=== PATIENT | female | born 1995 | race Caucasian/White ===

== ENCOUNTER 2020-12-01 21:54 | Emergency (ER) | payer OTHER, SELFPAY ==
--- NOTE | 2020-12-01 | ECG_ITS ---
Test Reason : ANXIETY Blood Pressure : / mmHG Vent. Rate : 061 BPM Atrial Rate : 061 BPM P-R Int : 198 ms QRS Dur : 084 ms QT Int : 376 ms P-R-T Axes : 051 075 050 degrees QTc Int : 378 ms Normal sinus rhythm Normal ECG When compared with ECG of 09-APR-2020 01:40, T wave inversion no longer evident in Anterior leads Referred By: Azeb Cordova Electronically Signed By:MELONY CEVALLOS
[2020-12-01 21:58] VITALS: BP 120/70; PULSE 105; O2SAT 100
[2020-12-01 22:10] VITALS: PULSE 70; RESP 16; TEMP 36.6; O2SAT 97; BMI 22.6
--- NOTE | 2020-12-01 22:23 | PC.NURSE ---
PT TO ED VIA AMBULANCE WITH C/O MID STERNAL CP, SHACKINESS, PT ON MONITOR.
--- NOTE | 2020-12-01 22:29 | PC.NURSE ---
PT CHG INTO GOWN. PT ON MONITOR WITH HR 78. MD AWARE OF PT.
--- NOTE | 2020-12-01 22:30 | PC.NURSE ---
EKG OBTAINED TO
--- NOTE | 2020-12-01 22:42 | ED.ANXIETY ---
HPI - Anxiety General Chief Complaint: Anxiety Stated Complaint: SEIZURE Time Seen by Provider: 12/01/20 22:34 Source: patient Mode of arrival: ambulatory Limitations: no limitations History of Present Illness HPI narrative: Patient comes to emergency room complaining of a panic attack. Patient states he has a have a therapist but has not seen anyone for several months now. States she does not like to take medications. In the last few weeks, she has had multiple panic attacks. This evening, patient was on the phone speaking with her neighbor, had a panic attack at home, her neighbor called EMS. Related Data Previous Rx's Medication Instructions Recorded hydroxyzine HCl 50 mg PO TID PRN #14 tab 12/01/20 Allergies Allergy/AdvReac Type Severity Reaction Status Date / Time penicillin G [PENICILLIN G] Allergy Mild SWELLING Unverified 05/28/20 19:11 SEAFOOD Allergy Unknown UNKNOWN Uncoded 05/28/20 19:11 Review of Systems Review of Systems: Constitutional : No Weight loss, No Fever, No Chills, No Night Sweats, No Fatigue, No Malaise ENT/Mouth : No Hearing loss, No Ear Pain, No Nasal Congestion, No Sinus Pain, No Hoarseness, No sore throat, No Rhinorrhea, No Swallowing Difficulty Eyes: No Eye Pain, No Swelling, No Redness, No Foreign Body, No Discharge, No Vision Changes Cardiovascular : Complaining of chest pain with anxiety, No SOB, No Dyspnea on Exertion, No Orthopnea, No Edema, No Palpitations Respiratory : No Cough, No Sputum, No Wheezing, No Smoke Exposure, No Dyspnea Gastrointestinal : No Nausea, No Vomiting, No Diarrhea, No Constipation, No abdominal Pain, No Hematochezia, No Melena Genitourinary : no irregular bleeding, No Dysuria, No Urinary Frequency, No Hematuria, No Urinary Incontinence, No Urgency, No Flank Pain, No Urinary Flow Changes, No Hesitancy Musculoskeletal : No joint pain, No Myalgias, No Joint Swelling Skin : No Skin Lesions, No rash Neuro : No Weakness, No Numbness, No Paresthesias, No Loss of Consciousness, No Dizziness, No Headache Psych : Complaining of anxiety, panic attack, depression, no SI or HI Heme/Lymph: No Bruising, No Bleeding,No Lymphadenopathy Endocrine : No Polyuria, No Polydipsia, No Temperature Intolerance [facility] Past Medical History Medical History (Updated 12/01/20 @ 22:45 by Azeb Cordova MD) Asthma Social History Social History Advance Directives: No Advance Directives Information Provided: Yes Physical Exam Vital Signs: Vital Signs: Last Vital Signs Temp 98 F 12/01/20 22:10 Pulse 70 12/01/20 22:10 Resp 16 12/01/20 22:10 Pulse Ox 97 12/01/20 22:10 Body Mass Index 22.6 Course Course Course Narrative: Patient feeling more relaxed, discussed the labs and EKG with the patient, no acute findings. Patient instructed to follow-up with her primary care physician, as she will likely benefit from a referral for therapy and long-term treatment for depression and anxiety MDM - Anxiety Lab Data Result diagrams: 12/01/20 22:53 12/01/20 22:53 Labs: Lab Results 12/01/20 12/01/20 12/01/20 Range/Units 22:53 22:53 22:53 WBC 10.5 (4.8-10.8) X10*3/uL RBC 4.90 (4.20-5.50) X10*6/uL Hgb 12.7 (12.0-16.0) g/dl Hct 38.8 (37-47) % MCV 79.2 L (80-98) fL MCH 25.9 L (27.0-33.0) pg MCHC 32.7 (31.0-35.0) g/dl RDW 13.1 (11.0-16.0) % Plt Count 290 (160-400) X10*3/uL MPV 10.5 (9.4-12.3) fL Immature Gran % (Auto) 0.3 (0.0-0.4) % Neut % (Auto) 57.2 (45-73) % Lymph % (Auto) 27.2 (20-40) % [place] % (Auto) 7.1 (2-11) % Eos % (Auto) 7.8 H (0-4) % Baso % (Auto) 0.4 (0-2) % Lymph # (Auto) 2.8 (1.2-4.9) X10*3/uL [place] # (Auto) 0.7 (0.1-1.2) X10*3/uL Eos # (Auto) 0.8 H (0.0-0.4) X10*3/uL Baso # (Auto) 0.0 (0.0-0.2) X10*3/uL Abs Immat Gran (auto) 0.03 (0.00-0.03) X10*3/uL Absolute Neuts (auto) 6.0 (2.0-8.3) X10*3/uL Absolute Nucleated RBC 0.000 (0.0-0.012) X10*3/uL Nucleated RBC % (auto) 0.0 (0.0-0.2) /100WBC Sodium 137 (135-145) mmol/L Potassium 3.9 (3.3-5.1) mmol/L Chloride 105 (96-108) mmol/L Carbon Dioxide 22 (22-29) mmol/L Anion Gap 14 (12-20) BUN 11 (9-16) mg/dL Creatinine 0.69 (0.5-1.4) mg/dL Estim Creat Clear Calc 106.7 Estimated GFR > 60 Random Glucose 93 (60-115) mg/dL Calcium 8.8 (8.4-10.2) mg/dL Troponin I High Sens < 3.5 (<3.5-17.0) ng/L ECG Data Attestation: I personally reviewed and interpreted this ECG as follows: (Heart rate 61, no ST segment depression or elevation, no T-wave inversion, QTC 378) Discharge Plan Discharge Clinical Impression: Acute anxiety Patient Disposition: Home, Self-Care Instructions: Panic Attack (ED) Additional Instructions: Please follow-up with your primary care physician tomorrow. If you have any worsening or new symptoms, please return to the emergency room or call 911 Prescriptions: New hydroxyzine HCl 50 mg tablet 50 mg PO TID PRN (Reason: nausea and vomiting) Qty: 14 RF: 0
[2020-12-01 22:58] LABS: MANUAL DIFF FLAG NO
[2020-12-01 22:59] LABS: Basophils Percent Auto 0.4 % (0-2); Eosinophils Absolute Auto 0.8 X10*3/uL (0.0-0.4); Eosinophils Percent Auto 7.8 % (0-4); Hematocrit 38.8 % (37-47); Hemoglobin 12.7 g/dl (12.0-16.0); Imm Gran Abs Auto 0.03 X10*3/uL (0.00-0.03); Imm Gran Pct Auto 0.3 % (0.0-0.4); Lymphocytes Absolute Auto 2.8 X10*3/uL (1.2-4.9); Lymphocytes Percent Auto 27.2 % (20-40); Mean Corpuscular HGB Conc 32.7 g/dl (31.0-35.0); Mean Corpuscular Hemoglobin 25.9 pg (27.0-33.0); Mean Corpuscular Volume 79.2 fL (80-98); Mean Platelet Volume 10.5 fL (9.4-12.3); Monocytes Absolute Auto 0.7 X10*3/uL (0.1-1.2); Monocytes Percent Auto 7.1 % (2-11); Neutrophils Percent Auto 57.2 % (45-73); Platelet Count 290 X10*3/uL (160-400); Red Cell Distribution Width 13.1 % (11.0-16.0); White Blood Count 10.5 X10*3/uL (4.8-10.8)
[2020-12-01 23:19] LABS: Anion Gap 14 (12-20); Blood Urea Nitrogen 11 mg/dL (9-16); Calcium 8.8 mg/dL (8.4-10.2); Carbon Dioxide 22 mmol/L (22-29); Chloride 105 mmol/L (96-108); Creatinine Clr Calc Pharmacy 106.7; Estimated Glomerular Filt Rate > 60; Glucose Random 93 mg/dL (60-115); Potassium 3.9 mmol/L (3.3-5.1); Sodium 137 mmol/L (135-145)
[2020-12-01 23:25] LABS: Troponin-I High Sensitivity < 3.5 ng/L (<3.5-17.0)
== END 2020-12-02 00:12 | disposition home or self-care (01) ==
PROVIDERS: Emergency Provider Emergency Medicine; PCP Pediatrics
DX: F41.1 Generalized anxiety disorder (principal); F43.0 Acute stress reaction; F41.0 Panic disorder [episodic paroxysmal anxiety]; Z79.899 Other long term (current) drug therapy
CPT/HCPCS: 36415; 80048; 84484; 85025; 93005; 99282; 99283

== ENCOUNTER 2020-12-16 07:59 | Emergency (ER) | payer OTHER, SELFPAY ==
--- NOTE | ~2020-12-16 | XR_ITS ---
EXAMINATION: XR CHEST CLINICAL INFORMATION: Left lower pleuritic pain COMPARISON: September 22, 2019 TECHNIQUE: AP portable view of the chest was obtained. FINDINGS: No significant abnormality is noted involving the heart, lungs, mediastinum, bony thorax or soft tissues. XR/XR chest 1V IMPRESSION: No acute disease.
[2020-12-16 08:10] VITALS: BP 118/75; PULSE 72; RESP 18; TEMP 36.4; O2SAT 97; BMI 18.8
[2020-12-16 09:45] LABS: MANUAL DIFF FLAG NO
[2020-12-16] MEDS: Lidocaine 4 % Patch ADH..PATCH 1 PATCH TRANSDERMA (09:46)
[2020-12-16] MEDS: Magnesium Sulfate/H2O 2 GM/50 ML PIGGYBACK IV (09:46)
[2020-12-16 09:47] LABS: Basophils Percent Auto 0.3 % (0-2); Eosinophils Absolute Auto 0.9 X10*3/uL (0.0-0.4); Eosinophils Percent Auto 10.3 % (0-4); Hemoglobin 13.8 g/dl (12.0-16.0); Imm Gran Abs Auto 0.02 X10*3/uL (0.00-0.03); Imm Gran Pct Auto 0.2 % (0.0-0.4); Lymphocytes Absolute Auto 2.2 X10*3/uL (1.2-4.9); Lymphocytes Percent Auto 24.6 % (20-40); Mean Corpuscular HGB Conc 32.9 g/dl (31.0-35.0); Mean Corpuscular Hemoglobin 26.4 pg (27.0-33.0); Mean Corpuscular Volume 80.3 fL (80-98); Mean Platelet Volume 10.5 fL (9.4-12.3); Monocytes Absolute Auto 0.7 X10*3/uL (0.1-1.2); Neutrophils Absolute Auto 4.9 X10*3/uL (2.0-8.3); Neutrophils Percent Auto 56.6 % (45-73); Platelet Count 276 X10*3/uL (160-400); Red Blood Count 5.23 X10*6/uL (4.20-5.50); White Blood Count 8.7 X10*3/uL (4.8-10.8)
[2020-12-16] MEDS: Ketorolac Tromethamine 30 MG/ML VIAL IVPUSH (09:47)
[2020-12-16] MEDS: methylPREDNISolone Sod Succ 125 MG/2 ML VIAL 80 MG IVPUSH (09:47)
--- NOTE | 2020-12-16 09:48 | ED_ITS ---
HPI - General Adult General Chief complaint: General Medical Stated complaint: flank pain Time Seen by Provider: 12/16/20 09:01 Source: patient Mode of arrival: ambulatory Limitations: no limitations History of Present Illness HPI narrative: 25 y/o female with history of asthma presents to the ED with left lower rib pain and painful inspiration since yesterday. She has had coughing fits for the last 3 days with resulting pain after a fit yesterday. Her cough is productive of clear phlegm. She has been using her inhaler for wheezing and coughing with minimal improvement. She denies fevers. No known COVID exposure. She denies trauma. No urinary symptoms or abdominal pain. She is on oral control. She denies personal or family history of blood clots. MD complaint: left sided rib pain Onset (ago): day(s) (1) Location: chest Radiation: non-radiation Severity: moderate Severity scale (1-10): 7 Quality: stabbing and aching Pain Consistency: constant Relieving factors: immobilization Exacerbating factors: movement and other (coughing, deep breathing) Associated symptoms: cough, fever/chills, nausea/vomiting and shortness of b reath Treatments prior to arrival: none Related Data Previous Rx's Medication Instructions Recorded hydroxyzine HCl 50 mg PO TID PRN #14 tab 12/01/20 albuterol sulfate 1 inh INHALATION QID PRN #6.7 g 12/16/20 azithromycin [Zithromax Z-Rod] See Rx Instructions .ROUTE 12/16/20 .COMPLEX #6 tab hydrocodone-homatropine [Hycodan] 5 ml PO Q6H PRN #60 ml 12/16/20 lidocaine [Lidoderm] 1 patch TOPICAL DAILY #15 ea 12/16/20 prednisone 40 mg PO DAILY #10 tab 12/16/20 Allergies Allergy/AdvReac Type Severity Reaction Status Date / Time penicillin G [PENICILLIN G] Allergy Mild SWELLING Unverified 05/28/20 19:11 SEAFOOD Allergy Unknown UNKNOWN Uncoded 05/28/20 19:11 Review of Systems Review of Systems: Constitutional: No Fever, No Chills ENT/Mouth: No sore throat, No Rhinorrhea, No Swallowing Difficulty Eyes: No Eye Pain, No Swelling, No Redness Cardiovascular: No Chest Pain, + SOB, No Orthopnea, No Edema Respiratory: + Cough, + Sputum, + Wheezing, + dyspnea Gastrointestinal: No Nausea, No Vomiting, No Diarrhea, No abdominal Pain Genitourinary: No Dysuria, No Urinary Frequency, No Hematuria Musculoskeletal: No joint pain, No Myalgias Skin: No Skin Lesions, No rash Neuro: No Weakness, No Numbness, No Dizziness, + Headache Heme/Lymph: No Bruising, No Lymphadenopathy PMFSH Past Medical History Attestation statement: The following information was validated with the patient. Medical History Asthma Social History Social History Advance Directives: Yes Advance Directives Information Provided: No Advance Directives on File: No Physical Exam Vital Signs: Vital Signs: Last Vital Signs Temp 97.5 F 12/16/20 08:10 Pulse 62 12/16/20 10:54 Resp 18 12/16/20 08:10 BP 118/75 12/16/20 08:10 Pulse Ox 97 12/16/20 08:10 Body Mass Index 18.8 Appearance: Alert. Oriented X3. Appers uncomfortable Eyes: Pupils equal, round and reactive to light. ENT: Pharynx normal. Neck: Normal inspection. Neck supple. CVS: Normal heart rate and rhythm. Pulses normal. Respiratory: No respiratory distress. Breath sounds with expiratory wheezing throughout, prolonged expiratory phase, significant tenderness to left lower ribs on lateral aspect Abdomen: Soft and nontender. +BS x4 Skin: Skin warm and dry. Normal skin color. Normal skin turgor. No rashes. Extremities: No lower extremity edema. Negative Ronit's sign Neuro: Oriented X 3. No motor deficit. No sensory deficit. Course Course Course Narrative: 25 y/o female with history of PE presents with wheezing and left sided rib/lung pain in the setting of URI symptoms and severe coughing fits. Ddx includes but not limited to asthma exacerbation, pneumonia, pneumothorax, PE. Doubt kidney stone. For her wheezing, will give IV solumedrol, IV mg+ and hour long albuterol neb. Will get labs and CXR as well. Will reassess after nebs. COVID sawb ordered. Reevaluation(s) Reevaluation #1: CXR negative. COVID negative. DDIMER negative. Pain significant improved after treatment. She is oxygenating well and in no respiratory distress. She is stable for discharge with treatment for acute asthma exacerbation and bronchitis. Patient agreeable with plan. Medical Decision Making Lab Data Result diagrams: 12/16/20 09:39 12/16/20 09:39 Labs: Lab Results 12/16/20 12/16/20 12/16/20 Range/Units 09:39 09:39 09:39 WBC 8.7 (4.8-10.8) X10*3/uL RBC 5.23 (4.20-5.50) X10*6/uL Hgb 13.8 (12.0-16.0) g/dl Hct 42.0 (37-47) % MCV 80.3 (80-98) fL MCH 26.4 L (27.0-33.0) pg MCHC 32.9 (31.0-35.0) g/dl RDW 13.0 (11.0-16.0) % Plt Count 276 (160-400) X10*3/uL MPV 10.5 (9.4-12.3) fL Immature Gran % (Auto) 0.2 (0.0-0.4) % Neut % (Auto) 56.6 (45-73) % Lymph % (Auto) 24.6 (20-40) % [place] % (Auto) 8.0 (2-11) % Eos % (Auto) 10.3 H (0-4) % Baso % (Auto) 0.3 (0-2) % Lymph # (Auto) 2.2 (1.2-4.9) X10*3/uL [place] # (Auto) 0.7 (0.1-1.2) X10*3/uL Eos # (Auto) 0.9 H (0.0-0.4) X10*3/uL Baso # (Auto) 0.0 (0.0-0.2) X10*3/uL Abs Immat Gran (auto) 0.02 (0.00-0.03) X10*3/uL Absolute Neuts (auto) 4.9 (2.0-8.3) X10*3/uL Absolute Nucleated RBC 0.000 (0.0-0.012) X10*3/uL Nucleated RBC % (auto) 0.0 (0.0-0.2) /100WBC D-Dimer < 200 NG/ML Hold Blue Top SEE NOTE Sodium 140 (135-145) mmol/L Potassium 4.2 (3.3-5.1) mmol/L Chloride 105 (96-108) mmol/L Carbon Dioxide 29 (22-29) mmol/L Anion Gap 10 L (12-20) BUN 13 (9-16) mg/dL Creatinine 0.71 (0.5-1.4) mg/dL Estim Creat Clear Calc 94.5 Estimated GFR > 60 Random Glucose 86 (60-115) mg/dL Calcium 9.0 (8.4-10.2) mg/dL Procalcitonin ng/mL COVID-19 ([facility]) (Negative) COVID-19 Clin Com 12/16/20 12/16/20 Range/Units 09:39 09:39 WBC (4.8-10.8) X10*3/uL RBC (4.20-5.50) X10*6/uL Hgb (12.0-16.0) g/dl Hct (37-47) % MCV (80-98) fL MCH (27.0-33.0) pg MCHC (31.0-35.0) g/dl RDW (11.0-16.0) % Plt Count (160-400) X10*3/uL MPV (9.4-12.3) fL Immature Gran % (Auto) (0.0-0.4) % Neut % (Auto) (45-73) % Lymph % (Auto) (20-40) % [place] % (Auto) (2-11) % Eos % (Auto) (0-4) % Baso % (Auto) (0-2) % Lymph # (Auto) (1.2-4.9) X10*3/uL [place] # (Auto) (0.1-1.2) X10*3/uL Eos # (Auto) (0.0-0.4) X10*3/uL Baso # (Auto) (0.0-0.2) X10*3/uL Abs Immat Gran (auto) (0.00-0.03) X10*3/uL Absolute Neuts (auto) (2.0-8.3) X10*3/uL Absolute Nucleated RBC (0.0-0.012) X10*3/uL Nucleated RBC % (auto) (0.0-0.2) /100WBC D-Dimer NG/ML Hold Blue Top Sodium (135-145) mmol/L Potassium (3.3-5.1) mmol/L Chloride (96-108) mmol/L Carbon Dioxide (22-29) mmol/L Anion Gap (12-20) BUN (9-16) mg/dL Creatinine (0.5-1.4) mg/dL Estim Creat Clear Calc Estimated GFR Random Glucose (60-115) mg/dL Calcium (8.4-10.2) mg/dL Procalcitonin < 0.02 ng/mL COVID-19 ([facility]) Negative (Negative) COVID-19 Clin Com See Note Discharge Plan Discharge Clinical Impression: Asthma exacerbation Qualifiers: Asthma severity: unspecified severity Asthma persistence: intermittent Qualified Code(s): J45.21 - Mild intermittent asthma with (acute) exacerbation Patient Disposition: Home, Self-Care Instructions: Asthma (ED), Bronchospasm (ED) Additional Instructions: Your chest x-ray was negative for pneumonia. Your COVID test was negative. Your blood workup was unremarkable. You are being treated for asthma exacerbation and bronchitis. Take all of the medications as prescribed. Follow up with your doctor within 1 week. If you have nay worsening symptoms come back to the ER for further evaluation. Prescriptions: New albuterol sulfate 90 mcg/actuation HFA aerosol inhaler 1 inh inhalation QID PRN (Reason: shortness of breath or wheezing) Qty: 6.7 RF: 0 azithromycin [Zithromax Z-Rod] 250 mg tablet See Rx Instructions .ROUTE .COMPLEX Qty: 6 RF: 0 prednisone 20 mg tablet 40 mg PO DAILY Qty: 10 RF: 0 lidocaine [Lidoderm] 5 % adhesive patch,medicated 1 patch topical DAILY Qty: 15 RF: 0 hydrocodone-homatropine [Hycodan] 5-1.5 mg/5 mL (5 mL) syrup 5 ml PO Q6H PRN (Reason: cough) Qty: 60 RF: 0 No Action hydroxyzine HCl 50 mg tablet 50 mg PO TID PRN (Reason: nausea and vomiting) Qty: 14 RF: 0 Interventions: ED Discharge Assessment Last Done: 12/16/20 12:08 Discharge Date/Time: 12/16/20 12:08
[2020-12-16 10:05] LABS: COVID-19 Test Negative (Negative)
[2020-12-16 10:11] LABS: Anion Gap 10 (12-20); Carbon Dioxide 29 mmol/L (22-29); Chloride 105 mmol/L (96-108); Creatinine Clr Calc Pharmacy 94.5; Estimated Glomerular Filt Rate > 60; Glucose Random 86 mg/dL (60-115); Potassium 4.2 mmol/L (3.3-5.1); Sodium 140 mmol/L (135-145)
[2020-12-16 10:13] LABS: Blood Urea Nitrogen 13 mg/dL (9-16)
[2020-12-16 10:20] LABS: D Dimer < 200 NG/ML
[2020-12-16 10:32] LABS: Procalcitonin < 0.02 ng/mL
[2020-12-16 10:54] VITALS: PULSE 62; O2SAT 96
[2020-12-16] MEDS: Albuterol Sulfate (0.083%) 2.5 MG/3 ML VIAL.NEB 10 MG INHALE (10:54)
== END 2020-12-16 12:08 | disposition home or self-care (01) ==
PROVIDERS: Physician Assistant; Emergency Provider Emergency Medicine Emergency Medical Services; PCP Pediatrics
DX: J45.21 Mild intermittent asthma with (acute) exacerbation (principal); R07.81 Pleurodynia; Z79.899 Other long term (current) drug therapy; Z20.822 Contact with and (suspected) exposure to COVID-19
CPT/HCPCS: 36415; 71045; 80048; 84145; 85025; 85379; 87635; 94640; 94644; 99283; J1885; J2930; J3475

== ENCOUNTER 2021-06-03 08:44 | Emergency (ER) | payer OTHER, SELFPAY | END 2021-06-03 10:18 | disposition left against medical advice (07) | LOC: HO.ED 10:10 | PROVIDERS: Emergency Provider Emergency Medicine; PCP Pediatrics | DX: F41.1 Generalized anxiety disorder (principal); F43.0 Acute stress reaction ==

== ENCOUNTER 2021-07-14 12:40 | Outpatient (REF) | payer OTHER, SELFPAY | END 2021-07-14 12:41 | disposition home or self-care (01) | LOC: HO.LAB 12:40 | PROVIDERS: Visit Provider Internal Medicine | DX: Z20.822 Contact with and (suspected) exposure to COVID-19 (principal) | CPT/HCPCS: C9803; U0003; U0005 ==

== ENCOUNTER 2021-08-19 18:55 | Emergency (ER) | payer OTHER, SELFPAY ==
--- NOTE | ~2021-08-19 | XR_ITS ---
EXAMINATION: XR CHEST CLINICAL INFORMATION: Covid, with painful cough COMPARISON: None TECHNIQUE: Frontal view of the chest was obtained. FINDINGS: There may be some ill-defined opacities present in both lower lobes, but the finding is subtle, if real. No other abnormality is noted involving the heart, lungs, mediastinum, bony thorax or soft tissues. XR/XR chest 1V IMPRESSION: Some questionable areas of opacity at the lung bases.
[2021-08-19 19:55] VITALS: BP 125/71; PULSE 83; RESP 18; TEMP 37.4; O2SAT 100
--- NOTE | 2021-08-19 21:10 | ED_ITS ---
HPI - URI/Sore Throat General Chief Complaint: Upper Respiratory Symptoms Stated Complaint: COVID (+) diff breathing Source: patient Mode of arrival: ambulatory Limitations: no limitations History of Present Illness MD elicited complaint: fever and cough Onset (ago): day(s) (1) Consistency: constant Severity: moderate Pain scale (0-10): 5 Description of mucous: clear Able to tolerate fluids by mouth: Yes Exacerbating factors: deep breaths Relieving factors: nothing Associated symptoms: chills, myalgias, nasal congestion, sore throat, cough and chest pain Treatments prior to arrival: none Related Data Previous Rx's Medication Instructions Recorded hydroxyzine HCl 50 mg tablet 50 mg PO TID PRN #14 tab 12/01/20 albuterol sulfate 90 mcg/actuation 1 inh INHALATION QID PRN #6.7 g 12/16/20 aerosol inhaler azithromycin 250 mg tablet See Rx Instructions .ROUTE 12/16/20 (Zithromax Z-Rod) .COMPLEX #6 tab hydrocodone-homatropine 5 mg-1.5 5 ml PO Q6H PRN #60 ml 12/16/20 mg/5 mL (5 mL) oral syrup (Hycodan) lidocaine 5 % topical patch 1 patch TOPICAL DAILY #15 ea 12/16/20 (Lidoderm) prednisone 20 mg tablet 40 mg PO DAILY #10 tab 12/16/20 codeine 10 mg-guaifenesin 100 mg/5 10 ml PO Q4-6H PRN #473 ml 08/19/21 mL oral liquid Allergies Allergy/AdvReac Type Severity Reaction Status Date / Time penicillin G [PENICILLIN G] Allergy Mild SWELLING Verified 08/19/21 19:54 SEAFOOD Allergy Unknown UNKNOWN Uncoded 08/19/21 19:54 Review of Systems Review of Systems: Constitutional: positive Fever, positive Chills, positive fatigue, positive Malaise ENT/Mouth: positive sore throat, positive runny nose Eyes: No Discharge Cardiovascular: Positive Chest Pain, No SOB Respiratory: Positive Cough, No Sputum, No Wheezing, No Smoke Exposure, No Dyspnea Gastrointestinal: No Nausea, No Vomiting, No Diarrhea Genitourinary: no irregular bleeding, No Dysuria, No Urinary Frequency, No Hematuria, No Urinary Incontinence, No Urgency, No Flank Pain, Musculoskeletal: positive Myalgia Skin: No rash Neuro: No Headache Yes all other systems are reviewed and are negative PMFSH Past Medical History Attestation statement: The following information was validated with the patient. Source: old records reviewed Medical History Asthma Rib fracture Social History Social History Advance Directives: No Advance Directives Information Provided: Yes Patient : No Physical Exam Vital Signs: Vital Signs: Last Vital Signs Temp 99.3 F 08/19/21 19:55 Pulse 83 08/19/21 19:55 Resp 18 08/19/21 19:55 BP 125/71 08/19/21 19:55 Pulse Ox 100 08/19/21 19:55 BMI result Body Mass Index 20.0 Appearance: Alert. Oriented X3. No acute distress. Appears tired. Eyes: Pupils equal, round and reactive to light. Sclera nonicteric. ENT: Pharynx normal. Moist mucous membranes. Neck: Normal inspection. Neck supple. CVS: Normal heart rate and rhythm. Pulses normal. Respiratory: No respiratory distress. Breath sounds normal. Abdomen: Soft and nontender. Skin: Skin warm and dry. Normal skin color. Normal skin turgor. Extremities: No lower extremity edema. Gait well balance well coordinated. Neuro: No motor deficit. No sensory deficit. Cranial nerves 2-12 intact. Course Course Course Narrative: 26-year-old female positive for COVID-19 earlier today presents with decreased appetite and chest pain. Reports that she fractured ribs in February and that she is concerned because the pain in her chest feels similar to her prior rib fracture. Will order x-ray. Discussed in detail supportive measures for COVID-19. Patient is afebrile, appears nontoxic, vital signs are within normal limits and stable. 9:11 p.m. x-rays negative for fracture but does show opacities consistent COVID- 19. Plan of care is for discharge home with supportive measures. Patient verbalized understanding of and agrees to plan. MDM - URI/Sore Throat MDM Narrative Medical decision making narrative: COVID-19, rib fracture, pneumonia Differential Diagnosis Differential diagnosis: Likely upper respiratory infection, bronchitis, influenza and pharyngitis Medical Records Attestation: I reviewed the patient's medical records. Imaging Data Chest x-ray: Attestation: I personally reviewed and interpreted this imaging study as follows: Radiologist's impression: EXAMINATION: XR CHEST CLINICAL INFORMATION: Covid, with painful cough COMPARISON: None TECHNIQUE: Frontal view of the chest was obtained. FINDINGS: There may be some ill-defined opacities present in both lower lobes, but the finding is subtle, if real. No other abnormality is noted involving the heart, lungs, mediastinum, bony thorax or soft tissues. XR/XR chest 1V IMPRESSION: Some questionable areas of opacity at the lung bases. Discharge Plan Discharge Clinical Impression: COVID-19, Rib pain Patient Disposition: Home, Self-Care Instructions: Covid-19 Viral Syndrome and Novel Coronavirus (ED) Hey/Ath, Costochondritis (ED) Additional Instructions: You were evaluated for chest pain associated with positive COVID-19 diagnosis. Please maintain social isolation guidelines per State and Federal regulations for COVID-19. Thank you for choosing this emergency department for evaluation. Please follow-up with primary care physician as needed. Return to the emergency department for any new, concerning, or worsening symptoms. Prescriptions: New codeine-guaifenesin 10-100 mg/5 mL liquid 10 ml PO Q4-6H PRN (Reason: cough) Qty: 473 RF: 0 No Action hydroxyzine HCl 50 mg tablet 50 mg PO TID PRN (Reason: nausea and vomiting) Qty: 14 RF: 0 albuterol sulfate 90 mcg/actuation HFA aerosol inhaler 1 inh inhalation QID PRN (Reason: shortness of breath or wheezing) Qty: 6.7 RF: 0 azithromycin [Zithromax Z-Rod] 250 mg tablet See Rx Instructions .ROUTE .COMPLEX Qty: 6 RF: 0 prednisone 20 mg tablet 40 mg PO DAILY Qty: 10 RF: 0 lidocaine [Lidoderm] 5 % adhesive patch,medicated 1 patch topical DAILY Qty: 15 RF: 0 hydrocodone-homatropine [Hycodan] 5-1.5 mg/5 mL (5 mL) syrup 5 ml PO Q6H PRN (Reason: cough) Qty: 60 RF: 0 Interventions: ED Discharge Assessment Last Done: 08/19/21 22:18 Discharge Date/Time: 08/19/21 22:20
[2021-08-19] MEDS: Acetaminophen 325 MG TABLET 650 MG PO (22:02)
[2021-08-19] MEDS: guaiFEN/Codeine SF 200/20/10ML 10 ML LIQUID PO (22:03)
== END 2021-08-19 22:20 | disposition home or self-care (01) ==
PROVIDERS: Emergency Provider Internal Medicine
DX: U07.1 COVID-19 (principal); R07.81 Pleurodynia; R50.9 Fever, unspecified
CPT/HCPCS: 71045; 99283; 99284

== ENCOUNTER 2021-12-27 21:22 | Emergency (ER) | payer OTHER, SELFPAY ==
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
[2021-12-27 21:59] VITALS: BP 110/75; BP 139/88; PULSE 80; PULSE 94; RESP 16; TEMP 36.9; O2SAT 98; O2SAT 99; BMI 19.2
--- NOTE | 2021-12-27 22:11 | PC.NURSE ---
Carlos Durbin (pts father, grandfather of child) [phone]. This RN filing a 51A, pt aware.
--- NOTE | 2021-12-27 22:17 | PHA.MEDREC ---
Pharmacy Consult ? Medication Reconciliation Pharmacy has completed the medication reconciliation. PATIENT REPORTS NO MEDS
[2021-12-27 22:35] LABS: MANUAL DIFF FLAG NO
[2021-12-27 22:36] LABS: Basophils Percent Auto 0.3 % (0-2); Eosinophils Absolute Auto 0.5 X10*3/uL (0.0-0.4); Eosinophils Percent Auto 5.5 % (0-4); Hematocrit 39.1 % (37.0-47.0); Hemoglobin 12.8 g/dl (12.0-16.0); Imm Gran Abs Auto 0.03 X10*3/uL (0.00-0.03); Imm Gran Pct Auto 0.3 % (0.0-0.4); Lymphocytes Absolute Auto 2.8 X10*3/uL (1.2-4.9); Lymphocytes Percent Auto 29.2 % (20-40); Mean Corpuscular HGB Conc 32.7 g/dl (31.0-35.0); Mean Corpuscular Volume 79.5 fL (80.0-98.0); Mean Platelet Volume 10.5 fL (9.4-12.3); Monocytes Absolute Auto 0.8 X10*3/uL (0.1-1.2); Monocytes Percent Auto 8.4 % (2-11); Neutrophils Absolute Auto 5.3 x10*3/uL (2.0-8.3); Neutrophils Percent Auto 56.3 % (45-73); Platelet Count 283 X10*3/uL (160-400); Red Blood Count 4.92 X10*6/uL (4.20-5.50); Red Cell Distribution Width 13.5 % (11.0-16.0); White Blood Count 9.5 X10*3/uL (4.8-10.8)
[2021-12-27 22:44] LABS: COVID-19 Test Positive (Negative); IDNOW Serial# 55D5AD1C
[2021-12-27 22:51] LABS: Ethanol 56 mg/dL
[2021-12-27 22:53] LABS: Alanine Aminotransferase 11 U/L (0-31); Alkaline Phosphatase 45 U/L (39-117); Anion Gap 14 (12-20); Aspartate Amino Transferase 14 U/L (5-31); Bilirubin Total 0.3 mg/dL (0.0-1.0); Blood Urea Nitrogen 13 mg/dL (9-16); Calcium 9.7 mg/dL (8.4-10.2); Carbon Dioxide 23 mmol/L (22-29); Chloride 106 mmol/L (96-108); Creatinine Clr Calc Pharmacy 89.2; Estimated Glomerular Filt Rate > 60; Glucose Random 90 mg/dL (60-115); Magnesium 1.8 mg/dL (1.6-2.6); Potassium 4.1 mmol/L (3.3-5.1); Sodium 139 mmol/L (135-145); Total Protein 7.1 g/dL (6.5-8.0)
--- NOTE | 2021-12-27 23:09 | PC.NURSE ---
Karen Wiggins sister of the patients grandfather ([phone]) arrives @ [facility] inquiring about picking up pts son. Celia WALKER discussing plan with Karen, plan to await DCFs response prior to allowing anyone to take the child home.
--- NOTE | 2021-12-27 23:39 | PC.NURSE ---
DCF arrives at bedside to interview mom and child.
[2021-12-28 03:13] LABS: Appearance Urine HAZY; Color Urine YELLOW; Glucose Urine UA NEG (NEG); Leukocyte Esterase Urine NEG (NEG); Nitrite Urine NEG (NEG); PH 7.5 (5.0-8.0); UACC Culture Trigger NO; Urine Blood 3+ (NEG); Urine Ketones NEG (NEG); Urine Protein NEG (NEG-TRACE)
[2021-12-28 03:21] LABS: Bacteria Urine 3+ /LPF; Mucus Urine 1+ /LPF; RBC Urine 0-2 /HPF (0); Squamous Epithelial Cell Urine 3+ /LPF; WBC Urine 0-2 /HPF (0-4)
[2021-12-28 03:30] LABS: Amphetamine Screen Urine Not Detected (Not Detect); Barbiturates, Urine Not Detected (Not Detect); Benzodiazepines Screen Urine Not Detected (Not Detect); Cannabinoid Screen Urine POSITIVE (Not Detect); Cocaine Screen Urine POSITIVE (Not Detect); Fentanyl, urine Not Detected (Not Detect); Opiate Screen Urine Not Detected (Not Detect); Phencyclidine Screen Urine Not Detected (Not Detect)
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
[2021-12-28 06:06] VITALS: BP 111/76; PULSE 73; RESP 16; TEMP 37.1; O2SAT 96
--- NOTE | 2021-12-28 06:09 | PC.NURSE ---
pt is calm and sleeping at this time. [facility] did clear pt to do home, per provider request pt is to remain here and be revaluated.
[2021-12-28 15:14] VITALS: BP 103/54; PULSE 73; RESP 16; TEMP 36.9; O2SAT 98
--- NOTE | 2021-12-28 15:41 | PC.NURSE ---
aSSUMED CARE OF PT AT 0700, PT SLEEPING ON AND OFF THROUGHOUT THE DAY. Plan for [facility] reeval. Pt calm and cooperative. No complaints, call amado within reach. Will continue to monitor.
== END 2021-12-28 16:25 | disposition home or self-care (01) ==
PROVIDERS: Physician Assistant; Emergency Provider Internal Medicine
DX: F33.1 Major depressive disorder, recurrent, moderate (principal); R45.851 Suicidal ideations; F41.1 Generalized anxiety disorder; F43.0 Acute stress reaction; U07.1 COVID-19; F10.129 Alcohol abuse with intoxication, unspecified; Y90.2 Blood alcohol level of 40-59 mg/100 ml; Z79.899 Other long term (current) drug therapy
CPT/HCPCS: 80053; 80307; 81001; 82077; 83735; 85025; 87635; 99285

== ENCOUNTER 2022-01-28 10:30 | Outpatient (RCR) | payer OTHER, SELFPAY ==
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
--- NOTE | 2022-01-07 12:51 | PM.EVENT ---
Event Note Date of Service: 01/07/22 Event Note: Patient did not log into her schedule 12:30 appointment. I left a message at her phone number, at 12:40 p.m.
--- NOTE | 2022-01-10 15:45 | PC.NURSE ---
Case opened in treatment team.
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
--- NOTE | 2022-01-11 16:11 | PC.NURSE ---
I called and spoke with pt. Reviewed treatment plan and discussed tentative end date of program.
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
--- NOTE | 2022-01-14 09:46 | PC.NURSE ---
Patient did not show up to community meeting. Called patient who answered the phone, sounded exhausted. Stated she was up all night vomiting. Stated she does not feel well. Does not think it is medication related. Thinks it was something she ate last night. Denied any safety issues. Denied thoughts to harm or kill herself. Patient plans to rest today. Encouraged patient to drink fluids and if symptoms do not subside or worsen to seek medical attention. PHP team is aware.
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
--- NOTE | 2022-01-19 08:51 | PC.NURSE ---
I called and checked in with pt as planned. She said she is safe and alone. She then said she has a therapy appt at 12:15. I asked her if she can re-schedule, as she is scheduled to be in [facility], and she said she would.
--- NOTE | 2022-01-20 16:22 | PC.NURSE ---
Pt informed me that she has to meet with DCF tomorrow morning (01/21) to sign over temporary custody of her son to her father. She said she will be in program if she is able to make it by our cutoff time of 10:45.
--- NOTE | 2022-01-21 12:24 | PC.NURSE ---
I received an email from [facility] with intake times for therapy and med management for pt. I called her and left a message asking her to pls call.
--- NOTE | 2022-01-24 10:57 | P.PNPSP_ITS ---
Subjective Subjective Date of Service: 01/24/22 Reason For Visit: anxiety,depression Guardianship: No Medical Problems Affecting Mental Status: No Interim History: Continues with dysphoric, anxious mood/affect, reports I had a bad weekend . States clonidine is helpful, asking for it TID. No SI/HI/SIB, states I feel safe . Medication Compliance: Yes Side effects from medications: No Attending Groups: Yes Review of Systems Acute medical concerns: No Medical Review of Systems: unchanged Review of Systems Review of Systems Yes all other systems are reviewed and are negative Constitutional: Reports no additional constitutional complaints Mental Status Exam Mental Status Exam Narrative: NAD. Anxious, depressed mood/affect. Patient Appearance: Well Grooomed and Appropriate Patient Orientation: Person, Place, Time and Situation Level of Consciousness: Appropriate Patient Behavior: Appropriate, Cooperative and Good Eye Contact Mood Description: Depressed and Anxious Affect Description: Depressed and Anxious Patient Cognition Impaired: No Ability to Follow Directions: Good Speech Pattern: Clear, Appropriate and Coherent Memory Description: Intact Hallucinations: None Delusions: Not Present Thought Process: Intact Thought Content: positive for Intact Depressive Symptoms: Increased Anxiety, Increased Irritability, Difficulty Sleeping, Loss of Int. in Activity, Feelings of Worthlessness, Hopelessness, Feelings of Guilt, Unhappiness, Increased Fatigue and Difficulty Concentrating Judgement: Fair Assessment & Plan Assessment & Plan (1) Major depressive disorder, recurrent severe without psychotic features: Status: Acute Code(s): F33.2 - Major depressive disorder, recurrent severe without psychotic features Assessment and Plan: Patient continues with depressed, anxious mood and affect. Reports had a bad weekend, angry outbursts. No SI/HI/SIB, no safety concerns at this time. Discussed medication increases in order to help with anxiety and depression/irritability. Discussed indications, risks, including adverse effects both serious and common, benefits, and alternatives of treatment recommendations. She is willing to try increased dose of clonidine and escitalopram at this time. (2) Generalized anxiety disorder: Status: Acute Code(s): F41.1 - Generalized anxiety disorder (3) Post-traumatic stress disorder, chronic: Status: Acute Code(s): F43.12 - Post-traumatic stress disorder, chronic Assessment and Plan: Continues with irritability, exaggerated startle response, hyperarousal/hypervigilance. Willing to trial increased frequency of clonidine at this time, as she reports it is helping somewhat with symptoms. No nightmares or flashbacks reported. Plan 1. Continue with current [facility] plan of care. 2. Increase clonidine to 0.1 mg t.i.d.. 3. Increase escitalopram to 20 mg daily. Patient educated on: diagnosis, medication risk/benefits and therapeutic strategies Informed Consent: understands Reason for contiued partial hosp. stay Substantial Risk for: harm to self, harm to others, inability to function and med/psych decompensation Certification I certify that partial hospital treatment is medically necessary due to the symptoms and problems resulting from the patient's mental illness and the failure to treat the patient at the partial hospital level of care would likely result in the patient requiring inpatient psychiatric care which could not be prevented at a less intensive level of care. I spent minutes with the patient and/or on the patient floor today, greater than?50% of which was spent counseling/coordinating care. Discharge Plan Discharge Attending provider: Parvez Blair Additional Instructions: In-person appt at [facility] for individual therapy intake at [address] [place] [id number] with Lola Schmitt, 01/28/22 at 2pm. Telehealth appt at [facility] for psychiatric evaluation with Anastasiya Durbin on 02/22/22 at 9am until 10am. Telehealth appt at [facility] for medication management with Anastasiya Durbin on 03/22/22 at 1:40 to 2pm. Medications: New hydroxyzine HCl 10 mg tablet 10 mg PO TID PRN (Reason: anxiety) 14 Days Qty: 42 0RF clonidine HCl 0.1 mg tablet 0.1 mg PO TID 7 Days Qty: 21 0RF escitalopram oxalate [Lexapro] 20 mg tablet 20 mg PO DAILY 14 Days Qty: 14 0RF No Action desogestrel-ethinyl estradiol [Apri] 0.15-0.03 mg Tablet 1 tab PO DAILY 0RF Stand Alone Forms: Patient Portal Discharge page Telehealth Telehealth Location of provider rendering services: practice address Location of patient: address on file Patient Identification confirmed using: Name, : Yes Telehealth method: video Patient verbally consented to treatment: Yes Patient verbally consented to billing insurance company: Yes Patient informed of any privacy concerns related to visit: Yes Minutes spent on Phone/Video with Pt.: 20
--- NOTE | 2022-01-28 17:07 | PC.NURSE ---
Discharge note: Patient discharged from [facility] 01/28/22. Routine discharge, patient states she is ready for discharge. Discharge to out patient providers. Patient states understanding of medications. Patient denies SI and HI without plan or intent. Safety plan was faxed to patient prior to discharge.
== END 2022-01-28 23:59 | disposition home or self-care (01) ==
LOC: HO.PHPA 10:30
PROVIDERS: Visit Provider Psychiatry & Neurology Psychiatry
DX: F33.2 Major depressive disorder, recurrent severe without psychotic features (principal); F43.12 Post-traumatic stress disorder, chronic; F41.1 Generalized anxiety disorder; Z79.899 Other long term (current) drug therapy
CPT/HCPCS: 90791; 90853

== ENCOUNTER 2022-03-01 06:58 | Emergency (ER) | payer OTHER, SELFPAY ==
[2022-03-01 07:01] VITALS: BP 111/68; PULSE 74; RESP 18; TEMP 36.8; O2SAT 98; BMI 19.7
--- NOTE | 2022-03-01 07:20 | ED.ANXIETY ---
HPI - Anxiety General Chief Complaint: Anxiety Stated Complaint: severe anxiety, SOB Time Seen by Provider: 03/01/22 07:20 Source: patient Mode of arrival: ambulatory Limitations: no limitations History of Present Illness MD complaint: anxiety and shortness of breath Onset (ago): day(s) (yesterday) Symptoms: dyspnea, palpitations and sense of impending doom Severity: similar to previous episodes Quality: intermittent Place: work History of similar episodes: Yes Provoking factors: emotional stress and work/job stress Relieving factors: nothing Exacerbating factors: nothing Associated symptoms: shortness of breath Related Data Home Medications Medication Instructions Recorded Confirmed desogestrel 0.15 mg-ethinyl 1 tab PO DAILY 01/07/22 01/07/22 estradiol 0.03 mg tablet (Apri) Previous Rx's Medication Instructions Recorded hydroxyzine HCl 10 mg tablet 10 mg PO TID PRN anxiety 14 days 01/10/22 #42 tabs clonidine HCl 0.1 mg tablet 0.1 mg PO TID 7 days #21 tabs 01/24/22 escitalopram oxalate 20 mg tablet 20 mg PO DAILY 14 days #14 tabs 01/24/22 (Lexapro) lorazepam 1 mg tablet (Ativan) 1 mg PO DAILY PRN anxiety #1 tab 03/01/22 Allergies Allergy/AdvReac Type Severity Reaction Status Date / Time penicillin G [PENICILLIN G] Allergy Mild SWELLING Verified 08/19/21 19:54 SEAFOOD Allergy Unknown UNKNOWN Uncoded 08/19/21 19:54 Review of Systems Review of Systems: Constitutional : No Fever, No Chills ENT/Mouth : No Ear Pain, No Nasal Congestion, No sore throat Eyes: No Eye Pain, No Swelling, No Redness Cardiovascular : No Chest Pain, pos SOB Respiratory : No Cough, No Sputum, No Dyspnea Gastrointestinal : No Nausea, No Vomiting, No Diarrhea, No Hematochezia, No Melena Genitourinary : No Dysuria, No Urinary Frequency, No Hematuria Musculoskeletal : No Myalgias Skin : No Skin Lesions, No rash Neuro : No Weakness, No Numbness, No Paresthesias, No Dizziness, No Headache Psych : positive Anxiety, no Depression, no SI/HI PMFSH Past Medical History Attestation statement: The following information was validated with the patient. Medical History Allergic rhinitis Asthma Eczema Exercise-induced asthma Rib fracture Surgical History History of ankle surgery History of appendectomy Social History Social History (Updated 03/01/22 @ 07:20 by Jammie Zurita DO) Household Members: Children Alcohol intake: current Patient Tobacco Use Status: Never used Tobacco Advance Directives: No Advance Directives Information Provided: No Physical Exam Vital Signs: Vital Signs: Last Vital Signs Temp 98.2 F 03/01/22 07:01 Pulse 74 03/01/22 07:01 Resp 18 03/01/22 07:01 BP 111/68 03/01/22 07:01 Pulse Ox 98 03/01/22 07:01 O2 Del Method 03/01/22 07:01 BMI result Body Mass Index 19.7 Appearance: Alert. Oriented X3. No acute distress. Anxious Eyes: Pupils equal, round and reactive to light. ENT: Pharynx normal. Neck: Normal inspection. Neck supple. CVS: Normal heart rate and rhythm. Pulses normal. Respiratory: No respiratory distress. Breath sounds normal. Abdomen: Soft and non-tender. Skin: Skin warm and dry. Normal skin color. Normal skin turgor. Extremities: No lower extremity edema. No calf ttp Neuro: Oriented X 3. No motor deficit. No sensory deficit. MDM - Anxiety MDM Narrative Medical decision making narrative: 26 yo female with hx of anxiety on medications but last two days had panic attacks at work - no SI, didn't feel she could go to work today, requesting a note. Has a therapist no other concerning features - at this time will give work note, she is going to call her therapist, one dose of ativan to help her get through today. Discharge Plan Discharge Clinical Impression: Acute anxiety Patient Disposition: Home, Self-Care Instructions: Anxiety (ED) Additional Instructions: return to ED for any worsening symptoms or concerns please touch base with your therapist Prescriptions: New lorazepam [Ativan] 1 mg tablet 1 mg PO DAILY PRN (Reason: anxiety) Qty: 1 0RF No Action desogestrel-ethinyl estradiol [Apri] 0.15-0.03 mg Tablet 1 tab PO DAILY hydroxyzine HCl 10 mg tablet 10 mg PO TID PRN (Reason: anxiety) 14 Days Qty: 42 0RF clonidine HCl 0.1 mg tablet 0.1 mg PO TID 7 Days Qty: 21 0RF escitalopram oxalate [Lexapro] 20 mg tablet 20 mg PO DAILY 14 Days Qty: 14 0RF Stand Alone Forms: Work/School Release
[2022-03-01 07:37] VITALS: BP 108/69; PULSE 67; RESP 16; TEMP 36.6; O2SAT 100
== END 2022-03-01 07:42 | disposition home or self-care (01) ==
PROVIDERS: Emergency Provider Emergency Medicine
DX: F41.1 Generalized anxiety disorder (principal); F43.0 Acute stress reaction; R06.02 Shortness of breath; Z79.899 Other long term (current) drug therapy
CPT/HCPCS: 99282; 99283

== ENCOUNTER 2022-04-20 08:49 | Emergency (ER) | payer OTHER, SELFPAY ==
--- NOTE | 2022-04-20 08:54 | ECG_ITS ---
Test Reason : chest pain Blood Pressure : / mmHG Vent. Rate : 044 BPM Atrial Rate : 044 BPM P-R Int : 198 ms QRS Dur : 076 ms QT Int : 438 ms P-R-T Axes : 062 071 060 degrees QTc Int : 374 ms Marked sinus bradycardia with sinus arrhythmia ST elevation, consider early repolarization, pericarditis, or injury Abnormal ECG When compared with ECG of 01-DEC-2020 22:42, No significant change was found Referred By: Generic ED Physician Electronically Signed By:MELONY CEVALLOS
[2022-04-20 09:09] VITALS: BP 96/55; PULSE 43; RESP 16; TEMP 36.9; O2SAT 98; BMI 18.3
[2022-04-20 10:02] LABS: MANUAL DIFF FLAG NO
[2022-04-20 10:03] LABS: Basophils Percent Auto 0.5 % (0-2); Eosinophils Absolute Auto 0.6 X10*3/uL (0.0-0.4); Hematocrit 35.4 % (37.0-47.0); Hemoglobin 11.8 g/dl (12.0-16.0); Imm Gran Abs Auto 0.02 X10*3/uL (0.00-0.03); Imm Gran Pct Auto 0.3 % (0.0-0.4); Lymphocytes Percent Auto 26.7 % (20-40); Mean Corpuscular HGB Conc 33.3 g/dl (31.0-35.0); Mean Corpuscular Hemoglobin 26.6 pg (27.0-33.0); Mean Corpuscular Volume 79.7 fL (80.0-98.0); Mean Platelet Volume 10.5 fL (9.4-12.3); Monocytes Absolute Auto 0.7 X10*3/uL (0.1-1.2); Monocytes Percent Auto 9.2 % (2-11); Neutrophils Absolute Auto 4.2 x10*3/uL (2.0-8.3); Neutrophils Percent Auto 55.3 % (45-73); Platelet Count 224 X10*3/uL (160-400); Red Blood Count 4.44 X10*6/uL (4.20-5.50); Red Cell Distribution Width 13.3 % (11.0-16.0); White Blood Count 7.5 X10*3/uL (4.8-10.8)
[2022-04-20 10:05] LABS: Appearance Urine CLEAR; Color Urine YELLOW; Glucose Urine UA NEG (NEG); Leukocyte Esterase Urine NEG (NEG); Nitrite Urine NEG (NEG); PH 6.5 (5.0-8.0); Urine Blood NEG (NEG); Urine Ketones NEG (NEG); Urine Protein NEG (NEG-TRACE)
[2022-04-20 10:06] LABS: UPreg QC Valid YES; Urine Pregnancy NEGATIVE (NEGATIVE)
[2022-04-20 10:10] LABS: INTERNATIONAL NORM RATIO 1.1 (0.9-1.1); Prothrombin Time 12.4 SEC (10.0-13.1)
[2022-04-20 10:26] LABS: Troponin-I High Sensitivity < 3.5 ng/L (<3.5-17.0)
[2022-04-20 10:27] LABS: Alanine Aminotransferase 13 U/L (0-31); Alkaline Phosphatase 51 U/L (39-117); Anion Gap 13 (12-20); Aspartate Amino Transferase 14 U/L (5-31); Bilirubin Total 0.5 mg/dL (0.0-1.0); Blood Urea Nitrogen 13 mg/dL (9-16); Calcium 8.8 mg/dL (8.4-10.2); Carbon Dioxide 28 mmol/L (22-29); Chloride 102 mmol/L (96-108); Creatinine Clr Calc Pharmacy 84.4; Estimated Glomerular Filt Rate > 60; Glucose Random 99 mg/dL (60-115); Potassium 4.6 mmol/L (3.3-5.1); Sodium 138 mmol/L (135-145); Total Protein 6.9 g/dL (6.5-8.0)
[2022-04-20 10:28] LABS: Amphetamine Screen Urine Not Detected (Not Detect); Barbiturates, Urine Not Detected (Not Detect); Benzodiazepines Screen Urine Not Detected (Not Detect); Cannabinoid Screen Urine POSITIVE (Not Detect); Cocaine Screen Urine Not Detected (Not Detect); Fentanyl, urine Not Detected (Not Detect); Opiate Screen Urine Not Detected (Not Detect); Phencyclidine Screen Urine Not Detected (Not Detect)
[2022-04-20 10:30] VITALS: BP 96/61; PULSE 49
[2022-04-20] MEDS: 0.9 % Sodium Chloride 1,000 ML 999 ML IVCONT (10:47)
--- NOTE | 2022-04-20 10:57 | ED_ITS ---
HPI - Anxiety General Chief Complaint: Anxiety Stated Complaint: chest pain Time Seen by Provider: 04/20/22 09:22 Source: patient Mode of arrival: ambulatory Limitations: no limitations History of Present Illness HPI narrative: 27-year-old female with a past medical history of anxiety, PTSD and major depressive disorder presenting to the ED with complaints of increased anxiety/depression over the past few days worse today. Reports that for 2 days straight she has been feeling very anxious and her heart has been racing and she has been having a left-sided chest pain, shortness of breath with bilateral hand/finger tingling and nausea. Reports that she is under lot of stress at home with her father of her children. She reports that there and a safe place right now and her son is with a family member and her daughter is with her father. She reports he feels safe at home she lives in her own apartment. She denies any SI/HI/auditory visualizations thoughts of self-injury. Reports that she took her clonidine 0.1 mg this morning and her Lexapro 20 mg this morning and is unsure if she should be taking this together due to she has never taken these medications together and it is making her feel ?weird?. she reports dizziness when she stands. She reports also decreased appetite and has not eaten anything in 2 days. She is still drinking fluids. She denies fevers, headaches, vomiting, ROSALES/orthopnea, abd pain, back pain, flank pain, dysuria, hematuria, abnormal vaginal discharge, rashes, recent travel/immobilization, hx of DVT/PE, recent surgery, recent travel or any other symptoms complaints or concerns at this time. MD complaint: anxiety Onset (ago): day(s) (Past few days worse today) Symptoms: dyspnea, chest pain, palpitations and extremity numbness/tingling Severity: moderate Quality: constant and worsening Place: home History of similar episodes: Yes Provoking factors: emotional stress Relieving factors: nothing Exacerbating factors: nothing Associated symptoms: chest pain, shortness of breath, palpitations and nausea/vomiting Related Data Home Medications Medication Instructions Recorded Confirmed desogestrel 0.15 mg-ethinyl 1 tab PO DAILY 01/07/22 01/07/22 estradiol 0.03 mg tablet (Apri) Previous Rx's Medication Instructions Recorded hydroxyzine HCl 10 mg tablet 10 mg PO TID PRN anxiety 14 days 01/10/22 #42 tabs clonidine HCl 0.1 mg tablet 0.1 mg PO TID 7 days #21 tabs 01/24/22 escitalopram oxalate 20 mg tablet 20 mg PO DAILY 14 days #14 tabs 01/24/22 (Lexapro) lorazepam 1 mg tablet (Ativan) 1 mg PO DAILY PRN anxiety #1 tab 03/01/22 Allergies Allergy/AdvReac Type Severity Reaction Status Date / Time penicillin G [PENICILLIN G] Allergy Mild SWELLING Verified 04/20/22 09:09 SEAFOOD Allergy Unknown UNKNOWN Uncoded 08/19/21 19:54 Review of Systems Review of Systems: Constitutional : No Fever, No Chills ENT/Mouth : No Ear Pain, No Nasal Congestion, No sore throat Eyes: No Eye Pain, No Swelling, No Redness Cardiovascular : + Chest Pain, + SOB, + Paresthesias Respiratory : No Cough, No Sputum, No Dyspnea Gastrointestinal : No ingestions, + Nausea, No Vomiting, No Diarrhea, No Hematochezia, No Melena Genitourinary : No Dysuria, No Urinary Frequency, No Hematuria Musculoskeletal : No Myalgias Skin : No Skin Lesions, No rash Neuro : No Weakness, No Numbness, No Paresthesias, No Dizziness, No Headache Psych : + Anxiety, + Depression, No SI, No thoughts of self injury, No HI, No AVH, Heme/Lymph: No Lymphadenopathy Endocrine : No Polyuria, No Polydipsia Yes all other systems are reviewed and are negative [facility] Past Medical History Attestation statement: The following information was validated with the patient. Source: old records reviewed and nursing notes reviewed Medical History Allergic rhinitis Asthma Eczema Exercise-induced asthma Rib fracture Surgical History History of ankle surgery History of appendectomy Social History Social History Household Members: Children Alcohol intake: current Patient Tobacco Use Status: Never used Tobacco Advance Directives: No Advance Directives Information Provided: No Physical Exam Vital Signs: Vital Signs: Last Vital Signs Temp 98.5 F 04/20/22 09:09 Pulse 49 L 04/20/22 10:30 Resp 16 04/20/22 09:09 BP 96/61 04/20/22 10:30 Pulse Ox 98 04/20/22 09:09 O2 Del Method 04/20/22 09:09 BMI result Body Mass Index 18.3 vital signs have been reviewed as normal and appeared to be correct. Blood pressure 96/55. Heart rate 43. Respiration rate normal. Temperature normal. Oxygen saturation normal. Appearance: Alert. Oriented X3. No acute distress. Head: Normal external exam. Normocephalic. Atraumatic. Eyes: PERRLA. EOMI. Conjunctiva and sclera normal. Eyelids normal. ENT: Pharynx normal. Uvula midline. Moist mucous membranes. No trismus noted. No drooling noted. No muffled voice noted. Neck: Normal inspection. Neck supple. FROM. No adenopathy. Thyroid Normal. No meningeal signs. No neck mass noted. CVS: Normal heart rate and rhythm. Heart sound normal. No murmurs noted. Pulses normal throughout. Respiratory: No respiratory distress. Painless inspiration. Breath sounds normal. No wheezes/rales/rhonchi noted. Chest tender to palpation to anterior chest wall. No accessory muscle usage noted or decreased air movement noted. No signs of trauma. Not consistent with flail chest. No crepitus is noted. Abdomen: Soft and nontender. Bowel sounds normal in all 4 quadrants. No distention noted. No organomegaly noted. No visible injury noted. Back: No CVA tenderness. Full range of motion noted. Skin: Skin warm and dry. Normal skin color. Normal skin turgor. No rashes/lesions/lacerations noted. Extremities: No lower extremity edema. Extremities exhibit normal range of motion. Extremities nontender. Neuro: Oriented X 3. No motor deficit. No sensory deficit. Reflexes normal. CN's II-XII intact bilaterally? Psych: Appearance grossly normal, well-kept, mental status normal, speech and movement normal, speech clear, patient appears very sad and anxious along with depressed. Is cooperative. Normal thought process. Normal thought content. Normal good insight. Judgment good. Course Course Course Narrative: 9:30am - 27-year-old female with a past medical history of anxiety, PTSD and major depressive disorder presenting to the ED with complaints of increased an xiety/depression over the past few days worse today. Reports that for 2 days straight she has been feeling very anxious and her heart has been racing and she has been having a left-sided chest pain, shortness of breath with bilateral hand/finger tingling and nausea. Reports that she is under lot of stress at home with her father of her children. She reports that there and a safe place right now and her son is with a family member and her daughter is with her father. She reports he feels safe at home she lives in her own apartment. She denies any SI/HI/auditory visualizations thoughts of self-injury. Reports that she took her clonidine 0.1 mg this morning and her Lexapro 20 mg this morning and is unsure if she should be taking this together due to she has never taken these medications together and it is making her feel ?weird?. she reports dizziness when she stands. She reports also decreased appetite and has not eaten anything in 2 days. She is still drinking fluids. Plan: labs, orthostatic vitals, UA. Provide IVFs then re-evaluate. Reevaluation(s) Reevaluation #1: - labs reviewed patient with mild anemia most likely related to her menstrual cycle at this time. - otherwise all other labs are within normal limits. - UA WNL - UHCG negative for . - patient positive for marijuana negative for all other drugs. - orthostatic vitals negative. - patient denies any SI/HI/auditory visualizations thoughts of self-injury reports that she does not feel like she needs to speak to a pediatric social worker at this time. Therefore will DC home with instructions to continue taking her previously prescribed medications as previously prescribed and to return if any new or worsening symptoms follow up with primary care provider. Patient understands agrees with this plan. Time: 11:14 [facility] - Anxiety Medical Records Attestation: I reviewed the patient's medical records. Lab Data Attestation: I reviewed the patient's lab results. Result diagrams: 04/20/22 09:52 04/20/22 09:52 Labs: Lab Results 04/20/22 04/20/22 04/20/22 Range/Units 09:44 09:47 09:47 WBC (4.8-10.8) X10*3/uL RBC (4.20-5.50) X10*6/uL Hgb (12.0-16.0) g/dl Hct (37.0-47.0) % MCV (80.0-98.0) fL MCH (27.0-33.0) pg MCHC (31.0-35.0) g/dl RDW (11.0-16.0) % Plt Count (160-400) X10*3/uL MPV (9.4-12.3) fL Immature Gran % (Auto) (0.0-0.4) % Neut % (Auto) (45-73) % Lymph % (Auto) (20-40) % [place] % (Auto) (2-11) % Eos % (Auto) (0-4) % Baso % (Auto) (0-2) % Lymph # (Auto) (1.2-4.9) X10*3/uL [place] # (Auto) (0.1-1.2) X10*3/uL Eos # (Auto) (0.0-0.4) X10*3/uL Baso # (Auto) (0.0-0.2) X10*3/uL Abs Immat Gran (auto) (0.00-0.03) X10*3/uL Absolute Neuts (auto) (2.0-8.3) x10*3/uL Absolute Nucleated RBC (0.0-0.012) X10*3/uL Nucleated RBC % (auto) (0.0-0.2) /100WBC PT (10.0-13.1) SEC INR (0.9-1.1) Sodium (135-145) mmol/L Potassium (3.3-5.1) mmol/L Chloride (96-108) mmol/L Carbon Dioxide (22-29) mmol/L Anion Gap (12-20) BUN (9-16) mg/dL Creatinine (0.5-1.4) mg/dL Estim Creat Clear Calc Estimated GFR Random Glucose (60-115) mg/dL Calcium (8.4-10.2) mg/dL Magnesium (1.6-2.6) mg/dL Total Bilirubin (0.0-1.0) mg/dL AST (5-31) U/L ALT (0-31) U/L Alkaline Phosphatase (39-117) U/L Troponin I High Sens (<3.5-17.0) ng/L Total Protein (6.5-8.0) g/dL Albumin (3.5-5.0) g/dL Urine Color YELLOW Urine Appearance CLEAR Urine pH 6.5 (5.0-8.0) Ur Specific [place] 1.010 (1.005-1.025) Urine Protein NEG (NEG-TRACE) MG/DL Urine Glucose (UA) NEG (NEG) MG/DL Urine Ketones NEG (NEG) MG/DL Urine Blood NEG (NEG) Urine Nitrite NEG (NEG) Ur Leukocyte Esterase NEG (NEG) Urine Test NEGATIVE (NEGATIVE) Urine Opiates Screen Not Detected (Not Detect) Urine Fentanyl Screen Not Detected (Not Detect) Ur Barbiturates Screen Not Detected (Not Detect) Ur Phencyclidine Scrn Not Detected (Not Detect) Ur Amphetamines Screen Not Detected (Not Detect) U Benzodiazepines Scrn Not Detected (Not Detect) Urine Cocaine Screen Not Detected (Not Detect) U Marijuana (THC) Screen POSITIVE H (Not Detect) 04/20/22 04/20/22 04/20/22 Range/Units 09:52 09:52 09:52 WBC 7.5 (4.8-10.8) X10*3/uL RBC 4.44 (4.20-5.50) X10*6/uL Hgb 11.8 L (12.0-16.0) g/dl Hct 35.4 L (37.0-47.0) % MCV 79.7 L (80.0-98.0) fL MCH 26.6 L (27.0-33.0) pg MCHC 33.3 (31.0-35.0) g/dl RDW 13.3 (11.0-16.0) % Plt Count 224 (160-400) X10*3/uL MPV 10.5 (9.4-12.3) fL Immature Gran % (Auto) 0.3 (0.0-0.4) % Neut % (Auto) 55.3 (45-73) % Lymph % (Auto) 26.7 (20-40) % [place] % (Auto) 9.2 (2-11) % Eos % (Auto) 8.0 H (0-4) % Baso % (Auto) 0.5 (0-2) % Lymph # (Auto) 2.0 (1.2-4.9) X10*3/uL [place] # (Auto) 0.7 (0.1-1.2) X10*3/uL Eos # (Auto) 0.6 H (0.0-0.4) X10*3/uL Baso # (Auto) 0.0 (0.0-0.2) X10*3/uL Abs Immat Gran (auto) 0.02 (0.00-0.03) X10*3/uL Absolute Neuts (auto) 4.2 (2.0-8.3) x10*3/uL Absolute Nucleated RBC 0.000 (0.0-0.012) X10*3/uL Nucleated RBC % (auto) 0.0 (0.0-0.2) /100WBC PT 12.4 (10.0-13.1) SEC INR 1.1 (0.9-1.1) Sodium 138 (135-145) mmol/L Potassium 4.6 (3.3-5.1) mmol/L Chloride 102 (96-108) mmol/L Carbon Dioxide 28 (22-29) mmol/L Anion Gap 13 (12-20) BUN 13 (9-16) mg/dL Creatinine 0.76 (0.5-1.4) mg/dL Estim Creat Clear Calc 84.4 Estimated GFR > 60 Random Glucose 99 (60-115) mg/dL Calcium 8.8 D (8.4-10.2) mg/dL Magnesium 2.0 (1.6-2.6) mg/dL Total Bilirubin 0.5 (0.0-1.0) mg/dL AST 14 (5-31) U/L ALT 13 (0-31) U/L Alkaline Phosphatase 51 (39-117) U/L Troponin I High Sens (<3.5-17.0) ng/L Total Protein 6.9 (6.5-8.0) g/dL Albumin 4.0 (3.5-5.0) g/dL Urine Color Urine Appearance Urine pH (5.0-8.0) Ur Specific [place] (1.005-1.025) Urine Protein (NEG-TRACE) MG/DL Urine Glucose (UA) (NEG) MG/DL Urine Ketones (NEG) MG/DL Urine Blood (NEG) Urine Nitrite (NEG) Ur Leukocyte Esterase (NEG) Urine Test (NEGATIVE) Urine Opiates Screen (Not Detect) Urine Fentanyl Screen (Not Detect) Ur Barbiturates Screen (Not Detect) Ur Phencyclidine Scrn (Not Detect) Ur Amphetamines Screen (Not Detect) U Benzodiazepines Scrn (Not Detect) Urine Cocaine Screen (Not Detect) U Marijuana (THC) Screen (Not Detect) 04/20/22 Range/Units 09:52 WBC (4.8-10.8) X10*3/uL RBC (4.20-5.50) X10*6/uL Hgb (12.0-16.0) g/dl Hct (37.0-47.0) % MCV (80.0-98.0) fL MCH (27.0-33.0) pg MCHC (31.0-35.0) g/dl RDW (11.0-16.0) % Plt Count (160-400) X10*3/uL MPV (9.4-12.3) fL Immature Gran % (Auto) (0.0-0.4) % Neut % (Auto) (45-73) % Lymph % (Auto) (20-40) % [place] % (Auto) (2-11) % Eos % (Auto) (0-4) % Baso % (Auto) (0-2) % Lymph # (Auto) (1.2-4.9) X10*3/uL [place] # (Auto) (0.1-1.2) X10*3/uL Eos # (Auto) (0.0-0.4) X10*3/uL Baso # (Auto) (0.0-0.2) X10*3/uL Abs Immat Gran (auto) (0.00-0.03) X10*3/uL Absolute Neuts (auto) (2.0-8.3) x10*3/uL Absolute Nucleated RBC (0.0-0.012) X10*3/uL Nucleated RBC % (auto) (0.0-0.2) /100WBC PT (10.0-13.1) SEC INR (0.9-1.1) Sodium (135-145) mmol/L Potassium (3.3-5.1) mmol/L Chloride (96-108) mmol/L Carbon Dioxide (22-29) mmol/L Anion Gap (12-20) BUN (9-16) mg/dL Creatinine (0.5-1.4) mg/dL Estim Creat Clear Calc Estimated GFR Random Glucose (60-115) mg/dL Calcium (8.4-10.2) mg/dL Magnesium (1.6-2.6) mg/dL Total Bilirubin (0.0-1.0) mg/dL AST (5-31) U/L ALT (0-31) U/L Alkaline Phosphatase (39-117) U/L Troponin I High Sens < 3.5 (<3.5-17.0) ng/L Total Protein (6.5-8.0) g/dL Albumin (3.5-5.0) g/dL Urine Color Urine Appearance Urine pH (5.0-8.0) Ur Specific [place] (1.005-1.025) Urine Protein (NEG-TRACE) MG/DL Urine Glucose (UA) (NEG) MG/DL Urine Ketones (NEG) MG/DL Urine Blood (NEG) Urine Nitrite (NEG) Ur Leukocyte Esterase (NEG) Urine Test (NEGATIVE) Urine Opiates Screen (Not Detect) Urine Fentanyl Screen (Not Detect) Ur Barbiturates Screen (Not Detect) Ur Phencyclidine Scrn (Not Detect) Ur Amphetamines Screen (Not Detect) U Benzodiazepines Scrn (Not Detect) Urine Cocaine Screen (Not Detect) U Marijuana (THC) Screen (Not Detect) Discharge Plan Discharge Clinical Impression: Acute anxiety Patient Disposition: Home, Self-Care Instructions: Anxiety (ED) Prescriptions: No Action desogestrel-ethinyl estradiol [Apri] 0.15-0.03 mg Tablet 1 tab PO DAILY hydroxyzine HCl 10 mg tablet 10 mg PO TID PRN (Reason: anxiety) 14 Days Qty: 42 0RF clonidine HCl 0.1 mg tablet 0.1 mg PO TID 7 Days Qty: 21 0RF escitalopram oxalate [Lexapro] 20 mg tablet 20 mg PO DAILY 14 Days Qty: 14 0RF lorazepam [Ativan] 1 mg tablet 1 mg PO DAILY PRN (Reason: anxiety) Qty: 1 0RF Referrals: Physician,Unknown J [Primary Care Provider] - 2 days (your pcp) Stand Alone Forms: Work/School Release
== END 2022-04-20 12:55 | disposition home or self-care (01) ==
PROVIDERS: Physician Assistant Medical; Emergency Provider Internal Medicine
DX: F41.9 Anxiety disorder, unspecified (principal); F43.12 Post-traumatic stress disorder, chronic; F12.90 Cannabis use, unspecified, uncomplicated; Z79.899 Other long term (current) drug therapy
CPT/HCPCS: 36415; 80053; 80307; 81003; 81025; 83735; 84484; 85025; 85610; 93005; 96360; 96361; 99284

== ENCOUNTER 2022-05-06 10:05 | Emergency (ER) | payer OTHER, SELFPAY ==
[2022-05-06 10:20] VITALS: BP 134/72; PULSE 65; O2SAT 98
[2022-05-06 11:00] VITALS: BP 100/77; PULSE 64; RESP 20; TEMP 36.9; O2SAT 98; BMI 19.8
--- NOTE | 2022-05-06 11:16 | ED_ITS ---
HPI - Anxiety General Chief Complaint: Anxiety Stated Complaint: Anxiety attack Time Seen by Provider: 05/06/22 11:07 Source: patient and EMS Mode of arrival: EMS Limitations: no limitations History of Present Illness HPI narrative: 27-year-old female with a past medical history of anxiety, PTSD and major depressive disorder presenting to the ED with complaints of increased anxiety while she was at work today after she did not take her anxiety medication she reports that she takes lorazepam and clonidine. She reports that her symptoms are completely resolved at this time. She was having palpitations/feeling like her heart was racing due to regular work stress. She denies any SI/HI/auditory visualizations thoughts of self-injury. She denies any fevers, chills, dizziness, headaches, neck pain/stiffness, trouble swallowing or breathing, nasal congestion/rhinorrhea, chest pain or shortness of breath, dyspnea on exertion, orthopnea, palpitations at this time, paresthesias, nausea/vomiting/diarrhea constipation, black or bloody stools, abdominal pain, back pain, dysuria, hematuria, abnormal vaginal discharge, recent travel or sick contacts, rashes or any other symptoms complaints or concerns at this time MD complaint: anxiety Onset (ago): hour(s) (Prior to arrival) Symptoms: palpitations Severity: mild Quality: improving (Now resolved) Place: work History of similar episodes: Yes Provoking factors: work/job stress Relieving factors: nothing Exacerbating factors: medication Associated symptoms: denies other symptoms Related Data Home Medications Medication Instructions Recorded Confirmed desogestrel 0.15 mg-ethinyl 1 tab PO DAILY 01/07/22 01/07/22 estradiol 0.03 mg tablet (Apri) Previous Rx's Medication Instructions Recorded hydroxyzine HCl 10 mg tablet 10 mg PO TID PRN anxiety 14 days 01/10/22 #42 tabs clonidine HCl 0.1 mg tablet 0.1 mg PO TID 7 days #21 tabs 01/24/22 escitalopram oxalate 20 mg tablet 20 mg PO DAILY 14 days #14 tabs 01/24/22 (Lexapro) lorazepam 1 mg tablet (Ativan) 1 mg PO DAILY PRN anxiety #1 tab 03/01/22 Allergies Allergy/AdvReac Type Severity Reaction Status Date / Time penicillin G [PENICILLIN G] Allergy Mild SWELLING Verified 04/20/22 09:09 SEAFOOD Allergy Unknown UNKNOWN Uncoded 08/19/21 19:54 Review of Systems Review of Systems: Constitutional : No Fever, No Chills ENT/Mouth : No Ear Pain, No Nasal Congestion, No sore throat Eyes: No Eye Pain, No Swelling, No Redness Cardiovascular : No Chest Pain, No SOB Respiratory : No Cough, No Sputum, No Dyspnea Gastrointestinal : No ingestions, No Nausea, No Vomiting, No Diarrhea, No Hematochezia, No Melena Genitourinary : No Dysuria, No Urinary Frequency, No Hematuria Musculoskeletal : No Myalgias Skin : No Skin Lesions, No rash Neuro : No Weakness, No Numbness, No Paresthesias, No Dizziness, No Headache Psych : + Anxiety, No Depression, No SI, No thoughts of self injury, No HI, No AVH, Heme/Lymph: No Lymphadenopathy Endocrine : No Polyuria, No Polydipsia Yes all other systems are reviewed and are negative [facility] Past Medical History Attestation statement: The following information was validated with the patient. Source: old records reviewed and nursing notes reviewed Medical History Allergic rhinitis Asthma Eczema Exercise-induced asthma Rib fracture Surgical History History of ankle surgery History of appendectomy Social History Social History Household Members: Children Alcohol intake: current Patient Tobacco Use Status: Never used Tobacco Physical Exam Vital Signs: Vital Signs: Last Vital Signs Temp 98.4 F 05/06/22 11:00 Pulse 64 05/06/22 11:00 Resp 20 05/06/22 11:00 BP 100/77 05/06/22 11:00 Pulse Ox 98 05/06/22 11:00 O2 Del Method 05/06/22 11:00 FiO2 98 05/06/22 11:00 BMI result Body Mass Index 19.8 vital signs have been reviewed as normal and appeared to be correct. Blood pressure normal. Heart rate normal. Respiration rate normal. Temperature normal. Oxygen saturation normal. Appearance: Alert. Oriented X3. No acute distress. Head: Normal external exam. Normocephalic. Atraumatic. Eyes: PERRLA. EOMI. Conjunctiva and sclera normal. Eyelids normal. ENT: Pharynx normal. Uvula midline. Moist mucous membranes. No trismus noted. No drooling noted. No muffled voice noted. Neck: Normal inspection. Neck supple. FROM. No adenopathy. Thyroid Normal. No meningeal signs. No neck mass noted. CVS: Normal heart rate and rhythm. Heart sound normal. No murmurs noted. Pulses normal throughout. Respiratory: No respiratory distress. Painless inspiration. Breath sounds normal. No wheezes/rales/rhonchi noted. Chest nontender. No accessory muscle usage noted or decreased air movement noted. Abdomen: Soft and nontender. Bowel sounds normal in all 4 quadrants. No distention noted. No organomegaly noted. No visible injury noted. Back: Full range of motion noted. Skin: Skin warm and dry. Normal skin color. Normal skin turgor. No rashes/lesions/lacerations noted. Extremities: No lower extremity edema. Extremities exhibit normal range of motion. Extremities nontender. Neuro: Oriented X 3. No motor deficit. No sensory deficit. Reflexes normal. CN's II-XII intact bilaterally? Psych: Appearance grossly normal, well-kept, mental status normal, speech and movement normal, speech clear, normal affect. Is cooperative. Normal thought process. Normal thought content. Normal good insight. Judgment good. Course Course Course Narrative: 27-year-old female with a past medical history of anxiety, PTSD and major depressive disorder presenting to the ED with complaints of increased anxiety while she was at work today after she did not take her anxiety medication she reports that she takes lorazepam and clonidine. She reports that her symptoms are completely resolved at this time. She was having palpitations/feeling like her heart was racing due to regular work stress. She denies any SI/HI/auditory visualizations thoughts of self-injury. Patient appears well. Vital signs are stable within normal limits. Denies any complaints at this time. Will DC home with instructions return if any new or worsening symptoms and to take her medications as prescribed and to follow-up with her PCP/therapist/psychiatrist. Patient understands agrees with this plan. Along to return if any new or worsening symptoms. [facility] - Anxiety Medical Records Attestation: I reviewed the patient's medical records. Discharge Plan Discharge Clinical Impression: Acute anxiety Patient Disposition: Home, Self-Care Instructions: Anxiety (ED) Prescriptions: No Action desogestrel-ethinyl estradiol [Apri] 0.15-0.03 mg Tablet 1 tab PO DAILY hydroxyzine HCl 10 mg tablet 10 mg PO TID PRN (Reason: anxiety) 14 Days Qty: 42 0RF clonidine HCl 0.1 mg tablet 0.1 mg PO TID 7 Days Qty: 21 0RF escitalopram oxalate [Lexapro] 20 mg tablet 20 mg PO DAILY 14 Days Qty: 14 0RF lorazepam [Ativan] 1 mg tablet 1 mg PO DAILY PRN (Reason: anxiety) Qty: 1 0RF Referrals: Physician,Unknown J [Physician] - 3 days (your pcp/therapist/psychiatrist) Stand Alone Forms: Work/School Release
== END 2022-05-06 11:47 | disposition home or self-care (01) ==
PROVIDERS: Emergency Provider Emergency Medicine; PCP Internal Medicine
DX: F41.1 Generalized anxiety disorder (principal); F43.0 Acute stress reaction; F43.12 Post-traumatic stress disorder, chronic; R00.2 Palpitations; Z79.899 Other long term (current) drug therapy
CPT/HCPCS: 99282

== ENCOUNTER 2022-07-07 21:44 | Emergency (ER) | payer OTHER, SELFPAY ==
--- NOTE | 2022-07-07 21:45 | ECG_ITS ---
Test Reason : chest pain Blood Pressure : / mmHG Vent. Rate : 093 BPM Atrial Rate : 093 BPM P-R Int : 182 ms QRS Dur : 082 ms QT Int : 310 ms P-R-T Axes : 078 078 069 degrees QTc Int : 385 ms Normal sinus rhythm Normal ECG When compared with ECG of 20-APR-2022 08:53, Vent. rate has increased BY 49 BPM Referred By: Generic ED Physician Electronically Signed By:BOUCHRA ROBISON MD
[2022-07-07 21:52] VITALS: BP 129/75; PULSE 95; RESP 18; TEMP 37.5; O2SAT 100; BMI 20.5
[2022-07-07 22:01] LABS: MANUAL DIFF FLAG NO
[2022-07-07 22:04] LABS: Basophils Percent Auto 0.4 % (0-2); Eosinophils Absolute Auto 0.3 X10*3/uL (0.0-0.4); Eosinophils Percent Auto 5.7 % (0-4); Hematocrit 37.2 % (37.0-47.0); Hemoglobin 12.2 g/dl (12.0-16.0); Imm Gran Abs Auto 0.02 X10*3/uL (0.00-0.03); Imm Gran Pct Auto 0.4 % (0.0-0.4); Lymphocytes Absolute Auto 0.5 X10*3/uL (1.2-4.9); Lymphocytes Percent Auto 8.8 % (20-40); Mean Corpuscular HGB Conc 32.8 g/dl (31.0-35.0); Mean Corpuscular Hemoglobin 26.2 pg (27.0-33.0); Mean Corpuscular Volume 79.8 fL (80.0-98.0); Mean Platelet Volume 10.3 fL (9.4-12.3); Monocytes Absolute Auto 0.4 X10*3/uL (0.1-1.2); Monocytes Percent Auto 7.8 % (2-11); Neutrophils Absolute Auto 4.4 x10*3/uL (2.0-8.3); Neutrophils Percent Auto 76.9 % (45-73); Platelet Count 235 X10*3/uL (160-400); Red Blood Count 4.66 X10*6/uL (4.20-5.50); Red Cell Distribution Width 13.4 % (11.0-16.0); White Blood Count 5.7 X10*3/uL (4.8-10.8)
[2022-07-07 22:16] LABS: COVID-19 Test Negative (Negative)
[2022-07-07 22:20] LABS: Alanine Aminotransferase 8 U/L (0-31); Albumin Level 4.2 g/dL (3.5-5.0); Alkaline Phosphatase 62 U/L (39-117); Anion Gap 14 (12-20); Aspartate Amino Transferase 15 U/L (5-31); Bilirubin Total 0.3 mg/dL (0.0-1.0); Blood Urea Nitrogen 12 mg/dL (9-16); Calcium 9.1 mg/dL (8.4-10.2); Carbon Dioxide 24 mmol/L (22-29); Chloride 108 mmol/L (96-108); Estimated Glomerular Filt Rate > 60; Glucose Random 109 mg/dL (60-115); Potassium 4.3 mmol/L (3.3-5.1); Sodium 142 mmol/L (135-145)
[2022-07-07 22:27] LABS: Troponin-I High Sensitivity < 3.5 ng/L (<3.5-17.0)
[2022-07-07] MEDS: Acetaminophen 325 MG TABLET 975 MG PO (22:49)
[2022-07-07 22:50] VITALS: BP 103/65; PULSE 95; RESP 18; TEMP 38.5; O2SAT 100
--- NOTE | 2022-07-07 22:50 | PC.NURSE ---
At 2243, I was pulled to the area near the fish tanks for seizure like activity. Pt was found to be responsive to both voice and pain with what appeared to be purposful jerking movement lying across the seat cushions on right lateral recumbent position. Pt had no positictal period and was able to follow commands to be assisted to standing with minimal assistance. Pt stood and pivoted to wheelchair. finisher machine contacted. Pt reports that this is typical seizure activity for her. Pt revitaled. Now found to have fever. Medicated Per protocol for fever. Tolerating PO well.
[2022-07-08] VITALS: BP 120/61; PULSE 84; TEMP 36.8; O2SAT 98
--- NOTE | 2022-07-08 00:16 | ED.CHESTPAIN ---
HPI - Chest Pain General Chief Complaint: Chest Pain Stated Complaint: Chest pain, Body aches Time Seen by Provider: 07/08/22 00:16 Source: patient Mode of arrival: ambulatory Limitations: no limitations History of Present Illness HPI narrative: Patient 27 years old with history of anxiety ran out of her medication complaining of increased anxiety all day today with multiple complaints Related Data Home Medications Medication Instructions Recorded Confirmed desogestrel 0.15 mg-ethinyl 1 tab PO DAILY 01/07/22 01/07/22 estradiol 0.03 mg tablet (Apri) Previous Rx's Medication Instructions Recorded hydroxyzine HCl 10 mg tablet 10 mg PO TID PRN anxiety 14 days 01/10/22 #42 tabs clonidine HCl 0.1 mg tablet 0.1 mg PO TID 7 days #21 tabs 01/24/22 escitalopram oxalate 20 mg tablet 20 mg PO DAILY 14 days #14 tabs 01/24/22 (Lexapro) lorazepam 1 mg tablet (Ativan) 1 mg PO DAILY PRN anxiety #1 tab 03/01/22 Allergies Allergy/AdvReac Type Severity Reaction Status Date / Time penicillin G [PENICILLIN G] Allergy Mild SWELLING Verified 04/20/22 09:09 SEAFOOD Allergy Unknown UNKNOWN Uncoded 08/19/21 19:54 Review of Systems Review of Systems: Yes all other systems are reviewed and are negative [facility] Past Medical History Medical History Allergic rhinitis Asthma Eczema Exercise-induced asthma Rib fracture Surgical History History of ankle surgery History of appendectomy Social History Social History Household Members: Children Alcohol intake: current Patient Tobacco Use Status: Never used Tobacco Advance Directives: No Advance Directives Information Provided: No Physical Exam Vital Signs: Vital Signs: Last Vital Signs Temp 98.1 F 07/08/22 01:29 Pulse 83 07/08/22 01:29 Resp 18 07/08/22 00:41 BP 118/62 07/08/22 01:29 Pulse Ox 98 07/08/22 01:29 O2 Del Method 07/08/22 01:29 BMI result Body Mass Index 20.5 Appearance: Alert. Oriented X3. No acute distress. Anxious Eyes: PERRLA, No Nystagmus ENT: Pharynx normal. Oral Mucosa moist Neck: Normal inspection. Neck supple. CVS: Normal heart rate and rhythm. Pulses normal. Respiratory: No respiratory distress. Equal air entry bilateral, no wheezing/rales/rhonchi Abdomen: Soft and nontender. Bowel sounds are present, no mass palpable, no CVA tenderness Skin: Skin warm and dry. Normal skin color. Normal skin turgor. Extremities: No lower extremity edema. No calf tenderness Neuro: Oriented X 3. No motor deficit. MDM - Chest Pain MDM Narrative Medical decision making narrative: Patient with history of anxiety ran out of her bed so will give her a dose of Ativan advised to follow with her therapist and psychiatrist Lab Data Attestation: I reviewed the patient's lab results. Result diagrams: 07/07/22 21:56 07/07/22 21:56 Labs: Lab Results 07/07/22 07/07/22 07/07/22 Range/Units 21:56 21:56 21:56 WBC 5.7 (4.8-10.8) X10*3/uL RBC 4.66 (4.20-5.50) X10*6/uL Hgb 12.2 (12.0-16.0) g/dl Hct 37.2 (37.0-47.0) % MCV 79.8 L (80.0-98.0) fL MCH 26.2 L (27.0-33.0) pg MCHC 32.8 (31.0-35.0) g/dl RDW 13.4 (11.0-16.0) % Plt Count 235 (160-400) X10*3/uL MPV 10.3 (9.4-12.3) fL Immature Gran % (Auto) 0.4 (0.0-0.4) % Neut % (Auto) 76.9 H (45-73) % Lymph % (Auto) 8.8 L (20-40) % [place] % (Auto) 7.8 (2-11) % Eos % (Auto) 5.7 H (0-4) % Baso % (Auto) 0.4 (0-2) % Lymph # (Auto) 0.5 L (1.2-4.9) X10*3/uL [place] # (Auto) 0.4 (0.1-1.2) X10*3/uL Eos # (Auto) 0.3 (0.0-0.4) X10*3/uL Baso # (Auto) 0.0 (0.0-0.2) X10*3/uL Abs Immat Gran (auto) 0.02 (0.00-0.03) X10*3/uL Absolute Neuts (auto) 4.4 (2.0-8.3) x10*3/uL Absolute Nucleated RBC 0.000 (0.0-0.012) X10*3/uL Nucleated RBC % (auto) 0.0 (0.0-0.2) /100WBC Sodium 142 (135-145) mmol/L Potassium 4.3 (3.3-5.1) mmol/L Chloride 108 (96-108) mmol/L Carbon Dioxide 24 (22-29) mmol/L Anion Gap 14 (12-20) BUN 12 (9-16) mg/dL Creatinine 0.79 (0.5-1.4) mg/dL Estim Creat Clear Calc 91.0 Estimated GFR > 60 Random Glucose 109 (60-115) mg/dL Calcium 9.1 (8.4-10.2) mg/dL Total Bilirubin 0.3 (0.0-1.0) mg/dL AST 15 (5-31) U/L ALT 8 (0-31) U/L Alkaline Phosphatase 62 D (39-117) U/L Troponin I High Sens < 3.5 (<3.5-17.0) ng/L Total Protein 7.0 (6.5-8.0) g/dL Albumin 4.2 (3.5-5.0) g/dL COVID-19 ([facility]) (Negative) COVID-19 Clin Com 07/07/22 Range/Units 21:56 WBC (4.8-10.8) X10*3/uL RBC (4.20-5.50) X10*6/uL Hgb (12.0-16.0) g/dl Hct (37.0-47.0) % MCV (80.0-98.0) fL MCH (27.0-33.0) pg MCHC (31.0-35.0) g/dl RDW (11.0-16.0) % Plt Count (160-400) X10*3/uL MPV (9.4-12.3) fL Immature Gran % (Auto) (0.0-0.4) % Neut % (Auto) (45-73) % Lymph % (Auto) (20-40) % [place] % (Auto) (2-11) % Eos % (Auto) (0-4) % Baso % (Auto) (0-2) % Lymph # (Auto) (1.2-4.9) X10*3/uL [place] # (Auto) (0.1-1.2) X10*3/uL Eos # (Auto) (0.0-0.4) X10*3/uL Baso # (Auto) (0.0-0.2) X10*3/uL Abs Immat Gran (auto) (0.00-0.03) X10*3/uL Absolute Neuts (auto) (2.0-8.3) x10*3/uL Absolute Nucleated RBC (0.0-0.012) X10*3/uL Nucleated RBC % (auto) (0.0-0.2) /100WBC Sodium (135-145) mmol/L Potassium (3.3-5.1) mmol/L Chloride (96-108) mmol/L Carbon Dioxide (22-29) mmol/L Anion Gap (12-20) BUN (9-16) mg/dL Creatinine (0.5-1.4) mg/dL Estim Creat Clear Calc Estimated GFR Random Glucose (60-115) mg/dL Calcium (8.4-10.2) mg/dL Total Bilirubin (0.0-1.0) mg/dL AST (5-31) U/L ALT (0-31) U/L Alkaline Phosphatase (39-117) U/L Troponin I High Sens (<3.5-17.0) ng/L Total Protein (6.5-8.0) g/dL Albumin (3.5-5.0) g/dL COVID-19 ([facility]) Negative (Negative) COVID-19 Clin Com See Note ECG Data ECG #1: Attestation: I personally reviewed and interpreted this ECG as follows: Interpretation: Normal sinus rhythm heart rate 93 beats per minute normal interval normal axis no acute ischemia Discharge Plan Discharge Clinical Impression: Generalized anxiety disorder Patient Disposition: Home, Self-Care Instructions: Generalized Anxiety Disorder (ED) Additional Instructions: Follow with your therapist tomorrow about further management Prescriptions: No Action desogestrel-ethinyl estradiol [Apri] 0.15-0.03 mg Tablet 1 tab PO DAILY hydroxyzine HCl 10 mg tablet 10 mg PO TID PRN (Reason: anxiety) 14 Days Qty: 42 0RF clonidine HCl 0.1 mg tablet 0.1 mg PO TID 7 Days Qty: 21 0RF escitalopram oxalate [Lexapro] 20 mg tablet 20 mg PO DAILY 14 Days Qty: 14 0RF lorazepam [Ativan] 1 mg tablet 1 mg PO DAILY PRN (Reason: anxiety) Qty: 1 0RF Interventions: ED Discharge Assessment Last Done: 07/08/22 01:30 Discharge Date/Time: 07/08/22 01:30
[2022-07-08] MEDS: LORazepam 1 MG TABLET PO (00:39)
[2022-07-08 00:41] VITALS: BP 116/63; PULSE 89; RESP 18; O2SAT 97
[2022-07-08 01:29] VITALS: BP 118/62; PULSE 83; TEMP 36.7; O2SAT 98
== END 2022-07-08 01:30 | disposition home or self-care (01) ==
PROVIDERS: Emergency Provider Internal Medicine
DX: R07.89 Other chest pain (principal); M79.10 Myalgia, unspecified site; F41.1 Generalized anxiety disorder; F43.0 Acute stress reaction; Z20.822 Contact with and (suspected) exposure to COVID-19; Z79.899 Other long term (current) drug therapy
CPT/HCPCS: 80053; 84484; 85025; 87635; 93005; 99283; 99284

== ENCOUNTER 2022-09-15 09:53 | Emergency (ER) | payer OTHER, SELFPAY ==
[2022-09-15 10:00] VITALS: BP 117/65; BP 146/82; PULSE 66; PULSE 70; RESP 18; TEMP 36; O2SAT 100; BMI 19.9
--- NOTE | 2022-09-15 10:52 | ED_ITS ---
HPI - Anxiety General Chief Complaint: Anxiety Stated Complaint: SEIZURE-LIKE ACTIVITY,-POSTICTAL Time Seen by Provider: 09/15/22 10:47 Source: patient Mode of arrival: ambulatory Limitations: no limitations History of Present Illness HPI narrative: 27 year old female presents to the ED after having a episode of anxiety and shaking at work. She admits to increased anxiety. She denies any injuries or pain. She did not lose control of bowel or bladder she did not bite her tongue and remembers the whole episode. She is on antianxiety medications but feels safe going home. MD complaint: anxiety Related Data Home Medications Medication Instructions Recorded Confirmed desogestrel 0.15 mg-ethinyl 1 tab PO DAILY 01/07/22 01/07/22 estradiol 0.03 mg tablet (Apri) Previous Rx's Medication Instructions Recorded hydroxyzine HCl 10 mg tablet 10 mg PO TID PRN anxiety 14 days 01/10/22 #42 tabs clonidine HCl 0.1 mg tablet 0.1 mg PO TID 7 days #21 tabs 01/24/22 escitalopram oxalate 20 mg tablet 20 mg PO DAILY 14 days #14 tabs 01/24/22 (Lexapro) lorazepam 1 mg tablet (Ativan) 1 mg PO DAILY PRN anxiety #1 tab 03/01/22 Allergies Allergy/AdvReac Type Severity Reaction Status Date / Time penicillin G [PENICILLIN G] Allergy Mild SWELLING Verified 04/20/22 09:09 SEAFOOD Allergy Unknown UNKNOWN Uncoded 08/19/21 19:54 Review of Systems Review of Systems: Review of systems: General: Patient denies any fever chills recent illness or falls Musculoskeletal: Denies back pain or body aches or other injuries HEENT: denies headache, runny nose, ear pain Respiratory: denies shortness of breath, cough Cardiovascular: no chest pain or palpitations : denies dysuria, frequency Abdomen: no nausea vomiting denies abdominal pain Extremities: no swelling, no pain Skin: no diaphoresis Yes all other systems are reviewed and are negative [facility] Past Medical History Medical History Allergic rhinitis Asthma Eczema Exercise-induced asthma Rib fracture Surgical History History of ankle surgery History of appendectomy Social History Social History Household Members: Children Alcohol intake: current Patient Tobacco Use Status: Never used Tobacco Advance Directives: No Advance Directives Information Provided: No Physical Exam Vital Signs: Vital Signs: Last Vital Signs Temp 96.8 F 09/15/22 10:00 Pulse 66 09/15/22 10:00 Resp 18 09/15/22 10:00 BP 117/65 09/15/22 10:00 Pulse Ox 100 09/15/22 10:00 O2 Del Method 09/15/22 10:00 BMI result Body Mass Index 19.9 General: Well-appearing well-nourished in no signs of distress HEENT: Normocephalic atraumatic Neck: No signs of JVD, no masses no tenderness or lymphadenopathy Cardiovascular: Regular rate and rhythm Respiratory: Clear to auscultation bilaterally Abdomen: Soft nontender no masses Extremities: Normal pedal pulses no signs of edema Skin: Dry warm no rashes Back: No tenderness full ROM Medical Decision Making Medical Decision Making MDM Narrative: I feel like this was a panic attack and not a seizure with her atypical presentation and no signs that she lost consciousness. i will dischage home. Differential Diagnosis Differential Diagnoses: The differential diagnosis associated with the presentation includes Anxiety, PNES, seizures Discharge Plan Discharge Clinical Impression: Panic disorder, Acute anxiety Patient Disposition: Home, Self-Care Instructions: Anxiety (ED) Additional Instructions: Please call to follow up with your doctor. If you have any other concerns please return to the ED Prescriptions: No Action desogestrel-ethinyl estradiol [Apri] 0.15-0.03 mg Tablet 1 tab PO DAILY hydroxyzine HCl 10 mg tablet 10 mg PO TID PRN (Reason: anxiety) 14 Days Qty: 42 0RF clonidine HCl 0.1 mg tablet 0.1 mg PO TID 7 Days Qty: 21 0RF escitalopram oxalate [Lexapro] 20 mg tablet 20 mg PO DAILY 14 Days Qty: 14 0RF lorazepam [Ativan] 1 mg tablet 1 mg PO DAILY PRN (Reason: anxiety) Qty: 1 0RF Stand Alone Forms: Work/School Release
== END 2022-09-15 11:04 | disposition home or self-care (01) ==
PROVIDERS: Emergency Provider Student in an Organized Health Care Education/Training Program
DX: R56.9 Unspecified convulsions (principal); F41.0 Panic disorder [episodic paroxysmal anxiety]; F41.1 Generalized anxiety disorder; F43.0 Acute stress reaction; Z79.899 Other long term (current) drug therapy
CPT/HCPCS: 99282

== ENCOUNTER 2022-10-19 19:22 | Emergency (ER) | payer OTHER, SELFPAY ==
--- NOTE | 2022-10-19 | ECG_ITS ---
Test Reason : chest pain Blood Pressure : / mmHG Vent. Rate : 066 BPM Atrial Rate : 066 BPM P-R Int : 212 ms QRS Dur : 088 ms QT Int : 358 ms P-R-T Axes : 059 084 054 degrees QTc Int : 375 ms Sinus rhythm with 1st degree A-V block Otherwise normal ECG When compared with ECG of 07-JUL-2022 21:50, [place] interval has increased Referred By: Simone Baker Electronically Signed By:ELIZABETH HARRELL MD
--- NOTE | ~2022-10-19 | US_ITS ---
EXAMINATION: US OBSTETRICAL ULTRASOUND CLINICAL INFORMATION: Pelvic pain. Evaluate for ectopic COMPARISON: None. LMP: Unknown. Gestational age by maternal dates is unknown. Estimated date of delivery by maternal dates is unknown. TECHNIQUE: Transabdominal and transvaginal imaging utilizing grayscale and color Doppler technique with spectral analysis FINDINGS: There is an intrauterine gestational sac with a mean sac diameter 2.8 mm, corresponding to gestational age of 4 weeks, 5 days. No yolk sac or pole identified. No cardiac activity. There is no subchorionic hemorrhage or hematoma. MATERNAL ADNEXA: The right maternal ovary measures 1.7 x 2.1 x 2.6 cm. The left maternal ovary measures 3.1 x 1.8 x 2.0 cm. And 1.4 cm corpus luteum. There is no significant maternal adnexal mass. No maternal pelvic ascites. US/US OB transvaginal IMPRESSION: 1. Presumptive intrauterine gestational sac with ultrasound gestational age of 4 weeks, 5 days +/- 4 days. It is not abnormal to not see a pole or yolk sac at this stage of the . 2. No evidence of ectopic . No maternal adnexal mass or pelvic ascites.
--- NOTE | ~2022-10-19 | US_ITS ---
EXAMINATION: US OBSTETRICAL ULTRASOUND CLINICAL INFORMATION: Pelvic pain. Evaluate for ectopic COMPARISON: None. LMP: Unknown. Gestational age by maternal dates is unknown. Estimated date of delivery by maternal dates is unknown. TECHNIQUE: Transabdominal and transvaginal imaging utilizing grayscale and color Doppler technique with spectral analysis FINDINGS: There is an intrauterine gestational sac with a mean sac diameter 2.8 mm, corresponding to gestational age of 4 weeks, 5 days. No yolk sac or pole identified. No cardiac activity. There is no subchorionic hemorrhage or hematoma. MATERNAL ADNEXA: The right maternal ovary measures 1.7 x 2.1 x 2.6 cm. The left maternal ovary measures 3.1 x 1.8 x 2.0 cm. And 1.4 cm corpus luteum. There is no significant maternal adnexal mass. No maternal pelvic ascites. US/US OB <= 14 weeks fetus IMPRESSION: 1. Presumptive intrauterine gestational sac with ultrasound gestational age of 4 weeks, 5 days +/- 4 days. It is not abnormal to not see a pole or yolk sac at this stage of the . 2. No evidence of ectopic . No maternal adnexal mass or pelvic ascites.
[2022-10-19 19:36] VITALS: BP 127/78; PULSE 83; RESP 20; TEMP 36.6; O2SAT 96; BMI 19.2
--- NOTE | 2022-10-19 19:41 | ED.ABDPAIN ---
HPI - Abdominal Pain General Chief Complaint: Abdominal Pain <Cici Villa NP - Last Filed: 10/19/22 19:45> Stated Complaint: lower abd pain,anxiety <Cici Villa NP - Last Filed: 10/19/22 19:45> Time Seen by Provider: 10/19/22 22:01 <Cici Villa NP - Last Filed: 10/19/22 19:45> Source: patient <Simone Baker MD - Last Filed: 10/20/22 00:14> Mode of arrival: ambulatory <Simone Baker MD - Last Filed: 10/20/22 00:14> Limitations: no limitations <Simone Baker MD - Last Filed: 10/20/22 00:14> History of Present Illness HPI narrative: 27-year-old female G3, P2 (positive home test today) who presents emergency department for evaluation of abdominal pain, vaginal spotting, urgency with no dysuria. The patient states that her last known menstrual period was 09/08/2022. She states that she missed her menstrual period on 10/09/2022. Patient states that over the last week and a half she has been having lower abdominal pain with the pain being greater on the left than on the right. She states the pain is stabbing pain is been getting worse. She states that today the pain was severe. She also had urgency with no dysuria. She denied nausea or vomiting. She states that she has been spotting but did not have a menstrual period. She states that she took a home test which was positive. She is also complaining of chest pain. She describes this as a tightness with shortness of breath. She states that she has had similar symptoms in the past when she has had anxiety/panic attack and she does feel extremely anxious at this time. <Simone Baker MD - Last Filed: 10/20/22 00:14> Related Data Home Medications: Home Medications Medication Instructions Recorded Confirmed desogestrel 0.15 mg-ethinyl 1 tab PO DAILY 01/07/22 01/07/22 estradiol 0.03 mg tablet (Apri) Previous Rx's Medication Instructions Recorded hydroxyzine HCl 10 mg tablet 10 mg PO TID PRN anxiety 14 days 01/10/22 #42 tabs clonidine HCl 0.1 mg tablet 0.1 mg PO TID 7 days #21 tabs 01/24/22 escitalopram oxalate 20 mg tablet 20 mg PO DAILY 14 days #14 tabs 01/24/22 (Lexapro) lorazepam 1 mg tablet (Ativan) 1 mg PO DAILY PRN anxiety #1 tab 03/01/22 morphine 15 mg immediate release 15 mg PO Q4-6H PRN pain #10 tabs 10/20/22 tablet <Cici Villa NP - Last Filed: 10/19/22 19:45> Allergies/Adverse Reactions: Allergies Allergy/AdvReac Type Severity Reaction Status Date / Time penicillin G [PENICILLIN G] Allergy Mild SWELLING Verified 04/20/22 09:09 SEAFOOD Allergy Unknown UNKNOWN Uncoded 08/19/21 19:54 <Cici Villa NP - Last Filed: 10/19/22 19:45> Review of Systems Review of Systems Yes all other systems are reviewed and are negative <Simone Baker MD - Last Filed: 10/20/22 00:14> [facility] Past Medical History [facility] Narrative: Past medical history: Depression, anxiety, PTSD. Past surgical history: Appendectomy. Social history: She denies tobacco use. She occasionally drinks alcohol. She states she smokes marijuana frequently. <Simone Baker MD - Last Filed: 10/20/22 00:14> Medical History: Medical History Allergic rhinitis Asthma Eczema Exercise-induced asthma Rib fracture <Cici Villa NP - Last Filed: 10/19/22 19:45> Surgical History: Surgical History History of ankle surgery History of appendectomy <Cici Villa NP - Last Filed: 10/19/22 19:45> Social History Social History: Social History Household Members: Children Alcohol intake: current Patient Tobacco Use Status: Never used Tobacco Advance Directives: No <Cici Villa NP - Last Filed: 10/19/22 19:45> Physical Exam ED Vital Signs: Vital Signs - 24 hr 10/19/22 19:36 10/19/22 22:12 Temperature 98 F Pulse Rate 83 84 Respiratory Rate 20 20 Blood Pressure 127/78 118/76 Pulse Oximetry 96 98 Oxygen Delivery Method Room Air Room Air BMI result Body Mass Index 19.2 <Cici Villa NP - Last Filed: 10/19/22 19:45> Vital Signs - 24 hr 10/19/22 19:36 10/19/22 22:12 Temperature 98 F Pulse Rate 83 84 Respiratory Rate 20 20 Blood Pressure 127/78 118/76 Pulse Oximetry 96 98 Oxygen Delivery Method Room Air Room Air BMI result Body Mass Index 19.2 <Simone Baker MD - Last Filed: 10/20/22 00:14> Const Other: Awake, alert, thin female patient, pleasant, cooperative she appears to be in distress secondary to her abdominal discomfort <Simone Baker MD - Last Filed: 10/20/22 00:14> HENMT Head: Yes normal to inspection, Yes normocephalic and Yes atraumatic <Simone Baker MD - Last Filed: 10/20/22 00:14> Ears: external ears normal <Simone Baker MD - Last Filed: 10/20/22 00:14> General nose exam: Normal external nose present <Simone Baker MD - Last Filed: 10/20/22 00:14> Face and sinus: Yes normal facial exam <Simone Baker MD - Last Filed: 10/20/22 00:14> Mouth: Normal oral and palatal mucosa present <Simone Baker MD - Last Filed: 10/20/22 00:14> Throat: Yes posterior oropharynx normal <Simone Baker MD - Last Filed: 10/20/22 00:14> Eyes General: appearance normal, both eyes and all related structures <Simone Baker MD - Last Filed: 10/20/22 00:14> Pupils: Equal, round and reactive pupils present <Simone Baker MD - Last Filed: 10/20/22 00:14> Neck Neck: Yes normal visual inspection, Yes no lymphadenopathy, Yes trachea midline and Yes supple <MD Joe Best Last Filed: 10/20/22 00:14> Chest Chest palpation & inspection: normal inspection of the chest and normal palpation of entire chest wall <MD Joe Best Last Filed: 10/20/22 00:14> Resp Effort & Inspection: normal respiratory effort and able to speak in complete sentences <MD Joe Best Last Filed: 10/20/22 00:14> Auscultation: clear to auscultation bilaterally <MD Joe Best Last Filed: 10/20/22 00:14> Cardio Rate: regular rate <MD Joe Best Last Filed: 10/20/22 00:14> Rhythm: regular rhythm <MD Joe Best Last Filed: 10/20/22 00:14> Heart sounds: S1 normal heart sound present, S2 normal heart sound present and no murmurs <MD Joe Best Last Filed: 10/20/22 00:14> GI Inspection: Yes normal to inspection <MD Joe Best Last Filed: 10/20/22 00:14> Palpation (GI): Soft to palpation, Tenderness to palpation present (GI) (Moderate to severe tenderness left lower pelvic area, moderate suprapubic ) and no guarding <MD Joe Best Last Filed: 10/20/22 00:14> Auscultation: normal bowel sounds <MD Joe Best Last Filed: 10/20/22 00:14> General: Yes no CVA tenderness <MD Joe Best Last Filed: 10/20/22 00:14> Back/Spine/Pelvis Back: no CVA tenderness <MD Joe Best Last Filed: 10/20/22 00:14> Skin General skin exam: no rashes or lesions noted <MD Joe Best Last Filed: 10/20/22 00:14> Neuro Cranial nerves: Yes CN's II-XII intact bilaterally and Yes Equal, round and reactive pupils present <Simone Baker MD - Last Filed: 10/20/22 00:14> Cognition (Neuro): normal cognition <Simone Baker MD - Last Filed: 10/20/22 00:14> Motor exam (neuro): 5/5 motor strength present throughout <Simone Baker MD - Last Filed: 10/20/22 00:14> Extrem General: Yes normal to inspection <Simone Baker MD - Last Filed: 10/20/22 00:14> Psych Appearance: grossly normal <Simone Baker MD - Last Filed: 10/20/22 00:14> Speech and movement: Normal speech and movement present <Simone Baker MD - Last Filed: 10/20/22 00:14> Affect: Anxious affect present <Simone Baker MD - Last Filed: 10/20/22 00:14> Attitude: cooperative <Simone Baker MD - Last Filed: 10/20/22 00:14> Course Course Course Narrative: This is rapid medical exam. Deferred additional HPI, ROS, PE to primary provider. 27 yo female with history of anxiety, depression, PTSD here with complaints of lower abdominal pain. + on home test today. LMP 09/08 (irregular at that time). +spotting now. +anxiety. Will need labs, UA. VSS <Cici Villa NP - Last Filed: 10/19/22 19:45> Medical Decision Making Medical Decision Making MDM Narrative: 27-year-old female, , LMP 09/08/2022, 5 weeks 6 days who presents emergency department for evaluation of 1/2 weeks of lower abdominal pain worse over the past several days, patient had increased tenderness with palpation of her left pelvic area compared to the right. She also has some suprapubic tenderness. Provider triage ordered a laboratory evaluation. 2224: CBC was normal. CMP was normal. Quantitative beta-hCG was elevated 1739. Blood type is O-positive. Patient's ultrasound did reveal a gestational sac 4 weeks 5 days which is smaller than the patient's gestational age of 5 weeks and 6 days based on her LMP however, the patient was not certain about her last menstrual period date.. There is no evidence friend topic at this time. The patient will be discharged home with printed and verbal instructions. Patient states that she would like to terminate the and I [facility]. <Simone Baker MD - Last Filed: 10/20/22 00:14> Differential Diagnosis Differential diagnosis includes was not limited to ovarian cyst, ectopic , intrauterine , miscarriage <Simone Baker MD - Last Filed: 10/20/22 00:14> Lab Data MDM Lab Attestation statement: I reviewed the patient's lab results. <Simone Baker MD - Last Filed: 10/20/22 00:14> Result Diagrams: 10/19/22 20:06 10/19/22 20:06 <Cici Villa NP - Last Filed: 10/19/22 19:45> Labs: Lab Results 10/19/22 10/19/22 10/19/22 Range/Units 20:06 20:06 20:06 WBC 9.4 (4.8-10.8) X10*3/uL RBC 4.95 (4.20-5.50) X10*6/uL Hgb 13.0 (12.0-16.0) g/dl Hct 38.5 (37.0-47.0) % MCV 77.8 L (80.0-98.0) fL MCH 26.3 L (27.0-33.0) pg MCHC 33.8 (31.0-35.0) g/dl RDW 13.6 (11.0-16.0) % Plt Count 302 D (160-400) X10*3/uL MPV 10.1 (9.4-12.3) fL Immature Gran % (Auto) 0.2 (0.0-0.4) % Neut % (Auto) 60.0 (45-73) % Lymph % (Auto) 26.5 (20-40) % Kerr % (Auto) 6.3 (2-11) % Eos % (Auto) 6.6 H (0-4) % Baso % (Auto) 0.4 (0-2) % Lymph # (Auto) 2.5 (1.2-4.9) X10*3/uL Kerr # (Auto) 0.6 (0.1-1.2) X10*3/uL Eos # (Auto) 0.6 H (0.0-0.4) X10*3/uL Baso # (Auto) 0.0 (0.0-0.2) X10*3/uL Abs Immat Gran (auto) 0.02 (0.00-0.03) X10*3/uL Absolute Neuts (auto) 5.7 (2.0-8.3) x10*3/uL Absolute Nucleated RBC 0.000 (0.0-0.012) X10*3/uL Nucleated RBC % (auto) 0.0 (0.0-0.2) /100WBC Sodium 139 (135-145) mmol/L Potassium 4.2 (3.3-5.1) mmol/L Chloride 106 (96-108) mmol/L Carbon Dioxide 24 (22-29) mmol/L Anion Gap 13 (12-20) BUN 10 (9-16) mg/dL Creatinine 0.72 (0.5-1.4) mg/dL Estim Creat Clear Calc 93.2 Estimated GFR > 60 Random Glucose 109 (60-115) mg/dL Calcium 9.7 D (8.4-10.2) mg/dL Total Bilirubin 0.2 (0.0-1.0) mg/dL Direct Bilirubin < 0.2 (0.0-0.5) mg/dL AST 14 (5-31) U/L ALT 9 (0-31) U/L Alkaline Phosphatase 57 (39-117) U/L Total Protein 7.2 (6.5-8.0) g/dL Albumin 4.3 (3.5-5.0) g/dL Beta HCG, Quant 1739 mIU/mL Blood Type O Positive <Cici Villa NP - Last Filed: 10/19/22 19:45> Lab Results 10/19/22 10/19/22 10/19/22 Range/Units 20:06 20:06 20:06 WBC 9.4 (4.8-10.8) X10*3/uL RBC 4.95 (4.20-5.50) X10*6/uL Hgb 13.0 (12.0-16.0) g/dl Hct 38.5 (37.0-47.0) % MCV 77.8 L (80.0-98.0) fL MCH 26.3 L (27.0-33.0) pg MCHC 33.8 (31.0-35.0) g/dl RDW 13.6 (11.0-16.0) % Plt Count 302 D (160-400) X10*3/uL MPV 10.1 (9.4-12.3) fL Immature Gran % (Auto) 0.2 (0.0-0.4) % Neut % (Auto) 60.0 (45-73) % Lymph % (Auto) 26.5 (20-40) % Kerr % (Auto) 6.3 (2-11) % Eos % (Auto) 6.6 H (0-4) % Baso % (Auto) 0.4 (0-2) % Lymph # (Auto) 2.5 (1.2-4.9) X10*3/uL Kerr # (Auto) 0.6 (0.1-1.2) X10*3/uL Eos # (Auto) 0.6 H (0.0-0.4) X10*3/uL Baso # (Auto) 0.0 (0.0-0.2) X10*3/uL Abs Immat Gran (auto) 0.02 (0.00-0.03) X10*3/uL Absolute Neuts (auto) 5.7 (2.0-8.3) x10*3/uL Absolute Nucleated RBC 0.000 (0.0-0.012) X10*3/uL Nucleated RBC % (auto) 0.0 (0.0-0.2) /100WBC Sodium 139 (135-145) mmol/L Potassium 4.2 (3.3-5.1) mmol/L Chloride 106 (96-108) mmol/L Carbon Dioxide 24 (22-29) mmol/L Anion Gap 13 (12-20) BUN 10 (9-16) mg/dL Creatinine 0.72 (0.5-1.4) mg/dL Estim Creat Clear Calc 93.2 Estimated GFR > 60 Random Glucose 109 (60-115) mg/dL Calcium 9.7 D (8.4-10.2) mg/dL Total Bilirubin 0.2 (0.0-1.0) mg/dL Direct Bilirubin < 0.2 (0.0-0.5) mg/dL AST 14 (5-31) U/L ALT 9 (0-31) U/L Alkaline Phosphatase 57 (39-117) U/L Total Protein 7.2 (6.5-8.0) g/dL Albumin 4.3 (3.5-5.0) g/dL Beta HCG, Quant 1739 mIU/mL Blood Type O Positive <Simone Baker MD - Last Filed: 10/20/22 00:14> Radiology Impression Discussion of test interpretation with radiology: I have reviewed the radiologist's reading. <Simone Baker MD - Last Filed: 10/20/22 00:14> Radiologist Impression: EXAMINATION:? US OBSTETRICAL ULTRASOUND CLINICAL INFORMATION:? Pelvic pain. Evaluate for ectopic COMPARISON:? None.? LMP: Unknown. Gestational age by maternal dates is unknown. Estimated date of delivery by maternal dates is unknown. TECHNIQUE: Transabdominal and transvaginal imaging utilizing grayscale and color Doppler technique with spectral analysis ? FINDINGS: There is an intrauterine gestational sac with a mean sac diameter 2.8 mm, corresponding to gestational age of 4 weeks, 5 days. No yolk sac or pole identified. No cardiac activity. There is no subchorionic hemorrhage or hematoma. MATERNAL ADNEXA: ? ? The right maternal ovary measures 1.7 x 2.1 x 2.6 cm. The left maternal ovary measures 3.1 x 1.8 x 2.0 cm.? And 1.4 cm corpus luteum. There is no significant maternal adnexal mass.? No maternal pelvic ascites. US/US OB <= 14 weeks fetus IMPRESSION: 1. Presumptive intrauterine gestational sac with ultrasound gestational age of? 4 weeks, 5 days +/- 4 days. It is not abnormal to not see a pole or yolk sac at this stage of the . ? 2. No evidence of ectopic . No maternal adnexal mass or pelvic ascites. Dictated By: Joshua Miller MD Signed By: <Electronically signed by Joshua Miller MD in [place]>10/19/22 2312 <Simone Baker MD - Last Filed: 10/20/22 00:14> Medications Administered Discontinued Medications Generic Name Dose Route Start Last Admin Trade Name Freq PRN Reason Stop Dose Admin Sodium Chloride 1,000 mls @ 999 mls/hr 10/19/22 22:12 10/19/22 23:21 Ns IV 10/19/22 23:12 Infused .Q1H1M STA Infusion Morphine Sulfate 4 mg 10/19/22 22:12 10/19/22 22:18 Morphine Sulfate 4 Mg/Ml Cartridge IVPUSH 10/19/22 22:13 4 mg ONCE STA Administration Protocol Ondansetron HCl 4 mg 10/19/22 22:12 10/19/22 22:18 Ondansetron Hcl 4 Mg/2 Ml Vial IVPUSH 10/19/22 22:13 4 mg ONCE ONE Administration <Cici Villa NP - Last Filed: 10/19/22 19:45> Medications Administered Discontinued Medications Generic Name Dose Route Start Last Admin Trade Name Freq PRN Reason Stop Dose Admin Sodium Chloride 1,000 mls @ 999 mls/hr 10/19/22 22:12 10/19/22 23:21 Ns IV 10/19/22 23:12 Infused .Q1H1M STA Infusion Morphine Sulfate 4 mg 10/19/22 22:12 10/19/22 22:18 Morphine Sulfate 4 Mg/Ml Cartridge IVPUSH 10/19/22 22:13 4 mg ONCE STA Administration Protocol Ondansetron HCl 4 mg 10/19/22 22:12 10/19/22 22:18 Ondansetron Hcl 4 Mg/2 Ml Vial IVPUSH 10/19/22 22:13 4 mg ONCE ONE Administration <Simone Baker MD - Last Filed: 10/20/22 00:14> Discharge Plan Discharge Clinical Impression: Intrauterine , Abdominal pain in <Cici Villa NP - Last Filed: 10/19/22 19:45> Patient Disposition: Home, Self-Care <Cici Villa NP - Last Filed: 10/19/22 19:45> Instructions: (ED) <Cici Villa NP - Last Filed: 10/19/22 19:45> Additional Instructions: Your CBC and CMP were normal. Your quantitative beta-hCG (blood test) was 1739. Your blood type is O-positive The ultrasound of your pelvis revealed a intrauterine gestational sac () with ultrasound gestational age of 4 weeks and 5 days plus/-4 days. There was no evidence for ectopic . [facility] this . Take Tylenol (acetaminophen) 2 pills every 4-6 hours as needed for pain. For pain not relieved by Tylenol take morphine 15 mg pills, 1 pill every 4 hours as needed for pain. This medication will make you sleepy, do not drive or work while taking this medication. Morphine is a narcotic medication and can be addicting. If you are concerned about addiction you can ask the pharmacist for less pills or do not get this prescription filled. Follow-up with your doctor in 2 days. Please return to the emergency department if your symptoms get worse or if you develop any symptoms that are concerning to you. Patient: Francisco DurbinyMR#: [id number]: [id number]:[id number]/Sex: / FADM Date: 10/19/22Loc: [email or web address] Dr: Ordering Physician: Simone Baker MD Date of Service: 10/19/22 Procedure(s): US OB transvaginal Accession Number(s): [id number] cc: Simone Baker MD~ EXAMINATION: US OBSTETRICAL ULTRASOUND CLINICAL INFORMATION: Pelvic pain. Evaluate for ectopic COMPARISON: None. LMP: Unknown. Gestational age by maternal dates is unknown. Estimated date of delivery by maternal dates is unknown. TECHNIQUE: Transabdominal and transvaginal imaging utilizing grayscale and color Doppler technique with spectral analysis FINDINGS: There is an intrauterine gestational sac with a mean sac diameter 2.8 mm, corresponding to gestational age of 4 weeks, 5 days. No yolk sac or pole identified. No cardiac activity. There is no subchorionic hemorrhage or hematoma. MATERNAL ADNEXA: The right maternal ovary measures 1.7 x 2.1 x 2.6 cm. The left maternal ovary measures 3.1 x 1.8 x 2.0 cm. And 1.4 cm corpus luteum. There is no significant maternal adnexal mass. No maternal pelvic ascites. US/US OB transvaginal IMPRESSION: 1. Presumptive intrauterine gestational sac with ultrasound gestational age of 4 weeks, 5 days +/- 4 days. It is not abnormal to not see a pole or yolk sac at this stage of the . 2. No evidence of ectopic . No maternal adnexal mass or pelvic ascites. Dictated By:Joshua Miller MDSigned By:<Electronically signed by Joshua Miller MD in [place]>10/19/222311 <Cici Villa NP - Last Filed: 10/19/22 19:45> Prescriptions: New morphine 15 mg tablet 15 mg PO Q4-6H PRN (Reason: pain) Qty: 10 0RF Rx Instructions: The patient may ask for partial fill; Partial Fill upon patient request. No Action desogestrel-ethinyl estradiol [Apri] 0.15-0.03 mg Tablet 1 tab PO DAILY hydroxyzine HCl 10 mg tablet 10 mg PO TID PRN (Reason: anxiety) 14 Days Qty: 42 0RF clonidine HCl 0.1 mg tablet 0.1 mg PO TID 7 Days Qty: 21 0RF escitalopram oxalate [Lexapro] 20 mg tablet 20 mg PO DAILY 14 Days Qty: 14 0RF lorazepam [Ativan] 1 mg tablet 1 mg PO DAILY PRN (Reason: anxiety) Qty: 1 0RF <Cici Villa NP - Last Filed: 10/19/22 19:45>
[2022-10-19 20:13] LABS: MANUAL DIFF FLAG NO
[2022-10-19 20:15] LABS: Basophils Percent Auto 0.4 % (0-2); Eosinophils Absolute Auto 0.6 X10*3/uL (0.0-0.4); Eosinophils Percent Auto 6.6 % (0-4); Hematocrit 38.5 % (37.0-47.0); Imm Gran Abs Auto 0.02 X10*3/uL (0.00-0.03); Imm Gran Pct Auto 0.2 % (0.0-0.4); Lymphocytes Absolute Auto 2.5 X10*3/uL (1.2-4.9); Lymphocytes Percent Auto 26.5 % (20-40); Mean Corpuscular HGB Conc 33.8 g/dl (31.0-35.0); Mean Corpuscular Hemoglobin 26.3 pg (27.0-33.0); Mean Corpuscular Volume 77.8 fL (80.0-98.0); Mean Platelet Volume 10.1 fL (9.4-12.3); Monocytes Absolute Auto 0.6 X10*3/uL (0.1-1.2); Monocytes Percent Auto 6.3 % (2-11); Neutrophils Absolute Auto 5.7 x10*3/uL (2.0-8.3); Platelet Count 302 X10*3/uL (160-400); Red Blood Count 4.95 X10*6/uL (4.20-5.50); Red Cell Distribution Width 13.6 % (11.0-16.0); White Blood Count 9.4 X10*3/uL (4.8-10.8)
[2022-10-19 20:37] LABS: Alanine Aminotransferase 9 U/L (0-31); Albumin Level 4.3 g/dL (3.5-5.0); Alkaline Phosphatase 57 U/L (39-117); Anion Gap 13 (12-20); Aspartate Amino Transferase 14 U/L (5-31); Bilirubin Direct < 0.2 mg/dL (0.0-0.5); Bilirubin Total 0.2 mg/dL (0.0-1.0); Blood Urea Nitrogen 10 mg/dL (9-16); Calcium 9.7 mg/dL (8.4-10.2); Carbon Dioxide 24 mmol/L (22-29); Chloride 106 mmol/L (96-108); Creatinine Clr Calc Pharmacy 93.2; Estimated Glomerular Filt Rate > 60; Glucose Random 109 mg/dL (60-115); Potassium 4.2 mmol/L (3.3-5.1); Sodium 139 mmol/L (135-145); Total Protein 7.2 g/dL (6.5-8.0)
[2022-10-19 20:38] LABS: HCG Quantitative 1739 mIU/mL
[2022-10-19 22:12] VITALS: BP 118/76; PULSE 84; RESP 20; O2SAT 98
[2022-10-19] MEDS: ondansetron HCL 4 MG/2 ML VIAL IVPUSH (22:18)
[2022-10-19] MEDS: Morphine Sulfate 4 MG/ML CARTRIDGE IVPUSH (22:18)
[2022-10-19] MEDS: 0.9 % Sodium Chloride 1,000 ML 999 ML IV (22:19)
[2022-10-19 23:57] VITALS: BP 114/59; PULSE 69; RESP 18; O2SAT 98
== END 2022-10-20 00:23 | disposition home or self-care (01) ==
PROVIDERS: Nurse Practitioner Family; Emergency Provider Emergency Medicine Emergency Medical Services
DX: O26.891 Other specified pregnancy related conditions, first trimester (principal); R10.30 Lower abdominal pain, unspecified; R06.02 Shortness of breath; Z3A.01 Less than 8 weeks gestation of pregnancy
CPT/HCPCS: 36415; 76801; 76817; 80048; 80076; 84702; 85025; 86900; 86901; 93005; 96361; 96374; 96375; 99284; J2270; J2405

== ENCOUNTER 2022-12-13 17:01 | Emergency (ER) | payer OTHER, SELFPAY ==
--- NOTE | ~2022-12-13 | XR_ITS ---
EXAMINATION: XR CHEST CLINICAL INFORMATION: Chest pain. COMPARISON: 07/20/2021 chest radiograph. TECHNIQUE: Frontal view of the chest was obtained. FINDINGS: No significant abnormality is noted involving the heart, lungs, mediastinum, bony thorax or soft tissues. XR/XR chest 1V IMPRESSION: No acute cardiopulmonary process.
[2022-12-13 17:04] VITALS: BP 140/74; PULSE 100; RESP 18; TEMP 36.6; O2SAT 99; BMI 20.5
--- NOTE | 2022-12-13 17:09 | ECG_ITS ---
Test Reason : CP Blood Pressure : / mmHG Vent. Rate : 063 BPM Atrial Rate : 326 BPM P-R Int : 000 ms QRS Dur : 078 ms QT Int : 384 ms P-R-T Axes : 056 066 046 degrees QTc Int : 392 ms Artifact Sinus rhythm Normal ECG When compared with ECG of 19-OCT-2022 22:07, No significant changes seen Referred By: Keila Mccain Electronically Signed By:Lowell Angeles
--- NOTE | 2022-12-13 17:10 | ED.CHESTPAIN ---
HPI - Chest Pain General Chief Complaint: Chest Pain <AARON Marks - Last Filed: 12/13/22 17:12> Stated Complaint: Anxiety/Chest pain/SOB <AARON Marks - Last Filed: 12/13/22 17:12> Time Seen by Provider: 12/13/22 19:37 <AARON Marks - Last Filed: 12/13/22 17:12> Source: patient, RN notes reviewed and old records reviewed <Ezra Wu - Last Filed: 12/13/22 20:48> Limitations: no limitations <Ezra Wu - Last Filed: 12/13/22 20:48> History of Present Illness HPI narrative: 27-year-old female past medical history significant for depression and anxiety presents for evaluation of ?anxiety. ? Patient reports that she got into an argument with the father of her child several hours prior to arrival. She reports that she then began to experience ?chest pain and shaking. ? She states that she feels weak and vomited once She reports this feels consistent with her previous panic attacks She denies any history of cardiac disease. The patient is not currently on any antidepressants or antianxiety medications because ?I did not think it needed them so I stopped them about 6 months ago. ? Patient reports that she self medicates with marijuana <Ezra Wu - Last Filed: 12/13/22 20:48> Related Data Home Medications: Home Medications Medication Instructions Recorded Confirmed desogestrel 0.15 mg-ethinyl 1 tab PO DAILY 01/07/22 01/07/22 estradiol 0.03 mg tablet (Apri) Previous Rx's Medication Instructions Recorded hydroxyzine HCl 10 mg tablet 10 mg PO TID PRN anxiety 14 days 01/10/22 #42 tabs clonidine HCl 0.1 mg tablet 0.1 mg PO TID 7 days #21 tabs 01/24/22 escitalopram oxalate 20 mg tablet 20 mg PO DAILY 14 days #14 tabs 01/24/22 (Lexapro) lorazepam 1 mg tablet (Ativan) 1 mg PO DAILY PRN anxiety #1 tab 03/01/22 morphine 15 mg immediate release 15 mg PO Q4-6H PRN pain #10 tabs 10/20/22 tablet hydroxyzine HCl 25 mg tablet 25 mg PO TID PRN anxiety #20 tabs 12/13/22 <AARON Marks - Last Filed: 12/13/22 17:12> Allergies/Adverse Reactions: Allergies Allergy/AdvReac Type Severity Reaction Status Date / Time penicillin G [PENICILLIN G] Allergy Mild SWELLING Verified 04/20/22 09:09 SEAFOOD Allergy Unknown UNKNOWN Uncoded 08/19/21 19:54 <AARON Marks - Last Filed: 12/13/22 17:12> Review of Systems Constitutional: Constitutional: Reports as per HPI, Denies chills, Denies fatigue, Denies fever(s), Denies headache(s) and Reports weakness <Ezra Wu - Last Filed: 12/13/22 20:48> ENT: Denies headache(s) <Ezra Wu - Last Filed: 12/13/22 20:48> Cardiovascular: Cardiovascular: Reports chest pain <Ezra Wu - Last Filed: 12/13/22 20:48> Respiratory: Respiratory: Denies cough <Ezra Wu - Last Filed: 12/13/22 20:48> Gastrointestinal: Gastrointestinal: Denies abdominal pain and Denies constipation <Ezra Wu - Last Filed: 12/13/22 20:48> Genitourinary: Genitourinary: Denies dysuria <Ezra Wu - Last Filed: 12/13/22 20:48> Neurologic: Denies headache(s), Denies focal weakness and Reports weakness <Ezra Wu - Last Filed: 12/13/22 20:48> Endocrine: Endocrine: Denies fatigue <Ezra Wu - Last Filed: 12/13/22 20:48> [facility] Past Medical History Medical History: Medical History Allergic rhinitis Asthma Eczema Exercise-induced asthma Rib fracture <AARON Marks - Last Filed: 12/13/22 17:12> Surgical History: Surgical History History of ankle surgery History of appendectomy <AARON Marks - Last Filed: 12/13/22 17:12> Social History Social History: Social History Household Members: Children Alcohol intake: current Patient Tobacco Use Status: Never used Tobacco Advance Directives: No Advance Directives Information Provided: No <AARON Marks - Last Filed: 12/13/22 17:12> Physical Exam Vital Signs: Vital Signs: Last Vital Signs Temp 97.2 F 12/13/22 19:03 Pulse 68 12/13/22 19:03 Resp 14 12/13/22 19:03 BP 123/81 12/13/22 19:03 Pulse Ox 100 12/13/22 19:03 O2 Del Method Room Air 12/13/22 19:03 BMI result Body Mass Index 20.5 <AARON Marks - Last Filed: 12/13/22 17:12> Vital Signs: Last Vital Signs Temp 97.2 F 12/13/22 19:03 Pulse 68 12/13/22 19:03 Resp 14 12/13/22 19:03 BP 123/81 12/13/22 19:03 Pulse Ox 100 12/13/22 19:03 O2 Del Method Room Air 12/13/22 19:03 BMI result Body Mass Index 20.5 <Ezra Wu - Last Filed: 12/13/22 20:48> Const: General: healthy appearing, comfortable, no acute distress, alert and awake <Ezra Wu - Last Filed: 12/13/22 20:48> Nutritional Appearance: well nourished <Ezra Wu - Last Filed: 12/13/22 20:48> Orientation/consciousness: patient oriented x3 <Ezra Wu - Last Filed: 12/13/22 20:48> HEENT: Head: Yes normocephalic and Yes atraumatic <Ezra Wu - Last Filed: 12/13/22 20:48> Throat: Yes posterior oropharynx normal <Ezra Wu - Last Filed: 12/13/22 20:48> Eyes: Eyelids: Yes eyelids normal <Ezra Wu - Last Filed: 12/13/22 20:48> Conjunctivae: conjunctivae normal < Last Filed: 12/13/22 20:48> Sclerae: sclerae normal < Last Filed: 12/13/22 20:48> Corneas: corneas normal < Filed: 12/13/22 20:48> Pupils: Equal, round and reactive pupils present < Filed: 12/13/22 20:48> EOM: EOMs intact bilaterally < Filed: 12/13/22 20:48> Neck: Neck: Yes full ROM < Filed: 12/13/22 20:48> Resp: Effort & Inspection: normal respiratory effort, able to speak in complete sentences, no audible wheezes and not labored < Filed: 12/13/22 20:48> Auscultation: clear to auscultation bilaterally < Filed: 12/13/22 20:48> Cardio: Rate: regular rate < Filed: 12/13/22 20:48> Rhythm: regular rhythm < Filed: 12/13/22 20:48> GI: Inspection: No distended < Filed: 12/13/22 20:48> Palpation (GI): Soft to palpation, not firm, nontender, no guarding and not rigid < Last Filed: 12/13/22 20:48> Auscultation: normoactive bowel sounds < Filed: 12/13/22 20:48> Skin: General skin exam: no rashes or lesions noted and elasticity normal < Last Filed: 12/13/22 20:48> Neuro: General: patient oriented x3 < Filed: 12/13/22 20:48> Cranial nerves: Yes CN's II-XII intact bilaterally, Yes Equal, round and reactive pupils present and Yes Bilaterally intact EOM present <Ezra Wu - Last Filed: 12/13/22 20:48> Cognition (Neuro): normal cognition <Ezra Wu - Last Filed: 12/13/22 20:48> Course Course Course Narrative: This is an RME: Additional HPI, ROS, PE not included below will be deferred to primary provider. 27-year-old female history of anxiety, depression presents with increasing anxiety, chest pain, palpitations times today, patient reports panic attack yesterday she used to be on medications however no longer taking. Patient states she has been having increasing anxiety despite any triggers. Denies SI and HI. Physical exam benign however, patient anxious appearing plan labs, imaging <AARON Marks - Last Filed: 12/13/22 17:12> Medications Administered Discontinued Medications Generic Name Dose Route Start Last Admin Trade Name Freq PRN Reason Stop Dose Admin Lorazepam 1 mg 12/13/22 19:47 12/13/22 19:54 Lorazepam 1 Mg Tablet PO 12/13/22 19:48 1 mg ONCE ONE Administration <AARON Marks - Last Filed: 12/13/22 17:12> Medications Administered Discontinued Medications Generic Name Dose Route Start Last Admin Trade Name Freq PRN Reason Stop Dose Admin Lorazepam 1 mg 12/13/22 19:47 12/13/22 19:54 Lorazepam 1 Mg Tablet PO 12/13/22 19:48 1 mg ONCE ONE Administration <Ezra Wu - Last Filed: 12/13/22 20:48> Medical Decision Making Medical Decision Making MDM Narrative: 19-year-old female presents for evaluation of which she reports his anxiety. She complains of chest pain. Her cardiac workup was negative. Initial EKG had significant artifact and was read as a flutter. It did appear to be sinus rhythm, a repeat EKG shows sinus bradycardia. The patient was treated with Ativan with good relief for symptoms. Her labs are reassuring without significant findings. Chest x-ray is without acute findings as well. She is to for discharge this time. We will discharge the patient p.r.n. hydroxyzine and she will follow up with her outpatient providers to get back on her antidepressant medications <Ezra Wu - Last Filed: 12/13/22 20:48> Differential Diagnosis Chest pain Anxiety Depression Medication noncompliance Costochondritis ACS less likely <Ezra Bryce - Last Filed: 12/13/22 20:48> Lab Data Result Diagrams: 12/13/22 17:32 12/13/22 17:32 <AARON Marks - Last Filed: 12/13/22 17:12> Labs: Lab Results 12/13/22 12/13/22 12/13/22 Range/Units 17:32 17:32 17:32 WBC 8.6 (4.8-10.8) X10*3/uL RBC 4.96 (4.20-5.50) X10*6/uL Hgb 13.0 (12.0-16.0) g/dl Hct 39.1 (37.0-47.0) % MCV 78.8 L (80.0-98.0) fL MCH 26.2 L (27.0-33.0) pg MCHC 33.2 (31.0-35.0) g/dl RDW 13.1 (11.0-16.0) % Plt Count 261 (160-400) X10*3/uL MPV 10.2 (9.4-12.3) fL Immature Gran % (Auto) 0.2 (0.0-0.4) % Neut % (Auto) 72.4 (45-73) % Lymph % (Auto) 17.4 L (20-40) % Nobles % (Auto) 6.6 (2-11) % Eos % (Auto) 3.1 (0-4) % Baso % (Auto) 0.3 (0-2) % Lymph # (Auto) 1.5 (1.2-4.9) X10*3/uL Nobles # (Auto) 0.6 (0.1-1.2) X10*3/uL Eos # (Auto) 0.3 (0.0-0.4) X10*3/uL Baso # (Auto) 0.0 (0.0-0.2) X10*3/uL Abs Immat Gran (auto) 0.02 (0.00-0.03) X10*3/uL Absolute Neuts (auto) 6.2 (2.0-8.3) x10*3/uL Absolute Nucleated RBC 0.000 (0.0-0.012) X10*3/uL Nucleated RBC % (auto) 0.0 (0.0-0.2) /100WBC Sodium 138 (135-145) mmol/L Potassium 4.1 (3.3-5.1) mmol/L Chloride 103 (96-108) mmol/L Carbon Dioxide 26 (22-29) mmol/L Anion Gap 13 (12-20) BUN 9 (9-16) mg/dL Creatinine 0.71 (0.5-1.4) mg/dL Estim Creat Clear Calc 101.3 Estimated GFR > 60 Random Glucose 102 (60-115) mg/dL Calcium 9.7 (8.4-10.2) mg/dL Magnesium 1.8 (1.6-2.6) mg/dL Total Bilirubin 0.7 (0.0-1.0) mg/dL AST 16 (5-31) U/L ALT 8 (0-31) U/L Alkaline Phosphatase 62 (39-117) U/L Troponin I High Sens < 2.7 (<3.5-17.0) ng/L B-Natriuretic Peptide (<100) pg/mL Total Protein 7.1 (6.5-8.0) g/dL Albumin 4.4 (3.5-5.0) g/dL COVID-19 (KARRI) (Negative) COVID-19 Clin Com 12/13/22 12/13/22 Range/Units 17:32 17:32 WBC (4.8-10.8) X10*3/uL RBC (4.20-5.50) X10*6/uL Hgb (12.0-16.0) g/dl Hct (37.0-47.0) % MCV (80.0-98.0) fL MCH (27.0-33.0) pg MCHC (31.0-35.0) g/dl RDW (11.0-16.0) % Plt Count (160-400) X10*3/uL MPV (9.4-12.3) fL Immature Gran % (Auto) (0.0-0.4) % Neut % (Auto) (45-73) % Lymph % (Auto) (20-40) % Nobles % (Auto) (2-11) % Eos % (Auto) (0-4) % Baso % (Auto) (0-2) % Lymph # (Auto) (1.2-4.9) X10*3/uL Nobles # (Auto) (0.1-1.2) X10*3/uL Eos # (Auto) (0.0-0.4) X10*3/uL Baso # (Auto) (0.0-0.2) X10*3/uL Abs Immat Gran (auto) (0.00-0.03) X10*3/uL Absolute Neuts (auto) (2.0-8.3) x10*3/uL Absolute Nucleated RBC (0.0-0.012) X10*3/uL Nucleated RBC % (auto) (0.0-0.2) /100WBC Sodium (135-145) mmol/L Potassium (3.3-5.1) mmol/L Chloride (96-108) mmol/L Carbon Dioxide (22-29) mmol/L Anion Gap (12-20) BUN (9-16) mg/dL Creatinine (0.5-1.4) mg/dL Estim Creat Clear Calc Estimated GFR Random Glucose (60-115) mg/dL Calcium (8.4-10.2) mg/dL Magnesium (1.6-2.6) mg/dL Total Bilirubin (0.0-1.0) mg/dL AST (5-31) U/L ALT (0-31) U/L Alkaline Phosphatase (39-117) U/L Troponin I High Sens (<3.5-17.0) ng/L B-Natriuretic Peptide 19 (<100) pg/mL Total Protein (6.5-8.0) g/dL Albumin (3.5-5.0) g/dL COVID-19 ([facility]) Negative (Negative) COVID-19 Clin Com See Note <AARON Marks - Last Filed: 12/13/22 17:12> Lab Results 12/13/22 12/13/22 12/13/22 Range/Units 17:32 17:32 17:32 WBC 8.6 (4.8-10.8) X10*3/uL RBC 4.96 (4.20-5.50) X10*6/uL Hgb 13.0 (12.0-16.0) g/dl Hct 39.1 (37.0-47.0) % MCV 78.8 L (80.0-98.0) fL MCH 26.2 L (27.0-33.0) pg MCHC 33.2 (31.0-35.0) g/dl RDW 13.1 (11.0-16.0) % Plt Count 261 (160-400) X10*3/uL MPV 10.2 (9.4-12.3) fL Immature Gran % (Auto) 0.2 (0.0-0.4) % Neut % (Auto) 72.4 (45-73) % Lymph % (Auto) 17.4 L (20-40) % Nobles % (Auto) 6.6 (2-11) % Eos % (Auto) 3.1 (0-4) % Baso % (Auto) 0.3 (0-2) % Lymph # (Auto) 1.5 (1.2-4.9) X10*3/uL Nobles # (Auto) 0.6 (0.1-1.2) X10*3/uL Eos # (Auto) 0.3 (0.0-0.4) X10*3/uL Baso # (Auto) 0.0 (0.0-0.2) X10*3/uL Abs Immat Gran (auto) 0.02 (0.00-0.03) X10*3/uL Absolute Neuts (auto) 6.2 (2.0-8.3) x10*3/uL Absolute Nucleated RBC 0.000 (0.0-0.012) X10*3/uL Nucleated RBC % (auto) 0.0 (0.0-0.2) /100WBC Sodium 138 (135-145) mmol/L Potassium 4.1 (3.3-5.1) mmol/L Chloride 103 (96-108) mmol/L Carbon Dioxide 26 (22-29) mmol/L Anion Gap 13 (12-20) BUN 9 (9-16) mg/dL Creatinine 0.71 (0.5-1.4) mg/dL Estim Creat Clear Calc 101.3 Estimated GFR > 60 Random Glucose 102 (60-115) mg/dL Calcium 9.7 (8.4-10.2) mg/dL Magnesium 1.8 (1.6-2.6) mg/dL Total Bilirubin 0.7 (0.0-1.0) mg/dL AST 16 (5-31) U/L ALT 8 (0-31) U/L Alkaline Phosphatase 62 (39-117) U/L Troponin I High Sens < 2.7 (<3.5-17.0) ng/L B-Natriuretic Peptide (<100) pg/mL Total Protein 7.1 (6.5-8.0) g/dL Albumin 4.4 (3.5-5.0) g/dL COVID-19 ([facility]RI) (Negative) COVID-19 Clin Com 12/13/22 12/13/22 Range/Units 17:32 17:32 WBC (4.8-10.8) X10*3/uL RBC (4.20-5.50) X10*6/uL Hgb (12.0-16.0) g/dl Hct (37.0-47.0) % MCV (80.0-98.0) fL MCH (27.0-33.0) pg MCHC (31.0-35.0) g/dl RDW (11.0-16.0) % Plt Count (160-400) X10*3/uL MPV (9.4-12.3) fL Immature Gran % (Auto) (0.0-0.4) % Neut % (Auto) (45-73) % Lymph % (Auto) (20-40) % Nobles % (Auto) (2-11) % Eos % (Auto) (0-4) % Baso % (Auto) (0-2) % Lymph # (Auto) (1.2-4.9) X10*3/uL Nobles # (Auto) (0.1-1.2) X10*3/uL Eos # (Auto) (0.0-0.4) X10*3/uL Baso # (Auto) (0.0-0.2) X10*3/uL Abs Immat Gran (auto) (0.00-0.03) X10*3/uL Absolute Neuts (auto) (2.0-8.3) x10*3/uL Absolute Nucleated RBC (0.0-0.012) X10*3/uL Nucleated RBC % (auto) (0.0-0.2) /100WBC Sodium (135-145) mmol/L Potassium (3.3-5.1) mmol/L Chloride (96-108) mmol/L Carbon Dioxide (22-29) mmol/L Anion Gap (12-20) BUN (9-16) mg/dL Creatinine (0.5-1.4) mg/dL Estim Creat Clear Calc Estimated GFR Random Glucose (60-115) mg/dL Calcium (8.4-10.2) mg/dL Magnesium (1.6-2.6) mg/dL Total Bilirubin (0.0-1.0) mg/dL AST (5-31) U/L ALT (0-31) U/L Alkaline Phosphatase (39-117) U/L Troponin I High Sens (<3.5-17.0) ng/L B-Natriuretic Peptide 19 (<100) pg/mL Total Protein (6.5-8.0) g/dL Albumin (3.5-5.0) g/dL COVID-19 ([facility]) Negative (Negative) COVID-19 Clin Com See Note <Ezra Wu - Last Filed: 12/13/22 20:48> Discharge Plan Discharge Clinical Impression: Generalized anxiety disorder, Chest pain <AARON Marks - Last Filed: 12/13/22 17:12> Patient Disposition: Home, Self-Care <AARON Marks - Last Filed: 12/13/22 17:12> Instructions: Anxiety (ED) <AARON Marks - Last Filed: 12/13/22 17:12> Additional Instructions: You may take hydroxyzine as needed for anxiety. This may make you sleepy, did not drink alcohol or drive after taking it. Your blood work, chest x-ray and EKG were reassuring today. Follow up with her outpatient providers, he may benefit from being restarted on antidepressant/antianxiety medications <AARON Marks - Last Filed: 12/13/22 17:12> Prescriptions: New hydroxyzine HCl 25 mg tablet 25 mg PO TID PRN (Reason: anxiety) Qty: 20 0RF No Action desogestrel-ethinyl estradiol [Apri] 0.15-0.03 mg Tablet 1 tab PO DAILY hydroxyzine HCl 10 mg tablet 10 mg PO TID PRN (Reason: anxiety) 14 Days Qty: 42 0RF clonidine HCl 0.1 mg tablet 0.1 mg PO TID 7 Days Qty: 21 0RF escitalopram oxalate [Lexapro] 20 mg tablet 20 mg PO DAILY 14 Days Qty: 14 0RF lorazepam [Ativan] 1 mg tablet 1 mg PO DAILY PRN (Reason: anxiety) Qty: 1 0RF morphine 15 mg tablet 15 mg PO Q4-6H PRN (Reason: pain) Qty: 10 0RF Rx Instructions: The patient may ask for partial fill; Partial Fill upon patient request. <AARON Marks - Last Filed: 12/13/22 17:12>
[2022-12-13 17:38] LABS: MANUAL DIFF FLAG NO
[2022-12-13 17:45] LABS: Basophils Percent Auto 0.3 % (0-2); Eosinophils Absolute Auto 0.3 X10*3/uL (0.0-0.4); Eosinophils Percent Auto 3.1 % (0-4); Hematocrit 39.1 % (37.0-47.0); Imm Gran Abs Auto 0.02 X10*3/uL (0.00-0.03); Imm Gran Pct Auto 0.2 % (0.0-0.4); Lymphocytes Absolute Auto 1.5 X10*3/uL (1.2-4.9); Lymphocytes Percent Auto 17.4 % (20-40); Mean Corpuscular HGB Conc 33.2 g/dl (31.0-35.0); Mean Corpuscular Hemoglobin 26.2 pg (27.0-33.0); Mean Corpuscular Volume 78.8 fL (80.0-98.0); Mean Platelet Volume 10.2 fL (9.4-12.3); Monocytes Absolute Auto 0.6 X10*3/uL (0.1-1.2); Monocytes Percent Auto 6.6 % (2-11); Neutrophils Absolute Auto 6.2 x10*3/uL (2.0-8.3); Neutrophils Percent Auto 72.4 % (45-73); Platelet Count 261 X10*3/uL (160-400); Red Blood Count 4.96 X10*6/uL (4.20-5.50); Red Cell Distribution Width 13.1 % (11.0-16.0); White Blood Count 8.6 X10*3/uL (4.8-10.8)
[2022-12-13 18:14] LABS: Alanine Aminotransferase 8 U/L (0-31); Albumin Level 4.4 g/dL (3.5-5.0); Alkaline Phosphatase 62 U/L (39-117); Anion Gap 13 (12-20); Aspartate Amino Transferase 16 U/L (5-31); Bilirubin Total 0.7 mg/dL (0.0-1.0); Blood Urea Nitrogen 9 mg/dL (9-16); Calcium 9.7 mg/dL (8.4-10.2); Carbon Dioxide 26 mmol/L (22-29); Chloride 103 mmol/L (96-108); Creatinine Clr Calc Pharmacy 101.3; Estimated Glomerular Filt Rate > 60; Glucose Random 102 mg/dL (60-115); Magnesium 1.8 mg/dL (1.6-2.6); Potassium 4.1 mmol/L (3.3-5.1); Sodium 138 mmol/L (135-145); Total Protein 7.1 g/dL (6.5-8.0)
[2022-12-13 18:15] LABS: COVID-19 Test Negative (Negative); IDNOW Serial# 08D9AD1C
[2022-12-13 18:17] LABS: B Type Natriuretic Peptide 19 pg/mL (<100)
[2022-12-13 18:23] LABS: Troponin-I High Sensitivity < 2.7 ng/L (<3.5-17.0)
[2022-12-13 19:03] VITALS: BP 123/81; PULSE 68; RESP 14; TEMP 36.2; O2SAT 100
--- NOTE | 2022-12-13 19:50 | ECG_ITS ---
Test Reason : REPEAT Blood Pressure : / mmHG Vent. Rate : 056 BPM Atrial Rate : 056 BPM P-R Int : 214 ms QRS Dur : 080 ms QT Int : 396 ms P-R-T Axes : 051 077 058 degrees QTc Int : 382 ms Sinus bradycardia with 1st degree A-V block Otherwise normal ECG When compared with ECG of 13-DEC-2022 17:22, Sinus rhythm has replaced Atrial flutter Referred By: Ezra Wu Electronically Signed By:Lowell Angeles
[2022-12-13] MEDS: LORazepam 1 MG TABLET PO (19:54)
== END 2022-12-13 22:04 | disposition home or self-care (01) ==
PROVIDERS: Physician Assistant; Emergency Provider Student in an Organized Health Care Education/Training Program
DX: F41.1 Generalized anxiety disorder (principal); R07.9 Chest pain, unspecified; R06.02 Shortness of breath; Z20.822 Contact with and (suspected) exposure to COVID-19; Z79.899 Other long term (current) drug therapy
CPT/HCPCS: 71045; 80053; 83735; 83880; 84484; 85025; 87635; 93005; 99283; 99284

== ENCOUNTER 2023-01-24 01:28 | Emergency (ER) | payer OTHER, SELFPAY ==
[2023-01-24 01:31] VITALS: BP 111/55; BP 136/74; PULSE 70; PULSE 75; RESP 18; TEMP 36.6; O2SAT 98; BMI 17.7
--- NOTE | 2023-01-24 03:15 | ECG_ITS ---
Test Reason : chest pain Blood Pressure : / mmHG Vent. Rate : 058 BPM Atrial Rate : 058 BPM P-R Int : 204 ms QRS Dur : 090 ms QT Int : 406 ms P-R-T Axes : 048 074 059 degrees QTc Int : [address] elevation, consider early repolarization Borderline ECG When compared with ECG of 13-DEC-2022 19:59, No significant change was found Referred By: Generic ED Physician Electronically Signed By:Lowell Angeles
[2023-01-24 03:31] LABS: MANUAL DIFF FLAG NO
[2023-01-24 03:32] LABS: Basophils Percent Auto 0.3 % (0-2); Eosinophils Absolute Auto 0.6 X10*3/uL (0.0-0.4); Hematocrit 39.2 % (37.0-47.0); Imm Gran Abs Auto 0.02 X10*3/uL (0.00-0.03); Imm Gran Pct Auto 0.2 % (0.0-0.4); Lymphocytes Absolute Auto 2.9 X10*3/uL (1.2-4.9); Lymphocytes Percent Auto 31.8 % (20-40); Mean Corpuscular HGB Conc 33.2 g/dl (31.0-35.0); Mean Corpuscular Hemoglobin 26.2 pg (27.0-33.0); Mean Platelet Volume 10.2 fL (9.4-12.3); Monocytes Absolute Auto 0.7 X10*3/uL (0.1-1.2); Monocytes Percent Auto 7.7 % (2-11); Neutrophils Absolute Auto 4.8 x10*3/uL (2.0-8.3); Platelet Count 272 X10*3/uL (160-400); Red Blood Count 4.96 X10*6/uL (4.20-5.50); Red Cell Distribution Width 13.2 % (11.0-16.0)
--- OUTSIDE RECORDS SUMMARY | 2023-01-24 03:37 | XMS_ITS | Continuity of Care Document ---
Author Name Unknown Organization [facility] Address [address] [place] [id number]- Care Team Providers Care Stereotype Finisher Name Role Phone Yamilka Cota DO Primary Care Physician [phone] [facility] [facility] [place] 10/23/19 - 11/02/[address] [address]- [facility] Attending Physician: AdmDavida murphy Admitting Physician: AdmtrDavida Referring Physician: Admtr, ArMiah Allergies, Adverse Reactions, Alerts Substance Reaction Severity Status penicillins RASH,ITCHING Active Seafood RASH,ITCHING Active Immunizations Given and Recorded Vaccine Date Status Refusal Reason influenza virus vaccine, inactivated 1 09/07/16 Gi lázaro influenza virus vaccine, inactivated 06/13/14 Give n tetanus/diphtheria/pertussis, acel(Tdap) 08/22/16 Given tetanus/diphtheria/pertussis, acel(Tdap) 12/03/14 Given 1Result Comment: afluria Medications albuterol 0.042% inhalation solution 3 mL = 1.25 mg, Neb, 3 times a day, # 270 mL, 0 Refills, Maintenance, 08/22/16 8:43:44 Start Date: 08/22/16 Stop Date: 09/21/16 Status: Ordered albuterol CFC free 90 mcg/inh inhalation aerosol 2 puffs, Inhalation, Every 4 hours, PRN for wheezing, # 18 Gm, 0 Refills, Maintenance, 05/27/14 18:06:21, Aerosol Start Date: 05/27/14 Stop Date: 06/10/14 Status: Ordered Apri 0.15 mg-0.03 mg oral tablet 1 tablet, By Mouth, Daily, # 28 tablet, 2 Refills, Maintenance, 12/21/16 11:49:53, Tablet, 1 tabletBy Mouth Daily Start Date: 12/21/16 Status: Ordered Colace sodium 100 mg oral capsule 100 mg, 1, capsule, By Mouth, 2 times a day, PRN, # 60 capsule, Refills 0, Tot. Refills 0, Maintenance, for constipation, 09/07/16 12:33:05, Route to Pharmacy Electronically, [id number], [facility]/pharmacy #[id number] Start Date: 09/07/16 Stop Date: 10/07/16 Status: Ordered Colace sodium 100 mg oral capsule 1 capsule = 100 mg, By Mouth, 2 times a day, PRN for constipation, # 20 capsule, 0 Refills, Maintenance, 09/24/15 15:39:50, Capsule, 1 capsule By Mouth 2 times a day,PRN:for constipation Start Date: 09/24/15 Status: Ordered Colace sodium 100 mg oral capsule 100 mg, 1, capsule, By Mouth, 2 times a day, PRN, with plenty of water, # 20 capsule, Refills 0, Tot. Refills 0, Maintenance, for constipation, 09/22/16 10:53:29, Route to Pharmacy Electronically, [id number], [facility]/pharmacy #[id number] Start Date: 09/22/16 Status: Ordered Colace sodium 100 mg oral capsule 1 capsule = 100 mg, By Mouth, 2 times a day, PRN for constipation, # 28 capsule, 0 Refills, Maintenance, 06/14/14 0:50:55, Capsule, 1 capsule By Mouth 2 times a day,x14 days,PRN:for constipation Start Date: 06/14/14 Stop Date: 06/28/14 Status: Ordered Diflucan 150 mg oral tablet 1 tablet = 150 mg, By Mouth, Once, # 1 tablet, 0 Refills, Soft Stop, 12/01/14 16:48:05, Tablet Start Date: 12/01/14 Status: Ordered ferrous sulfate 325 mg oral enteric coated tablet 1 tablet = 325 mg, By Mouth, Daily, # 90 tablet, 0 Refills, Maintenance, 10/29/14 9:38:28, EC Tablet, 1 tablet By Mouth Daily Start Date: 10/29/14 Status: Ordered ferrous sulfate 325 mg oral tablet 1 tablet = 325 mg, By Mouth, 2 times a day, # 270 tablet, 0 Refills, Maintenance, 09/07/16 12:32:55, Tablet Start Date: 09/07/16 Status: Ordered ferrous sulfate 325 mg oral tablet 1 tablet = 325 mg, By Mouth, 2 times a day, may take with food to minimize abdominal discomfort, # 180 tablet, 0 Refills, Maintenance, 09/22/16 10:52:57, Tablet Start Date: 09/22/16 Stop Date: 12/21/16 Status: Ordered ibuprofen 600 mg oral tablet 600 mg, 1, tablet, By Mouth, Every 6 hours, # 30 tablet, Refills 0, Tot. Refills 0, Maintenance, 12/21/16 11:46:21, Route to Pharmacy Electronically, [id number], [facility]/pharmacy #[id number] Start Date: 12/21/16 Status: Ordered ibuprofen 600 mg oral tablet 1 tablet = 600 mg, By Mouth, Every 6 hours, # 40 tablet, 0 Refills, Maintenance, 09/24/15 15:39:39,Tablet, 1 tablet By Mouth Every 6 hours Start Date: 09/24/15 Status: Ordered Nexplanon 68 mg subcutaneous implant 1 each = 68 mg, Subcutaneous Infusion, Once, # 1 each, 0 Refills, Soft Stop, 09/22/16 10:56:57 Start Date: 09/22/16 Status: Ordered 19 oral tablet, chewable 1 tablet, Chew, Daily, # 30 tablet, 11 Refills, Maintenance, 05/01/14 13:58:50, Chew Tablet, 1 tablet Chew Daily Start Date: 05/01/14 Status: Ordered Zofran 4 mg oral tablet 1 tablet = 4 mg, By Mouth, Every 8 hours, PRN Nausea & Vomiting, # 9 tablet, 0 Refills, Maintenance, 03/05/19 18:37:24 EDT, Tablet Start Date: 03/05/19 Stop Date: 03/08/19 Status: Ordered Problem List Condition Effective Dates Status Health Status Inform ant Allergic rhinitis(Confirmed) Active Condyloma acuminata of vulva in in second trimester(Confirmed) Active Eczema(Confirmed) Active Exercise-induced asthma(Confirmed) Active Panic attack(Confirmed) Active Rubella equivocal - needs im munization pp(Confirmed) Active Procedures Procedure Date Related Diagnosis Body Site Status Ankle fracture 1 Complete d 1metal rods Vital Signs Most recent to oldest [Reference Range]: 1 Height 163 cm (08/01/16 1:11 PM) Social History Social History Type Response Smoking Status Former smoker; Type: Cigarettes; Other: smokes like one cig a day; entered on: 12/30/16 Sex
--- OUTSIDE RECORDS SUMMARY | 2023-01-24 03:37 | XMS_ITS | Continuity of Care Document ---
Author Name Unknown Organization [facility] Address [address] [place] [address]- Care Team Providers Care Computer Analyst Name Role Phone Yamilka Cota DO Primary Care Physician [phone] [place] [facility] [place] 12/01/20 - 03/28/[address] [address]- Attending Physician: Martine Flaherty CNM Admitting Physician: Martine Flaherty CNM Allergies, Adverse Reactions, Alerts Substance Reaction Severity Status penicillins RASH,ITCHING Active Seafood RASH,ITCHING Active Immunizations Given and Recorded Vaccine Date Status Refusal Reason tetanus-diphtheria toxoids (Td) 03/22/21 Given influenza virus vaccine, inactivated 1 09/07/16 Gi lázaro influenza virus vaccine, inactivated 06/13/14 Give n tetanus/diphtheria/pertussis, acel(Tdap) 08/22/16 Given tetanus/diphtheria/pertussis, acel(Tdap) 12/03/14 Given 1Result Comment: afluria Medications Leena 30 mg oral tablet 1 tablet = 30 mg, By Mouth, Once, # 1 tablet, 0 Refills, Soft Stop, 11/03/20 8:47:00 EST, Tablet, [facility]/pharmacy #[id number], Partial fill upon patient request if the prescription is for a schedule II opioiddrug., 162, cm, 08/28/20 9:07:00 EST, Height, 56, k... Start Date: 11/03/20 Status: Ordered ibuprofen 400 mg oral tablet 400 mg, 1, tablet, By Mouth, Every 4 hours, PRN, # 60 tablet, Refills 0, Tot. Refills 0, Acute 03/30/21 0:25:00 EDT, for pain, 03/22/21 0:25:00 EDT, Route to Pharmacy Electronically, [facility]/pharmacy #[id number], Partial fill upon patient request if the prescri... Start Date: 03/22/21 Stop Date: 03/30/21 Status: Ordered Plan B One-Step 1.5 mg oral tablet 1.5 mg, 1, tablet, By Mouth, Once, # 1 tablet, Refills 1, Tot. Refills 1, Soft Stop, 08/24/20 15:49:00 EST, Route to Pharmacy Electronically, [facility]/pharmacy #[id number], Partial fill upon patient request if the prescription is for a schedule II opioid drug.,... Start Date: 08/24/20 Status: Ordered Sprintec 0.25 mg-35 mcg oral tablet 1 tablet, By Mouth, Daily, # 28 tablet, 3 Refills, Maintenance, 11/27/20 7:45:00 EDT, [facility], 28, TAKE 1 TABLET BY MOUTH EVERY DAY, 162, cm, 08/28/20 9:07:00 EST, Height, 56, kg, 04/26/20 4:29:00 EDT, Dry Weight Start Date: 11/27/20 Status: Ordered Tylenol 325 mg oral tablet 650 mg, 2, tablet, By Mouth, Every 4 hours, PRN, # 120 tablet, Refills 0, Tot. Refills 0, Acute 03/30/21 0:25:00 EDT, for pain, 03/22/21 0:25:00 EDT, Route to Pharmacy Electronically, [facility]/pharmacy #[id number], Partial fill upon patient request if the prescr... Start Date: 03/22/21 Stop Date: 03/30/21 Status: Ordered Problem List Condition Effective Dates Status Health Status Inform ant Allergic rhinitis(Confirmed) Active Condyloma acuminata of vulva in in second trimester(Confirmed) Active Eczema(Confirmed) Active Exercise-induced asthma(Confirmed) Active Panic attack(Confirmed) Active Rubella equivocal - needs im munization pp(Confirmed) Active Social History Social History Type Response Smoking Status Former smoker; Type: Cigarettes; Other: smokes like one cig a day; entered on: 12/30/16 Sex
--- OUTSIDE RECORDS SUMMARY | 2023-01-24 03:37 | XMS_ITS | Continuity of Care Document ---
Author Name Unknown Organization [facility] Address [address] [place] [address]- Care Team Providers Care Street And Building Decorator Name Role Phone Yamilka Cota DO Primary Care Physician Encounter [facility] Date(s): 11/03/20 - 12/03/[address] [address]- Allergies, Adverse Reactions, Alerts Substance Reaction Severity [...] Refills, Soft Stop, 11/03/20 8:47:00 EST, Tablet, [facility]/pharmacy #[id number], Partial fill upon patient request if the prescription is for a schedule II opioiddrug., 162, cm, 08/28/20 9:07:00 EST, Height, 56, k... Start Date: 11/03/20 Status: Ordered Plan B One-Step 1.5 mg oral tablet 1.5 mg, 1, tablet, By Mouth, Once, # 1 tablet, Refills 1, Tot. Refills 1, Soft Stop, 08/24/20 15:49:00 EST, Route to Pharmacy Electronically, [facility]/pharmacy #[id number], Partial fill upon patient request if the prescription is for a schedule II opioid drug.,... Start Date: 08/24/20 Status: Ordered Sprintec 0.25 mg-35 mcg oral tablet 1 tablet, By Mouth, Daily, # 28 tablet, 3 Refills, Maintenance, 11/27/20 7:45:00 EDT, [facility], 28, TAKE 1 TABLET BY MOUTH EVERY DAY, 162, cm, 08/28/20 9:07:00 EST, Height, 56, kg, 04/26/20 4:29:00 EDT, Dry Weight Start Date: 11/27/20 Status: Ordered Problem List Condition Effective Dates [...]
--- OUTSIDE RECORDS SUMMARY | 2023-01-24 03:37 | XMS_ITS | Continuity of Care Document ---
Author Name Unknown Organization [facility] Address [address] [place] [address]- Care Team Providers Care Wood Polisher Name Role Phone Yamilka Cota DO Primary Care Physician [phone] Encounter [facility] Date(s): 09/17/20 - 10/17/20 [facility] [address] [address] Allergies, Adverse Reactions, Alerts Substance Reaction Severity Status penicillins RASH,ITCHING Active Seafood RASH,ITCHING Active Immunizations Given and Recorded Vaccine Date Status Refusal Reason influenza virus vaccine, inactivated 1 09/07/16 Gi lázaro influenza virus vaccine, inactivated 06/13/14 Give n tetanus/diphtheria/pertussis, acel(Tdap) 08/22/16 Given tetanus/diphtheria/pertussis, acel(Tdap) 12/03/14 Given 1Result Comment: afluria Medications Plan B One-Step 1.5 mg oral tablet 1.5 mg, 1, tablet, By Mouth, Once, # 1 tablet, Refills 1, Tot. Refills 1, Soft Stop, 08/24/20 15:49:00 EST, Route to Pharmacy Electronically, [facility]/pharmacy #[id number], Partial fill upon patient request if the prescription is for a schedule II opioid drug.,... Start Date: 08/24/20 Status: Ordered Sprintec 0.25 mg-35 mcg oral tablet 1 tablet, By Mouth, Daily, # 28 tablet, 3 Refills, Maintenance, 08/28/20 9:21:00 EST, Tablet, [facility]/pharmacy #[id number], Partial fill upon patient request if the prescription is for a schedule II opioid drug., 1 tablet By Mouth Daily, 162, cm, 08/28/20 9:07:... Start Date: 08/28/20 Status: Ordered Problem List Condition Effective Dates [...]
--- OUTSIDE RECORDS SUMMARY | 2023-01-24 03:37 | XMS_ITS | Continuity of Care Document ---
Author Name Unknown Organization [facility] Address [address] [place] [address]- Care Team Providers Care Manager Review Name Role Phone Yamilka Cota DO Primary Care Physician [phone] Encounter [facility] [place] Date(s): 07/19/19 - 11/22/[address] [address]- [facility] Attending Physician: Not on Staff, Attending MD Allergies, Adverse Reactions, Alerts Substance Reaction Severity [...] constipation, 09/07/16 12:33:05, Route to Pharmacy Electronically, [id number], [facility]/pharmacy #[id number] Start Date: 09/07/16 Stop Date: 10/07/16 [...] 09/22/16 10:53:29, Route to Pharmacy Electronically, [id number], [facility]/pharmacy #[id number] Start Date: 09/22/16 Status: Ordered Colace [...] Maintenance, 12/21/16 11:46:21, Route to Pharmacy Electronically, [id number], [facility]/pharmacy #[id number] Start Date: 12/21/16 Status: Ordered ibuprofen 600 [...]
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
--- OUTSIDE RECORDS SUMMARY | 2023-01-24 03:37 | XMS_ITS | Continuity of Care Document ---
Author Name Unknown Organization [facility] Address [address] [place] [address]- Care Team Providers Care Counter Top Maker Name Role Phone Yamilka Cota DO Primary Care Physician [place] [facility] Date(s): 07/19/19 - 08/22/[address] [address]- [facility] Attending Physician: Not on Staff, Attending [...] constipation, 09/07/16 12:33:05, Route to Pharmacy Electronically, [id number], [facility]/pharmacy #[id number] Start Date: 09/07/16 Stop Date: 10/07/16 [...] 09/22/16 10:53:29, Route to Pharmacy Electronically, [id number], [facility]/pharmacy #[id number] Start Date: 09/22/16 Status: Ordered Colace [...] Maintenance, 12/21/16 11:46:21, Route to Pharmacy Electronically, [id number], [facility]/pharmacy #0045 Start Date: 12/21/16 Status: Ordered ibuprofen 600 [...]
--- OUTSIDE RECORDS SUMMARY | 2023-01-24 03:37 | XMS_ITS | Continuity of Care Document ---
Author Name Unknown Organization [facility] Address [address] [place] [address]- Care Team Providers Care Inventory Control Supervisor Name Role Phone Yamilka Cota DO Primary Care Physician Encounter [facility] [place] Date(s): 07/06/22 - 08/05/[address] [address] Allergies, Adverse Reactions, Alerts Substance Reaction Severity [...] # 1 tablet, 0 Refills, Soft Stop, 07/06/22 16:27:00 EDT, [facility]t, [facility], Partial fill upon patient request if the prescription is for a schedule II opioid drug., 162, cm, 12/01/20 8:43:00 EDT, Height Start Date: 07/06/22 Status: Ordered Sprintec 0.25 mg-35 mcg oral tablet 1 tablet, By Mouth, Daily, # 28 tablet, 1 Refills, Maintenance, 07/06/22 16:26:00 EDT, [facility], 28, 1 tablet By Mouth Daily, 162, cm, 12/01/20 8:43:00 EDT, Height Start Date: 07/06/22 Status: Ordered Problem List Condition Confirmation Course Effective Dates Status Health St atus Informant Allergic rhinitis Confirmed Active Condyloma acuminata of vulva in in second trimester Confirmed Active Eczema Confirmed Active Exercise-induced asthma Confirmed Active Panic attack Confirmed Active Rubella equivocal - needs immunization pp Confirmed Active Social History Social History Type Response Smoking Status Former smoker; Type: Cigarettes; Other: smokes like one cig a day; entered on: 12/30/16 Sex Patient Care team information Care Team Personnel Name: Yamilka Cota DO Position: [facility] ED Medicine MD Member Role: PCP Address: Address: [address] [place] [address] [place], [place] [address] Name: Michaela Gaines RN Position: [facility] OB RN Member Role: Primary Care Nurse Care Team Related Persons Name: YONG LAI Address: home [address] [address] Name: FAITH REYES Address: [place] [address] Name: ELLIOTT REYES Address: home [address] [place] [address]
--- OUTSIDE RECORDS SUMMARY | 2023-01-24 03:37 | XMS_ITS | Continuity of Care Document ---
Author Name Unknown Organization [facility] Address [address] [place] [address]- Care Team Providers Care Virtual Office Assistant Name Role Phone Yamilka Cota DO Primary Care Physician [phone] En[place] [facility] [place] Date(s): 02/11/20 - 03/12/[address] [address]- [facility] Attending Physician: AdmDavida murphy Admitting Physician: AdmDavida murphy Referring Physician: AdmtrDavida Allergies, Adverse Reactions, Alerts Substance Reaction Severity [...] constipation, 09/07/16 12:33:05, Route to Pharmacy Electronically, [id number], [facility]/pharmacy #[id number] Start Date: 09/07/16 Stop Date: [...] 09/22/16 10:53:29, Route to Pharmacy Electronically, [id number], [facility]/pharmacy #[id number] Start Date: 09/22/16 Status: Ordered [...] Maintenance, 12/21/16 11:46:21, Route to Pharmacy Electronically, [id number], [facility]/pharmacy #[id number] Start Date: 12/21/16 Status: Ordered ibuprofen 600 mg oral tablet 600 mg, 1, tablet, By Mouth, Every 6 hours, # 30 tablet, Refills 0, Tot. Refills 0, Maintenance, 03/04/20 0:03:00 EDT, Route to Pharmacy Electronically, [email or web address] #[id number], 54, kg, 03/03/20 22:07:00 EDT, Dry Weight Start Date: 03/04/20 Status: Ordered ibuprofen 600 mg oral tablet 600 mg, 1, tablet, By Mouth, Every 6 hours, # 30 tablet, Refills 0, Tot. Refills 0, Maintenance, 03/04/20 0:44:00 EDT, Route to Pharmacy Electronically, [facility]/pharmacy #4001, 54, kg, 03/04/20 0:18:00 EDT, Dry Weight [...]
--- OUTSIDE RECORDS SUMMARY | 2023-01-24 03:37 | XMS_ITS | Continuity of Care Document ---
Author Name Unknown Organization [facility] Address [address] [place] [address]- Care Team Providers Care Cake Cutter Machine Name Role Phone Yamilka Cota DO Primary Care Physician Encounter [facility] Date(s): 02/26/21 - 03/28/[address] [address] Attending Physician: Davida Duran Admitting Physician: Davida Duran Referring Physician: AdmtrDavida Allergies, Adverse Reactions, Alerts [...] Refills, Soft Stop, 11/03/20 8:47:00 EST, Tablet, [facility]/pharmacy #[id number], Partial fill upon patient request if the prescription is for a schedule II opioiddrug., 162, cm, 08/28/20 9:07:00 EST, Height, 56, k... Start Date: 11/03/20 Status: Ordered ibuprofen 400 mg oral tablet 400 mg, 1, tablet, By Mouth, Every 4 hours, PRN, # 60 tablet, Refills 0, Tot. Refills 0, Acute 03/30/21 0:25:00 EDT, for pain, 03/22/21 0:25:00 EDT, Route to Pharmacy Electronically, [facility]/pharmacy #[id number], Partial fill upon patient request if the prescri... Start Date: 03/22/21 Stop Date: 03/30/21 Status: Ordered Plan B One-Step 1.5 mg oral tablet 1.5 mg, 1, tablet, By Mouth, Once, # 1 tablet, Refills 1, Tot. Refills 1, Soft Stop, 08/24/20 15:49:00 EST, Route [facility], [id number], Partial fill upon patient request if the prescription is for a schedule II opioid drug.,... Start Date: 08/24/20 Status: Ordered Sprintec 0.25 mg-35 mcg oral tablet 1 tablet, By Mouth, Daily, # 28 tablet, 3 Refills, Maintenance, 11/27/20 7:45:00 EDT, [facility], 28, TAKE 1 TABLET BY MOUTH EVERY DAY, 162, cm, 08/28/20 9:07:00 EST, Height, 56, kg, 04/26/20 4:29:00 EDT, Dry Weight Start Date: 11/27/20 Status: Ordered Tylenol 325 mg oral tablet 650 mg, 2, tablet, By Mouth, Every 4 hours, PRN, # 120 tablet, Refills 0, Tot. Refills 0, Acute 03/30/21 0:25:00 EDT, for pain, 03/22/21 0:25:00 EDT, Route to Pharmacy Electronically, [facility]/pharmacy #[id number], Partial fill upon patient request [...]
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
--- OUTSIDE RECORDS SUMMARY | 2023-01-24 03:37 | XMS_ITS | Continuity of Care Document ---
Author Name Unknown Organization [facility] Address [address] [place] [address]- Care Team Providers Care General Internal Medicine Physician Name Role Phone Yamilka Cota DO Primary Care Physician Encounter [facility] Date(s): 03/18/21 - 04/17/[address] [address]- Allergies, Adverse Reactions, Alerts Substance Reaction Severity [...] Refills, Soft Stop, 11/03/20 8:47:00 EST, Tablet, [facility]/pharmacy #[id number], Partial fill upon patient request if the prescription is for a schedule II opioiddrug., 162, cm, 08/28/20 9:07:00 EST, Height, 56, k... Start Date: 11/03/20 Status: Ordered Plan B One-Step 1.5 mg oral tablet 1.5 mg, 1, tablet, By Mouth, Once, # 1 tablet, Refills 1, Tot. Refills 1, Soft Stop, 08/24/20 15:49:00 EST, Route to Pharmacy Electronically, [facility]/pharmacy #[id number], Partial fill upon patient request if the prescription is for a schedule II opioid drug.,... Start Date: 08/24/20 Status: Ordered Sprintec 0.25 mg-35 mcg oral tablet 1 tablet, By Mouth, Daily, # 28 tablet, 3 Refills, Maintenance, 11/27/20 7:45:00 EDT, [facility], 28, TAKE 1 TABLET BY MOUTH EVERY [...]
--- OUTSIDE RECORDS SUMMARY | 2023-01-24 03:37 | XMS_ITS | Continuity of Care Document ---
Author Name Unknown Organization [facility] ter Address [address] [place] [address]- Care Team Providers Care Service Order Taker Name Role Phone Yamilka Cota DO Primary Care Physician Encounter [facility] Date(s): 04/26/20 - 04/26/[address] [address]- [facility] Encounter Diagnosis Intentional drug overdose(Final) - 04/25/20 Discharge Disposition: A-D/C Home Attending Physician: Da Szymanski MD Admitting Physician: Johnnie Todd MD Referring Physician: Not on Staff, Referring MD Allergies, Adverse Reactions, Alerts Substance Reaction Severity Status penicillins RASH,ITCHING Active Seafood RASH,ITCHING Active Immunizations Given and Recorded Vaccine Date Status Refusal Reason influenza virus vaccine, inactivated 1 09/07/16 Gi lázaro influenza virus vaccine, inactivated 06/13/14 Give n tetanus/diphtheria/pertussis, acel(Tdap) 08/22/16 Given tetanus/diphtheria/pertussis, acel(Tdap) 12/03/14 Given 1Result Comment: afluria Medications No Known Medications Problem List Condition Effective Dates Status Health Status Inform ant Allergic rhinitis(Confirmed) Active Condyloma acuminata of vulva in in second trimester(Confirmed) Active Eczema(Confirmed) Active Exercise-induced asthma(Confirmed) Active Panic attack(Confirmed) Active Rubella equivocal - needs im munization pp(Confirmed) Active Results Radiology Reports * Exam Date Time Procedure Performing Provider Status 04/25/20 10:47 PM Chest Portable Kira Moraes; Angelic th (Verified) Notes: (Chest Portable) Reason For Exam: Other: RESULT: Chest Portable Chest Portable AP semiupright at 2229 Reason: Assess for possible aspiration COMPARISON: 12/30/2016 FINDINGS: LINES AND TUBES: None. LUNGS AND PLEURA: Clear lungs. Normal pulmonary vascularity. No pleural effusion. No pneumothorax. HEART, MEDIASTINUM AND DIPESH: Heart is normal in size. Normal mediastinal and hilar contour. BONES AND SOFT TISSUES: Cervical collar in place. No acute traumatic injury identified. IMPRESSION: No acute abnormality. WSN: [id number] Ordering Physician: Emi Sin Dictated By: Mg Stephens DO Dictated Date/Time: 04/25/20 10:52 p Reviewed By: Mg Stephens DO Signed By: Mg Stephens DO Signed Date/Time: 04/25/20 10:52 pm Transcribed By: DALE Transcribed Date/Time: 04/25/20 10:51 pm Vital Signs Most recent to oldest [Reference Range]: 1 2 3 Height 162 cm (04/26/20 5:12 PM) 162 cm (04/26/20 12:10 PM) 162 cm (04/26/20 4:29 AM) Weight 56 kg (04/26/20 4:29 AM) Oxygen Saturation [94-100 %] 99 % (04/26/20 5:12 PM) 98 % (04/26/20 12:10 PM) 98 % (04/26/20 4:29 AM) Pulse Rate [55-90 bpm] 59 bpm (04/26/20 5:12 PM) 61 bpm (04/26/20 12:10 PM) 61 bpm (04/26/20 4:29 AM) Body Mass Index [18.5-24.99] 21.34 (04/26/20 4:29 AM) Blood Pressure [90-138/55-84 mm Hg] 118/73mm Hg (04/26/20 5:12 PM) 118/63mm Hg (04/26/20 12:10 PM) 112/62mm Hg (04/26/20 4:29 AM) Respiratory Rate [16-30 br/min] 20 br/min (04/26/20 5:12 PM) 22 br/min (04/26/20 12:10 PM) 18 br/min (04/26/20 4:29 AM) Temperature [96.8-100.4 DegF] 99.2 DegF (04/26/20 5:12 PM) 98.2 DegF (04/26/20 12:10 PM) 98.3 DegF (04/26/20 4:29 AM) Liters per Minute 2 L/min (04/25/20 10:39 PM) Mode of Delivery (Oxygen) Room air (04/26/20 5:12 PM) Room air (04/26/20 12:10 PM) Room air (04/26/20 4:29 AM) Blood pressure sites Arm, left (04/26/20 5:12 PM) Arm, right (04/26/20 12:10 PM) Arm, left (04/26/20 4:29 AM) Temperature Route Oral (04/26/20 5:12 PM) Oral (04/26/20 12:10 PM) Oral (04/26/20 4:29 AM) Dry Weight 56 kg (04/26/20 4:29 AM) Social History Social History Type Response Smoking Status Former smoker; Type: Cigarettes; Other: smokes like one cig a day; entered on: 12/30/16 Sex
--- OUTSIDE RECORDS SUMMARY | 2023-01-24 03:37 | XMS_ITS | Continuity of Care Document ---
Author Name Unknown Organization [facility] Address [address] [place] [address]- Care Team Providers Care Platen Press Operator Name Role Phone Yamilka Cota DO Primary Care Physician Encounter [facility] Date(s): 08/24/20 - 09/23/[address] [address] Allergies, Adverse Reactions, Alerts Substance Reaction Severity [...] 08/24/20 15:49:00 EST, Route to Pharmacy Electronically, [facility]/pharmacy #[id number], Partial fill upon patient request if the prescription is for a schedule II opioid drug.,... Start Date: 08/24/20 Status: Ordered Sprintec 0.25 mg-35 mcg oral tablet 1 tablet, By Mouth, Daily, # 28 tablet, 3 Refills, Maintenance, 08/28/20 9:21:00 EST, Tablet, [facility]/pharmacy #[id number], Partial fill upon patient request [...]
--- OUTSIDE RECORDS SUMMARY | 2023-01-24 03:37 | XMS_ITS | Continuity of Care Document ---
Author Name Unknown Organization [facility] Address [address] [place] [address]- Care Team Providers Care Trim Crew Supervisor Name Role Phone Yamilka Cota DO Primary Care Physician [phone] [id number] - 10/06/[address] [address] Attending Physician: Not on Staff, Attending MD [...] Soft Stop, 07/06/22 16:27:00 EDT, Tablet, [id number], Partial fill upon patient request if the prescription is for a schedule II opioid drug., 162, cm, 12/01/20 8:43:00 EDT, Height Start Date: 07/06/22 Status: Ordered ethinyl estradiol-norgestimate 35 mcg-0.25 mg oral tablet 1 tablet, By Mouth, Daily, # 28 tablet, 1 Refills, Maintenance, 08/23/22 11:47:00 EST, [id number], 28, TAKE 1 TABLET BY MOUTH EVERY DAY, 162, cm, 12/01/20 8:43:00 EDT, Height Start Date: 08/23/22 Status: Ordered Problem List Condition Confirmation Course [...] Team Personnel Name: Yamilka Cota DO Position: [facility] ED Medicine MD Member Role: PCP Address: Address: [address] [place] [address], [place] [address] Name: Michaela Gaines RN Position: [facility] OB RN Member Role: Primary Care Nurse Care Team Related Persons Name: YONG LAI Address: home [address] [address] Name: FAITH REYES Address: [place] [address] Name: ELLIOTT REYES Address: home [address] [place] [address]
--- OUTSIDE RECORDS SUMMARY | 2023-01-24 03:37 | XMS_ITS | Continuity of Care Document ---
Author Name Unknown Organization [facility] Address [address] [place] [address]- Care Team Providers Care Gas Main Fitter Name Role Phone Yamilka Cota DO Primary Care Physician [phone] Encounter [facility] Date(s): 09/06/22 - 10/06/[address] [address] Attending Physician: Davida Duran Admitting Physician: AdmDavida murphy Referring Physician: AdmtrDavida [...] Soft Stop, 07/06/22 16:27:00 EDT, Tablet, [id number], Partial fill upon patient request if the prescription is for a schedule II opioid drug., 162, cm, 12/01/20 8:43:00 EDT, Height Start Date: 07/06/22 Status: Ordered ethinyl estradiol-norgestimate 35 mcg-0.25 mg oral tablet 1 tablet, By Mouth, Daily, # 28 tablet, 1 Refills, Maintenance, 08/23/22 11:47:00 EST, [id number], 28, TAKE 1 TABLET BY MOUTH EVERY [...] equivocal - needs immunization pp Confirmed Active Procedures Procedure Date Related Diagnosis Body [...] Team Personnel Name: Yamilka Cota DO Position: [facility] ED Medicine MD Member Role: PCP Address: Address: [address] [place] [address] Name: Eder RNMichaela Position: [facility] OB RN Member Role: Primary Care Nurse Care Team Related Persons Name: YONG LAI Address: home [address] [address] Name: FAITH REYES Address: [place] [address] Name: ELLIOTT REYES Address: home [address] [place] [address]
--- OUTSIDE RECORDS SUMMARY | 2023-01-24 03:37 | XMS_ITS | Continuity of Care Document ---
Author Name Unknown Organization [facility] ter Address [address] [place] [address]- Care Team Providers Care Surgical Instruments Inspector Name Role Phone Not on Staff, PCP Primary Care Physician Unavail able [place] [facility] 12/13/21 - 12/14/[address] [address]- Encounter Diagnosis Suicidal ideation(Final) - 12/13/21 Discharge Disposition: A-D/C Home Attending Physician: Keven Garcia MD Admitting Physician: Keven Garcia MD Referring Physician: Not on Staff, Referring MD Allergies, Adverse Reactions, Alerts Substance Reaction Severity Status penicillins RASH,ITCHING Active Seafood RASH,ITCHING Active Immunizations Given and Recorded Vaccine Date Status Refusal Reason tetanus-diphtheria toxoids (Td) 03/22/21 Given influenza virus vaccine, inactivated 1 09/07/16 Gi lázaro influenza virus vaccine, inactivated 06/13/14 Give n tetanus/diphtheria/pertussis, acel(Tdap) 08/22/16 Given tetanus/diphtheria/pertussis, acel(Tdap) 12/03/14 Given 1Result Comment: afluria Medications Sprintec 0.25 mg-35 mcg oral tablet 1 tablet, By Mouth, Daily, # 28 tablet, 3 Refills, Maintenance, 11/27/20 7:45:00 EDT, [facility] ST[id number], 28, TAKE 1 TABLET BY MOUTH EVERY [...] equivocal - needs im munization pp(Confirmed) Active Vital Signs Most recent to oldest [Reference Range]: 1 Oxygen Saturation [94-100 %] 98 % (12/13/21 5:44 PM) Pulse Rate [55-90 bpm] 98 bpm *H* (12/13/21 5:44 PM) Blood Pressure [90-138/55-84 mm Hg] 140/ 81mm Hg *H* (12/13/21 5:44 PM) Respiratory Rate [16-30 br/min] 16 br/mi n (12/13/21 5:44 PM) Temperature [96.8-100.4 DegF] 98.2 DegF (12/13/21 5:44 PM) Liters per Minute 0 L/min (12/13/21 5:44 PM) Mode of Delivery (Oxygen) Room air (12/13/21 5:44 PM) Temperature Route Oral (12/13/21 5:44 PM) Social History Social History Type Response Smoking Status Former smoker; Type: Cigarettes; Other: smokes like one cig a day; entered on: 12/30/16 Sex
--- OUTSIDE RECORDS SUMMARY | 2023-01-24 03:37 | XMS_ITS | Continuity of Care Document ---
Author Name Unknown Organization [facility] Address [address] [place] [address]- Care Team Providers Care Retail Merchandising Coordinator Name Role Phone Yamilka Cota DO Primary Care Physician Encounter [facility] Date(s): 07/06/22 - 08/05/[address] [address] Allergies, Adverse Reactions, Alerts Substance Reaction Severity [...] Team Personnel Name: Yamilka Cota DO Position: [facility] ED Medicine MD Member Role: PCP Address: Address: [address] [place] [address] Group[place] [address] Name: Michaela Gaines RN Position: [facility] OB RN Member Role: Primary Care Nurse Care Team Related Persons Name: YONG LAI Address: home [address] [address] Name: FAITH REYES Address: [place] [address] Name: ELLIOTT REYES Address: home [address] [place] [address]
[2023-01-24 03:48] LABS: Alanine Aminotransferase 7 U/L (0-31); Alkaline Phosphatase 65 U/L (39-117); Anion Gap 11 (12-20); Aspartate Amino Transferase 11 U/L (5-31); Bilirubin Total 0.4 mg/dL (0.0-1.0); Blood Urea Nitrogen 16 mg/dL (9-16); Calcium 9.2 mg/dL (8.4-10.2); Carbon Dioxide 30 mmol/L (22-29); Chloride 104 mmol/L (96-108); Creatinine Clr Calc Pharmacy 75.3; Estimated Glomerular Filt Rate > 60; Glucose Random 116 mg/dL (60-115); Potassium 3.8 mmol/L (3.3-5.1); Sodium 141 mmol/L (135-145); Total Protein 6.7 g/dL (6.5-8.0)
[2023-01-24 03:56] LABS: Troponin-I High Sensitivity < 2.7 ng/L (<3.5-17.0)
--- NOTE | 2023-01-24 04:00 | ED_ITS ---
HPI - Anxiety General Chief Complaint: Anxiety Stated Complaint: INCR SOB,HR S/P CBD GUMMIES FOR SLEEP Time Seen by Provider: 01/24/23 03:28 Source: patient Mode of arrival: EMS Limitations: no limitations History of Present Illness HPI narrative: Patient's anxiety taking Prozac been having increased problems sleeping and anxiety so took edible 10 mg and melatonin today felt lightheaded and short of breath more anxious saturating 100% on room air on arrival no chest no other substance abuse Related Data Home Medications Medication Instructions Recorded Confirmed desogestrel 0.15 mg-ethinyl 1 tab PO DAILY 01/07/22 01/07/22 estradiol 0.03 mg tablet (Apri) Previous Rx's Medication Instructions Recorded hydroxyzine HCl 10 mg tablet 10 mg PO TID PRN anxiety 14 days 01/10/22 #42 tabs clonidine HCl 0.1 mg tablet 0.1 mg PO TID 7 days #21 tabs 01/24/22 escitalopram oxalate 20 mg tablet 20 mg PO DAILY 14 days #14 tabs 01/24/22 (Lexapro) lorazepam 1 mg tablet (Ativan) 1 mg PO DAILY PRN anxiety #1 tab 03/01/22 morphine 15 mg immediate release 15 mg PO Q4-6H PRN pain #10 tabs 10/20/22 tablet hydroxyzine HCl 25 mg tablet 25 mg PO TID PRN anxiety #20 tabs 12/13/22 hydroxyzine HCl 25 mg tablet 25 mg PO BID PRN anxiety #20 tabs 01/24/23 Allergies Allergy/AdvReac Type Severity Reaction Status Date / Time penicillin G [PENICILLIN G] Allergy Mild SWELLING Verified 04/20/22 09:09 SEAFOOD Allergy Unknown UNKNOWN Uncoded 08/19/21 19:54 Review of Systems Review of Systems: Yes all other systems are reviewed and are negative PMF Past Medical History Medical History Allergic rhinitis Asthma Eczema Exercise-induced asthma Rib fracture Surgical History History of ankle surgery History of appendectomy Social History Social History Household Members: Children Alcohol intake: current Patient Tobacco Use Status: Never used Tobacco Advance Directives: No Advance Directives Information Provided: Yes Physical Exam Vital Signs: Vital Signs: Last Vital Signs Temp 97.7 F 01/24/23 04:41 Pulse 60 01/24/23 04:41 Resp 16 01/24/23 04:41 BP 102/67 01/24/23 04:41 Pulse Ox 98 01/24/23 04:41 O2 Del Method Room Air 01/24/23 04:41 BMI result Body Mass Index 17.7 Appearance: Alert. Oriented X3. No acute distress. Eyes: PERRLA, No Nystagmus ENT: Pharynx normal. Oral Mucosa moist Neck: Normal inspection. Neck supple. CVS: Normal heart rate and rhythm. Pulses normal. Respiratory: No respiratory distress. Equal air entry bilateral, no wheezing/rales/rhonchi Abdomen: Soft and nontender. Bowel sounds are present, no mass palpable, no CVA tenderness Skin: Skin warm and dry. Normal skin color. Normal skin turgor. Extremities: No lower extremity edema. No calf tenderness Neuro: Oriented X 3. Medical Decision Making Medical Decision Making [facility] Narrative: Patient's anxiety discharge patient home on Atarax advised to continue Prozac and follow with PCP advised not to take THC Lab Data [facility] Lab Attestation statement: I reviewed the patient's lab results. 01/24/23 03:25 01/24/23 03:25 Labs: Lab Results 01/24/23 01/24/23 01/24/23 Range/Units 03:25 03:25 03:25 WBC 9.0 (4.8-10.8) X10*3/uL RBC 4.96 (4.20-5.50) X10*6/uL Hgb 13.0 (12.0-16.0) g/dl Hct 39.2 (37.0-47.0) % MCV 79.0 L (80.0-98.0) fL MCH 26.2 L (27.0-33.0) pg MCHC 33.2 (31.0-35.0) g/dl RDW 13.2 (11.0-16.0) % Plt Count 272 (160-400) X10*3/uL MPV 10.2 (9.4-12.3) fL Immature Gran % (Auto) 0.2 (0.0-0.4) % Neut % (Auto) 53.0 (45-73) % Lymph % (Auto) 31.8 (20-40) % Winkler % (Auto) 7.7 (2-11) % Eos % (Auto) 7.0 H (0-4) % Baso % (Auto) 0.3 (0-2) % Lymph # (Auto) 2.9 (1.2-4.9) X10*3/uL Winkler # (Auto) 0.7 (0.1-1.2) X10*3/uL Eos # (Auto) 0.6 H (0.0-0.4) X10*3/uL Baso # (Auto) 0.0 (0.0-0.2) X10*3/uL Abs Immat Gran (auto) 0.02 (0.00-0.03) X10*3/uL Absolute Neuts (auto) 4.8 (2.0-8.3) x10*3/uL Absolute Nucleated RBC 0.000 (0.0-0.012) X10*3/uL Nucleated RBC % (auto) 0.0 (0.0-0.2) /100WBC Sodium 141 (135-145) mmol/L Potassium 3.8 (3.3-5.1) mmol/L Chloride 104 (96-108) mmol/L Carbon Dioxide 30 H (22-29) mmol/L Anion Gap 11 L (12-20) BUN 16 (9-16) mg/dL Creatinine 0.82 (0.5-1.4) mg/dL Estim Creat Clear Calc 75.3 Estimated GFR > 60 Random Glucose 116 H (60-115) mg/dL Calcium 9.2 (8.4-10.2) mg/dL Total Bilirubin 0.4 (0.0-1.0) mg/dL AST 11 (5-31) U/L ALT 7 (0-31) U/L Alkaline Phosphatase 65 (39-117) U/L Troponin I High Sens < 2.7 (<3.5-17.0) ng/L Total Protein 6.7 (6.5-8.0) g/dL Albumin 4.0 (3.5-5.0) g/dL Independent Interpretation I performed an independent interpretation of an: EKG Interpretation: Sinus bradycardia heart rate 58 beats per minute no acute ST changes no acute ischemia Discharge Plan Discharge Clinical Impression: Acute anxiety Patient Disposition: Home, Self-Care Instructions: Anxiety (ED) Additional Instructions: Continue taking your medications Take Atarax 1 tablet twice daily as needed for increased anxiety and sleep Prescriptions: New hydroxyzine HCl 25 mg tablet 25 mg PO BID PRN (Reason: anxiety) Qty: 20 0RF No Action desogestrel-ethinyl estradiol [Apri] 0.15-0.03 mg Tablet 1 tab PO DAILY hydroxyzine HCl 10 mg tablet 10 mg PO TID PRN (Reason: anxiety) 14 Days Qty: 42 0RF clonidine HCl 0.1 mg tablet 0.1 mg PO TID 7 Days Qty: 21 0RF escitalopram oxalate [Lexapro] 20 mg tablet 20 mg PO DAILY 14 Days Qty: 14 0RF lorazepam [Ativan] 1 mg tablet 1 mg PO DAILY PRN (Reason: anxiety) Qty: 1 0RF morphine 15 mg tablet 15 mg PO Q4-6H PRN (Reason: pain) Qty: 10 0RF Rx Instructions: The patient may ask for partial fill; Partial Fill upon patient request. hydroxyzine HCl 25 mg tablet 25 mg PO TID PRN (Reason: anxiety) Qty: 20 0RF
[2023-01-24 04:41] VITALS: BP 102/67; PULSE 60; RESP 16; TEMP 36.5; O2SAT 98
[2023-01-24 06:24] VITALS: BP 104/64; PULSE 56; RESP 15; TEMP 36.5; O2SAT 98
== END 2023-01-24 06:37 | disposition home or self-care (01) ==
PROVIDERS: Emergency Provider Internal Medicine
DX: F41.9 Anxiety disorder, unspecified (principal); R06.02 Shortness of breath; F12.90 Cannabis use, unspecified, uncomplicated; Z79.899 Other long term (current) drug therapy
CPT/HCPCS: 36415; 80053; 84484; 85025; 93005; 99283; 99284

== ENCOUNTER 2023-02-20 18:00 | Emergency (ER) | payer OTHER, SELFPAY ==
[2023-02-20 18:03] VITALS: BP 140/99; PULSE 111; RESP 20; TEMP 36.3; O2SAT 99; BMI 19.2
--- NOTE | 2023-02-20 18:03 | ED_ITS ---
HPI - Psych General Chief Complaint: Anxiety Stated Complaint: seizures Time Seen by Provider: 02/20/23 20:59 Source: patient and old records reviewed Mode of arrival: wheelchair Limitations: no limitations History of Present Illness HPI Narrative: 27-year-old female presents for evaluation of ?shaking and anxiety. ? Patient reports that she had in general whole body shakes when she gets really anxious. She has not been on daily antianxiety medication/into the presents for the last 7 months or so She has been using p.r.n. hydroxyzine for the last month She reports some improvement with this but ?I still have the symptoms pretty regularly. ? At the time of my evaluation she has been waiting for 3 hours, she reports her symptoms have improved, shaking has stopped Patient reports some mild chest tightness but otherwise feels back to her baseline Related Data Home Medications Medication Instructions Recorded Confirmed desogestrel 0.15 mg-ethinyl 1 tab PO DAILY 01/07/22 01/07/22 estradiol 0.03 mg tablet (Apri) Previous Rx's Medication Instructions Recorded hydroxyzine HCl 10 mg tablet 10 mg PO TID PRN anxiety 14 days 01/10/22 #42 tabs clonidine HCl 0.1 mg tablet 0.1 mg PO TID 7 days #21 tabs 01/24/22 escitalopram oxalate 20 mg tablet 20 mg PO DAILY 14 days #14 tabs 01/24/22 (Lexapro) lorazepam 1 mg tablet (Ativan) 1 mg PO DAILY PRN anxiety #1 tab 03/01/22 morphine 15 mg immediate release 15 mg PO Q4-6H PRN pain #10 tabs 10/20/22 tablet hydroxyzine HCl 25 mg tablet 25 mg PO TID PRN anxiety #20 tabs 12/13/22 hydroxyzine HCl 25 mg tablet 25 mg PO BID PRN anxiety #20 tabs 01/24/23 hydroxyzine HCl 25 mg tablet 25 mg PO TID PRN anxiety #20 tabs 02/20/23 Allergies Allergy/AdvReac Type Severity Reaction Status Date / Time penicillin G [PENICILLIN G] Allergy Mild SWELLING Verified 02/20/23 18:03 SEAFOOD Allergy Unknown UNKNOWN Uncoded 08/19/21 19:54 Review of Systems Constitutional: Constitutional: Reports as per HPI, Denies chills, Denies fatigue, Denies fever(s) and Denies headache(s) ENT: Denies headache(s) Cardiovascular: Cardiovascular: Denies dyspnea Respiratory: Respiratory: Denies cough and Denies dyspnea Gastrointestinal: Gastrointestinal: Denies abdominal pain, Denies constipation and Denies vomiting Genitourinary: Genitourinary: Denies dysuria Neurologic: Denies headache(s) and Denies focal weakness Psychiatric: Psychiatric: Reports anxiety Endocrine: Endocrine: Denies fatigue PMFSH Past Medical History Medical History Allergic rhinitis Asthma Eczema Exercise-induced asthma Rib fracture Surgical History History of ankle surgery History of appendectomy Social History Social History Household Members: Children Alcohol intake: current Patient Tobacco Use Status: Never used Tobacco Advance Directives: No Advance Directives Information Provided: No Physical Exam Vital Signs: Vital Signs: Last Vital Signs Temp 98.3 F 02/20/23 20:55 Pulse 70 02/20/23 20:55 Resp 16 02/20/23 20:55 BP 127/75 02/20/23 20:55 Pulse Ox 100 02/20/23 20:55 O2 Del Method Room Air 02/20/23 20:55 BMI result Body Mass Index 19.2 Const: General: healthy appearing, comfortable, no acute distress, alert and awake Nutritional Appearance: well nourished Orientation/consciousness: patient oriented x3 HEENT: Head: Yes normocephalic and Yes atraumatic Throat: Yes posterior oropharynx normal Eyes: Eyelids: Yes eyelids normal Conjunctivae: conjunctivae normal Sclerae: sclerae normal Corneas: corneas normal Pupils: Equal, round and reactive pupils present EOM: EOMs intact bilaterally Neck: Neck: Yes full ROM Resp: Effort & Inspection: normal respiratory effort, able to speak in complete sentences, no audible wheezes and not labored Auscultation: clear to auscultation bilaterally Cardio: Rate: regular rate Rhythm: regular rhythm Skin: General skin exam: no rashes or lesions noted and elasticity normal Neuro: General: patient oriented x3 Cranial nerves: Yes Equal, round and reactive pupils present and Yes Bilaterally intact EOM present Cognition (Neuro): normal cognition Course Course Course Narrative: RME: 27yo F w/PMHx anxiety, depression, PTSD, c/o increasing anxiety x 30 mins with whole body shaking and chest pain. Admits to these attacks almost daily. Denies incontinence/retention. Admits to taking her unknown anxiety medication 07:00AM patient pulled out of car, tremulous, conversational. EKG, labs ordered Full HPI, ROS and PE to be performed by primary ED provider. Medical Decision Making Medical Decision Making MDM Narrative: 27-year-old female presents for evaluation of anxiety and ?shaking. ? The patient reports that she was conversing as this was happening. She has no history of seizures but has a significant history of anxiety. The patient has had frequent ED visits for the same. I had a lengthy discussion with the patient that she should call her primary doctor to schedule follow-up. She should likely be on daily antidepressant or antianxiety medication rather than just p.r.n. as this is not helping to the extent that she needs. The patient's significant other is bedside and reports that he will help encourage the patient to follow up. The patient's medical workup reassuring. Differential Diagnosis Anxiety Seizure disorder Convulsions Substance abuse Lab Data 02/20/23 18:21 02/20/23 18:21 Labs: Lab Results 02/20/23 02/20/23 02/20/23 Range/Units 18:21 18:21 18:21 WBC 10.3 (4.8-10.8) X10*3/uL RBC 5.12 (4.20-5.50) X10*6/uL Hgb 13.5 (12.0-16.0) g/dl Hct 40.6 (37.0-47.0) % MCV 79.3 L (80.0-98.0) fL MCH 26.4 L (27.0-33.0) pg MCHC 33.3 (31.0-35.0) g/dl RDW 13.3 (11.0-16.0) % Plt Count 313 (160-400) X10*3/uL MPV 10.3 (9.4-12.3) fL Immature Gran % (Auto) 0.2 (0.0-0.4) % Neut % (Auto) 72.5 (45-73) % Lymph % (Auto) 20.2 (20-40) % [place]orne % (Auto) 4.8 (2-11) % Eos % (Auto) 2.0 (0-4) % Baso % (Auto) 0.3 (0-2) % Lymph # (Auto) 2.1 (1.2-4.9) X10*3/uL [place]orne # (Auto) 0.5 (0.1-1.2) X10*3/uL Eos # (Auto) 0.2 (0.0-0.4) X10*3/uL Baso # (Auto) 0.0 (0.0-0.2) X10*3/uL Abs Immat Gran (auto) 0.02 (0.00-0.03) X10*3/uL Absolute Neuts (auto) 7.5 (2.0-8.3) x10*3/uL Absolute Nucleated RBC 0.000 (0.0-0.012) X10*3/uL Nucleated RBC % (auto) 0.0 (0.0-0.2) /100WBC Sodium 139 (135-145) mmol/L Potassium 3.7 (3.3-5.1) mmol/L Chloride 105 (96-108) mmol/L Carbon Dioxide 23 (22-29) mmol/L Anion Gap 15 (12-20) BUN 14 (9-16) mg/dL Creatinine 0.78 (0.5-1.4) mg/dL Estim Creat Clear Calc 86.1 Estimated GFR > 60 Random Glucose 154 H (60-115) mg/dL Calcium 10.0 D (8.4-10.2) mg/dL Magnesium 2.0 (1.6-2.6) mg/dL Total Bilirubin 0.7 (0.0-1.0) mg/dL Direct Bilirubin 0.2 (0.0-0.5) mg/dL AST 14 (5-31) U/L ALT 10 (0-31) U/L Alkaline Phosphatase 67 (39-117) U/L Troponin I High Sens < 2.7 (<3.5-17.0) ng/L Total Protein 7.6 (6.5-8.0) g/dL Albumin 4.4 (3.5-5.0) g/dL Discharge Plan Discharge Clinical Impression: Acute anxiety Patient Disposition: Home, Self-Care Instructions: Anxiety (ED) Additional Instructions: You may continue using the hydroxyzine as needed for breakthrough anxiety. However I strongly recommend he follow up with her primary doctor tomorrow morning Your anxiety does not appear to be well controlled with p.r.n. medications only. Return for new or worsening symptoms Prescriptions: New hydroxyzine HCl 25 mg tablet 25 mg PO TID PRN (Reason: anxiety) Qty: 20 0RF No Action desogestrel-ethinyl estradiol [Apri] 0.15-0.03 mg Tablet 1 tab PO DAILY hydroxyzine HCl 10 mg tablet 10 mg PO TID PRN (Reason: anxiety) 14 Days Qty: 42 0RF clonidine HCl 0.1 mg tablet 0.1 mg PO TID 7 Days Qty: 21 0RF escitalopram oxalate [Lexapro] 20 mg tablet 20 mg PO DAILY 14 Days Qty: 14 0RF lorazepam [Ativan] 1 mg tablet 1 mg PO DAILY PRN (Reason: anxiety) Qty: 1 0RF morphine 15 mg tablet 15 mg PO Q4-6H PRN (Reason: pain) Qty: 10 0RF Rx Instructions: The patient may ask for partial fill; Partial Fill upon patient request. hydroxyzine HCl 25 mg tablet 25 mg PO BID PRN (Reason: anxiety) Qty: 20 0RF hydroxyzine HCl 25 mg tablet 25 mg PO TID PRN (Reason: anxiety) Qty: 20 0RF Stand Alone Forms: Work/School Release
--- NOTE | 2023-02-20 18:05 | ECG_ITS ---
Test Reason : cp Blood Pressure : / mmHG Vent. Rate : 098 BPM Atrial Rate : 098 BPM P-R Int : 178 ms QRS Dur : 086 ms QT Int : 342 ms P-R-T Axes : 077 077 059 degrees QTc Int : 436 ms Normal sinus rhythm with sinus arrhythmia Normal ECG When compared with ECG of 24-JAN-2023 03:17, Vent. rate has increased BY 40 BPM Referred By: Radha Cruz Electronically Signed By:ELIZABETH HARRELL MD
[2023-02-20 18:36] LABS: MANUAL DIFF FLAG NO
[2023-02-20 18:37] LABS: Basophils Percent Auto 0.3 % (0-2); Eosinophils Absolute Auto 0.2 X10*3/uL (0.0-0.4); Hematocrit 40.6 % (37.0-47.0); Hemoglobin 13.5 g/dl (12.0-16.0); Imm Gran Abs Auto 0.02 X10*3/uL (0.00-0.03); Imm Gran Pct Auto 0.2 % (0.0-0.4); Lymphocytes Absolute Auto 2.1 X10*3/uL (1.2-4.9); Lymphocytes Percent Auto 20.2 % (20-40); Mean Corpuscular HGB Conc 33.3 g/dl (31.0-35.0); Mean Corpuscular Hemoglobin 26.4 pg (27.0-33.0); Mean Corpuscular Volume 79.3 fL (80.0-98.0); Mean Platelet Volume 10.3 fL (9.4-12.3); Monocytes Absolute Auto 0.5 X10*3/uL (0.1-1.2); Monocytes Percent Auto 4.8 % (2-11); Neutrophils Absolute Auto 7.5 x10*3/uL (2.0-8.3); Neutrophils Percent Auto 72.5 % (45-73); Platelet Count 313 X10*3/uL (160-400); Red Blood Count 5.12 X10*6/uL (4.20-5.50); Red Cell Distribution Width 13.3 % (11.0-16.0); White Blood Count 10.3 X10*3/uL (4.8-10.8)
[2023-02-20 18:53] LABS: Alanine Aminotransferase 10 U/L (0-31); Albumin Level 4.4 g/dL (3.5-5.0); Alkaline Phosphatase 67 U/L (39-117); Anion Gap 15 (12-20); Aspartate Amino Transferase 14 U/L (5-31); Bilirubin Direct 0.2 mg/dL (0.0-0.5); Bilirubin Total 0.7 mg/dL (0.0-1.0); Blood Urea Nitrogen 14 mg/dL (9-16); Carbon Dioxide 23 mmol/L (22-29); Chloride 105 mmol/L (96-108); Creatinine Clr Calc Pharmacy 86.1; Estimated Glomerular Filt Rate > 60; Glucose Random 154 mg/dL (60-115); Potassium 3.7 mmol/L (3.3-5.1); Sodium 139 mmol/L (135-145); Total Protein 7.6 g/dL (6.5-8.0)
[2023-02-20 19:00] LABS: Troponin-I High Sensitivity < 2.7 ng/L (<3.5-17.0)
[2023-02-20 20:55] VITALS: BP 127/75; PULSE 70; RESP 16; TEMP 36.8; O2SAT 100
--- NOTE | 2023-02-20 21:00 | PC.NURSE ---
Pt presents to ED with reports of multiple episodes of uncontrollable tremors and chest tightness beginning today. Pt reports hx anxiety and similar episodes in past although not as intense. Reports SOB, hx asthma using rescue inhalers throughout day. A&Ox3 skin pwd respirations even unlabored. VSS. Awaiting results and MD reeval. Aware of plan of care.
== END 2023-02-20 21:56 | disposition home or self-care (01) ==
PROVIDERS: Physician Assistant; Emergency Provider Emergency Medicine Emergency Medical Services
DX: F41.9 Anxiety disorder, unspecified (principal); R07.9 Chest pain, unspecified
CPT/HCPCS: 36415; 80048; 80076; 83735; 84484; 85025; 93005; 99283; 99285

== ENCOUNTER 2023-03-19 15:00 | Emergency (ER) | payer OTHER, SELFPAY ==
[2023-03-19 15:18] VITALS: BP 110/70; BP 117/74; PULSE 67; PULSE 71; RESP 16; TEMP 36.9; O2SAT 98; BMI 19.7
--- NOTE | 2023-03-19 15:34 | ED.ANIMALBIT ---
HPI - Animal Bite General Chief Complaint: Animal Bite Stated Complaint: Dog bite per EMS Time Seen by Provider: 03/19/23 15:33 Source: patient and EMS Mode of arrival: EMS Limitations: no limitations History of Present Illness HPI narrative: 27 yo female presenting to the ER from home for evaluation of a dog bite to her right thigh that occurred today. She states it was her pitbull who has bitten her before. She states she threw T sugar on the bed and the dog all the sudden attacked her. She sustained a large complex laceration to her right thigh. The wound is open and gaping without any active bleeding. She reports severe burning pain. She is ambulatory. She is unsure of last tetanus shot. Dog was taken by police. MD complaint: animal bite Onset (ago): minute(s) Animal: dog Description of animal: household pet Mechanism: bite Location - Extremities: right: thigh Pain description: sharp and burning Severity scale (1-10): 7 Context: unprovoked Associated symptoms: none Related Data Patient tetanus UTD: No Home Medications Medication Instructions Recorded Confirmed desogestrel 0.15 mg-ethinyl 1 tab PO DAILY 01/07/22 01/07/22 estradiol 0.03 mg tablet (Apri) Previous Rx's Medication Instructions Recorded hydroxyzine HCl 10 mg tablet 10 mg PO TID PRN anxiety 14 days 01/10/22 #42 tabs clonidine HCl 0.1 mg tablet 0.1 mg PO TID 7 days #21 tabs 01/24/22 escitalopram oxalate 20 mg tablet 20 mg PO DAILY 14 days #14 tabs 01/24/22 (Lexapro) lorazepam 1 mg tablet (Ativan) 1 mg PO DAILY PRN anxiety #1 tab 03/01/22 morphine 15 mg immediate release 15 mg PO Q4-6H PRN pain #10 tabs 10/20/22 tablet hydroxyzine HCl 25 mg tablet 25 mg PO TID PRN anxiety #20 tabs 12/13/22 hydroxyzine HCl 25 mg tablet 25 mg PO BID PRN anxiety #20 tabs 01/24/23 hydroxyzine HCl 25 mg tablet 25 mg PO TID PRN anxiety #20 tabs 02/20/23 doxycycline monohydrate 100 mg 100 mg PO BID #14 caps 03/19/23 capsule ibuprofen 600 mg tablet 600 mg PO Q8H PRN pain #20 tabs 03/19/23 metronidazole 500 mg tablet 500 mg PO BID 7 days #14 tabs 03/19/23 tramadol 50 mg tablet 50 mg PO BID PRN severe pain 03/19/23 (scale score 7-10) #6 tabs Allergies Allergy/AdvReac Type Severity Reaction Status Date / Time penicillin G [PENICILLIN G] Allergy Mild SWELLING Verified 03/19/23 15:17 SEAFOOD Allergy Unknown UNKNOWN Uncoded 03/19/23 15:17 Review of Systems Review of Systems: Yes all other systems are reviewed and are negative [facility] Past Medical History Medical History Allergic rhinitis Asthma Eczema Exercise-induced asthma Rib fracture Surgical History History of ankle surgery History of appendectomy Social History Social History Household Members: Children Alcohol intake: current Alcohol intake frequency: holidays/special occasions only Patient Tobacco Use Status: Never used Tobacco Smoked in Last 30 Days: No Use of substances other than those prescribed or required for medical reasons: Yes Substance Use Type: Marijuana Substance Use Frequency: Socially Advance Directives: No Advance Directives Information Provided: No Physical Exam ED Vital Signs: Vital Signs - 24 hr 03/19/23 15:18 Temperature 98.5 F Pulse Rate 71 Respiratory Rate 16 Blood Pressure 117/74 Oxygen Delivery Method Room Air BMI result Body Mass Index 19.7 Appearance: Alert. Oriented X3. No acute distress. HEENT: normal inspection CVS: Normal heart rate and rhythm. Pulses normal. Respiratory: No respiratory distress. Skin: Skin warm and dry. Normal skin color. Normal skin turgor. No rashes. Extremities: right distal thigh with large irregular shaped open wound with exposed fat and fascia, no active bleeding. see photos Neuro: Oriented X 3. No motor deficit. No sensory deficit. Medications Administered Discontinued Medications Generic Name Dose Route Start Last Admin Trade Name Freq PRN Reason Stop Dose Admin Diphtheria/Tetanus/Acell Pertussis 0.5 ml 03/19/23 15:33 03/19/23 15:40 Diphth,Pertus(Acell),Tet Adult 0.5 Ml Syringe IM 03/19/23 15:34 0.5 ml .ONCE ONE Administration Ibuprofen 600 mg 03/19/23 15:33 03/19/23 15:40 Ibuprofen 600 Mg Tablet PO 03/19/23 15:34 600 mg ONCE ONE Administration Lidocaine HCl 30 ml 03/19/23 15:33 03/19/23 15:40 Lidocaine Hcl 1 % 20 Ml Vial INFILTRATI 03/19/23 15:34 30 ml ONCE ONE Administration Oxycodone HCl 5 mg 03/19/23 15:33 03/19/23 15:40 Oxycodone Hcl Immed Release 5 Mg Tablet PO 03/19/23 15:34 5 mg ONCE ONE Administration Medical Decision Making Medical Decision Making MDM Narrative: 27-year-old female presents to the ER for evaluation of a large, complex and deep dog bite to her right thigh. Case was discussed with Dr. Scherer who assisted in wound closure. Patient was given Tdap, pain control, oral antibiotics. Wound was irrigated extensively, and ultimately stapled closed. Mattress sutures were attempted with 3-0 sutures however the sutures would not retain the tension and broke. Federica were used with adequate wound closure. She will be discharged on doxycycline and Flagyl given her amoxicillin allergy. We discussed wound care and signs and symptoms of infection. She is stable for discharge home. Differential Diagnosis Differential Diagnoses: The differential diagnosis associated with the presentation includes Contaminated dog bite, complex wound, wound infection Independent Historian Clinical information obtained from an independent historian. History obtained from or confirmed by: [facility] External Record Review External record reviewed: Outpatient record and Prior outpatient labs Prescription Management I considered prescription management with: Pain Medication and Antibiotic Procedures Laceration Laceration 1: Site: lower extremity Side (If applicable): right Size (cm): 16 Description: flap, irregular and contaminated Depth: involves muscle layer Local Anesthetic: lidocaine 1% Amount of anesthesia used (mL): 40 Pre-repair: wound explored, irrigated extensively and deep structures intact Skin layer closed with: other (federica = 29) Discharge Plan Discharge Clinical Impression: Dog bite Patient Disposition: Home, Self-Care Instructions: Animal Bite (ED) Additional Instructions: You will need your 29 federica out in 10 days. See you doctor for this or come back to the ER and we will remove them. Do not get wet for 24 hours, after that you can briefly wash with soap and water then pat dry. Use bacitracin 2x per day. Keep wound clean and covered. Do not submerge in water, no swimming. Take the prescribed antibiotics as directed. Do not miss any doses in complete the entire course. Do not drink any alcohol while taking the antibiotics. Recommend taking the antibiotics with food to prevent upset stomach. If you develop signs of infection including increased pain, swelling, redness or drainage of pus come back to the ER for further evaluation. Prescriptions: New metronidazole 500 mg tablet 500 mg PO BID 7 Days Qty: 14 0RF doxycycline monohydrate 100 mg capsule 100 mg PO BID Qty: 14 0RF ibuprofen 600 mg tablet 600 mg PO Q8H PRN (Reason: pain) Qty: 20 0RF tramadol 50 mg tablet 50 mg PO BID PRN (Reason: severe pain (scale score 7-10)) Qty: 6 0RF No Action desogestrel-ethinyl estradiol [Apri] 0.15-0.03 mg Tablet 1 tab PO DAILY hydroxyzine HCl 10 mg tablet 10 mg PO TID PRN (Reason: anxiety) 14 Days Qty: 42 0RF clonidine HCl 0.1 mg tablet 0.1 mg PO TID 7 Days Qty: 21 0RF escitalopram oxalate [Lexapro] 20 mg tablet 20 mg PO DAILY 14 Days Qty: 14 0RF lorazepam [Ativan] 1 mg tablet 1 mg PO DAILY PRN (Reason: anxiety) Qty: 1 0RF morphine 15 mg tablet 15 mg PO Q4-6H PRN (Reason: pain) Qty: 10 0RF Rx Instructions: The patient may ask for partial fill; Partial Fill upon patient request. hydroxyzine HCl 25 mg tablet 25 mg PO BID PRN (Reason: anxiety) Qty: 20 0RF hydroxyzine HCl 25 mg tablet 25 mg PO TID PRN (Reason: anxiety) Qty: 20 0RF hydroxyzine HCl 25 mg tablet 25 mg PO TID PRN (Reason: anxiety) Qty: 20 0RF Stand Alone Forms: Work/School Release
[2023-03-19 17:57] VITALS: BP 101/62; PULSE 65; RESP 16; O2SAT 98
== END 2023-03-19 18:32 | disposition home or self-care (01) ==
PROVIDERS: Emergency Provider Emergency Medicine
DX: S71.151A Open bite, right thigh, initial encounter (principal); S70.311A Abrasion, right thigh, initial encounter; W54.0XXA Bitten by dog, initial encounter; Y93.9 Activity, unspecified; Y92.9 Unspecified place or not applicable; Y99.9 Unspecified external cause status; Z79.899 Other long term (current) drug therapy; Z23 Encounter for immunization
CPT/HCPCS: 12035; 90471; 90715; 99284

== ENCOUNTER 2023-03-27 23:47 | Emergency (ER) | payer OTHER, SELFPAY | END 2023-03-28 00:20 | disposition left against medical advice (07) | PROVIDERS: Emergency Provider Emergency Medicine | DX: Z48.00 Encounter for change or removal of nonsurgical wound dressing (principal) ==

== ENCOUNTER 2023-03-29 15:58 | Emergency (ER) | payer OTHER, SELFPAY ==
[2023-03-29 16:19] VITALS: BP 112/61; PULSE 67; RESP 18; TEMP 36; O2SAT 98; BMI 21.8
--- NOTE | 2023-03-29 16:22 | ED.WOUNDLAC ---
HPI - Wound/Laceration General Chief Complaint: General Medical Stated Complaint: federica infected? seen 03/26 Time Seen by Provider: 03/29/23 16:31 Source: patient Mode of arrival: ambulatory Limitations: no limitations History of Present Illness HPI narrative: 27 yo female with recent dog bite to her right thigh on 03/19 who presents to the ER for would evaluation. She admits to noncompliance with abx. She has ongoing discomfort in the area, especially when she walks. She has some mild redness to the wound. She has some clear drainage. She denies any fever or chills. Onset (ago): day(s) Place: home Patient tetanus UTD: Yes Context: accidental Associated symptoms: pain Treatments prior to arrival: bandage Related Data Home Medications Medication Instructions Recorded Confirmed desogestrel 0.15 mg-ethinyl 1 tab PO DAILY 01/07/22 01/07/22 estradiol 0.03 mg tablet (Apri) Previous Rx's Medication Instructions Recorded hydroxyzine HCl 10 mg tablet 10 mg PO TID PRN anxiety 14 days 01/10/22 #42 tabs clonidine HCl 0.1 mg tablet 0.1 mg PO TID 7 days #21 tabs 01/24/22 escitalopram oxalate 20 mg tablet 20 mg PO DAILY 14 days #14 tabs 01/24/22 (Lexapro) lorazepam 1 mg tablet (Ativan) 1 mg PO DAILY PRN anxiety #1 tab 03/01/22 morphine 15 mg immediate release 15 mg PO Q4-6H PRN pain #10 tabs 10/20/22 tablet hydroxyzine HCl 25 mg tablet 25 mg PO TID PRN anxiety #20 tabs 12/13/22 hydroxyzine HCl 25 mg tablet 25 mg PO BID PRN anxiety #20 tabs 01/24/23 hydroxyzine HCl 25 mg tablet 25 mg PO TID PRN anxiety #20 tabs 02/20/23 doxycycline monohydrate 100 mg 100 mg PO BID #14 caps 03/19/23 capsule ibuprofen 600 mg tablet 600 mg PO Q8H PRN pain #20 tabs 03/19/23 metronidazole 500 mg tablet 500 mg PO BID 7 days #14 tabs 03/19/23 tramadol 50 mg tablet 50 mg PO BID PRN severe pain 03/19/23 (scale score 7-10) #6 tabs Allergies Allergy/AdvReac Type Severity Reaction Status Date / Time penicillin G [PENICILLIN G] Allergy Mild SWELLING Verified 03/29/23 16:19 SEAFOOD Allergy Unknown UNKNOWN Uncoded 03/19/23 15:17 Review of Systems Review of Systems: Yes all other systems are reviewed and are negative [facility] Past Medical History Medical History Allergic rhinitis Asthma Eczema Exercise-induced asthma Rib fracture Surgical History History of ankle surgery History of appendectomy Social History Social History Household Members: Children Alcohol intake: current Alcohol intake frequency: holidays/special occasions only Patient Tobacco Use Status: Never used Tobacco Substance Use Type: Marijuana Advance Directives: No Advance Directives Information Provided: Yes Physical Exam Vital Signs: Vital Signs: Last Vital Signs Temp 96.8 F 03/29/23 16:19 Pulse 67 03/29/23 16:19 Resp 18 03/29/23 16:19 BP 112/61 03/29/23 16:19 Pulse Ox 98 03/29/23 16:19 O2 Del Method Room Air 03/29/23 16:19 BMI result Body Mass Index 21.8 Appearance: Alert. Oriented X3. No acute distress. HEENT: normal inspection CVS: Normal heart rate and rhythm. Pulses normal. Respiratory: No respiratory distress. Skin: Skin warm and dry. Normal skin color. Normal skin turgor. No rashes. Extremities: Lower right anterior thigh with complex wound with multiple federica in place, minimal erythema surrounding the federica, there is clear serosanguineous drainage from the distal aspect, small area of eschar and irregular skin tissue. No palpable fluid collection, no fluctuance. Neuro: Oriented X 3. No motor deficit. No sensory deficit. Course Course Course Narrative: 27 year old female patient with history of dog bite that required wound closure on 03/19 presents today for wound check and staple removal. Medical Decision Making Medical Decision Making MDM Narrative: 27-year-old female with history of significant dog bite to her right anterior thigh on March 19 who presents to the ER for evaluation of the wound. She has been noncompliant with antibiotics. No evidence of abscess or cellulitis, there is minimal clear drainage from the area without a palpable seroma. There is mild erythema along the staple line but no significant cellulitis Some of the federica are removed however the wound dehisced slightly with this. The remainder of the federica were left in place. Wound was reinforced with Steri-Strips with good affect. Will plan to have the patient come back in 3 days for wound evaluation. Importance of antibiotics was stressed. Wound care discussed. Return precautions discussed. Patient will be discharged home with oral antibiotics and further monitoring of the wound. plan for re-evaluation in 3 days Differential Diagnosis Differential Diagnoses: The differential diagnosis associated with the presentation includes Delayed wound healing, appropriate wound healing, seroma, abscess, cellulitis, infected dog bite Admission/Observation Consideration of admission/observation: Escalation of care including admission/observation considered Non compliant with antibiotics with a complex dog bite, concern for possible infection requiring IV antibiotics, observation/admission was considered External Record Review External record reviewed: Outpatient record Tests considered The following testing was considered but not selected: Consider lab workup, no tachycardia or fever Prescription Management I considered prescription management with: Pain Medication and Antibiotic Critical Care Time Critical Care Time Critical Care Time: No Discharge Plan Discharge Clinical Impression: Delayed wound healing Patient Disposition: Home, Self-Care Instructions: Acute Wounds (DC) Additional Instructions: Come back in 3 days for wound re-evaluation and possible staple removal Keep the steri-strips in place, do not peel them off TAKE THE PRESCRIBED ANTIBIOTICS TO HELP PREVENT INFECTION Prescriptions: No Action desogestrel-ethinyl estradiol [Apri] 0.15-0.03 mg Tablet 1 tab PO DAILY hydroxyzine HCl 10 mg tablet 10 mg PO TID PRN (Reason: anxiety) 14 Days Qty: 42 0RF clonidine HCl 0.1 mg tablet 0.1 mg PO TID 7 Days Qty: 21 0RF escitalopram oxalate [Lexapro] 20 mg tablet 20 mg PO DAILY 14 Days Qty: 14 0RF lorazepam [Ativan] 1 mg tablet 1 mg PO DAILY PRN (Reason: anxiety) Qty: 1 0RF morphine 15 mg tablet 15 mg PO Q4-6H PRN (Reason: pain) Qty: 10 0RF Rx Instructions: The patient may ask for partial fill; Partial Fill upon patient request. hydroxyzine HCl 25 mg tablet 25 mg PO BID PRN (Reason: anxiety) Qty: 20 0RF hydroxyzine HCl 25 mg tablet 25 mg PO TID PRN (Reason: anxiety) Qty: 20 0RF metronidazole 500 mg tablet 500 mg PO BID 7 Days Qty: 14 0RF doxycycline monohydrate 100 mg capsule 100 mg PO BID Qty: 14 0RF ibuprofen 600 mg tablet 600 mg PO Q8H PRN (Reason: pain) Qty: 20 0RF tramadol 50 mg tablet 50 mg PO BID PRN (Reason: severe pain (scale score 7-10)) Qty: 6 0RF hydroxyzine HCl 25 mg tablet 25 mg PO TID PRN (Reason: anxiety) Qty: 20 0RF Interventions: ED Discharge Assessment Last Done: 03/29/23 16:43 Discharge Date/Time: 03/29/23 16:43
== END 2023-03-29 16:43 | disposition home or self-care (01) ==
PROVIDERS: Emergency Provider Emergency Medicine
DX: T81.89XA Other complications of procedures, not elsewhere classified, initial encounter (principal); S71.151D Open bite, right thigh, subsequent encounter; W54.0XXD Bitten by dog, subsequent encounter; Z79.899 Other long term (current) drug therapy
CPT/HCPCS: 99282

== ENCOUNTER 2023-04-01 11:16 | Emergency (ER) | payer OTHER, SELFPAY ==
[2023-04-01 11:26] VITALS: BP 93/64; PULSE 59; RESP 16; TEMP 36; O2SAT 100; BMI 21.9
--- NOTE | 2023-04-01 11:26 | ED_ITS ---
HPI - Wound/Laceration General Chief Complaint: General Medical Stated Complaint: staple removal Time Seen by Provider: 04/01/23 11:26 Source: patient Mode of arrival: ambulatory Limitations: no limitations History of Present Illness HPI narrative: Patient is a 27-year-old female who presents emergency department for wound evaluation to the right thigh. She was originally seen in the emergency department 03/19/2023 and had wound closure with 29 federica. She presented for removal on 03/29/2023 some of the federica were able to be removed at this time however the wound has slightly dehised and therefore the remainder were left in place and the wound was reinforced with Steri-Strips. She was advised to come back to emergency department in 3 days for re-evaluation. She states that she has been able to take the doxycycline, however when she was taking the Flagyl she was vomiting very soon after taking it so she stopped this medication. Denies fevers, chills, redness of the wound, swelling, pain. Related Data Home Medications Medication Instructions Recorded Confirmed desogestrel 0.15 mg-ethinyl 1 tab PO DAILY 01/07/22 01/07/22 estradiol 0.03 mg tablet (Apri) Previous Rx's Medication Instructions Recorded hydroxyzine HCl 10 mg tablet 10 mg PO TID PRN anxiety 14 days 01/10/22 #42 tabs clonidine HCl 0.1 mg tablet 0.1 mg PO TID 7 days #21 tabs 01/24/22 escitalopram oxalate 20 mg tablet 20 mg PO DAILY 14 days #14 tabs 01/24/22 (Lexapro) lorazepam 1 mg tablet (Ativan) 1 mg PO DAILY PRN anxiety #1 tab 03/01/22 morphine 15 mg immediate release 15 mg PO Q4-6H PRN pain #10 tabs 10/20/22 tablet hydroxyzine HCl 25 mg tablet 25 mg PO TID PRN anxiety #20 tabs 12/13/22 hydroxyzine HCl 25 mg tablet 25 mg PO BID PRN anxiety #20 tabs 01/24/23 hydroxyzine HCl 25 mg tablet 25 mg PO TID PRN anxiety #20 tabs 02/20/23 doxycycline monohydrate 100 mg 100 mg PO BID #14 caps 03/19/23 capsule ibuprofen 600 mg tablet 600 mg PO Q8H PRN pain #20 tabs 03/19/23 metronidazole 500 mg tablet 500 mg PO BID 7 days #14 tabs 03/19/23 tramadol 50 mg tablet 50 mg PO BID PRN severe pain 03/19/23 (scale score 7-10) #6 tabs clindamycin HCl 300 mg capsule 300 mg PO TID 5 days #15 caps 04/01/23 Allergies Allergy/AdvReac Type Severity Reaction Status Date / Time penicillin G [PENICILLIN G] Allergy Mild SWELLING Verified 03/29/23 16:19 SEAFOOD Allergy Unknown UNKNOWN Uncoded 03/19/23 15:17 Review of Systems Review of Systems: Constitutional: No fever, chills, weakness or fatigue. Skin: Wound as per HPI Cardiovascular: No chest pain Respiratory: No shortness of breath Gastrointestinal: No abdominal pain Musculoskeletal: No muscle pain, back pain, joint pain or stiffness. Psychiatric: No depression or anxiety. Yes all other systems are reviewed and are negative [facility] Past Medical History Attestation statement: The following information was validated with the patient. Source: old records reviewed Medical History Allergic rhinitis Asthma Eczema Exercise-induced asthma Rib fracture Surgical History History of ankle surgery History of appendectomy Social History Social History Household Members: Children Alcohol intake: current Alcohol intake frequency: holidays/special occasions only Patient Tobacco Use Status: Never used Tobacco Substance Use Type: Marijuana Physical Exam Vital Signs: Vital Signs: Last Vital Signs Temp 96.8 F 04/01/23 11:26 Pulse 59 04/01/23 11:26 Resp 16 04/01/23 11:26 BP 93/64 04/01/23 11:26 Pulse Ox 100 04/01/23 11:26 O2 Del Method Room Air 04/01/23 11:26 BMI result Body Mass Index 21.9 Appearance: Alert.?Oriented to person, place and time. No acute distress.?Normal affect. Neck: Normal inspection.? Neck supple.?? CVS: Heart sounds normal. Normal heart rate and rhythm.? Pulses normal.?? Respiratory: No respiratory distress.? Lung sounds clear to auscultation bilaterally?? Abdomen: Soft and non-tender. Skin: Skin warm and dry.? Normal skin color.? Extremities: No lower extremity edema.? No calf ttp? Neuro: Moves all extremities spontaneously. Sensation intact bilaterally.. No focal neuro deficits. Ambulates with normal steady gait. Medical Decision Making Medical Decision Making MDM Narrative: Patient is a 27-year-old female presents emergency department for wound evaluation as per HPI. At the time of my examination she had 11 federica still intact to the wound of the right anterior thigh. Eleven federica were removed, Steri-Strips were placed for assistants for additional closure. Consulted with Dr. Naik from General surgery, who will follow-up with patient out patient as she does not have a primary care provider. She has been intolerant to Flagyl and has completed a course of doxy, sent prescription for clindamycin to patient's pharmacy, educated on importance of completion of this course of antibiotic. Reviewed worrisome signs and symptoms that would warrant re- evaluation emergency department, including signs of infection. All questions were answered. Stable for discharge. Differential Diagnosis Differential Diagnoses: The differential diagnosis associated with the presentation includes (Wound dehiscence, wound infection, cellulitis, myositis, osteomyelitis) Consult Healthcare Provider Management of the patient was discussed with: Hand Hide Stretcher (General surgery as noted above) Independent Historian Clinical information obtained from an independent historian. History obtained from or confirmed by: Spouse (Patient's significant other confirms history) Prescription Management I considered prescription management with: Antibiotic (Clindamycin as noted above) Discharge Plan Discharge Clinical Impression: Animal bite of right thigh Qualifiers: Encounter type: subsequent encounter Qualified Code(s): S71.151D - Open bite, right thigh, subsequent encounter Patient Disposition: Home, Self-Care Instructions: Animal Bite (ED) Additional Instructions: Have sent a prescription for antibiotic your pharmacy. Please complete this entire course of antibiotic. You may take it with food to prevent any stomach upset. I have provided contact information for the general surgeon's office; Dr. Naik. Please contact their office first thing Monday morning to arrange for a follow-up visit. Return back to emergency department any new or worsening symptoms or concerns such as pain, swelling, redness, pus-like discharge, fevers, chills Prescriptions: New clindamycin HCl 300 mg capsule 300 mg PO TID 5 Days Qty: 15 0RF No Action desogestrel-ethinyl estradiol [Apri] 0.15-0.03 mg Tablet 1 tab PO DAILY hydroxyzine HCl 10 mg tablet 10 mg PO TID PRN (Reason: anxiety) 14 Days Qty: 42 0RF clonidine HCl 0.1 mg tablet 0.1 mg PO TID 7 Days Qty: 21 0RF escitalopram oxalate [Lexapro] 20 mg tablet 20 mg PO DAILY 14 Days Qty: 14 0RF lorazepam [Ativan] 1 mg tablet 1 mg PO DAILY PRN (Reason: anxiety) Qty: 1 0RF morphine 15 mg tablet 15 mg PO Q4-6H PRN (Reason: pain) Qty: 10 0RF Rx Instructions: The patient may ask for partial fill; Partial Fill upon patient request. hydroxyzine HCl 25 mg tablet 25 mg PO BID PRN (Reason: anxiety) Qty: 20 0RF hydroxyzine HCl 25 mg tablet 25 mg PO TID PRN (Reason: anxiety) Qty: 20 0RF metronidazole 500 mg tablet 500 mg PO BID 7 Days Qty: 14 0RF doxycycline monohydrate 100 mg capsule 100 mg PO BID Qty: 14 0RF ibuprofen 600 mg tablet 600 mg PO Q8H PRN (Reason: pain) Qty: 20 0RF tramadol 50 mg tablet 50 mg PO BID PRN (Reason: severe pain (scale score 7-10)) Qty: 6 0RF hydroxyzine HCl 25 mg tablet 25 mg PO TID PRN (Reason: anxiety) Qty: 20 0RF Referrals: Jaylan Naik MD [Physician] - (wound follow-up) Discharge Date/Time: 04/01/23 12:03
== END 2023-04-01 12:03 | disposition home or self-care (01) ==
PROVIDERS: Emergency Provider Emergency Medicine
DX: S71.151D Open bite, right thigh, subsequent encounter (principal); W64.XXXD Exposure to other animate mechanical forces, subsequent encounter; Z48.00 Encounter for change or removal of nonsurgical wound dressing
CPT/HCPCS: 99282

== ENCOUNTER 2023-04-03 10:23 | Emergency (ER) | payer OTHER, SELFPAY ==
[2023-04-03 10:30] VITALS: BP 107/69; PULSE 72; RESP 12; TEMP 36.6; O2SAT 93; BMI 20.6
[2023-04-03 10:51] VITALS: BP 107/56; PULSE 68; RESP 16; TEMP 36.7; O2SAT 100
--- NOTE | 2023-04-03 11:04 | PC.NURSE ---
pt axox4, VSS, respirations even and unlabored, skin wpd. skin intact other than dog bite wound on R. thigh from 03/19/23, pt states federica were removed 04/01/23, steri strips applied. pt c/o steri strips falling out too soon. edges not approximated. no redness/warmth, discharge noted. pt reports taking abx as prescribed. call amado within reach.
--- NOTE | 2023-04-03 12:10 | ED_ITS ---
HPI - Wound/Laceration General Chief Complaint: Wound/Laceration Stated Complaint: Leg wound Time Seen by Provider: 04/03/23 10:39 Source: patient Mode of arrival: ambulatory Limitations: no limitations History of Present Illness HPI narrative: 27-year-old female presents for evaluation of wound on right lower extremity. Patient had federica removed just a few days ago. Since since she has had increasing itchiness. She denies any pain, purulent drainage. Describes her itchiness is moderate to severe in nature. There has been no fevers or chills. Steri-Strips were applied at the time that the federica removed but they have fallen off since. Related Data Home Medications Medication Instructions Recorded Confirmed desogestrel 0.15 mg-ethinyl 1 tab PO DAILY 01/07/22 01/07/22 estradiol 0.03 mg tablet (Apri) Previous Rx's Medication Instructions Recorded hydroxyzine HCl 10 mg tablet 10 mg PO TID PRN anxiety 14 days 01/10/22 #42 tabs clonidine HCl 0.1 mg tablet 0.1 mg PO TID 7 days #21 tabs 01/24/22 escitalopram oxalate 20 mg tablet 20 mg PO DAILY 14 days #14 tabs 01/24/22 (Lexapro) lorazepam 1 mg tablet (Ativan) 1 mg PO DAILY PRN anxiety #1 tab 03/01/22 morphine 15 mg immediate release 15 mg PO Q4-6H PRN pain #10 tabs 10/20/22 tablet hydroxyzine HCl 25 mg tablet 25 mg PO TID PRN anxiety #20 tabs 12/13/22 hydroxyzine HCl 25 mg tablet 25 mg PO BID PRN anxiety #20 tabs 01/24/23 hydroxyzine HCl 25 mg tablet 25 mg PO TID PRN anxiety #20 tabs 02/20/23 doxycycline monohydrate 100 mg 100 mg PO BID #14 caps 03/19/23 capsule ibuprofen 600 mg tablet 600 mg PO Q8H PRN pain #20 tabs 03/19/23 metronidazole 500 mg tablet 500 mg PO BID 7 days #14 tabs 03/19/23 tramadol 50 mg tablet 50 mg PO BID PRN severe pain 03/19/23 (scale score 7-10) #6 tabs clindamycin HCl 300 mg capsule 300 mg PO TID 5 days #15 caps 04/01/23 Allergies Allergy/AdvReac Type Severity Reaction Status Date / Time penicillin G [PENICILLIN G] Allergy Mild SWELLING Verified 03/29/23 16:19 SEAFOOD Allergy Unknown UNKNOWN Uncoded 03/19/23 15:17 Review of Systems Review of Systems: CONSTITUTIONAL: Denies weight loss, fever and chills. HEENT: Denies changes in vision and hearing. RESPIRATORY: Denies SOB and cough. CV: Denies palpitations no CP. GI: Denies abdominal pain, nausea, vomiting and diarrhea. : Denies dysuria and urinary frequency. MSK: Denies myalgia and joint pain. SKIN: Denies rash and pruritus. NEUROLOGICAL: Denies headache and syncope. PSYCHIATRIC: Denies recent changes in mood. Denies anxiety and depression. All other ROS are negative unless in HPI PMFSH Past Medical History Medical History Allergic rhinitis Asthma Eczema Exercise-induced asthma Rib fracture Surgical History History of ankle surgery History of appendectomy Social History Social History Household Members: Children Alcohol intake: current Alcohol intake frequency: holidays/special occasions only Patient Tobacco Use Status: Never used Tobacco Smoked in Last 30 Days: Yes Use of substances other than those prescribed or required for medical reasons: Yes Substance Use Type: Marijuana Advance Directives: No Advance Directives Information Provided: No Physical Exam Vital Signs: Vital Signs: Last Vital Signs Temp 98.1 F 04/03/23 10:51 Pulse 68 04/03/23 10:51 Resp 16 04/03/23 10:51 BP 107/56 L 04/03/23 10:51 Pulse Ox 100 04/03/23 10:51 O2 Del Method Room Air 04/03/23 10:51 BMI result Body Mass Index 20.6 GEN: Well developed, no acute distress, alert, oriented HEENT: Normocephalic, atraumatic, normal external ears, nose appears normal Eyes: Normal to appearance Neck: Supple, no lymphadenopathy Respiratory: Talks in complete sentences, no respiratory distress Extremities: No clubbing cyanosis or edema Neurologic: No focal neurologic deficits, cranial nerves 2-12 intact, gait normal Skin: No rash\, large laceration at least 10 cm in length with wound dehiscence, no surrounding erythema no purulent drainage. No evidence of infection Medical Decision Making Medical Decision Making MDM Narrative: 27-year-old female presents with wound evaluation. There is no evidence of cellulitis, wound infection. There is some wound dehiscence with significant scar tissue buildup at this time. I did reapply Steri-Strips to help with better wound approximation however I do P believe patient would best be shiloh luated by wound care Differential Diagnosis Differential Diagnoses: The differential diagnosis associated with the presentation includes (Healing wound, infected wound, scar tissue) Prescription Management I considered prescription management with: Antibiotic Discharge Plan Discharge Clinical Impression: Laceration of leg, Encounter for wound care Patient Disposition: Home, Self-Care Instructions: Laceration (ED) Prescriptions: No Action desogestrel-ethinyl estradiol [Apri] 0.15-0.03 mg Tablet 1 tab PO DAILY hydroxyzine HCl 10 mg tablet 10 mg PO TID PRN (Reason: anxiety) 14 Days Qty: 42 0RF clonidine HCl 0.1 mg tablet 0.1 mg PO TID 7 Days Qty: 21 0RF escitalopram oxalate [Lexapro] 20 mg tablet 20 mg PO DAILY 14 Days Qty: 14 0RF lorazepam [Ativan] 1 mg tablet 1 mg PO DAILY PRN (Reason: anxiety) Qty: 1 0RF morphine 15 mg tablet 15 mg PO Q4-6H PRN (Reason: pain) Qty: 10 0RF Rx Instructions: The patient may ask for partial fill; Partial Fill upon patient request. hydroxyzine HCl 25 mg tablet 25 mg PO BID PRN (Reason: anxiety) Qty: 20 0RF hydroxyzine HCl 25 mg tablet 25 mg PO TID PRN (Reason: anxiety) Qty: 20 0RF metronidazole 500 mg tablet 500 mg PO BID 7 Days Qty: 14 0RF doxycycline monohydrate 100 mg capsule 100 mg PO BID Qty: 14 0RF ibuprofen 600 mg tablet 600 mg PO Q8H PRN (Reason: pain) Qty: 20 0RF tramadol 50 mg tablet 50 mg PO BID PRN (Reason: severe pain (scale score 7-10)) Qty: 6 0RF hydroxyzine HCl 25 mg tablet 25 mg PO TID PRN (Reason: anxiety) Qty: 20 0RF clindamycin HCl 300 mg capsule 300 mg PO TID 5 Days Qty: 15 0RF Referrals: Jaylan Naik MD [Physician] - Stand Alone Forms: Work/School Release
== END 2023-04-03 12:18 | disposition home or self-care (01) ==
PROVIDERS: Emergency Provider Emergency Medicine; PCP Internal Medicine
DX: Z48.00 Encounter for change or removal of nonsurgical wound dressing (principal); L29.9 Pruritus, unspecified; S81.811D Laceration without foreign body, right lower leg, subsequent encounter; X58.XXXD Exposure to other specified factors, subsequent encounter
CPT/HCPCS: 99282; 99284

== ENCOUNTER 2023-04-06 08:49 | Outpatient (AMB) | payer OTHER, SELFPAY ==
--- NOTE | 2023-04-06 08:58 | A.OFFVIS_ITS ---
Intake Vital Signs 04/06/23 09:04 Height 5 ft 4 in Weight 129 lb BMI 22.1 BP 110/73 Blood Pressure Location Rt brachial Position Standing Pulse 55 Intake Visit Reasons: leg wound Intake Note: This patient presents for [facility] emergency department follow-up for leg wound. Patient c/o; open wound, dog bite, right lower extremity. Director Of Application Development Required: No Accompanied by: Family/Other Allergies penicillin G [PENICILLIN G] Allergy (Mild, Verified 04/06/23 09:04) SWELLING SEAFOOD Allergy (Unknown, Uncoded 04/06/23 09:04) UNKNOWN Medication List - Last Reconciled 04/06/23 by Jaylan Naik MD clindamycin HCl 300 mg PO TID 5 days clonidine HCl 0.1 mg PO TID 7 days desogestrel-ethinyl estradiol 0.15-0.03 mg (Apri) 1 tab PO DAILY doxycycline monohydrate 100 mg PO BID escitalopram oxalate (Lexapro) 20 mg PO DAILY 14 days hydroxyzine HCl 10 mg PO TID PRN 14 days hydroxyzine HCl 25 mg PO TID PRN hydroxyzine HCl 25 mg PO TID PRN hydroxyzine HCl 25 mg PO BID PRN ibuprofen 600 mg PO Q8H PRN lorazepam (Ativan) 1 mg PO DAILY PRN metronidazole 500 mg PO BID 7 days morphine 15 mg PO Q4-6H PRN tramadol 50 mg PO BID PRN HPI leg wound HPI Details [age] year old female referred for a right leg wound. She had suffered dog bite on the right thigh anteriorly last 03/19/2023. She went to the ER at that time and this was loosely closed with skin federica. She was placed on antibiotics. She went back to the ER to have the federica removed. There was note of skin some skin separation. She was referred to me therefore She otherwise says that the area has actually been improving well. She denies any redness. She denies any significant pain. She she denies pus although she describes some clear drainage on the open part of the wound. [facility] Medical History (Updated 04/06/23 @ 09:17 by Jaylan Naik MD) Allergic rhinitis Asthma Eczema Exercise-induced asthma Open wound Rib fracture Surgical History History of ankle surgery History of appendectomy Social History Household Members: Children Alcohol intake: current Alcohol intake frequency: holidays/special occasions o nly Patient Tobacco Use Status: Never used Tobacco Substance Use Type: Marijuana Review of Systems Const Denies chills and Denies fever(s) Card Denies chest pain, Denies dyspnea and Denies dyspnea on exertion Resp Denies cough, Denies dyspnea and Denies dyspnea on exertion GI Denies hematochezia and Denies change in bowel habits Denies hematuria Musc Denies back pain and Denies limited range of motion Neuro Denies focal weakness and Denies convulsions Psych Denies depression and Denies mood swings Physical Exam Vital Signs: Last Vital Signs Pulse 55 04/06/23 09:04 BP 110/73 04/06/23 09:04 BMI result Body Mass Index 22.1 Const General: comfortable and no acute distress Orientation/consciousness: patient oriented x3 Neck Neck: Yes no lymphadenopathy Resp Auscultation: clear to auscultation bilaterally Cardio Rhythm: regular rhythm GI Palpation (GI): Soft to palpation, nontender and no guarding Neuro General: patient oriented x3 Extrem Other: Right anterior leg with note of a healing laceration, about 12 cm in total length, L-shaped, some mild skin separation but otherwise with good granulation in between, no acute infection Assessment & Plan Assessment & Plan (1) Open wound: Code(s): T14.8XXA - Other injury of unspecified body region, initial encounter Plan: She has an open wound on the right anterior thigh from a recent dog bite. This actually granulating well. This is due to some skin separation the entire wound that had been recently stapled for closure The wound is clean otherwise. I had cleaned this some more with sterile saline. Applied dry dressings. I have instructed her on good wound care daily. I will see her in the office in about 3 weeks for another wound check. She does not require debridement at this time. Coding Level of Care Code New Pt Level 3 (75413) Diagnoses Open wound T14.8XXA
[2023-04-06 09:04] VITALS: BP 110/73; PULSE 55; BMI 22.1
== END 2023-04-06 09:17 | disposition home or self-care (01) ==
PROVIDERS: PCP Internal Medicine; Visit Provider Surgery
DX: T14.8XXA Other injury of unspecified body region, initial encounter (principal)
CPT/HCPCS: 99203

== ENCOUNTER → 2023-04-06 08:49 | Outpatient (BNVA) | payer OTHER, SELFPAY | PROVIDERS: PCP Internal Medicine; Visit Provider Surgery | DX: S71.151A Open bite, right thigh, initial encounter (principal); W54.0XXA Bitten by dog, initial encounter; Y93.9 Activity, unspecified; Y92.9 Unspecified place or not applicable; Y99.9 Unspecified external cause status | CPT/HCPCS: 99202 ==

== ENCOUNTER 2023-05-30 09:18 | Emergency (ER) | payer OTHER, SELFPAY | END 2023-05-30 10:11 | disposition left against medical advice (07) | PROVIDERS: Emergency Provider Emergency Medicine; PCP Internal Medicine | DX: R10.9 Unspecified abdominal pain (principal); F41.9 Anxiety disorder, unspecified ==

== ENCOUNTER 2023-06-02 09:11 | Emergency (ER) | payer OTHER, SELFPAY ==
[2023-06-02 09:35] VITALS: BP 120/80; BP 122/78; PULSE 65; RESP 18; TEMP 36.6; O2SAT 100; BMI 21.0
[2023-06-02 09:48] LABS: MANUAL DIFF FLAG NO
[2023-06-02 09:51] LABS: Appearance Urine Clear; Color Urine Yellow; Glucose Urine UA Negative (Negative); Leukocyte Esterase Urine Trace (Negative); Nitrite Urine Negative (Negative); Specific Gravity - Urine 1.025 (1.005-1.025); UMIC TRIGGER UACC YES; Urine Blood Negative (Negative); Urine Ketones Negative (Negative); Urine Protein Trace mg/dL (Neg-Trace)
[2023-06-02 09:51] LABS: Basophils Percent Auto 0.4 % (0-2); Eosinophils Absolute Auto 0.4 X10*3/uL (0.0-0.4); Eosinophils Percent Auto 4.1 % (0-4); Hemoglobin 14.4 g/dl (12.0-16.0); Imm Gran Abs Auto 0.04 X10*3/uL (0.00-0.03); Imm Gran Pct Auto 0.4 % (0.0-0.4); Lymphocytes Percent Auto 19.9 % (20-40); Mean Corpuscular HGB Conc 32.7 g/dl (31.0-35.0); Mean Corpuscular Hemoglobin 26.3 pg (27.0-33.0); Mean Corpuscular Volume 80.4 fL (80.0-98.0); Monocytes Absolute Auto 0.7 X10*3/uL (0.1-1.2); Monocytes Percent Auto 7.1 % (2-11); Neutrophils Absolute Auto 6.7 x10*3/uL (2.0-8.3); Neutrophils Percent Auto 68.1 % (45-73); Platelet Count 290 X10*3/uL (160-400); Red Blood Count 5.47 X10*6/uL (4.20-5.50); Red Cell Distribution Width 13.3 % (11.0-16.0); White Blood Count 9.9 X10*3/uL (4.8-10.8)
[2023-06-02 09:53] LABS: UPreg QC Valid YES; Urine Pregnancy NEGATIVE (NEGATIVE)
[2023-06-02 09:54] LABS: Bacteria Urine 1+ (None Seen); Hyaline Casts Urine 0-2 /LPF (0-2); RBC Urine 0-2 /HPF (0-2); WBC Urine 0-5 /HPF (0-5)
--- NOTE | 2023-06-02 10:01 | PC.NURSE ---
Yandy was BIBA after having a panic attack and increased anxiety at home. On arrival Yandy was brought to the POD where staff went to check her belongings and Yandy became agitated stating I come here for this all the time they never take my phone or put me back here I want to be in the hallway in the main part . After discussing with social economist PT was moved to the hallway where she was changed over and her belongings were locked up. Pt calm with VS WNL. Stated I just get a lot of anxiety and have PTSD that's the only reason why I come here I don't want to hurt myself or anyone else .
[2023-06-02 10:05] LABS: Amphetamine Screen Urine Not Detected (Not Detect); Barbiturates, Urine Not Detected (Not Detect); Benzodiazepines Screen Urine Not Detected (Not Detect); Cannabinoid Screen Urine POSITIVE (Not Detect); Cocaine Screen Urine POSITIVE (Not Detect); Fentanyl, urine Not Detected (Not Detect); Opiate Screen Urine Not Detected (Not Detect); Phencyclidine Screen Urine Not Detected (Not Detect)
[2023-06-02 10:13] LABS: Alanine Aminotransferase 12 U/L (0-31); Albumin Level 4.7 g/dL (3.5-5.0); Alkaline Phosphatase 60 U/L (39-117); Anion Gap 14 (12-20); Aspartate Amino Transferase 19 U/L (5-31); Bilirubin Total 0.6 mg/dL (0.0-1.0); Blood Urea Nitrogen 14 mg/dL (9-16); Calcium 9.6 mg/dL (8.4-10.2); Carbon Dioxide 27 mmol/L (22-29); Chloride 105 mmol/L (96-108); Creatinine Clr Calc Pharmacy 101.7; Estimated Glomerular Filt Rate > 60; Glucose Random 86 mg/dL (60-115); Lipase 9 U/L (8-78); Potassium 4.5 mmol/L (3.3-5.1); Sodium 141 mmol/L (135-145); Total Protein 8.3 g/dL (6.5-8.0)
[2023-06-02 10:26] LABS: Troponin-I High Sensitivity < 2.7 ng/L (<3.5-17.0)
[2023-06-02 10:31] LABS: TSH reflex Free T4 1.28 uIU/mL (0.32-4.0)
--- NOTE | 2023-06-02 12:23 | PC.NURSE ---
PT OFFERED PO INTAKE , PERMISSION FOR PT TO HAVE HER PHONE. SHE IS NO LONGER EXPERIENCING OR REPORTING AN INCREASED LEVEL OF ANXIETY
[2023-06-02 12:43] VITALS: BP 106/60; PULSE 75; RESP 16; TEMP 37.1; O2SAT 100
[2023-06-02 13:58] VITALS: BP 116/70; PULSE 72; RESP 16; TEMP 37.2; O2SAT 99
--- NOTE | 2023-06-02 14:25 | ED_ITS ---
HPI - Psych General Chief Complaint: Psychiatric Symptoms Stated Complaint: panic attack, incr of stress, per ems Time Seen by Provider: 06/02/23 13:28 Source: patient, EMS and RN notes reviewed Mode of arrival: ambulatory Limitations: no limitations History of Present Illness HPI Narrative: This is a 28-year-old female, with a past medical history of anxiety, presenting to the emergency department with complaints of anxiety since today. patient reports that while she was driving today she felt overwhelmed and felt her heart racing and nauseous. patient reports that she has had some blurred vision which is typical when she gets anxiety attacks. She states that she typically takes Ativan but because she was driving she had to well puller and call the ambulance. she states that she takes Ativan irregularly. She has a therapist who she speaks to on a weekly basis. She denies any suicidal or homicidal ideations. Denies visual or auditory hallucinations. Denies any alcohol or drug use. no other complaints or concerns at this time Duration: intermittent History of same: Yes Relieving factors: none Exacerbating factors: none Associated psychiatric symptoms: none Associated symptoms: denies other symptoms Treatments prior to arrival: none Related Data Home Medications Medication Instructions Recorded Confirmed desogestrel 0.15 mg-ethinyl 1 tab PO DAILY 01/07/22 04/06/23 estradiol 0.03 mg tablet (Apri) Previous Rx's Medication Instructions Recorded hydroxyzine HCl 10 mg tablet 10 mg PO TID PRN anxiety 14 days 01/10/22 #42 tabs clonidine HCl 0.1 mg tablet 0.1 mg PO TID 7 days #21 tabs 01/24/22 escitalopram oxalate 20 mg tablet 20 mg PO DAILY 14 days #14 tabs 01/24/22 (Lexapro) lorazepam 1 mg tablet (Ativan) 1 mg PO DAILY PRN anxiety #1 tab 03/01/22 morphine 15 mg immediate release 15 mg PO Q4-6H PRN pain #10 tabs 10/20/22 tablet hydroxyzine HCl 25 mg tablet 25 mg PO TID PRN anxiety #20 tabs 12/13/22 hydroxyzine HCl 25 mg tablet 25 mg PO BID PRN anxiety #20 tabs 01/24/23 hydroxyzine HCl 25 mg tablet 25 mg PO TID PRN anxiety #20 tabs 02/20/23 doxycycline monohydrate 100 mg 100 mg PO BID #14 caps 03/19/23 capsule ibuprofen 600 mg tablet 600 mg PO Q8H PRN pain #20 tabs 03/19/23 metronidazole 500 mg tablet 500 mg PO BID 7 days #14 tabs 03/19/23 tramadol 50 mg tablet 50 mg PO BID PRN severe pain 03/19/23 (scale score 7-10) #6 tabs clindamycin HCl 300 mg capsule 300 mg PO TID 5 days #15 caps 04/01/23 hydroxyzine HCl 25 mg tablet 25 mg PO TID PRN anxiety #20 tabs 06/02/23 Allergies Allergy/AdvReac Type Severity Reaction Status Date / Time penicillin G [PENICILLIN G] Allergy Mild SWELLING Verified 04/06/23 09:04 SEAFOOD Allergy Unknown UNKNOWN Uncoded 04/06/23 09:04 Review of Systems 2 Review of Systems: Yes all other systems are reviewed and are negative Constitutional: Constitutional: Reports as per [facility] Past Medical History Medical History (Updated 06/02/23 @ 15:20 by AARON Miller) Open wound Allergic rhinitis Eczema Exercise-induced asthma Rib fracture Asthma Surgical History History of ankle surgery History of appendectomy Social History Social History Household Members: Children Alcohol intake: current Alcohol intake frequency: holidays/special occasions only Patient Tobacco Use Status: Never used Tobacco Substance Use Type: Marijuana Advance Directives: No Advance Directives Information Provided: No Physical Exam 2 Vital Signs: Vital Signs: Last Vital Signs Temp 98.9 F 06/02/23 13:58 Pulse 72 06/02/23 13:58 Resp 16 06/02/23 13:58 BP 116/70 06/02/23 13:58 Pulse Ox 99 06/02/23 13:58 O2 Del Method Room Air 06/02/23 13:58 BMI result Body Mass Index 21.0 Const: General: cooperative, comfortable and no acute distress O rientation/consciousness: patient oriented x3 Limitations: no limitations HEENT: Head: Yes normal to inspection, Yes normocephalic and Yes atraumatic Ears: hearing grossly normal bilaterally General nose exam: Normal external nose present Face and sinus: Yes normal facial exam Mouth: Normal oral and palatal mucosa present, oropharynx normal and moist mucous membranes Throat: Yes posterior oropharynx normal Eyes: General: appearance normal, both eyes and all related structures E yelids: Yes eyelids normal Conjunctivae: conjunctivae normal Sclerae: s clerae normal Pupils: Equal, round and reactive pupils present EOM: EOMs intact bilaterally Neck: Neck: Yes normal visual inspection, Yes full ROM and Yes no lymphadenopathy Lymphatic: no lymphadenopathy noted Chest: Chest palpation & inspection: normal inspection of the chest Resp: Effort & Inspection: normal respiratory effort and able to speak in complete sentences Auscultation: clear to auscultation bilaterally, no crackles, no rales, no rhonchi and no wheezes Cardio: Rate: regular rate Rhythm: regular rhythm Heart sounds: S1 normal heart sound present and S2 normal heart sound present GI: Inspection: Yes normal to inspection Skin: General skin exam: no rashes or lesions noted Trauma: no lacerations or abrasions Wounds: no wounds Neuro: General: patient oriented x3 and moves all extremities Cranial nerves: Yes Equal, round and reactive pupils present Extrem: General: Yes normal to inspection Right upper extremity: normal to inspection Left upper extremity: normal to inspection Right lower extremity: normal to inspection Left lower extremity: normal to inspection Course Reevaluation(s) Reevaluation #1: Patient feeling much better after receiving Ativan. Patient has been seen in the emergency department multiple times for anxiety. Patient has not followed up with her primary care physician regarding anxiety therefore I strongly urged her to do so. Patient given a prescription for hydroxyzine to take as needed for anxiety. Given return precautions. Patient stable for discharge. Time: 15:23 Medications Administered Discontinued Medications Generic Name Dose Route Start Last Admin Trade Name Jordy PRN Reason Stop Dose Admin Lorazepam 0.5 mg 06/02/23 14:23 06/02/23 14:43 Lorazepam 0.5 Mg Tablet PO 06/02/23 14:24 0.5 mg ONCE ONE Administration Medical Decision Making Medical Decision Making MDM Narrative: 28-year-old female presenting to the emergency department with complaints of increasing anxiety since today. On arrival, vital signs within normal limits. patient is fully neurologically intact. Labs were performed without any signs of leukocytosis. Patient has no suicidal or homicidal ideations EKG nondiagnostic. Chemistry within normal limits. Troponin less than 2.7. Patient has had no chest pain or shortness of breath and states that her symptoms are typical of anxiety. She typically takes Ativan for her anxiety, which she takes irregularly P will medicate with Ativan and reassess. Also of note patient was positive for cocaine which may be contributing to worsening anxiety. Differential Diagnosis Differential Diagnoses: The differential diagnosis associated with the presentation includes Anxiety, panic attack, dehydration, electrolyte abnormality, ACS - unlikely Admission/Observation Consideration of admission/observation: Escalation of care including admission/observation considered Patient would have been admitted to the hospital had her work up had any findings where hospital admission was appropriate and her clinical presentation warranted hospital admission. Lab Data MDM Lab Attestation statement: I reviewed the patient's lab results. see above 06/02/23 09:44 06/02/23 09:44 Labs: Lab Results 06/02/23 06/02/23 Range/Units 09:43 09:44 WBC 9.9 (4.8-10.8) X10*3/uL RBC 5.47 (4.20-5.50) X10*6/uL Hgb 14.4 (12.0-16.0) g/dl Hct 44.0 (37.0-47.0) % MCV 80.4 (80.0-98.0) fL MCH 26.3 L (27.0-33.0) pg MCHC 32.7 (31.0-35.0) g/dl RDW 13.3 (11.0-16.0) % Plt Count 290 (160-400) X10*3/uL MPV 10.0 (9.4-12.3) fL Immature Gran % (Auto) 0.4 (0.0-0.4) % Neut % (Auto) 68.1 (45-73) % Lymph % (Auto) 19.9 L (20-40) % [place] % (Auto) 7.1 (2-11) % Eos % (Auto) 4.1 H (0-4) % Baso % (Auto) 0.4 (0-2) % Lymph # (Auto) 2.0 (1.2-4.9) X10*3/uL [place] # (Auto) 0.7 (0.1-1.2) X10*3/uL Eos # (Auto) 0.4 (0.0-0.4) X10*3/uL Baso # (Auto) 0.0 (0.0-0.2) X10*3/uL Abs Immat Gran (auto) 0.04 H (0.00-0.03) X10*3/uL Absolute Neuts (auto) 6.7 (2.0-8.3) x10*3/uL Absolute Nucleated RBC 0.000 (0.0-0.012) X10*3/uL Nucleated RBC % (auto) 0.0 (0.0-0.2) /100WBC Sodium 141 (135-145) mmol/L Potassium 4.5 D (3.3-5.1) mmol/L Chloride 105 (96-108) mmol/L Carbon Dioxide 27 (22-29) mmol/L Anion Gap 14 (12-20) BUN 14 (9-16) mg/dL Creatinine 0.76 (0.5-1.4) mg/dL Estim Creat Clear Calc 101.7 Estimated GFR > 60 Random Glucose 86 (60-115) mg/dL Calcium 9.6 (8.4-10.2) mg/dL Total Bilirubin 0.6 (0.0-1.0) mg/dL AST 19 (5-31) U/L ALT 12 (0-31) U/L Alkaline Phosphatase 60 (39-117) U/L Troponin I High Sens < 2.7 (<3.5-17.0) ng/L Total Protein 8.3 H (6.5-8.0) g/dL Albumin 4.7 (3.5-5.0) g/dL Lipase 9 (8-78) U/L TSH 1.28 (0.32-4.0) uIU/mL Urine Color Yellow Urine Appearance Clear Urine pH 8.0 (5.0-9.0) Ur Specific [place] 1.025 (1.005-1.025) Urine Protein Trace (Neg-Trace) mg/dL Urine Glucose (UA) Negative (Negative) mg/dL Urine Ketones Negative (Negative) mg/dL Urine Blood Negative (Negative) Urine Nitrite Negative (Negative) Ur Leukocyte Esterase Trace H (Negative) Urine RBC 0-2 (0-2) /HPF Urine WBC 0-5 (0-5) /HPF Ur Squamous Epith Cells 11-20 (0-2) /HPF Urine Bacteria 1+ (None Seen) Hyaline Casts 0-2 (0-2) /LPF Urine Test NEGATIVE (NEGATIVE) Urine Opiates Screen Not Detected (Not Detect) Urine Fentanyl Screen Not Detected (Not Detect) Ur Barbiturates Screen Not Detected (Not Detect) Ur Phencyclidine Scrn Not Detected (Not Detect) Ur Amphetamines Screen Not Detected (Not Detect) U Benzodiazepines Scrn Not Detected (Not Detect) Urine Cocaine Screen POSITIVE H (Not Detect) U Marijuana (THC) Screen POSITIVE H (Not Detect) Radiology Impression Discussion of test interpretation with radiology: I have reviewed the radiologist's reading. External Record Review External record reviewed: Inpatient record, Office record, Outpatient record, Prior outpatient labs, Prior outpatient radiology, Primary care record and Outside ED record Discharge Plan Discharge Clinical Impression: Anxiety Patient Disposition: Home, Self-Care Instructions: Anxiety (ED) Additional Instructions: Your symptoms today are consistent with anxiety. Please take prescribed hydroxyzine as needed for symptoms. We gave you a medication called Ativan to help with your anxiety. This is not a good long-term solution to treat anxiety. This is why it is important to follow-up with your primary care physician and therapist for further recommendations on how to treat anxiety. Your bloodwork was reassuring. Please follow-up with your primary care physician. If any new or worsening symptoms occur including but not limited to chest pain, shortness of breath, please return for re-evaluation. Prescriptions: New hydroxyzine HCl 25 mg tablet 25 mg PO TID PRN (Reason: anxiety) Qty: 20 0RF No Action desogestrel-ethinyl estradiol [Apri] 0.15-0.03 mg Tablet 1 tab PO DAILY hydroxyzine HCl 10 mg tablet 10 mg PO TID PRN (Reason: anxiety) 14 Days Qty: 42 0RF clonidine HCl 0.1 mg tablet 0.1 mg PO TID 7 Days Qty: 21 0RF escitalopram oxalate [Lexapro] 20 mg tablet 20 mg PO DAILY 14 Days Qty: 14 0RF lorazepam [Ativan] 1 mg tablet 1 mg PO DAILY PRN (Reason: anxiety) Qty: 1 0RF morphine 15 mg tablet 15 mg PO Q4-6H PRN (Reason: pain) Qty: 10 0RF Rx Instructions: The patient may ask for partial fill; Partial Fill upon patient request. hydroxyzine HCl 25 mg tablet 25 mg PO BID PRN (Reason: anxiety) Qty: 20 0RF hydroxyzine HCl 25 mg tablet 25 mg PO TID PRN (Reason: anxiety) Qty: 20 0RF metronidazole 500 mg tablet 500 mg PO BID 7 Days Qty: 14 0RF doxycycline monohydrate 100 mg capsule 100 mg PO BID Qty: 14 0RF ibuprofen 600 mg tablet 600 mg PO Q8H PRN (Reason: pain) Qty: 20 0RF tramadol 50 mg tablet 50 mg PO BID PRN (Reason: severe pain (scale score 7-10)) Qty: 6 0RF hydroxyzine HCl 25 mg tablet 25 mg PO TID PRN (Reason: anxiety) Qty: 20 0RF clindamycin HCl 300 mg capsule 300 mg PO TID 5 Days Qty: 15 0RF Stand Alone Forms: Work/School Release
[2023-06-02] MEDS: LORazepam 0.5 MG TABLET PO (14:43)
[2023-06-02 15:21] VITALS: BP 105/60; PULSE 70; RESP 16; O2SAT 99
[2023-06-02 17:06] LABS: Theophylline < 0.8 MG/L ((10-20))
== END 2023-06-02 15:34 | disposition home or self-care (01) ==
PROVIDERS: Emergency Provider Emergency Medicine Emergency Medical Services
DX: F41.0 Panic disorder [episodic paroxysmal anxiety] (principal); F41.1 Generalized anxiety disorder; F43.0 Acute stress reaction; Z79.899 Other long term (current) drug therapy
CPT/HCPCS: 36415; 80053; 80198; 80307; 81001; 81025; 83690; 84443; 84484; 85025; 99283; 99284

== ENCOUNTER 2023-07-05 15:04 | Emergency (ER) | payer OTHER, SELFPAY ==
[2023-07-05 15:38] VITALS: BP 116/70; BP 141/84; PULSE 90; PULSE 94; RESP 19; TEMP 36.9; O2SAT 100; O2SAT 99; BMI 23.9
--- NOTE | 2023-07-05 16:04 | ECG_ITS ---
Test Reason : PALPITATIONS Blood Pressure : / mmHG Vent. Rate : 082 BPM Atrial Rate : 082 BPM P-R Int : 178 ms QRS Dur : 090 ms QT Int : 342 ms P-R-T Axes : 077 078 053 degrees QTc Int : 399 ms Normal sinus rhythm with sinus arrhythmia Normal ECG When compared with ECG of 20-FEB-2023 18:12, No significant change was found Referred By: Christopher Blake Electronically Signed By:BOUCHRA ROBISON MD
--- NOTE | 2023-07-05 16:05 | ED.GENADULT ---
HPI - General Adult General Chief complaint: General Medical Stated complaint: ANXIETY History of Present Illness HPI narrative: Left without completion of treatment by provider. Related Data Home Medications Medication Instructions Recorded Confirmed desogestrel 0.15 mg-ethinyl 1 tab PO DAILY 01/07/22 04/06/23 estradiol 0.03 mg tablet (Apri) Previous Rx's Medication Instructions Recorded hydroxyzine HCl 10 mg tablet 10 mg PO TID PRN anxiety 14 days 01/10/22 #42 tabs clonidine HCl 0.1 mg tablet 0.1 mg PO TID 7 days #21 tabs 01/24/22 escitalopram oxalate 20 mg tablet 20 mg PO DAILY 14 days #14 tabs 01/24/22 (Lexapro) lorazepam 1 mg tablet (Ativan) 1 mg PO DAILY PRN anxiety #1 tab 03/01/22 morphine 15 mg immediate release 15 mg PO Q4-6H PRN pain #10 tabs 10/20/22 tablet hydroxyzine HCl 25 mg tablet 25 mg PO TID PRN anxiety #20 tabs 12/13/22 hydroxyzine HCl 25 mg tablet 25 mg PO BID PRN anxiety #20 tabs 01/24/23 hydroxyzine HCl 25 mg tablet 25 mg PO TID PRN anxiety #20 tabs 02/20/23 doxycycline monohydrate 100 mg 100 mg PO BID #14 caps 03/19/23 capsule ibuprofen 600 mg tablet 600 mg PO Q8H PRN pain #20 tabs 03/19/23 metronidazole 500 mg tablet 500 mg PO BID 7 days #14 tabs 03/19/23 tramadol 50 mg tablet 50 mg PO BID PRN severe pain 03/19/23 (scale score 7-10) #6 tabs clindamycin HCl 300 mg capsule 300 mg PO TID 5 days #15 caps 04/01/23 hydroxyzine HCl 25 mg tablet 25 mg PO TID PRN anxiety #20 tabs 06/02/23 Allergies Allergy/AdvReac Type Severity Reaction Status Date / Time penicillin G [PENICILLIN G] Allergy Mild SWELLING Verified 04/06/23 09:04 SEAFOOD Allergy Unknown UNKNOWN Uncoded 04/06/23 09:04 [facility] Past Medical History Medical History (Updated 07/08/23 @ 19:27 by AARON Zarate) Open wound Allergic rhinitis Eczema Exercise-induced asthma Rib fracture Asthma Surgical History History of ankle surgery History of appendectomy Social History Social History Household Members: Children Alcohol intake: current Alcohol intake frequency: holidays/special occasions only Patient Tobacco Use Status: Never used Tobacco Substance Use Type: Marijuana Advance Directives: No Advance Directives Information Provided: No Physical Exam ED Vital Signs: Vital Signs - 24 hr 07/05/23 15:38 Temperature 98.5 F Pulse Rate 94 Respiratory Rate 19 Blood Pressure 116/70 Pulse Oximetry 99 Oxygen Delivery Method Room Air BMI result Body Mass Index 23.9 Course Course Course Narrative: RME: 28 yold female presents to the ED for palpitations and anxiety attack after eating an edible at her job for the first time. labs and EKG ordered Medical Decision Making Lab Data 07/05/23 16:10 07/05/23 16:10 Labs: Lab Results 07/05/23 Range/Units 16:10 WBC 8.0 (4.8-10.8) X10*3/uL RBC 4.83 (4.20-5.50) X10*6/uL Hgb 12.7 (12.0-16.0) g/dl Hct 38.9 (37.0-47.0) % MCV 80.5 (80.0-98.0) fL MCH 26.3 L (27.0-33.0) pg MCHC 32.6 (31.0-35.0) g/dl RDW 13.8 (11.0-16.0) % Plt Count 256 (160-400) X10*3/uL MPV 10.0 (9.4-12.3) fL Immature Gran % (Auto) 0.4 (0.0-0.4) % Neut % (Auto) 64.8 (45-73) % Lymph % (Auto) 21.6 (20-40) % [place] % (Auto) 7.8 (2-11) % Eos % (Auto) 5.0 H (0-4) % Baso % (Auto) 0.4 (0-2) % Lymph # (Auto) 1.7 (1.2-4.9) X10*3/uL [place] # (Auto) 0.6 (0.1-1.2) X10*3/uL Eos # (Auto) 0.4 (0.0-0.4) X10*3/uL Baso # (Auto) 0.0 (0.0-0.2) X10*3/uL Abs Immat Gran (auto) 0.03 (0.00-0.03) X10*3/uL Absolute Neuts (auto) 5.2 (2.0-8.3) x10*3/uL Absolute Nucleated RBC 0.000 (0.0-0.012) X10*3/uL Nucleated RBC % (auto) 0.0 (0.0-0.2) /100WBC PT 12.1 (11.1-13.3) SEC INR 1.0 (0.9-1.1) APTT 28.5 (26.0-36.4) SEC Sodium 139 (135-145) mmol/L Potassium 4.2 (3.3-5.1) mmol/L Chloride 105 (96-108) mmol/L Carbon Dioxide 25 (22-29) mmol/L Anion Gap 13 (12-20) BUN 15 (9-16) mg/dL Creatinine 0.75 (0.5-1.4) mg/dL Estim Creat Clear Calc 95.5 Estimated GFR > 60 Random Glucose 120 H (60-115) mg/dL Calcium 9.5 (8.4-10.2) mg/dL Total Bilirubin 0.4 (0.0-1.0) mg/dL AST 17 (5-31) U/L ALT 10 (0-31) U/L Alkaline Phosphatase 66 (39-117) U/L Troponin I High Sens < 2.7 (<3.5-17.0) ng/L Total Protein 7.4 (6.5-8.0) g/dL Albumin 4.1 (3.5-5.0) g/dL Beta HCG, Quant < 2 mIU/mL Discharge Plan Discharge Clinical Impression: Anxiety Patient Disposition: Left W/O Completing Treatment Prescriptions: No Action desogestrel-ethinyl estradiol [Apri] 0.15-0.03 mg Tablet 1 tab PO DAILY hydroxyzine HCl 10 mg tablet 10 mg PO TID PRN (Reason: anxiety) 14 Days Qty: 42 0RF clonidine HCl 0.1 mg tablet 0.1 mg PO TID 7 Days Qty: 21 0RF escitalopram oxalate [Lexapro] 20 mg tablet 20 mg PO DAILY 14 Days Qty: 14 0RF lorazepam [Ativan] 1 mg tablet 1 mg PO DAILY PRN (Reason: anxiety) Qty: 1 0RF morphine 15 mg tablet 15 mg PO Q4-6H PRN (Reason: pain) Qty: 10 0RF Rx Instructions: The patient may ask for partial fill; Partial Fill upon patient request. hydroxyzine HCl 25 mg tablet 25 mg PO BID PRN (Reason: anxiety) Qty: 20 0RF hydroxyzine HCl 25 mg tablet 25 mg PO TID PRN (Reason: anxiety) Qty: 20 0RF metronidazole 500 mg tablet 500 mg PO BID 7 Days Qty: 14 0RF doxycycline monohydrate 100 mg capsule 100 mg PO BID Qty: 14 0RF ibuprofen 600 mg tablet 600 mg PO Q8H PRN (Reason: pain) Qty: 20 0RF tramadol 50 mg tablet 50 mg PO BID PRN (Reason: severe pain (scale score 7-10)) Qty: 6 0RF hydroxyzine HCl 25 mg tablet 25 mg PO TID PRN (Reason: anxiety) Qty: 20 0RF clindamycin HCl 300 mg capsule 300 mg PO TID 5 Days Qty: 15 0RF hydroxyzine HCl 25 mg tablet 25 mg PO TID PRN (Reason: anxiety) Qty: 20 0RF Discharge Date/Time: 07/05/23 19:20
[2023-07-05 16:19] LABS: MANUAL DIFF FLAG NO
[2023-07-05 16:20] LABS: Basophils Percent Auto 0.4 % (0-2); Eosinophils Absolute Auto 0.4 X10*3/uL (0.0-0.4); Hematocrit 38.9 % (37.0-47.0); Hemoglobin 12.7 g/dl (12.0-16.0); Imm Gran Abs Auto 0.03 X10*3/uL (0.00-0.03); Imm Gran Pct Auto 0.4 % (0.0-0.4); Lymphocytes Absolute Auto 1.7 X10*3/uL (1.2-4.9); Lymphocytes Percent Auto 21.6 % (20-40); Mean Corpuscular HGB Conc 32.6 g/dl (31.0-35.0); Mean Corpuscular Hemoglobin 26.3 pg (27.0-33.0); Mean Corpuscular Volume 80.5 fL (80.0-98.0); Monocytes Absolute Auto 0.6 X10*3/uL (0.1-1.2); Monocytes Percent Auto 7.8 % (2-11); Neutrophils Absolute Auto 5.2 x10*3/uL (2.0-8.3); Neutrophils Percent Auto 64.8 % (45-73); Platelet Count 256 X10*3/uL (160-400); Red Blood Count 4.83 X10*6/uL (4.20-5.50); Red Cell Distribution Width 13.8 % (11.0-16.0)
[2023-07-05 16:28] LABS: Prothrombin Time 12.1 SEC (11.1-13.3)
[2023-07-05 16:31] LABS: Partial Thromboplastin Time 28.5 SEC (26.0-36.4)
[2023-07-05 16:41] LABS: Alanine Aminotransferase 10 U/L (0-31); Albumin Level 4.1 g/dL (3.5-5.0); Alkaline Phosphatase 66 U/L (39-117); Anion Gap 13 (12-20); Aspartate Amino Transferase 17 U/L (5-31); Bilirubin Total 0.4 mg/dL (0.0-1.0); Calcium 9.5 mg/dL (8.4-10.2); Carbon Dioxide 25 mmol/L (22-29); Chloride 105 mmol/L (96-108); Creatinine Clr Calc Pharmacy 95.5; Estimated Glomerular Filt Rate > 60; Glucose Random 120 mg/dL (60-115); HCG Quantitative < 2 mIU/mL; Potassium 4.2 mmol/L (3.3-5.1); Sodium 139 mmol/L (135-145); Total Protein 7.4 g/dL (6.5-8.0)
[2023-07-05 16:43] LABS: Troponin-I High Sensitivity < 2.7 ng/L (<3.5-17.0)
[2023-07-05 17:54] LABS: Blood Urea Nitrogen 15 mg/dL (9-16)
== END 2023-07-05 19:20 | disposition left against medical advice (07) ==
PROVIDERS: Physician Assistant; Emergency Provider Emergency Medicine
DX: F41.9 Anxiety disorder, unspecified (principal); F12.90 Cannabis use, unspecified, uncomplicated; Z79.899 Other long term (current) drug therapy
CPT/HCPCS: 36415; 80053; 84484; 84702; 85025; 85610; 85730; 93005; 99283

== ENCOUNTER 2023-07-19 16:50 | Emergency (ER) | payer OTHER, SELFPAY ==
--- NOTE | ~2023-07-19 | XR_ITS ---
EXAMINATION: XR CHEST CLINICAL INFORMATION: Chest tightness. COMPARISON: Chest x-ray performed 12/13/2022 TECHNIQUE: 2 views of the chest were obtained. FINDINGS: No significant abnormality is noted involving the heart, lungs, mediastinum, bony thorax or soft tissues. XR/XR chest 2V IMPRESSION: Unremarkable examination.
[2023-07-19 16:54] VITALS: BP 129/71; PULSE 100; RESP 20; TEMP 36.2; O2SAT 100; BMI 22.1
--- NOTE | 2023-07-19 17:35 | ECG_ITS ---
Test Reason : CHEST TIGHTNESS Blood Pressure : / mmHG Vent. Rate : 073 BPM Atrial Rate : 073 BPM P-R Int : 174 ms QRS Dur : 088 ms QT Int : 364 ms P-R-T Axes : 062 073 042 degrees QTc Int : 401 ms Normal sinus rhythm with sinus arrhythmia Normal ECG When compared with ECG of 05-JUL-2023 16:06, No significant change was found Referred By: Trish Hartley Electronically Signed By:BOUCHRA ROBISON MD
[2023-07-19 17:58] LABS: MANUAL DIFF FLAG NO
[2023-07-19 18:04] LABS: Basophils Absolute Auto 0.1 X10*3/uL (0.0-0.2); Basophils Percent Auto 0.6 % (0-2); Eosinophils Absolute Auto 0.4 X10*3/uL (0.0-0.4); Eosinophils Percent Auto 3.6 % (0-4); Hemoglobin 13.6 g/dl (12.0-16.0); Imm Gran Abs Auto 0.03 X10*3/uL (0.00-0.03); Imm Gran Pct Auto 0.3 % (0.0-0.4); Lymphocytes Absolute Auto 2.8 X10*3/uL (1.2-4.9); Mean Corpuscular HGB Conc 33.2 g/dl (31.0-35.0); Mean Corpuscular Volume 81.3 fL (80.0-98.0); Mean Platelet Volume 10.4 fL (9.4-12.3); Monocytes Percent Auto 8.1 % (2-11); Neutrophils Absolute Auto 7.5 x10*3/uL (2.0-8.3); Neutrophils Percent Auto 63.4 % (45-73); Platelet Count 308 X10*3/uL (160-400); Red Blood Count 5.04 X10*6/uL (4.20-5.50); Red Cell Distribution Width 13.9 % (11.0-16.0); White Blood Count 11.8 X10*3/uL (4.8-10.8)
[2023-07-19 18:14] LABS: Alanine Aminotransferase 9 U/L (0-31); Albumin Level 4.4 g/dL (3.5-5.0); Alkaline Phosphatase 58 U/L (39-117); Anion Gap 12 (12-20); Aspartate Amino Transferase 17 U/L (5-31); Bilirubin Direct 0.3 mg/dL (0.0-0.5); Bilirubin Total 0.6 mg/dL (0.0-1.0); Blood Urea Nitrogen 14 mg/dL (9-16); Calcium 9.5 mg/dL (8.4-10.2); Carbon Dioxide 28 mmol/L (22-29); Chloride 104 mmol/L (96-108); Creatinine Clr Calc Pharmacy 88.5; Estimated Glomerular Filt Rate > 60; Glucose Random 97 mg/dL (60-115); Potassium 4.5 mmol/L (3.3-5.1); Sodium 139 mmol/L (135-145); Total Protein 7.9 g/dL (6.5-8.0)
[2023-07-19 18:22] LABS: Troponin-I High Sensitivity < 2.7 ng/L (<3.5-17.0)
--- NOTE | 2023-07-19 19:47 | ED.GENADULT ---
HPI - General Adult General Chief complaint: Anxiety Stated complaint: SHORTNESS OF BREATH Time Seen by Provider: 07/19/23 19:00 History of Present Illness HPI narrative: patient complains of an anxiety attack which happened at work and has improved mildly but she still feels very anxious, this is typical of many prior anxiety attacks She was at work is not sure what triggered it she had an episode of palpitations with heart racing, feeling like she was short of breath and taking deep breaths and denied any chest pain, did not feel like she would faint or pass out She denies any recent illness no headache no dizziness no confusion no cough no chest pain no abdominal pain no nausea or vomiting no loss of balance no vision change Related Data Home Medications Medication Instructions Recorded Confirmed desogestrel 0.15 mg-ethinyl 1 tab PO DAILY 01/07/22 04/06/23 estradiol 0.03 mg tablet (Apri) Previous Rx's Medication Instructions Recorded hydroxyzine HCl 10 mg tablet 10 mg PO TID PRN anxiety 14 days 01/10/22 #42 tabs clonidine HCl 0.1 mg tablet 0.1 mg PO TID 7 days #21 tabs 01/24/22 escitalopram oxalate 20 mg tablet 20 mg PO DAILY 14 days #14 tabs 01/24/22 (Lexapro) lorazepam 1 mg tablet (Ativan) 1 mg PO DAILY PRN anxiety #1 tab 03/01/22 morphine 15 mg immediate release 15 mg PO Q4-6H PRN pain #10 tabs 10/20/22 tablet hydroxyzine HCl 25 mg tablet 25 mg PO TID PRN anxiety #20 tabs 12/13/22 hydroxyzine HCl 25 mg tablet 25 mg PO BID PRN anxiety #20 tabs 01/24/23 hydroxyzine HCl 25 mg tablet 25 mg PO TID PRN anxiety #20 tabs 02/20/23 doxycycline monohydrate 100 mg 100 mg PO BID #14 caps 03/19/23 capsule ibuprofen 600 mg tablet 600 mg PO Q8H PRN pain #20 tabs 03/19/23 metronidazole 500 mg tablet 500 mg PO BID 7 days #14 tabs 03/19/23 tramadol 50 mg tablet 50 mg PO BID PRN severe pain 03/19/23 (scale score 7-10) #6 tabs clindamycin HCl 300 mg capsule 300 mg PO TID 5 days #15 caps 04/01/23 hydroxyzine HCl 25 mg tablet 25 mg PO TID PRN anxiety #20 tabs 06/02/23 lorazepam 0.5 mg tablet (Ativan) 0.5 mg PO BID PRN anxiety #10 tabs 07/19/23 Allergies Allergy/AdvReac Type Severity Reaction Status Date / Time penicillin G [PENICILLIN G] Allergy Mild SWELLING Verified 04/06/23 09:04 SEAFOOD Allergy Unknown UNKNOWN Uncoded 04/06/23 09:04 COUNTS INCLUDE 234 BEDS AT THE [facility] Past Medical History Source: nursing notes reviewed Medical History (Updated 07/19/23 @ 19:49 by AARON Ying) Open wound Allergic rhinitis Eczema Exercise-induced asthma Rib fracture Asthma Surgical History History of ankle surgery History of appendectomy Social History Social History Household Members: Children Alcohol intake: current Alcohol intake frequency: holidays/special occasions only Patient Tobacco Use Status: Never used Tobacco Substance Use Type: Marijuana Advance Directives: No Advance Directives Information Provided: No Physical Exam ED Vital Signs: Vital Signs - 24 hr 07/19/23 16:54 Temperature 97.2 F Pulse Rate 100 Respiratory Rate 20 Blood Pressure 129/71 Pulse Oximetry 100 Oxygen Delivery Method Room Air BMI result Body Mass Index 22.1 patient is anxious appearing but communicates easily and is cooperative and appropriate Head is normocephalic atraumatic Pupils equal round reactive to light extraocular motions intact no redness no discharge The pharynx is clear with moist mucous membranes Neck is supple Chest is clear to auscultation with full symmetric equal breath sounds no adventitious sounds Heart no murmur Abdomen soft nontender Extremities full range of motion x4, no calf tenderness or swelling Neuro gait and balance are normal, interaction comprehension expression oral normal cranial nerves 2-12 intact as tested motor is 5/5 x4 Course Course Course Narrative: EKG was normal sinus rhythm with a rate of 73, no acute ST changes no acute ischemic changes Glucose and chemistry panel were normal, CBC was normal no evidence of anemia Patient has had these symptoms before and describes an anxiety attack typical of prior I advised a test as I was going to prescribe Ativan and she insists that she has not been sexually active and there is no way she could be and refused the test I wrote a prescription for Ativan 0.5 10 pills and she was discharged to follow with her doctor she denies any suicidal ideation she does not hear voices and does not feel like she is in a crisis Medical Decision Making Lab Data MDM Lab Attestation statement: I reviewed the patient's lab results. 07/19/23 17:50 07/19/23 17:50 Labs: Lab Results 07/19/23 Range/Units 17:50 WBC 11.8 H (4.8-10.8) X10*3/uL RBC 5.04 (4.20-5.50) X10*6/uL Hgb 13.6 (12.0-16.0) g/dl Hct 41.0 (37.0-47.0) % MCV 81.3 (80.0-98.0) fL MCH 27.0 (27.0-33.0) pg MCHC 33.2 (31.0-35.0) g/dl RDW 13.9 (11.0-16.0) % Plt Count 308 (160-400) X10*3/uL MPV 10.4 (9.4-12.3) fL Immature Gran % (Auto) 0.3 (0.0-0.4) % Neut % (Auto) 63.4 (45-73) % Lymph % (Auto) 24.0 (20-40) % [place] % (Auto) 8.1 (2-11) % Eos % (Auto) 3.6 (0-4) % Baso % (Auto) 0.6 (0-2) % Lymph # (Auto) 2.8 (1.2-4.9) X10*3/uL [place] # (Auto) 1.0 (0.1-1.2) X10*3/uL Eos # (Auto) 0.4 (0.0-0.4) X10*3/uL Baso # (Auto) 0.1 (0.0-0.2) X10*3/uL Abs Immat Gran (auto) 0.03 (0.00-0.03) X10*3/uL Absolute Neuts (auto) 7.5 (2.0-8.3) x10*3/uL Absolute Nucleated RBC 0.000 (0.0-0.012) X10*3/uL Nucleated RBC % (auto) 0.0 (0.0-0.2) /100WBC Sodium 139 (135-145) mmol/L Potassium 4.5 (3.3-5.1) mmol/L Chloride 104 (96-108) mmol/L Carbon Dioxide 28 (22-29) mmol/L Anion Gap 12 (12-20) BUN 14 (9-16) mg/dL Creatinine 0.81 (0.5-1.4) mg/dL Estim Creat Clear Calc 88.5 Estimated GFR > 60 Random Glucose 97 (60-115) mg/dL Calcium 9.5 (8.4-10.2) mg/dL Total Bilirubin 0.6 (0.0-1.0) mg/dL Direct Bilirubin 0.3 (0.0-0.5) mg/dL AST 17 (5-31) U/L ALT 9 (0-31) U/L Alkaline Phosphatase 58 (39-117) U/L Troponin I High Sens < 2.7 (<3.5-17.0) ng/L Total Protein 7.9 (6.5-8.0) g/dL Albumin 4.4 (3.5-5.0) g/dL Discharge Plan Discharge Clinical Impression: Anxiety Patient Disposition: Home, Self-Care Additional Instructions: your physical exam was normal, EKG did not show any sign of heart attack or heart problem, chest x-ray was normal labs were normal Follow with your doctor Return any time for suicidal thoughts any worse condition or any concerns I wrote a prescription for Ativan for [facility] on [email or web address] which should be open till not Prescriptions: New lorazepam [Ativan] 0.5 mg tablet 0.5 mg PO BID PRN (Reason: anxiety) Qty: 10 0RF No Action desogestrel-ethinyl estradiol [Apri] 0.15-0.03 mg Tablet 1 tab PO DAILY hydroxyzine HCl 10 mg tablet 10 mg PO TID PRN (Reason: anxiety) 14 Days Qty: 42 0RF clonidine HCl 0.1 mg tablet 0.1 mg PO TID 7 Days Qty: 21 0RF escitalopram oxalate [Lexapro] 20 mg tablet 20 mg PO DAILY 14 Days Qty: 14 0RF lorazepam [Ativan] 1 mg tablet 1 mg PO DAILY PRN (Reason: anxiety) Qty: 1 0RF morphine 15 mg tablet 15 mg PO Q4-6H PRN (Reason: pain) Qty: 10 0RF Rx Instructions: The patient may ask for partial fill; Partial Fill upon patient request. hydroxyzine HCl 25 mg tablet 25 mg PO BID PRN (Reason: anxiety) Qty: 20 0RF hydroxyzine HCl 25 mg tablet 25 mg PO TID PRN (Reason: anxiety) Qty: 20 0RF metronidazole 500 mg tablet 500 mg PO BID 7 Days Qty: 14 0RF doxycycline monohydrate 100 mg capsule 100 mg PO BID Qty: 14 0RF ibuprofen 600 mg tablet 600 mg PO Q8H PRN (Reason: pain) Qty: 20 0RF tramadol 50 mg tablet 50 mg PO BID PRN (Reason: severe pain (scale score 7-10)) Qty: 6 0RF hydroxyzine HCl 25 mg tablet 25 mg PO TID PRN (Reason: anxiety) Qty: 20 0RF clindamycin HCl 300 mg capsule 300 mg PO TID 5 Days Qty: 15 0RF hydroxyzine HCl 25 mg tablet 25 mg PO TID PRN (Reason: anxiety) Qty: 20 0RF Stand Alone Forms: Work/School Release Interventions: ED Discharge Assessment Last Done: 07/19/23 19:56 Discharge Date/Time: 07/19/23 19:59
== END 2023-07-19 19:59 | disposition home or self-care (01) ==
PROVIDERS: Physician Assistant Medical; Emergency Provider Emergency Medicine
DX: R07.89 Other chest pain (principal); R06.02 Shortness of breath; I49.8 Other specified cardiac arrhythmias; F41.1 Generalized anxiety disorder; Z79.899 Other long term (current) drug therapy
CPT/HCPCS: 36415; 71046; 80048; 80076; 84484; 85025; 93005; 99283

== ENCOUNTER 2023-09-28 09:34 | Emergency (ER) | payer OTHER, SELFPAY ==
[2023-09-28 09:42] VITALS: BP 139/76; PULSE 83; RESP 19; TEMP 36.6; O2SAT 99; BMI 24.4
--- NOTE | 2023-09-28 09:51 | ED.GENADULT ---
HPI - General Adult General Chief complaint: General Medical Stated complaint: Chest pain left side Time Seen by Provider: 09/28/23 09:51 Source: patient, RN notes reviewed and old records reviewed Mode of arrival: ambulatory History of Present Illness HPI narrative: 28-year-old female with a past medical history of depression, anxiety, presenting to the ED complaining of painful breast lump noted yesterday. Admits to family history of breast CA. Denies personal history of breast CA, fever/chills, trauma, drainage from area, skin changes, nipple discharge Related Data Home Medications Medication Instructions Recorded Confirmed desogestrel 0.15 mg-ethinyl 1 tab PO DAILY 01/07/22 04/06/23 estradiol 0.03 mg tablet (Apri) Previous Rx's Medication Instructions Recorded hydroxyzine HCl 10 mg tablet 10 mg PO TID PRN anxiety 14 days 01/10/22 #42 tabs clonidine HCl 0.1 mg tablet 0.1 mg PO TID 7 days #21 tabs 01/24/22 escitalopram oxalate 20 mg tablet 20 mg PO DAILY 14 days #14 tabs 01/24/22 (Lexapro) lorazepam 1 mg tablet (Ativan) 1 mg PO DAILY PRN anxiety #1 tab 03/01/22 morphine 15 mg immediate release 15 mg PO Q4-6H PRN pain #10 tabs 10/20/22 tablet hydroxyzine HCl 25 mg tablet 25 mg PO TID PRN anxiety #20 tabs 12/13/22 hydroxyzine HCl 25 mg tablet 25 mg PO BID PRN anxiety #20 tabs 01/24/23 hydroxyzine HCl 25 mg tablet 25 mg PO TID PRN anxiety #20 tabs 02/20/23 doxycycline monohydrate 100 mg 100 mg PO BID #14 caps 03/19/23 capsule ibuprofen 600 mg tablet 600 mg PO Q8H PRN pain #20 tabs 03/19/23 metronidazole 500 mg tablet 500 mg PO BID 7 days #14 tabs 03/19/23 tramadol 50 mg tablet 50 mg PO BID PRN severe pain 03/19/23 (scale score 7-10) #6 tabs clindamycin HCl 300 mg capsule 300 mg PO TID 5 days #15 caps 04/01/23 hydroxyzine HCl 25 mg tablet 25 mg PO TID PRN anxiety #20 tabs 06/02/23 lorazepam 0.5 mg tablet (Ativan) 0.5 mg PO BID PRN anxiety #10 tabs 07/19/23 Allergies Allergy/AdvReac Type Severity Reaction Status Date / Time penicillin G [PENICILLIN G] Allergy Mild SWELLING Verified 09/28/23 09:41 SEAFOOD Allergy Unknown UNKNOWN Uncoded 09/28/23 09:41 Review of Systems Review of Systems: Constitutional: No Fever, No Chills ENT/Mouth: No Ear Pain, No Nasal Congestion, No sore throat Cardiovascular: +breast pain, No Chest Pain, No SOB Respiratory: No Cough, No Sputum, No Wheezing Skin: No Skin Lesions, No rash Neuro: No Weakness, Yes all other systems are reviewed and are negative Constitutional: Constitutional: Reports as per [facility] Past Medical History Attestation statement: The following information was validated with the patient. Source: old records reviewed Onset Date is defined in the Problem List Problems that require an onset date and time if occurred within 24 hrs of arrival to the ED Aortic Dissection and Rupture; Neurologic impairment; Cardiopulmonary Arrest; Endotracheal Intubation; Insertion or Replacement of Mechanical Circulatory Assist Device Medical History Open wound Allergic rhinitis Eczema Exercise-induced asthma Rib fracture Asthma Surgical History History of ankle surgery History of appendectomy Social History Social History Household Members: Children Alcohol intake: current Alcohol intake frequency: holidays/special occasions only Patient Tobacco Use Status: Never used Tobacco Substance Use Type: Marijuana Advance Directives: No Physical Exam ED Vital Signs: Vital Signs - 24 hr 09/28/23 09:42 Temperature 98 F Pulse Rate 83 Respiratory Rate 19 Blood Pressure 139/76 Pulse Oximetry 99 Oxygen Delivery Method Room Air BMI result Body Mass Index 24.4 Const General: cooperative, healthy appearing and no acute distress Orientation/consciousness: patient oriented x3 Limitations: no limitations HENMT Head: Yes normal to inspection and Yes atraumatic Ears: hearing grossly normal bilaterally General nose exam: Normal external nose present Face and sinus: Yes normal facial exam Eyes General: appearance normal, both eyes and all related structures EOM: EOMs intact bilaterally Neck Neck: Yes normal visual inspection and Yes no meningeal signs Chest Chest palpation & inspection: normal inspection of the chest Breast/axilla inspection: normal inspection of the breasts Breast/axilla palpation: no axillary lymphadenopathy, abnormal palpation of the breast left upper outer tenderness (w/firm mobile mass @2 o'clock position. No skin dimpling/changes or discharge. No erythema/induration or fluctuance) and areola normal; Negative for nipple discharge and axillary lymphadenopathy not noted Resp Effort & Inspection: normal respiratory effort and no respiratory distress Auscultation: clear to auscultation bilaterally Cardio Rate: regular rate Heart sounds: S1 normal heart sound present and S2 normal heart sound present Skin Rashes: no rashes Wounds: no wounds Neuro General: patient oriented x3, tone normal and no meningeal signs Cranial nerves: Yes CN's II-XII intact bilaterally Gait exam (Neuro): Normal gait present Extrem General: Yes normal to inspection Medical Decision Making Medical Decision Making MDM Narrative: 28-year-old female with a past medical history of depression, anxiety, presenting to the ED complaining of painful breast lump noted yesterday. On exam vital signs stable, NAD, nontoxic appearing, physical exam as noted above with firm mobile mass noted to left breast at 02:00 o'clock position. No skin changes/erythema, fluctuance/induration or nipple discharge. Low suspicion for abscess/infection or mastitis. Concern for cyst versus fibroadenoma/fibrocystic changes vs malignancy Discussed with patient at length she needs to follow-up with her OBGYN/PCP for ultrasound/further workup Please refer to course for remaining clinical decision making, interpretation of labs/imaging results, and discussions with consultants and/or family members. Results discussed with patient including worrisome signs and symptoms and strict return precautions, and when to return to the emergency department. They verbalized understanding and feel safe for discharge at this time. Differential Diagnosis Differential Diagnoses: The differential diagnosis associated with the presentation includes As above External Record Review External record reviewed: Inpatient record, Office record, Outpatient record, Prior outpatient labs, Prior outpatient radiology, Primary care record and Outside ED record Tests considered The following testing was considered but not selected: As above Discharge Plan Discharge Clinical Impression: Breast lump or mass Patient Disposition: Home, Self-Care Instructions: Breast Mass (ED) Additional Instructions: Please follow-up with her OBGYN and PCP for further workup. We recommend you obtain an ultrasound If you develop any skin changes, nipple discharge/dimpling, fever/chills or area turns to a head/becomes soft return to the ED Prescriptions: No Action desogestrel-ethinyl estradiol [Apri] 0.15-0.03 mg Tablet 1 tab PO DAILY hydroxyzine HCl 10 mg tablet 10 mg PO TID PRN (Reason: anxiety) 14 Days Qty: 42 0RF clonidine HCl 0.1 mg tablet 0.1 mg PO TID 7 Days Qty: 21 0RF escitalopram oxalate [Lexapro] 20 mg tablet 20 mg PO DAILY 14 Days Qty: 14 0RF lorazepam [Ativan] 1 mg tablet 1 mg PO DAILY PRN (Reason: anxiety) Qty: 1 0RF morphine 15 mg tablet 15 mg PO Q4-6H PRN (Reason: pain) Qty: 10 0RF Rx Instructions: The patient may ask for partial fill; Partial Fill upon patient request. hydroxyzine HCl 25 mg tablet 25 mg PO BID PRN (Reason: anxiety) Qty: 20 0RF hydroxyzine HCl 25 mg tablet 25 mg PO TID PRN (Reason: anxiety) Qty: 20 0RF metronidazole 500 mg tablet 500 mg PO BID 7 Days Qty: 14 0RF doxycycline monohydrate 100 mg capsule 100 mg PO BID Qty: 14 0RF ibuprofen 600 mg tablet 600 mg PO Q8H PRN (Reason: pain) Qty: 20 0RF tramadol 50 mg tablet 50 mg PO BID PRN (Reason: severe pain (scale score 7-10)) Qty: 6 0RF lorazepam [Ativan] 0.5 mg tablet 0.5 mg PO BID PRN (Reason: anxiety) Qty: 10 0RF hydroxyzine HCl 25 mg tablet 25 mg PO TID PRN (Reason: anxiety) Qty: 20 0RF clindamycin HCl 300 mg capsule 300 mg PO TID 5 Days Qty: 15 0RF hydroxyzine HCl 25 mg tablet 25 mg PO TID PRN (Reason: anxiety) Qty: 20 0RF Referrals: [facility] [place] Women's Services [Provider Group] Interventions: ED Discharge Assessment Last Done: 09/28/23 10:18 Discharge Date/Time: 09/28/23 10:18
--- NOTE | 2023-09-28 10:17 | PC.NURSE ---
patient a&ox3, vss, pt c/o 2/10 pain to breast area, pt to discharge with f/u with [facility].
== END 2023-09-28 10:18 | disposition home or self-care (01) ==
PROVIDERS: Emergency Provider Emergency Medicine
DX: R07.89 Other chest pain (principal); N64.4 Mastodynia; Z79.899 Other long term (current) drug therapy
CPT/HCPCS: 99282

== ENCOUNTER 2023-12-21 09:48 | Emergency (ER) | payer OTHER, SELFPAY ==
--- NOTE | 2023-12-21 09:55 | ECG_ITS ---
Test Reason : chest pain Blood Pressure : / mmHG Vent. Rate : 083 BPM Atrial Rate : 083 BPM P-R Int : 158 ms QRS Dur : 090 ms QT Int : 348 ms P-R-T Axes : 081 080 053 degrees QTc Int : 408 ms Normal sinus rhythm with sinus arrhythmia Normal ECG When compared with ECG of 19-JUL-2023 17:42, No significant change was found Referred By: Generic ED Physician Electronically Signed By:Lowell Angeles
[2023-12-21 10:05] VITALS: BP 127/76; PULSE 91; RESP 19; TEMP 36.6; O2SAT 99; BMI 23.5
== END 2023-12-21 12:11 | disposition left against medical advice (07) ==
LOC: HO.ED 12:10
PROVIDERS: Emergency Provider Emergency Medicine
DX: R07.89 Other chest pain (principal); R00.2 Palpitations; I49.9 Cardiac arrhythmia, unspecified
CPT/HCPCS: 93005; 99283

== ENCOUNTER → 2023-12-21 09:55 | Outpatient (BNV) | payer OTHER, SELFPAY | PROVIDERS: Visit Provider Internal Medicine Cardiovascular Disease | DX: R07.9 Chest pain, unspecified (principal) | CPT/HCPCS: 93010 ==

== ENCOUNTER 2023-12-24 08:46 | Emergency (ER) | payer OTHER, SELFPAY ==
--- NOTE | ~2023-12-24 | XR_ITS ---
EXAMINATION: XR CHEST, 2 VIEWS CLINICAL INFORMATION: Left upper chest wall pain. COMPARISON: 07/19/2023 TECHNIQUE: PA and lateral views of the chest were obtained. FINDINGS: EKG leads overlie the chest. Lungs are clear. No consolidation, pneumothorax, or pleural effusion. Cardiac and mediastinal contours are normal. Pulmonary vasculature is unremarkable. Trachea is midline. Osseous structures are unremarkable. XR/XR chest 2V IMPRESSION: No acute cardiopulmonary findings.
--- NOTE | 2023-12-24 08:47 | ECG_ITS ---
Test Reason : CP Blood Pressure : / mmHG Vent. Rate : 090 BPM Atrial Rate : 090 BPM P-R Int : 154 ms QRS Dur : 088 ms QT Int : 342 ms P-R-T Axes : 080 077 050 degrees QTc Int : 418 ms Normal sinus rhythm with sinus arrhythmia Normal ECG When compared with ECG of 21-DEC-2023 09:57, No significant change was found Referred By: Generic ED Physician Electronically Signed By:MELONY CEVALLOS
[2023-12-24 08:49] VITALS: BP 110/63; PULSE 87; RESP 16; TEMP 37.2; O2SAT 99; BMI 23.6
[2023-12-24] MEDS: Magnesium Hydrox/Alum Hydrox 30 ML ORAL.SUSP PO (09:18)
[2023-12-24] MEDS: Sucralfate Oral Suspension 1 GM/10 ML ORAL.SUSP PO (09:18)
[2023-12-24] MEDS: Ondansetron ODT 4 MG TAB.RAPDIS TRANSLINGU (09:18)
[2023-12-24] MEDS: Lidocaine HCl Viscous 2 % 15 ML SOLUTION 10 ML MUCOUS MEM (09:18)
--- NOTE | 2023-12-24 09:22 | ED.ARRPALP ---
HPI - Arrhythmia/Palpitations General Chief Complaint: Arrhythmia/Palpitations Stated Complaint: Chest pain Time Seen by Provider: 12/24/23 08:59 Source: patient Mode of arrival: ambulatory History of Present Illness HPI narrative: 28-year-old female with history of anxiety/PTSD states that she was having too much fun last night and woke up with palpitations, states her watch read as HR-145, she became concerned and says she had left arm numbness, at the time of my interview she reports that her symptoms have significantly improved. Related Data Home Medications ?Medication ?Instructions ?Recorded ?Confirmed desogestrel 0.15 mg-ethinyl 1 tab PO DAILY 01/07/22 04/06/23 estradiol 0.03 mg tablet (Apri) Previous Rx's ?Medication ?Instructions ?Recorded hydroxyzine HCl 10 mg tablet 10 mg PO TID PRN anxiety 14 days 01/10/22 #42 tabs clonidine HCl 0.1 mg tablet 0.1 mg PO TID 7 days #21 tabs 01/24/22 escitalopram oxalate 20 mg tablet 20 mg PO DAILY 14 days #14 tabs 01/24/22 (Lexapro) lorazepam 1 mg tablet (Ativan) 1 mg PO DAILY PRN anxiety #1 tab 03/01/22 morphine 15 mg immediate release 15 mg PO Q4-6H PRN pain #10 tabs 10/20/22 tablet hydroxyzine HCl 25 mg tablet 25 mg PO TID PRN anxiety #20 tabs 12/13/22 hydroxyzine HCl 25 mg tablet 25 mg PO BID PRN anxiety #20 tabs 01/24/23 hydroxyzine HCl 25 mg tablet 25 mg PO TID PRN anxiety #20 tabs 02/20/23 doxycycline monohydrate 100 mg 100 mg PO BID #14 caps 03/19/23 capsule ibuprofen 600 mg tablet 600 mg PO Q8H PRN pain #20 tabs 03/19/23 metronidazole 500 mg tablet 500 mg PO BID 7 days #14 tabs 03/19/23 tramadol 50 mg tablet 50 mg PO BID PRN severe pain 03/19/23 (scale score 7-10) #6 tabs clindamycin HCl 300 mg capsule 300 mg PO TID 5 days #15 caps 04/01/23 hydroxyzine HCl 25 mg tablet 25 mg PO TID PRN anxiety #20 tabs 06/02/23 lorazepam 0.5 mg tablet (Ativan) 0.5 mg PO BID PRN anxiety #10 tabs 07/19/23 Allergies Allergy/AdvReac Type Severity Reaction Status Date / Time penicillin G [PENICILLIN G] Allergy Mild SWELLING Verified 12/24/23 08:54 SEAFOOD Allergy Unknown UNKNOWN Uncoded 12/24/23 08:54 Review of Systems Review of Systems: Pertinent positives and negatives as stated in [facility] Past Medical History Source: nursing notes reviewed Medical History Open wound Allergic rhinitis Eczema Exercise-induced asthma Rib fracture Asthma Surgical History History of ankle surgery History of appendectomy Social History Social History Household Members: Children Alcohol intake: current Alcohol intake frequency: a few times a week Patient Tobacco Use Status: Never used Tobacco Smoked in Last 30 Days: No Use of substances other than those prescribed or required for medical reasons: Yes Substance Use Type: Marijuana Advance Directives: No Advance Directives Information Provided: No Physical Exam Vital Signs: Vital Signs: Last Vital Signs Temp 99 F 12/24/23 08:49 Pulse 71 12/24/23 09:52 Resp 10 L 12/24/23 09:52 BP 111/67 12/24/23 09:52 Pulse Ox 99 12/24/23 09:52 O2 Del Method Room Air 12/24/23 09:52 BMI result Body Mass Index 23.6 VITAL SIGNS: Reviewed. GENERAL: Well developed, well nourished, in no acute distress. HEAD: Normocephalic/atraumatic EYES: PERRLA, EOMI LUNGS: Normal breath sounds. No adventitious sounds or accessory muscle use. SpO2<99> CARDIOVASCULAR: Regular rate and rhythm without noted murmurs ABDOMEN: Soft, non-tender, non-distended with bowel sounds. MUSCULOSKELETAL: No tenderness, deformities, or effusions noted on gross inspection. EXTREMITIES: No cyanosis, clubbing or edema. SKIN: Inspection of the skin reveals no rashes NEUROLOGIC: Alert and oriented x 4. Strength and sensation to light touch were grossly intact x 4. Medications Administered Discontinued Medications Generic Name Dose Route Start Last Admin Trade Name Freq PRN Reason Stop Dose Admin Al Hydroxide/Mg Hydroxide 30 ml 12/24/23 08:59 12/24/23 09:18 Magnesium Hydrox/Alum Hydrox 30 Ml Oral.Susp PO 12/24/23 09:00 30 ml ONCE ONE Administration Lidocaine HCl 10 ml 12/24/23 08:59 12/24/23 09:18 Lidocaine Hcl Viscous 2 % 15 Ml Solution MUCOUS MEM 12/24/23 09:00 10 ml ONCE ONE Administration Ondansetron HCl 4 mg 12/24/23 08:59 12/24/23 09:18 Ondansetron Odt 4 Mg Tab.Rapdis TRANSLINGU 12/24/23 09:00 4 mg ONCE ONE Administration Sucralfate 1 gm 12/24/23 08:59 12/24/23 09:18 Sucralfate Oral Suspension 1 Gm/10 Ml Oral.Susp PO 12/24/23 09:00 1 gm ONCE ONE Administration Medical Decision Making Medical Decision Making MDM Narrative: 28-year-old female with history and clinical presentation, DDX: Anxiety, doubt cardiopulmonary etiology, gastritis Patient received GI cocktail long with Carafate and 1 dose of Zofran. Chest x-ray negative for pneumothorax or infiltrate/venous congestion otherwise my interpretation is in agreement with radiology's impression. She otherwise feels much better, EKG does not have concerning findings. Differential Diagnosis Differential Diagnoses: The differential diagnosis associated with the presentation includes Please see the discussion above Admission/Observation Consideration of admission/observation: Escalation of care including admission/observation considered Please see the discussion above Lab Data MDM Lab Attestation statement: I reviewed the patient's lab results. Please see the discussion above Independent Interpretation I performed an independent interpretation of an: EKG Interpretation: Normal sinus rhythm, HR-90, no STEMI, CT/QRS/QTC is within normal limits. No acute changes when compared to prior EKG 12/21/2023. Radiology Impression Discussion of test interpretation with radiology: I have reviewed the radiologist's reading. Radiologist Impression: Please see the discussion above External Record Review External record reviewed: Outpatient record, Prior outpatient labs and Prior outpatient radiology Critical Care Time Critical Care Time Critical Care Time: Yes Total Critical Care Time: 30 Attestation: I personally attest to this time spent taking care of the patient. Discharge Plan Discharge Clinical Impression: Anxiety, Gastritis Patient Disposition: Home, Self-Care Instructions: Gastritis (ED), Diet for Stomach Ulcers and Gastritis (ED), Anxiety (ED) Additional Instructions: Rest and drink plenty of fluids Follow-up with your primary care doctor on Monday morning. Return to the ER for any worsening symptoms. Prescriptions: No Action desogestrel-ethinyl estradiol [Apri] 0.15-0.03 mg Tablet 1 tab PO DAILY hydroxyzine HCl 10 mg tablet 10 mg PO TID PRN (Reason: anxiety) 14 Days Qty: 42 0RF clonidine HCl 0.1 mg tablet 0.1 mg PO TID 7 Days Qty: 21 0RF escitalopram oxalate [Lexapro] 20 mg tablet 20 mg PO DAILY 14 Days Qty: 14 0RF lorazepam [Ativan] 1 mg tablet 1 mg PO DAILY PRN (Reason: anxiety) Qty: 1 0RF morphine 15 mg tablet 15 mg PO Q4-6H PRN (Reason: pain) Qty: 10 0RF Rx Instructions: The patient may ask for partial fill; Partial Fill upon patient request. hydroxyzine HCl 25 mg tablet 25 mg PO BID PRN (Reason: anxiety) Qty: 20 0RF hydroxyzine HCl 25 mg tablet 25 mg PO TID PRN (Reason: anxiety) Qty: 20 0RF metronidazole 500 mg tablet 500 mg PO BID 7 Days Qty: 14 0RF doxycycline monohydrate 100 mg capsule 100 mg PO BID Qty: 14 0RF ibuprofen 600 mg tablet 600 mg PO Q8H PRN (Reason: pain) Qty: 20 0RF tramadol 50 mg tablet 50 mg PO BID PRN (Reason: severe pain (scale score 7-10)) Qty: 6 0RF lorazepam [Ativan] 0.5 mg tablet 0.5 mg PO BID PRN (Reason: anxiety) Qty: 10 0RF hydroxyzine HCl 25 mg tablet 25 mg PO TID PRN (Reason: anxiety) Qty: 20 0RF clindamycin HCl 300 mg capsule 300 mg PO TID 5 Days Qty: 15 0RF hydroxyzine HCl 25 mg tablet 25 mg PO TID PRN (Reason: anxiety) Qty: 20 0RF Print Language: Vietnamese
[2023-12-24 09:52] VITALS: BP 111/67; PULSE 71; RESP 10; O2SAT 99
--- NOTE | 2023-12-24 10:41 | PC.NURSE ---
pt a&o x4, pleasant, calm, and cooperative. pt sts she had some adult fun last night while her son was with his father and woke up this morning with L arm numbness, sharp left chest pain described as being stabbed with a thumbtack , and elevated HR of 145 per her apple watch. pt placed on bedside monitor with HR in 80s, rr even/unlabored. pt medicated per nov and chest x ray complete. pt resting quietly on stretcher in no apparent distress. call amado within reach. plan of care ongoing.
[2023-12-24 10:43] VITALS: BP 105/56; PULSE 70; RESP 14; TEMP 36.7; O2SAT 99
== END 2023-12-24 10:44 | disposition home or self-care (01) ==
PROVIDERS: Emergency Provider Student in an Organized Health Care Education/Training Program
DX: F41.9 Anxiety disorder, unspecified (principal); K29.70 Gastritis, unspecified, without bleeding; J45.909 Unspecified asthma, uncomplicated; Z88.0 Allergy status to penicillin
CPT/HCPCS: 71046; 93005; 99283; 99285

== ENCOUNTER → 2023-12-24 08:47 | Outpatient (BNV) | payer OTHER, SELFPAY | PROVIDERS: Emergency Provider Student in an Organized Health Care Education/Training Program; Visit Provider Internal Medicine | DX: R07.9 Chest pain, unspecified (principal) | CPT/HCPCS: 93010 ==

== ENCOUNTER 2024-01-22 09:12 | Emergency (ER) | payer OTHER, SELFPAY ==
--- NOTE | ~2024-01-22 | XR_ITS ---
EXAMINATION: XR CHEST CLINICAL INFORMATION: Chest tightness COMPARISON: 12/24/2023 TECHNIQUE: Frontal view of the chest was obtained. FINDINGS: No significant abnormality is noted involving the heart, lungs, mediastinum, bony thorax or soft tissues. XR/XR chest 1V IMPRESSION: No acute intrathoracic disease
[2024-01-22 09:20] VITALS: BP 125/84; PULSE 70; O2SAT 99
--- NOTE | 2024-01-22 09:21 | ECG_ITS ---
Test Reason : cp Blood Pressure : / mmHG Vent. Rate : 071 BPM Atrial Rate : 071 BPM P-R Int : 192 ms QRS Dur : 078 ms QT Int : 374 ms P-R-T Axes : 081 074 053 degrees QTc Int : 406 ms Normal sinus rhythm Nonspecific ST abnormality Abnormal ECG When compared with ECG of 24-DEC-2023 08:49, No significant change was found Referred By: Generic ED Physician Electronically Signed By:ELIZABETH HARRELL MD
[2024-01-22 09:37] VITALS: BP 121/84; PULSE 66; RESP 19; TEMP 36.6; O2SAT 99; BMI 22.0
[2024-01-22 09:57] LABS: MANUAL DIFF FLAG NO
[2024-01-22 09:59] LABS: Basophils Absolute Auto 0.1 X10*3/uL (0.0-0.2); Basophils Percent Auto 0.7 % (0-2); Eosinophils Absolute Auto 0.3 X10*3/uL (0.0-0.4); Eosinophils Percent Auto 3.7 % (0-4); Hematocrit 42.2 % (37.0-47.0); Hemoglobin 14.2 g/dl (12.0-16.0); Imm Gran Abs Auto 0.04 X10*3/uL (0.00-0.03); Imm Gran Pct Auto 0.5 % (0.0-0.4); Lymphocytes Absolute Auto 1.7 X10*3/uL (1.2-4.9); Lymphocytes Percent Auto 19.9 % (20-40); Mean Corpuscular HGB Conc 33.6 g/dl (31.0-35.0); Mean Corpuscular Hemoglobin 27.8 pg (27.0-33.0); Mean Corpuscular Volume 82.7 fL (80.0-98.0); Mean Platelet Volume 9.9 fL (9.4-12.3); Monocytes Absolute Auto 0.7 X10*3/uL (0.1-1.2); Monocytes Percent Auto 8.2 % (2-11); Neutrophils Absolute Auto 5.7 x10*3/uL (2.0-8.3); Platelet Count 338 X10*3/uL (160-400); Red Cell Distribution Width 13.9 % (11.0-16.0); White Blood Count 8.5 X10*3/uL (4.8-10.8)
[2024-01-22 10:00] LABS: Appearance Urine Clear; Color Urine Yellow; Glucose Urine UA Negative (Negative); Leukocyte Esterase Urine Negative (Negative); Nitrite Urine Negative (Negative); PH 6.5 (5.0-9.0); Specific Gravity - Urine >= 1.030 (1.005-1.025); Urine Blood Negative (Negative); Urine Ketones Negative (Negative); Urine Protein Trace mg/dL (Neg-Trace)
[2024-01-22 10:11] LABS: UPreg QC Valid YES; Urine Pregnancy NEGATIVE (NEGATIVE)
[2024-01-22 10:26] LABS: Anion Gap 16 (12-20); Blood Urea Nitrogen 12 mg/dL (9-16); Calcium 9.2 mg/dL (8.4-10.2); Carbon Dioxide 28 mmol/L (22-29); Chloride 102 mmol/L (96-108); Creatinine Clr Calc Pharmacy 102.3; Estimated Glomerular Filt Rate > 60; Glucose Random 88 mg/dL (60-115); Potassium 3.9 mmol/L (3.3-5.1); Sodium 142 mmol/L (135-145)
[2024-01-22 10:31] LABS: Troponin-I High Sensitivity < 2.7 ng/L (<3.5-17.0)
--- NOTE | 2024-01-22 12:04 | ED.GENADULT ---
HPI - General Adult General Chief complaint: Anxiety Stated complaint: WEAK,L CP,INCR ANX,NUMB FINGERS/TOES PER EMS Time Seen by Provider: 01/22/24 11:32 Source: patient Mode of arrival: ambulatory Limitations: no limitations History of Present Illness HPI narrative: 28-year-old female with past medical history of anxiety presents to ED for chest tightness and numbness and tingling in fingers and toes. Patient states feeling very anxious. Patient states being without her anxiety medication for 1 week due to her not having a primary care provider. Patient denies any leg swelling, calf pain, coughing up blood, recent long travel, recent surgery, or any history of blood clots. Patient presently feels just anxious. Patient states having chest tightness with tingling in extremities feeling anxious for 1 week. Patient states she is under lot of stress and her boyfriend recently broke up with her and she was not able to celebrate mother's day. Patient denies any suicidal homicidal ideation. Patient denies any shortness of breath or chest pain. Related Data Home Medications ?Medication ?Instructions ?Recorded ?Confirmed desogestrel 0.15 mg-ethinyl 1 tab PO DAILY 01/07/22 04/06/23 estradiol 0.03 mg tablet (Apri) Previous Rx's ?Medication ?Instructions ?Recorded hydroxyzine HCl 10 mg tablet 10 mg PO TID PRN anxiety 14 days 01/10/22 #42 tabs clonidine HCl 0.1 mg tablet 0.1 mg PO TID 7 days #21 tabs 01/24/22 escitalopram oxalate 20 mg tablet 20 mg PO DAILY 14 days #14 tabs 01/24/22 (Lexapro) lorazepam 1 mg tablet (Ativan) 1 mg PO DAILY PRN anxiety #1 tab 03/01/22 morphine 15 mg immediate release 15 mg PO Q4-6H PRN pain #10 tabs 10/20/22 tablet hydroxyzine HCl 25 mg tablet 25 mg PO TID PRN anxiety #20 tabs 12/13/22 hydroxyzine HCl 25 mg tablet 25 mg PO BID PRN anxiety #20 tabs 01/24/23 hydroxyzine HCl 25 mg tablet 25 mg PO TID PRN anxiety #20 tabs 02/20/23 doxycycline monohydrate 100 mg 100 mg PO BID #14 caps 03/19/23 capsule ibuprofen 600 mg tablet 600 mg PO Q8H PRN pain #20 tabs 03/19/23 metronidazole 500 mg tablet 500 mg PO BID 7 days #14 tabs 03/19/23 tramadol 50 mg tablet 50 mg PO BID PRN severe pain 03/19/23 (scale score 7-10) #6 tabs clindamycin HCl 300 mg capsule 300 mg PO TID 5 days #15 caps 04/01/23 hydroxyzine HCl 25 mg tablet 25 mg PO TID PRN anxiety #20 tabs 06/02/23 lorazepam 0.5 mg tablet (Ativan) 0.5 mg PO BID PRN anxiety #10 tabs 07/19/23 Allergies Allergy/AdvReac Type Severity Reaction Status Date / Time penicillin G [PENICILLIN G] Allergy Mild SWELLING Verified 01/22/24 09:39 SEAFOOD Allergy Unknown UNKNOWN Uncoded 01/22/24 09:39 Review of Systems Review of Systems: Anxiety, chest tightness, tingling in extremities Yes all other systems are reviewed and are negative [facility] Past Medical History Medical History Open wound Allergic rhinitis Eczema Exercise-induced asthma Rib fracture Asthma Surgical History History of ankle surgery History of appendectomy Social History Social History Household Members: Children Alcohol intake: current Alcohol intake frequency: a few times a week Patient Tobacco Use Status: Never used Tobacco Substance Use Type: Marijuana Advance Directives: No Advance Directives Information Provided: Yes Physical Exam ED Vital Signs: Vital Signs - 24 hr 01/22/24 09:37 Temperature 98 F Pulse Rate 66 Respiratory Rate 19 Blood Pressure 121/84 Pulse Oximetry 99 Oxygen Delivery Method Room Air BMI result Body Mass Index 22.0 Const Orientation/consciousness: oriented to person, oriented to place, oriented to time and patient oriented x3 HENMT Head: Yes normal to inspection, Yes No palpable skull fracture present, Yes normocephalic and Yes atraumatic Eyes General: appearance normal, both eyes and all related structures Neck Neck: Yes normal visual inspection, Yes full ROM, Yes no lymphadenopathy, Yes no meningeal signs, Yes trachea midline, Yes supple, No anterior neck swelling and No tender Chest Chest palpation & inspection: normal inspection of the chest and normal palpation of entire chest wall Resp Effort & Inspection: normal respiratory effort and able to speak in complete sentences Auscultation: clear to auscultation bilaterally Cardio Jugular venous distension: no JVD Heart sounds: S1 normal heart sound present and S2 normal heart sound present GI Inspection: Yes normal to inspection Palpation (GI): Soft to palpation, not firm, nontender, no guarding and not rigid General: No CVA tenderness and Yes no CVA tenderness Back/Spine/Pelvis Back: no CVA tenderness, No CVA tenderness and No back tenderness Skin General skin exam: no rashes or lesions noted, elasticity normal and turgor normal Neuro General: oriented to person, oriented to place, oriented to time, patient oriented x3, gait normal, tone normal, moves all extremities, Normal light touch and pain sensation, no meningeal signs, no focal motor deficits, CN's II-XI intact bilaterally and normal sensation to monofilament Extrem Other: bilateral lower extremity negative for swelling, pitting edema, or calf tenderness General: Yes normal to inspection, Yes full ROM and Yes capillary refill normal Psych Appearance: grossly normal, well kempt and not disheveled Medications Administered Discontinued Medications Generic Name Dose Route Start Last Admin Trade Name Freq PRN Reason Stop Dose Admin Hydroxyzine HCl 50 mg 01/22/24 12:08 01/22/24 12:15 Hydroxyzine Hcl 50 Mg Tablet PO 01/22/24 12:09 50 mg ONCE ONE Administration Medical Decision Making Medical Decision Making [facility] Narrative: 28-year-old female history of anxiety been off anxiety meds 1 week and increased stressors presents to ED for anxiety exacerbation presents as chest tightness for allowing me to numbness/tingling of upper or lower extremities. Patient denies any pleurisy, calf pain, leg swelling, recent long travel, recent surgery, shortness of breath, chest pain, or any drug use. Initial EKG cardiac marker negative. Was sent for chest x-ray hydralazine ordered. Patient is not suicidal or homicidal 14:58pm: Patient eloped from the ED. patient did not wait for re-evaluation, xray results, discharge instructions, or precription for hydroxyzine Differential Diagnosis Differential Diagnoses: The differential diagnosis associated with the presentation includes (anxiety, pneumonia, costonchoncirits) Admission/Observation Consideration of admission/observation: Escalation of care including admission/observation considered Lab Data 01/22/24 09:51 01/22/24 09:51 Labs: Lab Results 01/22/24 Range/Units 09:51 WBC 8.5 (4.8-10.8) X10*3/uL RBC 5.10 (4.20-5.50) X10*6/uL Hgb 14.2 (12.0-16.0) g/dl Hct 42.2 (37.0-47.0) % MCV 82.7 (80.0-98.0) fL MCH 27.8 (27.0-33.0) pg MCHC 33.6 (31.0-35.0) g/dl RDW 13.9 (11.0-16.0) % Plt Count 338 (160-400) X10*3/uL MPV 9.9 (9.4-12.3) fL Immature Gran % (Auto) 0.5 H (0.0-0.4) % Neut % (Auto) 67.0 (45-73) % Lymph % (Auto) 19.9 L (20-40) % Harmon % (Auto) 8.2 (2-11) % Eos % (Auto) 3.7 (0-4) % Baso % (Auto) 0.7 (0-2) % Lymph # (Auto) 1.7 (1.2-4.9) X10*3/uL Harmon # (Auto) 0.7 (0.1-1.2) X10*3/uL Eos # (Auto) 0.3 (0.0-0.4) X10*3/uL Baso # (Auto) 0.1 (0.0-0.2) X10*3/uL Abs Immat Gran (auto) 0.04 H (0.00-0.03) X10*3/uL Absolute Neuts (auto) 5.7 (2.0-8.3) x10*3/uL Absolute Nucleated RBC 0.000 (0.0-0.012) X10*3/uL Nucleated RBC % (auto) 0.0 (0.0-0.2) /100WBC Sodium 142 (135-145) mmol/L Potassium 3.9 (3.3-5.1) mmol/L Chloride 102 (96-108) mmol/L Carbon Dioxide 28 (22-29) mmol/L Anion Gap 16 (12-20) BUN 12 (9-16) mg/dL Creatinine 0.70 (0.5-1.4) mg/dL Estim Creat Clear Calc 102.3 Estimated GFR > 60 Random Glucose 88 (60-115) mg/dL Calcium 9.2 (8.4-10.2) mg/dL Troponin I High Sens < 2.7 (<3.5-17.0) ng/L Urine Color Yellow Urine Appearance Clear Urine pH 6.5 (5.0-9.0) Ur Specific [place] >= 1.030 H (1.005-1.025) Urine Protein Trace (Neg-Trace) mg/dL Urine Glucose (UA) Negative (Negative) mg/dL Urine Ketones Negative (Negative) mg/dL Urine Blood Negative (Negative) Urine Nitrite Negative (Negative) Ur Leukocyte Esterase Negative (Negative) Urine Test NEGATIVE (NEGATIVE) Independent Interpretation I performed an independent interpretation of an: EKG (Normal Sinus rhytm. negative STEMI) and Plain X-Ray Radiology Impression Discussion of test interpretation with radiology: I have reviewed the radiologist's reading. Independent Historian Clinical information obtained from an independent historian. History obtained from or confirmed by: Other (patient) External Record Review External record reviewed: Other (prior visits) Prescription Management I considered prescription management with: Other (hydralazine) Discharge Plan Discharge Clinical Impression: Generalized anxiety disorder Patient Disposition: Left W/O Completing Treatment Prescriptions: No Action desogestrel-ethinyl estradiol [Apri] 0.15-0.03 mg Tablet 1 tab PO DAILY hydroxyzine HCl 10 mg tablet 10 mg PO TID PRN (Reason: anxiety) 14 Days Qty: 42 0RF clonidine HCl 0.1 mg tablet 0.1 mg PO TID 7 Days Qty: 21 0RF escitalopram oxalate [Lexapro] 20 mg tablet 20 mg PO DAILY 14 Days Qty: 14 0RF lorazepam [Ativan] 1 mg tablet 1 mg PO DAILY PRN (Reason: anxiety) Qty: 1 0RF morphine 15 mg tablet 15 mg PO Q4-6H PRN (Reason: pain) Qty: 10 0RF Rx Instructions: The patient may ask for partial fill; Partial Fill upon patient request. hydroxyzine HCl 25 mg tablet 25 mg PO BID PRN (Reason: anxiety) Qty: 20 0RF hydroxyzine HCl 25 mg tablet 25 mg PO TID PRN (Reason: anxiety) Qty: 20 0RF metronidazole 500 mg tablet 500 mg PO BID 7 Days Qty: 14 0RF doxycycline monohydrate 100 mg capsule 100 mg PO BID Qty: 14 0RF ibuprofen 600 mg tablet 600 mg PO Q8H PRN (Reason: pain) Qty: 20 0RF tramadol 50 mg tablet 50 mg PO BID PRN (Reason: severe pain (scale score 7-10)) Qty: 6 0RF lorazepam [Ativan] 0.5 mg tablet 0.5 mg PO BID PRN (Reason: anxiety) Qty: 10 0RF hydroxyzine HCl 25 mg tablet 25 mg PO TID PRN (Reason: anxiety) Qty: 20 0RF clindamycin HCl 300 mg capsule 300 mg PO TID 5 Days Qty: 15 0RF hydroxyzine HCl 25 mg tablet 25 mg PO TID PRN (Reason: anxiety) Qty: 20 0RF Discharge Date/Time: 01/22/24 14:58
[2024-01-22] MEDS: hydrOXYzine HCL 50 MG TABLET PO (12:15)
--- NOTE | 2024-01-22 14:50 | PC.NURSE ---
this RN went to reevaluate patient. patient no longer in room.
== END 2024-01-22 14:58 | disposition left against medical advice (07) ==
PROVIDERS: Emergency Provider Emergency Medicine
DX: F41.9 Anxiety disorder, unspecified (principal); R07.89 Other chest pain; R20.0 Anesthesia of skin; Z79.899 Other long term (current) drug therapy
CPT/HCPCS: 36415; 71045; 80048; 81003; 81025; 84484; 85025; 93005; 99283

== ENCOUNTER → 2024-01-22 09:21 | Outpatient (BNV) | payer OTHER, SELFPAY | PROVIDERS: Visit Provider Internal Medicine Cardiovascular Disease | DX: R07.9 Chest pain, unspecified (principal) | CPT/HCPCS: 93010 ==

== ENCOUNTER 2024-03-22 10:58 | Emergency (ER) | payer OTHER, SELFPAY ==
--- NOTE | 2024-03-22 11:00 | ECG_ITS ---
Test Reason : syncope Blood Pressure : / mmHG Vent. Rate : 081 BPM Atrial Rate : 081 BPM P-R Int : 168 ms QRS Dur : 088 ms QT Int : 346 ms P-R-T Axes : 075 078 053 degrees QTc Int : 401 ms Normal sinus rhythm with sinus arrhythmia Normal ECG When compared with ECG of 22-JAN-2024 09:42, No significant change was found Referred By: Generic ED Physician Electronically Signed By:Lowell Angeles
--- NOTE | 2024-03-22 11:05 | ED_ITS ---
HPI - Chest Pain General Chief Complaint: Arrhythmia/Palpitations Stated Complaint: Chest pain/Dizzy Time Seen by Provider: 03/22/24 11:39 Source: patient and old records reviewed Mode of arrival: ambulatory Limitations: no limitations History of Present Illness ED Provider: NESTOR HPI narrative: 28 yo female with depression, anxiety, PTSD who comes in with c/o chest tightness since last night and heart racing she has a lot of anxiety and stress. No fevers. She ran out of INH has been wheezing. No sputum production MD complaint: chest heaviness Onset (ago): day(s) (1) Timing of current episode: constant Prior episodes: Yes Onset: other (stress) Pain location: substernal Pain radiation: none Severity: mild Quality: tightness Relieving factors: nothing Exacerbating factors: stress Context: other (hx of same) Associated symptoms: dyspnea and palpitations Treatment prior to arrival: none Related Data Home Medications ?Medication ?Instructions ?Recorded ?Confirmed desogestrel 0.15 mg-ethinyl 1 tab PO DAILY 01/07/22 04/06/23 estradiol 0.03 mg tablet (Apri) Previous Rx's ?Medication ?Instructions ?Recorded hydroxyzine HCl 10 mg tablet 10 mg PO TID PRN anxiety 14 days 01/10/22 #42 tabs clonidine HCl 0.1 mg tablet 0.1 mg PO TID 7 days #21 tabs 01/24/22 escitalopram oxalate 20 mg tablet 20 mg PO DAILY 14 days #14 tabs 01/24/22 (Lexapro) lorazepam 1 mg tablet (Ativan) 1 mg PO DAILY PRN anxiety #1 tab 03/01/22 morphine 15 mg immediate release 15 mg PO Q4-6H PRN pain #10 tabs 10/20/22 tablet hydroxyzine HCl 25 mg tablet 25 mg PO TID PRN anxiety #20 tabs 12/13/22 hydroxyzine HCl 25 mg tablet 25 mg PO BID PRN anxiety #20 tabs 01/24/23 hydroxyzine HCl 25 mg tablet 25 mg PO TID PRN anxiety #20 tabs 02/20/23 doxycycline monohydrate 100 mg 100 mg PO BID #14 caps 03/19/23 capsule ibuprofen 600 mg tablet 600 mg PO Q8H PRN pain #20 tabs 03/19/23 metronidazole 500 mg tablet 500 mg PO BID 7 days #14 tabs 03/19/23 tramadol 50 mg tablet 50 mg PO BID PRN severe pain 03/19/23 (scale score 7-10) #6 tabs clindamycin HCl 300 mg capsule 300 mg PO TID 5 days #15 caps 04/01/23 hydroxyzine HCl 25 mg tablet 25 mg PO TID PRN anxiety #20 tabs 06/02/23 lorazepam 0.5 mg tablet (Ativan) 0.5 mg PO BID PRN anxiety #10 tabs 07/19/23 albuterol sulfate 2.5 mg/3 mL 2.5 mg (3 mL) inhalation Q4-6H PRN 03/22/24 (0.083 %) solution for nebulization bronchospasm #75 mL Allergies Allergy/AdvReac Type Severity Reaction Status Date / Time penicillin G [PENICILLIN G] Allergy Mild SWELLING Verified 03/22/24 11:08 SEAFOOD Allergy Unknown UNKNOWN Uncoded 01/22/24 09:39 Review of Systems 2 Review of Systems: Constitutional : No Weight loss, No Fever, No Chills ENT/Mouth : No sore throat, No Rhinorrhea Eyes: No Eye Pain, No Swelling Cardiovascular : pos Chest Pain, pos SOB, no Dyspnea on Exertion, No Orthopnea, No Edema, No Palpitations Respiratory : No Cough, No Sputum Gastrointestinal : no Nausea, No Vomiting, No Diarrhea, No abdominal Pain, No Hematochezia, No Melena Genitourinary : No Dysuria, No Urinary Frequency Musculoskeletal : No joint pain, No Myalgias, No Joint Swelling Skin : No Skin Lesions, No rash Neuro : No Weakness, No Numbness, No Dizziness, No Headache Psych : pos Anxiety/Panic, No Depression All other systems reviewed and are negative [facility] Past Medical History Attestation statement: The following information was validated with the patient. Source: old records reviewed Medical History Open wound Allergic rhinitis Eczema Exercise-induced asthma Rib fracture Asthma Surgical History History of ankle surgery History of appendectomy Social History Social History Household Members: Children Alcohol intake: current Alcohol intake frequency: a few times a week Alcohol type: hard liquor Patient Tobacco Use Status: Never used Tobacco Smoked in Last 30 Days: No Use of substances other than those prescribed or required for medical reasons: Yes Substance Use Type: Marijuana Substance Use Frequency: Occasionally Advance Directives: No Advance Directives Information Provided: No Do you have a plan to hurt others: No Plan Physical Exam 2 Vital Signs: Vital Signs: Last Vital Signs Temp 98.5 F 03/22/24 11:40 Pulse 73 03/22/24 11:40 Resp 17 03/22/24 11:40 BP 121/64 03/22/24 11:40 Pulse Ox 97 03/22/24 11:40 O2 Del Method Room Air 03/22/24 11:40 BMI result Body Mass Index 24.0 Appearance: Alert. Oriented X3. No acute distress. Eyes: Pupils equal, round and reactive to light. ENT: Pharynx normal. Neck: Normal inspection. Neck supple. CVS: Normal heart rate and rhythm. Pulses normal. Respiratory: No respiratory distress. Breath sounds very mild exp wheezes Abdomen: Soft and nontender. Skin: Skin warm and dry. Normal skin color. Normal skin turgor. Extremities: No lower extremity edema. Neuro: Oriented X 3. No motor deficit. No sensory deficit. Course Course Course Narrative: This is an RME performed by Edward Jacinto, EVP [place]: Additional HPI, ROS, PE not included below will be deferred to primary provider. PAtient is a 28 y.o. female c/o palpitations all last night, awoke with dizziness, chest pain/ tightness, fatigue. reports hx of anxiety but states this feels different. Plan: labs, EKG, viral panel Medical Decision Making Medical Decision Making [facility] Narrative: 28 yo female with depression, anxiety, PTSD who comes in with c/o chest tightness and has some wheezes at this time will obtain basic labs, ddimer, EKG< trop and start on INH and po ativan low susp for VTE or ACS - if labs negative will DC home with INH after one time dose of dexamethasone Differential Diagnosis Differential Diagnoses: The differential diagnosis associated with the presentation includes asthma, anxiety, atypical pain Admission/Observation Consideration of admission/observation: Escalation of care including admission/observation considered has had this before CXR negative in past both side lung sounds noted doubt PTX , no fevers or sputum to suggest pneumonia trop flat, viral panel negative ddimer negative Lab Data [facility] Lab Attestation statement: I reviewed the patient's lab results. 03/22/24 11:20 03/22/24 11:20 Labs: Lab Results 03/22/24 Range/Units 11:20 WBC 9.9 (4.8-10.8) X10*3/uL RBC 4.84 (4.20-5.50) X10*6/uL Hgb 13.4 (12.0-16.0) g/dl Hct 39.7 (37.0-47.0) % MCV 82.0 (80.0-98.0) fL MCH 27.7 (27.0-33.0) pg MCHC 33.8 (31.0-35.0) g/dl RDW 13.4 (11.0-16.0) % Plt Count 287 (160-400) X10*3/uL MPV 10.1 (9.4-12.3) fL Immature Gran % (Auto) 0.4 (0.0-0.4) % Neut % (Auto) 65.4 (45-73) % Lymph % (Auto) 19.5 L (20-40) % [place] % (Auto) 8.3 (2-11) % Eos % (Auto) 5.8 H (0-4) % Baso % (Auto) 0.6 (0-2) % Lymph # (Auto) 1.9 (1.2-4.9) X10*3/uL [place] # (Auto) 0.8 (0.1-1.2) X10*3/uL Eos # (Auto) 0.6 H (0.0-0.4) X10*3/uL Baso # (Auto) 0.1 (0.0-0.2) X10*3/uL Abs Immat Gran (auto) 0.04 H (0.00-0.03) X10*3/uL Absolute Neuts (auto) 6.5 (2.0-8.3) x10*3/uL Absolute Nucleated RBC 0.000 (0.0-0.012) X10*3/uL Nucleated RBC % (auto) 0.0 (0.0-0.2) /100WBC PT 12.4 (11.1-13.3) SEC INR 1.0 (0.9-1.1) D-Dimer High Sensitivty 188 NG/ML Sodium 139 (135-145) mmol/L Potassium 3.8 (3.3-5.1) mmol/L Chloride 103 (96-108) mmol/L Carbon Dioxide 28 (22-29) mmol/L Anion Gap 12 (12-20) BUN 11 (9-16) mg/dL Creatinine 0.73 (0.5-1.4) mg/dL Estim Creat Clear Calc 98.2 Estimated GFR > 60 Random Glucose 112 (60-115) mg/dL Calcium 9.2 (8.4-10.2) mg/dL Magnesium 2.0 (1.6-2.6) mg/dL Total Bilirubin 0.9 (0.0-1.0) mg/dL AST 21 (5-31) U/L ALT 15 (0-31) U/L Alkaline Phosphatase 57 (39-117) U/L Troponin I High Sens < 2.7 (<3.5-17.0) ng/L Total Protein 7.5 (6.5-8.0) g/dL Albumin 4.2 (3.5-5.0) g/dL TSH 1.04 (0.32-4.0) uIU/mL Beta HCG, Quant < 2 mIU/mL Influenza Type A (PCR) NEGATIVE (Negative) Influenza Type B (PCR) NEGATIVE (Negative) RSV RNA Qual (PCR) NEGATIVE (Negative) SARS-CoV-2 RNA (RT-PCR) NEGATIVE (Negative) Independent Interpretation I performed an independent interpretation of an: EKG Interpretation: Rate: 81 Rhythm: NSR [place]: normal Normal P waves. Normal ALISE. Normal QRS complex. ST T wave : normal no ANOOP qTC: 401 prior studies: no acute ischemia The study has been interpreted contemporaneously by me. . Independent Historian Clinical information obtained from an independent historian. History obtained from or confirmed by: Spouse External Record Review External record reviewed: Inpatient record Prescription Management I considered prescription management with: Other Discharge Plan Discharge Clinical Impression: Anxiety Asthma Qualifiers: Asthma severity: mild Asthma persistence: persistent Asthma complication type: with acute exacerbation Qualified Code(s): J45.31 - Mild persistent asthma with (acute) exacerbation Patient Disposition: Home, Self-Care Instructions: Asthma (ED), Anxiety (ED) Additional Instructions: normal tests for heart, blood clot negative negative for COVID, flu, RSV return for any worsening symptoms or concerns. Prescriptions: New albuterol sulfate 2.5 mg /3 mL (0.083 %) solution for nebulization 2.5 mg inhalation Q4-6H PRN (Reason: bronchospasm) Qty: 75 0RF No Action desogestrel-ethinyl estradiol [Apri] 0.15-0.03 mg Tablet 1 tab PO DAILY hydroxyzine HCl 10 mg tablet 10 mg PO TID PRN (Reason: anxiety) 14 Days Qty: 42 0RF clonidine HCl 0.1 mg tablet 0.1 mg PO TID 7 Days Qty: 21 0RF escitalopram oxalate [Lexapro] 20 mg tablet 20 mg PO DAILY 14 Days Qty: 14 0RF lorazepam [Ativan] 1 mg tablet 1 mg PO DAILY PRN (Reason: anxiety) Qty: 1 0RF morphine 15 mg tablet 15 mg PO Q4-6H PRN (Reason: pain) Qty: 10 0RF Rx Instructions: The patient may ask for partial fill; Partial Fill upon patient request. hydroxyzine HCl 25 mg tablet 25 mg PO BID PRN (Reason: anxiety) Qty: 20 0RF hydroxyzine HCl 25 mg tablet 25 mg PO TID PRN (Reason: anxiety) Qty: 20 0RF metronidazole 500 mg tablet 500 mg PO BID 7 Days Qty: 14 0RF doxycycline monohydrate 100 mg capsule 100 mg PO BID Qty: 14 0RF ibuprofen 600 mg tablet 600 mg PO Q8H PRN (Reason: pain) Qty: 20 0RF tramadol 50 mg tablet 50 mg PO BID PRN (Reason: severe pain (scale score 7-10)) Qty: 6 0RF lorazepam [Ativan] 0.5 mg tablet 0.5 mg PO BID PRN (Reason: anxiety) Qty: 10 0RF hydroxyzine HCl 25 mg tablet 25 mg PO TID PRN (Reason: anxiety) Qty: 20 0RF clindamycin HCl 300 mg capsule 300 mg PO TID 5 Days Qty: 15 0RF hydroxyzine HCl 25 mg tablet 25 mg PO TID PRN (Reason: anxiety) Qty: 20 0RF Print Language: [place]i
[2024-03-22 11:06] VITALS: BP 119/62; PULSE 83; RESP 20; TEMP 36.6; O2SAT 97; BMI 24.0
[2024-03-22 11:27] LABS: MANUAL DIFF FLAG NO
[2024-03-22 11:29] LABS: Basophils Absolute Auto 0.1 X10*3/uL (0.0-0.2); Basophils Percent Auto 0.6 % (0-2); Eosinophils Absolute Auto 0.6 X10*3/uL (0.0-0.4); Eosinophils Percent Auto 5.8 % (0-4); Hematocrit 39.7 % (37.0-47.0); Hemoglobin 13.4 g/dl (12.0-16.0); Imm Gran Abs Auto 0.04 X10*3/uL (0.00-0.03); Imm Gran Pct Auto 0.4 % (0.0-0.4); Lymphocytes Absolute Auto 1.9 X10*3/uL (1.2-4.9); Lymphocytes Percent Auto 19.5 % (20-40); Mean Corpuscular HGB Conc 33.8 g/dl (31.0-35.0); Mean Corpuscular Hemoglobin 27.7 pg (27.0-33.0); Mean Platelet Volume 10.1 fL (9.4-12.3); Monocytes Absolute Auto 0.8 X10*3/uL (0.1-1.2); Monocytes Percent Auto 8.3 % (2-11); Neutrophils Absolute Auto 6.5 x10*3/uL (2.0-8.3); Neutrophils Percent Auto 65.4 % (45-73); Platelet Count 287 X10*3/uL (160-400); Red Blood Count 4.84 X10*6/uL (4.20-5.50); Red Cell Distribution Width 13.4 % (11.0-16.0); White Blood Count 9.9 X10*3/uL (4.8-10.8)
[2024-03-22 11:34] LABS: Prothrombin Time 12.4 SEC (11.1-13.3)
[2024-03-22 11:38] VITALS: PULSE 80
[2024-03-22 11:40] VITALS: BP 121/64; PULSE 73; RESP 17; TEMP 36.9; O2SAT 97
[2024-03-22 11:54] LABS: Alanine Aminotransferase 15 U/L (0-31); Albumin Level 4.2 g/dL (3.5-5.0); Alkaline Phosphatase 57 U/L (39-117); Anion Gap 12 (12-20); Aspartate Amino Transferase 21 U/L (5-31); Bilirubin Total 0.9 mg/dL (0.0-1.0); Blood Urea Nitrogen 11 mg/dL (9-16); Calcium 9.2 mg/dL (8.4-10.2); Carbon Dioxide 28 mmol/L (22-29); Chloride 103 mmol/L (96-108); Creatinine Clr Calc Pharmacy 98.2; Estimated Glomerular Filt Rate > 60; Glucose Random 112 mg/dL (60-115); Potassium 3.8 mmol/L (3.3-5.1); Sodium 139 mmol/L (135-145); Total Protein 7.5 g/dL (6.5-8.0)
[2024-03-22 11:56] LABS: D Dimer High Sensitivity 188 NG/ML
[2024-03-22 11:57] LABS: HCG Quantitative < 2 mIU/mL; Troponin-I High Sensitivity < 2.7 ng/L (<3.5-17.0)
[2024-03-22 12:09] LABS: Influenza A PCR NEGATIVE (Negative); Influenza B PCR NEGATIVE (Negative); Resp Syncy Virus RNA Qual PCR NEGATIVE (Negative); SARS COV2 PCR INHOUSE NEGATIVE (Negative)
[2024-03-22 12:10] LABS: TSH reflex Free T4 1.04 uIU/mL (0.32-4.0)
[2024-03-22] MEDS: Albuterol Sulfate 90 MCG 8 GM INHALER 2 PUFF INHALE (12:26)
[2024-03-22 12:27] VITALS: BP 113/74; PULSE 72; RESP 14; O2SAT 99
[2024-03-22] MEDS: LORazepam 0.5 MG TABLET PO (12:27)
[2024-03-22] MEDS: dexAMETHasone sod phosphate 10 MG/ML VIAL PO (12:27)
[2024-03-22 12:28] VITALS: PULSE 75; RESP 15; O2SAT 99
[2024-03-22 12:41] VITALS: BP 113/74; PULSE 75; RESP 15; TEMP 36.9; O2SAT 99
== END 2024-03-22 12:41 | disposition home or self-care (01) ==
PROVIDERS: Nurse Practitioner Family; Emergency Provider Emergency Medicine
DX: F41.9 Anxiety disorder, unspecified (principal); J45.31 Mild persistent asthma with (acute) exacerbation; R00.2 Palpitations; R06.02 Shortness of breath; F32.A Depression, unspecified; F43.10 Post-traumatic stress disorder, unspecified; Z03.818 Encounter for observation for suspected exposure to other biological agents ruled out; Z79.899 Other long term (current) drug therapy
CPT/HCPCS: 0241U; 36415; 80053; 83735; 84443; 84484; 84702; 85025; 85379; 85610; 93005; 94640; 94664; 99284; 99285; J1100

== ENCOUNTER → 2024-03-22 11:00 | Outpatient (BNV) | payer OTHER, SELFPAY | PROVIDERS: Emergency Provider Emergency Medicine; Visit Provider Internal Medicine Cardiovascular Disease | DX: R55 Syncope and collapse (principal) | CPT/HCPCS: 93010 ==

== ENCOUNTER 2024-04-14 20:04 | Emergency (ER) | payer OTHER, SELFPAY ==
--- NOTE | 2024-04-14 21:15 | PC.NURSE ---
No response in the WR when called at 2020.
== END 2024-04-14 21:33 | disposition left against medical advice (07) ==
PROVIDERS: Emergency Provider Emergency Medicine; PCP Internal Medicine
DX: R06.02 Shortness of breath (principal)

== ENCOUNTER 2024-12-22 17:46 | Emergency (ER) | payer OTHER, SELFPAY ==
--- NOTE | ~2024-12-22 | CT_ITS ---
CLINICAL HISTORY: left posterior neck tenderness CT cervical spine without contrast Comparison: None Findings: Straightening of normal cervical lordosis. No significant degenerative change. No acute fractures or dislocations. No acute findings on limited view of the intracranial contents. Soft tissues of the neck are normal. Lung apices are clear. IMPRESSION: No acute findings. This document has been electronically signed by: Bernice Martin MD on 12/22/2024 19:48:43
--- NOTE | ~2024-12-22 | CT_ITS ---
CLINICAL HISTORY: head strike Wed, blurred vision CT head without contrast Comparison: None Findings: No intra-axial mass, midline shift, hydrocephalus, or acute hemorrhage. No significant atrophy-like change or white matter disease. There is no sinus or mastoid fluid. The orbits are within normal limits. No skull fracture. IMPRESSION: 1. No acute intracranial findings. This document has been electronically signed by: Bernice Martin MD on 12/22/2024 19:50:07
[2024-12-22 18:01] VITALS: BP 122/80; PULSE 84; RESP 18; TEMP 36.6; O2SAT 98; BMI 23.6
--- NOTE | 2024-12-22 18:01 | ED_ITS ---
HPI - General Adult General Chief complaint: Headache Stated complaint: left side head/neck pressure-pain Related Data Home Medications ?Medication ?Instructions ?Recorded ?Confirmed desogestrel 0.15 mg-ethinyl 1 tab PO DAILY 01/07/22 04/06/23 estradiol 0.03 mg tablet (Apri) Previous Rx's ?Medication ?Instructions ?Recorded hydroxyzine HCl 10 mg tablet 10 mg PO TID PRN anxiety 14 days 01/10/22 #42 tabs clonidine HCl 0.1 mg tablet 0.1 mg PO TID 7 days #21 tabs 01/24/22 escitalopram oxalate 20 mg tablet 20 mg PO DAILY 14 days #14 tabs 01/24/22 (Lexapro) lorazepam 1 mg tablet (Ativan) 1 mg PO DAILY PRN anxiety #1 tab 03/01/22 morphine 15 mg immediate release 15 mg PO Q4-6H PRN pain #10 tabs 10/20/22 tablet hydroxyzine HCl 25 mg tablet 25 mg PO TID PRN anxiety #20 tabs 12/13/22 hydroxyzine HCl 25 mg tablet 25 mg PO BID PRN anxiety #20 tabs 01/24/23 hydroxyzine HCl 25 mg tablet 25 mg PO TID PRN anxiety #20 tabs 02/20/23 doxycycline monohydrate 100 mg 100 mg PO BID #14 caps 03/19/23 capsule ibuprofen 600 mg tablet 600 mg PO Q8H PRN pain #20 tabs 03/19/23 metronidazole 500 mg tablet 500 mg PO BID 7 days #14 tabs 03/19/23 tramadol 50 mg tablet 50 mg PO BID PRN severe pain 03/19/23 (scale score 7-10) #6 tabs clindamycin HCl 300 mg capsule 300 mg PO TID 5 days #15 caps 04/01/23 hydroxyzine HCl 25 mg tablet 25 mg PO TID PRN anxiety #20 tabs 06/02/23 lorazepam 0.5 mg tablet (Ativan) 0.5 mg PO BID PRN anxiety #10 tabs 07/19/23 albuterol sulfate 2.5 mg/3 mL 2.5 mg (3 mL) inhalation Q4-6H PRN 03/22/24 (0.083 %) solution for nebulization bronchospasm #75 mL Allergies Allergy/AdvReac Type Severity Reaction Status Date / Time penicillin G [PENICILLIN G] Allergy Mild SWELLING Verified 12/22/24 18:02 SEAFOOD Allergy Unknown UNKNOWN Uncoded 12/22/24 18:02 [facility] Past Medical History Medical History Open wound Allergic rhinitis Eczema Exercise-induced asthma Rib fracture Asthma Surgical History History of ankle surgery History of appendectomy Social History Social History Household Members: Children Alcohol intake: current Alcohol intake frequency: a few times a week Alcohol type: hard liquor Patient Tobacco Use Status: Never used Tobacco Substance Use Type: Marijuana Advance Directives: No Advance Directives Information Provided: No Do you have a plan to hurt others: No Plan Physical Exam ED Vital Signs: BMI result Body Mass Index 23.6 Course Course Course Narrative: This is a rapid medical exam performed by Lidia Hdez NP: Additional HPI, ROS, PE not included below will be deferred to primary provider. Patient is a 29-year-old female presenting with complaint of left posterior neck pain, headache and intermittent blurred vision since Mon. Symptoms began after hitting head on car door. Denies LOC at that time but did have dizziness. Has not taken any OTC medications but notes that she did take a morning after pill this am. Plan: basic labs, CT head and c spine Medical Decision Making Lab Data 12/22/24 18:45 12/22/24 18:45 Labs: Lab Results 12/22/24 Range/Units 18:45 WBC 9.3 (4.8-10.8) X10*3/uL RBC 4.75 (4.20-5.50) X10*6/uL Hgb 13.2 (12.0-16.0) g/dl Hct 39.5 (37.0-47.0) % MCV 83.2 (80.0-98.0) fL MCH 27.8 (27.0-33.0) pg MCHC 33.4 (31.0-35.0) g/dl RDW 13.4 (11.0-16.0) % Plt Count 308 (160-400) X10*3/uL MPV 10.6 (9.4-12.3) fL Immature Gran % (Auto) 0.3 (0.0-0.4) % Neut % (Auto) 64.0 (45-73) % Lymph % (Auto) 20.9 (20-40) % [place] % (Auto) 7.9 (2-11) % Eos % (Auto) 6.4 H (0-4) % Baso % (Auto) 0.5 (0-2) % Lymph # (Auto) 1.9 (1.2-4.9) X10*3/uL [place] # (Auto) 0.7 (0.1-1.2) X10*3/uL Eos # (Auto) 0.6 H (0.0-0.4) X10*3/uL Baso # (Auto) 0.1 (0.0-0.2) X10*3/uL Abs Immat Gran (auto) 0.03 (0.00-0.03) X10*3/uL Absolute Neuts (auto) 5.9 (2.0-8.3) x10*3/uL Absolute Nucleated RBC 0.000 (0.0-0.012) X10*3/uL Nucleated RBC % (auto) 0.0 (0.0-0.2) /100WBC Sodium 141 (135-145) mmol/L Potassium 4.1 (3.3-5.1) mmol/L Chloride 104 (96-108) mmol/L Carbon Dioxide 28 (22-29) mmol/L Anion Gap 13 (12-20) BUN 11 (9-16) mg/dL Creatinine 0.76 (0.5-1.4) mg/dL Estim Creat Clear Calc 81.6 Estimated GFR > 60 Random Glucose 111 (60-115) mg/dL Calcium 9.3 (8.4-10.2) mg/dL Total Bilirubin 0.6 (0.0-1.0) mg/dL AST 24 (5-31) U/L ALT 40 H (0-31) U/L Alkaline Phosphatase 74 (39-117) U/L Total Protein 7.5 (6.5-8.0) g/dL Albumin 4.2 (3.5-5.0) g/dL Discharge Plan Discharge Clinical Impression: Neck pain Patient Disposition: Left W/O Completing Treatment Prescriptions: No Action desogestrel-ethinyl estradiol [Apri] 0.15-0.03 mg Tablet 1 tab PO DAILY hydroxyzine HCl 10 mg tablet 10 mg PO TID PRN (Reason: anxiety) 14 Days Qty: 42 0RF clonidine HCl 0.1 mg tablet 0.1 mg PO TID 7 Days Qty: 21 0RF escitalopram oxalate [Lexapro] 20 mg tablet 20 mg PO DAILY 14 Days Qty: 14 0RF lorazepam [Ativan] 1 mg tablet 1 mg PO DAILY PRN (Reason: anxiety) Qty: 1 0RF morphine 15 mg tablet 15 mg PO Q4-6H PRN (Reason: pain) Qty: 10 0RF Rx Instructions: The patient may ask for partial fill; Partial Fill upon patient request. hydroxyzine HCl 25 mg tablet 25 mg PO BID PRN (Reason: anxiety) Qty: 20 0RF hydroxyzine HCl 25 mg tablet 25 mg PO TID PRN (Reason: anxiety) Qty: 20 0RF metronidazole 500 mg tablet 500 mg PO BID 7 Days Qty: 14 0RF doxycycline monohydrate 100 mg capsule 100 mg PO BID Qty: 14 0RF ibuprofen 600 mg tablet 600 mg PO Q8H PRN (Reason: pain) Qty: 20 0RF tramadol 50 mg tablet 50 mg PO BID PRN (Reason: severe pain (scale score 7-10)) Qty: 6 0RF lorazepam [Ativan] 0.5 mg tablet 0.5 mg PO BID PRN (Reason: anxiety) Qty: 10 0RF albuterol sulfate 2.5 mg /3 mL (0.083 %) solution for nebulization 2.5 mg inhalation Q4-6H PRN (Reason: bronchospasm) Qty: 75 0RF hydroxyzine HCl 25 mg tablet 25 mg PO TID PRN (Reason: anxiety) Qty: 20 0RF clindamycin HCl 300 mg capsule 300 mg PO TID 5 Days Qty: 15 0RF hydroxyzine HCl 25 mg tablet 25 mg PO TID PRN (Reason: anxiety) Qty: 20 0RF Discharge Date/Time: 12/22/24 20:10
[2024-12-22 18:49] LABS: MANUAL DIFF FLAG NO
[2024-12-22 19:13] LABS: Alanine Aminotransferase 40 U/L (0-31); Albumin Level 4.2 g/dL (3.5-5.0); Alkaline Phosphatase 74 U/L (39-117); Anion Gap 13 (12-20); Aspartate Amino Transferase 24 U/L (5-31); Bilirubin Total 0.6 mg/dL (0.0-1.0); Blood Urea Nitrogen 11 mg/dL (9-16); Calcium 9.3 mg/dL (8.4-10.2); Carbon Dioxide 28 mmol/L (22-29); Chloride 104 mmol/L (96-108); Creatinine Clr Calc Pharmacy 81.6; Estimated Glomerular Filt Rate > 60; Glucose Random 111 mg/dL (60-115); Potassium 4.1 mmol/L (3.3-5.1); Sodium 141 mmol/L (135-145); Total Protein 7.5 g/dL (6.5-8.0)
[2024-12-22 19:19] LABS: Basophils Absolute Auto 0.1 X10*3/uL (0.0-0.2); Basophils Percent Auto 0.5 % (0-2); Eosinophils Absolute Auto 0.6 X10*3/uL (0.0-0.4); Eosinophils Percent Auto 6.4 % (0-4); Hematocrit 39.5 % (37.0-47.0); Hemoglobin 13.2 g/dl (12.0-16.0); Imm Gran Abs Auto 0.03 X10*3/uL (0.00-0.03); Imm Gran Pct Auto 0.3 % (0.0-0.4); Lymphocytes Absolute Auto 1.9 X10*3/uL (1.2-4.9); Lymphocytes Percent Auto 20.9 % (20-40); Mean Corpuscular HGB Conc 33.4 g/dl (31.0-35.0); Mean Corpuscular Hemoglobin 27.8 pg (27.0-33.0); Mean Corpuscular Volume 83.2 fL (80.0-98.0); Mean Platelet Volume 10.6 fL (9.4-12.3); Monocytes Absolute Auto 0.7 X10*3/uL (0.1-1.2); Monocytes Percent Auto 7.9 % (2-11); Neutrophils Absolute Auto 5.9 x10*3/uL (2.0-8.3); Platelet Count 308 X10*3/uL (160-400); Red Blood Count 4.75 X10*6/uL (4.20-5.50); Red Cell Distribution Width 13.4 % (11.0-16.0); White Blood Count 9.3 X10*3/uL (4.8-10.8)
== END 2024-12-22 20:10 | disposition left against medical advice (07) ==
PROVIDERS: Registered Nurse Emergency; Emergency Provider Emergency Medicine; PCP Internal Medicine
DX: M54.2 Cervicalgia (principal); R51.9 Headache, unspecified; R42 Dizziness and giddiness
CPT/HCPCS: 36415; 70450; 72125; 80053; 85025; 99281; 99284

== ENCOUNTER → 2024-12-22 18:04 | Outpatient (BNV) | payer OTHER, SELFPAY | PROVIDERS: PCP Internal Medicine; Visit Provider Student in an Organized Health Care Education/Training Program | DX: M54.2 Cervicalgia (principal); H53.8 Other visual disturbances; S09.90XA Unspecified injury of head, initial encounter | CPT/HCPCS: 70450; 72125 ==

== ENCOUNTER 2025-02-28 10:56 | Emergency (ER) | payer OTHER, SELFPAY ==
--- NOTE | ~2025-02-28 | CT_ITS ---
EXAMINATION: CT ABDOMEN AND PELVIS WITH CONTRAST CLINICAL INFORMATION: Diffuse abdominal pain, more intense inferiorly COMPARISON: February 21, 2020 TECHNIQUE: Multidetector volumetric images were obtained from the superior aspect of the liver through the pubic symphysis following administration 85 mL of Omnipaque 350 intravenous contrast. Sagittal and coronal reformatted images were obtained on the technologist's workstation. Oral contrast: No This CT examination was performed using dose optimization techniques as appropriate, variously including the following: *Automated exposure control *Adjustment of mA and/or kV according to patient size (this includes techniques or standardized protocols for targeted exams where dose is matched to indication/reason for exam; i.e. extremities or head) *Use of iterative reconstruction technique DLP: 346 mGY*cm FINDINGS: LUNG BASES: The visualized lung bases are unremarkable. LIVER, GALLBLADDER, AND BILIARY TREE: There is a simple hepatic cyst in the left medial lobe, adjacent fissure for ligamentum teres. Focally increased attenuation in the gallbladder could represent stone or polyp, unchanged. PANCREAS: Unremarkable. SPLEEN: Unremarkable. ADRENAL GLANDS: Unremarkable. KIDNEYS AND URETERS: The kidneys are normal in size, shape, and attenuation. No hydronephrosis, hydroureter, or calculi seen. No perinephric stranding. BLADDER: Unremarkable. GASTROINTESTINAL TRACT: Metallic suture line along the medial cecum is probably related to prior appendectomy. The GI tract is unremarkable. ABDOMINAL WALL: No significant hernia is appreciated. LYMPH NODES: Normal. VASCULAR: Unremarkable. PELVIC VISCERA: Unremarkable. OSSEOUS STRUCTURES: Unremarkable. CT/CT abdomen pelvis w IV con IMPRESSION: Unremarkable abdomen and pelvis. Fleischner guidelines were followed. Electronically signed by: Pb Mackenzie MD 02/28/2025 12:42 PM EDT
--- NOTE | ~2025-02-28 | US_ITS ---
EXAMINATION: US PELVIS CLINICAL INFORMATION: Pelvic pain bilaterally, emesis COMPARISON: CT February 28, 2025 ultrasound October 2022 TECHNIQUE: Ultrasound of the pelvis is performed using both transabdominal and transvaginal transducers along with Doppler. Transvaginal imaging is performed due to inadequate visualization transabdominally. FINDINGS: Uterus: The uterus is anteverted and measures 8.3 x 5.2 x 6.1 cm. The double wall endometrial thickness is 8 mm. The uterus is smooth in contour and has normal myometrial echogenicity. No visible fibroid. Adnexa: Both ovaries are visualized. There is normal color flow to the adnexa. Low resistance arterial and venous waveforms were documented. There is no ovarian torsion. There is no pelvic ascites or fluid collection. Right ovary measures 2.8 x 2.0 x 3.2 cm. Left ovary measures 2.8 x 1.4 x 2.6 cm. Mildly prominent vasculature is present in the adnexa, of uncertain significance. Both ovarian veins were patent on CT. US/US pelvic ovarian doppler IMPRESSION: Unremarkable pelvic ultrasound. Electronically signed by: Pb Mackenzie MD 02/28/2025 03:00 PM EDT
--- NOTE | ~2025-02-28 | US_ITS ---
EXAMINATION: US PELVIS CLINICAL INFORMATION: Pelvic pain bilaterally, emesis COMPARISON: CT February 28, 2025 ultrasound October 2022 TECHNIQUE: Ultrasound of the pelvis is performed using both transabdominal and transvaginal transducers along with Doppler. Transvaginal imaging is performed due to inadequate visualization transabdominally. FINDINGS: Uterus: The uterus is anteverted and measures 8.3 x 5.2 x 6.1 cm. The double wall endometrial thickness is 8 mm. The uterus is smooth in contour and has normal myometrial echogenicity. No visible fibroid. Adnexa: Both ovaries are visualized. There is normal color flow to the adnexa. Low resistance arterial and venous waveforms were documented. There is no ovarian torsion. There is no pelvic ascites or fluid collection. Right ovary measures 2.8 x 2.0 x 3.2 cm. Left ovary measures 2.8 x 1.4 x 2.6 cm. Mildly prominent vasculature is present in the adnexa, of uncertain significance. Both ovarian veins were patent on CT. US/US pelvic and transvaginal IMPRESSION: Unremarkable pelvic ultrasound. Electronically signed by: Pb Mackenzie MD 02/28/2025 03:00 PM EDT
[2025-02-28 11:04] VITALS: BP 128/80; PULSE 93; RESP 18; TEMP 37.1; O2SAT 100; BMI 23.9
--- NOTE | 2025-02-28 11:04 | ED.ABDPAIN ---
HPI - Abdominal Pain General Chief Complaint: Abdominal Pain Stated Complaint: 06/20 abd/ back pain Time Seen by Provider: 02/28/25 11:33 Source: patient Mode of arrival: ambulatory Limitations: no limitations History of Present Illness ED Provider: RADHIKA PERALTA PA-C HPI narrative: 29-year-old female A1 with pmhx significant for anxiety and depression, PTSD presents to the ED today for evaluation of abdominal pain x2-3 weeks. Reports pain radiates from bilateral flanks to lower abdomen. Admits to cramping sensation. Pain has been intermittent over the last few weeks, becoming more constant yesterday. She reports nausea with vomiting. Last episode of vomiting this morning. She is currently trying to conceive a child. Her last menstrual period was at the end of December this year. She is not currently on any form of control. She reports taking 3 home urine tests 3 weeks ago that had faintly positive lines . She subsequently followed up with her OBGYN at [facility] where she had a negative urine test in office. She was advised to follow up with their office in a few weeks. She reports taking another urine test at home this morning which was also negative. She is still yet to get her menstrual period. She has not had any vaginal bleeding or abnormal vaginal discharge. Denies any fever or chills. Denies any urinary symptoms including dysuria, hematuria, increased urinary frequency. She reports testing negative for STDs 3 months ago. Since then and has had no new sexual partners. She is in a monogamous relationship. She denies any concern for STDs at this time. Related Data Home Medications ?Medication ?Instructions ?Recorded ?Confirmed desogestrel 0.15 mg-ethinyl 1 tab PO DAILY 01/07/22 04/06/23 estradiol 0.03 mg tablet (Apri) Previous Rx's ?Medication ?Instructions ?Recorded hydroxyzine HCl 10 mg tablet 10 mg PO TID PRN anxiety 14 days 01/10/22 #42 tabs clonidine HCl 0.1 mg tablet 0.1 mg PO TID 7 days #21 tabs 01/24/22 escitalopram oxalate 20 mg tablet 20 mg PO DAILY 14 days #14 tabs 01/24/22 (Lexapro) lorazepam 1 mg tablet (Ativan) 1 mg PO DAILY PRN anxiety #1 tab 03/01/22 morphine 15 mg immediate release 15 mg PO Q4-6H PRN pain #10 tabs 10/20/22 tablet hydroxyzine HCl 25 mg tablet 25 mg PO TID PRN anxiety #20 tabs 12/13/22 hydroxyzine HCl 25 mg tablet 25 mg PO BID PRN anxiety #20 tabs 01/24/23 hydroxyzine HCl 25 mg tablet 25 mg PO TID PRN anxiety #20 tabs 02/20/23 doxycycline monohydrate 100 mg 100 mg PO BID #14 caps 03/19/23 capsule ibuprofen 600 mg tablet 600 mg PO Q8H PRN pain #20 tabs 03/19/23 metronidazole 500 mg tablet 500 mg PO BID 7 days #14 tabs 03/19/23 tramadol 50 mg tablet 50 mg PO BID PRN severe pain 03/19/23 (scale score 7-10) #6 tabs clindamycin HCl 300 mg capsule 300 mg PO TID 5 days #15 caps 04/01/23 hydroxyzine HCl 25 mg tablet 25 mg PO TID PRN anxiety #20 tabs 06/02/23 lorazepam 0.5 mg tablet (Ativan) 0.5 mg PO BID PRN anxiety #10 tabs 07/19/23 albuterol sulfate 2.5 mg/3 mL 2.5 mg (3 mL) inhalation Q4-6H PRN 03/22/24 (0.083 %) solution for nebulization bronchospasm #75 mL ondansetron 4 mg disintegrating 4 mg PO Q12H PRN nausea and 02/28/25 tablet vomiting 5 days #10 tabs Allergies Allergy/AdvReac Type Severity Reaction Status Date / Time penicillin G (PENICILLIN G) Allergy Mild SWELLING Verified 02/28/25 11:05 SEAFOOD Allergy Unknown UNKNOWN Uncoded 02/28/25 11:05 Review of Systems Review of Systems Constitutional: No fever, chills, fatigue, night sweats, weight changes ENT/Mouth: No ear pain, hearing loss, nasal congestion, sinus pain, rhinorrhea, sore throat Eyes: No eye pain, swelling, redness, vision changes, discharge Cardio: No chest pain, palpitations, ROSALES, orthopnea, peripheral edema Pulm: No SOB, cough, sputum, wheezing, dyspnea, hemoptysis GI: No hematemesis, diarrhea, constipation, hematochezia, melena, +abd pain, +N/V : No irregular bleeding, dysuria, frequency, urgency, hesitancy, hematuria, urinary flow changes, urinary incontinence or retention, +flank pain MSK: No back pain, neck pain, joint pain, myalgias Skin: No lesions, rashes Neuro: No weakness, numbness, paresthesias, LOC, dizziness, headache Psych: No anxiety/panic, depression, SI/HI, AH/VH All other systems reviewed and are negative. [facility] Past Medical History Attestation statement: The following information was validated with the patient. Source: old records reviewed and nursing notes reviewed Medical History Open wound Allergic rhinitis Eczema Exercise-induced asthma Rib fracture Asthma Surgical History History of ankle surgery History of appendectomy Social History Social History Household Members: Children Alcohol intake: current Alcohol intake frequency: holidays/special occasions only Alcohol type: hard liquor Patient Tobacco Use Status: Never used Tobacco Substance Use Type: Marijuana Physical Exam ED Vital Signs: Vital Signs - 24 hr 02/28/25 11:04 02/28/25 11:42 02/28/25 14:01 Temperature 98.7 F 98.7 F 98.5 F Pulse Rate 93 90 92 Respiratory Rate 18 16 16 Blood Pressure 128/80 108/78 110/76 Pulse Oximetry 100 98 100 Oxygen Delivery Method Room Air Room Air Room Air 02/28/25 15:41 Temperature 98.5 F Pulse Rate 92 Respiratory Rate 16 Blood Pressure 110/76 Pulse Oximetry 100 Oxygen Delivery Method Room Air BMI result Body Mass Index 23.9 vital signs stable General: Well appearing, in no acute distress. Skin: Warm, dry, intact. No rashes or lesions. Head: Normocephalic, atraumatic. EENT: Hearing is intact b/l. Conjunctiva clear. Sclera is anicteric. PERRLA. EOM intact. Moist mucous membranes.? Neck: Supple without LAD Cardiac: Chest wall symmetric. RRR Lungs: Normal respiratory effort without accessory muscle use. CTA bilaterally Abdomen: Soft, non-tender, non-distended. No rebound tenderness or guarding. Positive BS x4. No CVAT bilaterally. Back: No midline spinous or paraspinal tenderness. No step off deformity. Ext: Upper and lower extremities atraumatic, without tenderness, deformity, swelling or erythema Neuro: AOx3. Normal speech. Ambulating with steady gait. Course Course Course Narrative: This is a Rapid Medical Examination (RME) performed by Annalee Dodge PA-C in triage. Full HPI, ROS, assessment and treatment plan per primary provider in the Main ED. 29 y/o female with history of anxiety and depression, PTSD presenting with lower abdominal cramping and severe pains for the last 2-3 weeks. LMP late December? She had faintly positive tests early this month but was negative at OB office. No vaginal bleeding or discharge. On exam she is tearful, slow gait. +CVA tenderness bilaterally, lower abdominal tenderness and guarding. Plan: labs and UA to start. imaging pending lab results Reevaluation(s) Reevaluation #1: CBC without leukocytosis or left shift. No anemia. H&H stable. Chemistry without acute electrolyte abnormality requiring intervention. No PEDRO. Normal liver function. Beta quant undetectable. Not . UA likely contaminated, no infection. CT abdomen/pelvis unremarkable. Pelvic ultrasound without ovarian cysts, no free fluid in the pelvis, no ovarian torsion. > patient medicated with IV fluids, Toradol, Zofran with improvement. Well-appearing. tolerating PO. Discussed all workup results with patient. She expresses relief with unremarkable workup. Advised patient. She verbalizes understanding. Patient has remained stable throughout ED visit today. Discussed worrisome signs and symptoms and when to return to the ED. All questions answered at this time. Patient is agreeable with disposition and stable for discharge. Medical Decision Making Medical Decision Making MDM Narrative: 29-year-old female A1 with pmhx significant for anxiety and depression, PTSD presents to the ED today for evaluation of abdominal pain x2-3 weeks. Differential diagnoses: appendicitis, UTI, IUP, constipation Abdominal exam without peritoneal signs. No evidence of acute abdomen at this time. Well appearing. Low suspicion for acute hepatobiliary disease (including acute cholecystitis), acute infectious processes (pneumonia, hepatitis, pyelonephritis, PID, TOA), vascular catastrophe, bowel obstruction or viscus perforation, ovarian cyst/ rupture/ torsion, ectopic. Presentation not consistent with other acute, emergent causes of abdominal pain at this time. Plan: labs, UA, CT AP, pain control, fluids, serial reassessment Differential Diagnosis Differential Diagnoses: The differential diagnosis associated with the presentation includes as above. Admission/Observation not indicated Lab Data MDM Lab Attestation statement: I reviewed the patient's lab results. as above. 02/28/25 11:18 02/28/25 11:18 Labs: Lab Results 02/28/25 02/28/25 Range/Units 11:18 11:22 WBC 8.6 (4.8-10.8) X10*3/uL RBC 4.80 (4.20-5.50) X10*6/uL Hgb 13.2 (12.0-16.0) g/dl Hct 37.9 (37.0-47.0) % MCV 79.0 L (80.0-98.0) fL MCH 27.5 (27.0-33.0) pg MCHC 34.8 (31.0-35.0) g/dl RDW 13.5 (11.0-16.0) % Plt Count 350 (160-400) X10*3/uL MPV 9.9 (9.4-12.3) fL Immature Gran % (Auto) 0.3 (0.0-0.4) % Neut % (Auto) 59.4 (45-73) % Lymph % (Auto) 24.6 (20-40) % [place] % (Auto) 7.9 (2-11) % Eos % (Auto) 7.5 H (0-4) % Baso % (Auto) 0.3 (0-2) % Lymph # (Auto) 2.1 (1.2-4.9) X10*3/uL [place] # (Auto) 0.7 (0.1-1.2) X10*3/uL Eos # (Auto) 0.7 H (0.0-0.4) X10*3/uL Baso # (Auto) 0.0 (0.0-0.2) X10*3/uL Abs Immat Gran (auto) 0.03 (0.00-0.03) X10*3/uL Absolute Neuts (auto) 5.1 (2.0-8.3) x10*3/uL Absolute Nucleated RBC 0.000 (0.0-0.012) X10*3/uL Nucleated RBC % (auto) 0.0 (0.0-0.2) /100WBC Sodium 140 (135-145) mmol/L Potassium 3.6 (3.3-5.1) mmol/L Chloride 108 (96-108) mmol/L Carbon Dioxide 28 (22-29) mmol/L Anion Gap 8 L (12-20) BUN 8 L (9-16) mg/dL Creatinine 0.74 (0.5-1.4) mg/dL Estim Creat Clear Calc 96.0 Estimated GFR > 60 Random Glucose 95 (60-115) mg/dL Calcium 8.9 (8.4-10.2) mg/dL Magnesium 1.8 (1.6-2.6) mg/dL Total Bilirubin 0.7 (0.0-1.0) mg/dL Direct Bilirubin 0.2 (0.0-0.5) mg/dL AST 23 (5-31) U/L ALT 26 (0-31) U/L Alkaline Phosphatase 61 (39-117) U/L Total Protein 7.1 (6.5-8.0) g/dL Albumin 4.3 (3.5-5.0) g/dL Lipase 18 (8-78) U/L Beta HCG, Quant < 2 mIU/mL Urine Color Yellow Urine Appearance Clear Urine pH 6.0 (5.0-9.0) Ur Specific [place] 1.025 (1.005-1.025) Urine Protein Negative (Neg-Trace) mg/dL Urine Glucose (UA) Negative (Negative) mg/dL Urine Ketones Trace (Negative) mg/dL Urine Blood Negative (Negative) Urine Nitrite Negative (Negative) Ur Leukocyte Esterase Trace H (Negative) Urine RBC 0-2 (0-2) /HPF Urine WBC 0-5 (0-5) /HPF Ur Squamous Epith Cells 11-20 (0-2) /HPF Urine Bacteria Trace (None Seen) Hyaline Casts 0-2 (0-2) /LPF Independent Interpretation I performed an independent interpretation of an: CT Scan Interpretation: CT scan without bowel obstruction Pelvic ultrasound without ovarian cysts, no torsion Radiology Impression Discussion of test interpretation with radiology: I have reviewed the radiologist's reading. Radiologist Impression: Date of Service: 02/28/25 Procedure(s): CT abdomen pelvis w IV con Accession Number(s): [id number] cc: Shayne Benavides MD; Radhika Peralta~ Report Number: [id number]: Total DLP = 346.00 mGy-cm EXAMINATION: CT ABDOMEN AND PELVIS WITH CONTRAST CLINICAL INFORMATION: Diffuse abdominal pain, more intense inferiorly COMPARISON: February 21, 2020 TECHNIQUE: Multidetector volumetric images were obtained from the superior aspect of the liver through the pubic symphysis following administration 85 mL of Omnipaque 350 intravenous contrast. Sagittal and coronal reformatted images were obtained on the technologist's workstation. Oral contrast: No This CT examination was performed using dose optimization techniques as appropriate, variously including the following: *Automated exposure control *Adjustment of mA and/or kV according to patient size (this includes techniques or standardized protocols for targeted exams where dose is matched to indication/reason for exam; i.e. extremities or head) *Use of iterative reconstruction technique DLP: 346 mGY*cm FINDINGS: LUNG BASES: The visualized lung bases are unremarkable. LIVER, GALLBLADDER, AND BILIARY TREE: There is a simple hepatic cyst in the left medial lobe, adjacent fissure for ligamentum teres. Focally increased attenuation in the gallbladder could represent stone or polyp, unchanged. PANCREAS: Unremarkable. SPLEEN: Unremarkable. ADRENAL GLANDS: Unremarkable. KIDNEYS AND URETERS: The kidneys are normal in size, shape, and attenuation. No hydronephrosis, hydroureter, or calculi seen. No perinephric stranding. BLADDER: Unremarkable. GASTROINTESTINAL TRACT: Metallic suture line along the medial cecum is probably related to prior appendectomy. The GI tract is unremarkable. ABDOMINAL WALL: No significant hernia is appreciated. LYMPH NODES: Normal. VASCULAR: Unremarkable. PELVIC VISCERA: Unremarkable. OSSEOUS STRUCTURES: Unremarkable. CT/CT abdomen pelvis w IV con IMPRESSION: Unremarkable abdomen and pelvis. Fleischner guidelines were followed. Electronically signed by: Pb Mackenzie MD 02/28/2025 12:42 PM EDT Date of Service: 02/28/25 Procedure(s): US pelvic and transvaginal Accession Number(s): [id number] cc: Shayne Benavides MD; Radhika Peralta~ EXAMINATION: US PELVIS CLINICAL INFORMATION: Pelvic pain bilaterally, emesis COMPARISON: CT February 28, 2025 ultrasound October 2022 TECHNIQUE: Ultrasound of the pelvis is performed using both transabdominal and transvaginal transducers along with Doppler. Transvaginal imaging is performed due to inadequate visualization transabdominally. FINDINGS: Uterus: The uterus is anteverted and measures 8.3 x 5.2 x 6.1 cm. The double wall endometrial thickness is 8 mm. The uterus is smooth in contour and has normal myometrial echogenicity. No visible fibroid. Adnexa: Both ovaries are visualized. There is normal color flow to the adnexa. Low resistance arterial and venous waveforms were documented. There is no ovarian torsion. There is no pelvic ascites or fluid collection. Right ovary measures 2.8 x 2.0 x 3.2 cm. Left ovary measures 2.8 x 1.4 x 2.6 cm. Mildly prominent vasculature is present in the adnexa, of uncertain significance. Both ovarian veins were patent on CT. US/US pelvic and transvaginal IMPRESSION: Unremarkable pelvic ultrasound. Electronically signed by: Pb Mackenzie MD 02/28/2025 03:00 PM EDT RP External Record Review External record reviewed: Inpatient record Prescription Management I considered prescription management with: Pain Medication Social Determinants Patient?s care significantly limited by Social Determinants of Health including: Other Social Determinant of Health Medications Administered Discontinued Medications Generic Name Dose Route Start Last Admin Trade Name Freq PRN Reason Stop Dose Admin Sodium Chloride 1,000 mls @ 999 mls/hr 02/28/25 12:00 02/28/25 14:07 Ns IV 02/28/25 13:00 Infused .Q1H1M DUNCAN Infusion Iohexol 100 ml 02/28/25 12:28 02/28/25 12:29 Iohexol 350 Mg/Ml 100 Ml Infus..Btl IV 02/28/25 12:29 85 ml ONCE ONE Administration Ketorolac Tromethamine 15 mg 02/28/25 11:58 02/28/25 12:13 Ketorolac Tromethamine 15 Mg/Ml Vial IVPUSH 02/28/25 11:59 15 mg ONCE ONE Administration Ondansetron HCl 4 mg 02/28/25 11:58 02/28/25 12:14 Ondansetron Hcl 4 Mg/2 Ml Vial IVPUSH 02/28/25 11:59 4 mg ONCE ONE Administration Critical Care Time Critical Care Time Critical Care Time: No Discharge Plan Discharge Clinical Impression: Abdominal pain Patient Disposition: Home, Self-Care Instructions: Abdominal Pain (ED) Additional Instructions: Your workup today is reassuring Your blood work does not show an elevated white count or anemia. Your blood test is negative. Your urine does not demonstrate blood or infection. The CT of your abdomen/pelvis does not show any acute abnormality. The ultrasound of your pelvis shows normal ovaries with good blood flow. No evidence of ovarian cysts. At this time, etiology of your symptoms is unclear. I recommend Motrin at home as needed for pain. I am sending Zofran for you to take as needed for nausea or vomiting. I recommend following up with your provider [facility] for further evaluation. I also recommend following up with your primary care provider. Return to the emergency department with any new or worsening symptoms. In the case of an emergency call 911. Prescriptions: New ondansetron 4 mg tablet,disintegrating 4 mg PO Q12H PRN (Reason: nausea and vomiting) 5 Days Qty: 10 0RF No Action desogestrel-ethinyl estradiol [Apri] 0.15-0.03 mg Tablet 1 tab PO DAILY hydroxyzine HCl 10 mg tablet 10 mg PO TID PRN (Reason: anxiety) 14 Days Qty: 42 0RF clonidine HCl 0.1 mg tablet 0.1 mg PO TID 7 Days Qty: 21 0RF escitalopram oxalate [Lexapro] 20 mg tablet 20 mg PO DAILY 14 Days Qty: 14 0RF lorazepam [Ativan] 1 mg tablet 1 mg PO DAILY PRN (Reason: anxiety) Qty: 1 0RF morphine 15 mg tablet 15 mg PO Q4-6H PRN (Reason: pain) Qty: 10 0RF Rx Instructions: The patient may ask for partial fill; Partial Fill upon patient request. hydroxyzine HCl 25 mg tablet 25 mg PO BID PRN (Reason: anxiety) Qty: 20 0RF hydroxyzine HCl 25 mg tablet 25 mg PO TID PRN (Reason: anxiety) Qty: 20 0RF metronidazole 500 mg tablet 500 mg PO BID 7 Days Qty: 14 0RF doxycycline monohydrate 100 mg capsule 100 mg PO BID Qty: 14 0RF ibuprofen 600 mg tablet 600 mg PO Q8H PRN (Reason: pain) Qty: 20 0RF tramadol 50 mg tablet 50 mg PO BID PRN (Reason: severe pain (scale score 7-10)) Qty: 6 0RF lorazepam [Ativan] 0.5 mg tablet 0.5 mg PO BID PRN (Reason: anxiety) Qty: 10 0RF albuterol sulfate 2.5 mg /3 mL (0.083 %) solution for nebulization 2.5 mg inhalation Q4-6H PRN (Reason: bronchospasm) Qty: 75 0RF hydroxyzine HCl 25 mg tablet 25 mg PO TID PRN (Reason: anxiety) Qty: 20 0RF clindamycin HCl 300 mg capsule 300 mg PO TID 5 Days Qty: 15 0RF hydroxyzine HCl 25 mg tablet 25 mg PO TID PRN (Reason: anxiety) Qty: 20 0RF Referrals: Shayne Benavides MD [Primary Care Provider, Internal Medicine] Stand Alone Forms: Work/School Release Interventions: ED Discharge Assessment Last Done: 02/28/25 15:41 Discharge Date/Time: 02/28/25 15:41 Print Language: Icelandic
[2025-02-28 11:26] LABS: MANUAL DIFF FLAG NO
[2025-02-28 11:27] LABS: Basophils Percent Auto 0.3 % (0-2); Eosinophils Absolute Auto 0.7 X10*3/uL (0.0-0.4); Eosinophils Percent Auto 7.5 % (0-4); Hematocrit 37.9 % (37.0-47.0); Hemoglobin 13.2 g/dl (12.0-16.0); Imm Gran Abs Auto 0.03 X10*3/uL (0.00-0.03); Imm Gran Pct Auto 0.3 % (0.0-0.4); Lymphocytes Absolute Auto 2.1 X10*3/uL (1.2-4.9); Lymphocytes Percent Auto 24.6 % (20-40); Mean Corpuscular HGB Conc 34.8 g/dl (31.0-35.0); Mean Corpuscular Hemoglobin 27.5 pg (27.0-33.0); Mean Platelet Volume 9.9 fL (9.4-12.3); Monocytes Absolute Auto 0.7 X10*3/uL (0.1-1.2); Monocytes Percent Auto 7.9 % (2-11); Neutrophils Absolute Auto 5.1 x10*3/uL (2.0-8.3); Neutrophils Percent Auto 59.4 % (45-73); Platelet Count 350 X10*3/uL (160-400); Red Cell Distribution Width 13.5 % (11.0-16.0); White Blood Count 8.6 X10*3/uL (4.8-10.8)
[2025-02-28 11:28] LABS: Appearance Urine Clear; Color Urine Yellow; Glucose Urine UA Negative (Negative); Leukocyte Esterase Urine Trace (Negative); Nitrite Urine Negative (Negative); Specific Gravity - Urine 1.025 (1.005-1.025); UMIC TRIGGER UACC YES; Urine Blood Negative (Negative); Urine Ketones Trace mg/dL (Negative); Urine Protein Negative (Neg-Trace)
[2025-02-28 11:31] LABS: Bacteria Urine Trace (None Seen); Hyaline Casts Urine 0-2 /LPF (0-2); RBC Urine 0-2 /HPF (0-2); WBC Urine 0-5 /HPF (0-5)
[2025-02-28 11:42] VITALS: BP 108/78; PULSE 90; RESP 16; TEMP 37.1; O2SAT 98
[2025-02-28 11:42] LABS: Alanine Aminotransferase 26 U/L (0-31); Albumin Level 4.3 g/dL (3.5-5.0); Alkaline Phosphatase 61 U/L (39-117); Anion Gap 8 (12-20); Aspartate Amino Transferase 23 U/L (5-31); Bilirubin Direct 0.2 mg/dL (0.0-0.5); Bilirubin Total 0.7 mg/dL (0.0-1.0); Blood Urea Nitrogen 8 mg/dL (9-16); Calcium 8.9 mg/dL (8.4-10.2); Carbon Dioxide 28 mmol/L (22-29); Chloride 108 mmol/L (96-108); Estimated Glomerular Filt Rate > 60; Glucose Random 95 mg/dL (60-115); Lipase 18 U/L (8-78); Magnesium 1.8 mg/dL (1.6-2.6); Potassium 3.6 mmol/L (3.3-5.1); Sodium 140 mmol/L (135-145); Total Protein 7.1 g/dL (6.5-8.0)
[2025-02-28 11:49] LABS: HCG Quantitative < 2 mIU/mL
--- OUTSIDE RECORDS SUMMARY | 2025-02-28 11:50 | XMS_ITS | Clinical Summary ---
Author Organization [facility] [address] [facility] Address [address] [place] [address] Phone Care Team Providers Care Bolt Cutter Name Role Phone Shayne Benavides MD Primary Care Provider Allergies Active Allergy Reactions Criticality Noted Date Comments Other 02/08/2024 Seafood Penicillins 08/28/2013 Medications albuterol HFA (PROAIR HFA ; PROVENTIL HFA ; VENTOLIN HFA) 90 mcg/actuation inhaler Inhale 2 Puffs into the lungs every 4 hours as needed for Cough, Wheezing or Shortness of Breath 4 Active escitalopram (LEXAPRO) 10 mg tablet Take 1 tablet (10 mg total) by mouth 1 (one) time each day. 4 Active hydrOXYzine HCL (ATARAX) 10 mg tablet Take 1 tablet (10 mg total) by mouth 3 (three) times a day if needed for anxiety. 4 Active Active Problems Problem Noted Date Diagnosed Date Anxiety 01/16/2021 Allergic rhinitis 08/28/2013 Eczema 08/28/2013 Exercise-induced asthma 08/28/2013 Immunizations Name Administration Dates Next Due PPD Test 12/21/2015,09/16/2013,08/28/2013 Td Tetanus diptheria (Tdvax) 7yo and older 03/22 Tdap Tetanus diptheria acell ular pertussis (Boostrix; Adacel) 7yo and older 08/28/2013 Surgical History Surgery Date Site/Laterality Comments APPENDECTOMY 11/2012 PROCEDURE: HISTORICAL APPENDECTOMY ANKLE SURGERY 04/2013 PROCEDURE: HISTORICAL ANKLE SURGERY; COMMENT: fracture,s/p metal yarelis Medical History Medical History Date Comments Allergic rhinitis 08/28/2013 DX:Allergic rh initis Exercise-induced asthma 08/28/2013 DX:Exerc ise-induced asthma Eczema 08/28/2013 DX:Eczema Chlamydia contact, treated 11/2013 DX:Ch lamydia contact, treated Family History Medical History Relation Name Comments No Known Problems Daughter No Known Problems Father Lung cancer Maternal Grandfather Diabetes Maternal Grandmother HTN, h eart condition No Known Problems Mother Other: Bone Marrow disease Paternal Grandfather Diabetes Paternal Grandmother Other: CKD Sister 1 No Known Problems Sister 2 x4 healthy sisters Asthma Son Relation Name Status Comments Daughter Alive Father Alive Maternal Grandfather Maternal Grandmother Mother Alive Paternal Grandfather Paternal Grandmother Alive Sister 1 Alive Sister 2 Alive Son Alive Social History Tobacco Use Types Packs/Day Years Used Date Smoking Tobacco: Never Smokeless Tobacco: Never Alcohol Use Standard Drinks/Week Comments Yes 0 (1 standard drink = 0.6 oz pur e alcohol) Comments No Sex and Gender Information Value Date Recorded Sex Assigned at Not on file Legal Sex Female 4:56 PM EST Gender Identity Not on file Sexual Orientation Not on file Obstetrics History Last Filed Vital Signs Vital Sign Reading Time Taken Comments Blood Pressure 132/77 10/04/2024 1:03 PM EST Pulse 68 10/04/2024 1:03 PM EST Temperature 37.2 C (99 F) 10/04/2024 1:03 PM EST Respiratory Rate 19 10/04/2024 1:03 PM EST Oxygen Saturation 100% 10/04/2024 1:03 PM EST Inhaled Oxygen Concentration - - Weight 53.1 kg (117 lb) 10/04/2024 1:03 PM EST Height 162.6 cm (5' 4 ) 10/04/2024 1:03 PM EST Body Mass Index 20.08 10/04/2024 1:03 PM EST Plan of Treatment Health Maintenance Due Date Last Done Comments Hepatitis B Vaccines (1 of 3 - 19+ 3-dose series) 2013 Pneumococcal Vaccine: Pediatrics (0 to 5 Years) and At-Risk Patients (6 to 64 Years) (1 of 2 - PCV) 2013 Cervical Cancer Screening: Pap Smear 06/08/2019 06/08/2016, 06/08/2016 Social Influencers of Health Screening 08/10/2022 COVID-19 Vaccine (2 - season) 2024 10/16/2021 Depression Screening 02/07/2025 02/08/2024 Influenza Vaccine (Season Ended) 2025 09/07/2016, 06/13/2014 Cholesterol Screening (Lipid Panel) 02/07/2029 02/08/2024, 02/08/2024 DTaP,Tdap,and Td Vaccines (6 - Td or Tdap) 03/19/2033 03/19/2023, 03/22/2021, 08/22/2016, Additional history exists HIV Screening Completed 02/08/2024, 2016 Hepatitis C Screening Completed 02/08/2024 HIB Vaccines Aged Out No longer eligi ble based on patient's age to complete this topic HPV Vaccines Aged Out No longer eligi ble based on patient's age to complete this topic Hepatitis A Vaccines Aged Out No long er eligible based on patient's age to complete this topic IPV Vaccines Aged Out No longer eligi ble based on patient's age to complete this topic MMR Vaccines Aged Out No longer eligi ble based on patient's age to complete this topic Meningococcal ACWY Vaccine Aged Out N o longer eligible based on patient's age to complete this topic Meningococcal B Vaccine Aged Out No l onger eligible based on patient's age to complete this topic RSV Immunization Patients Under 20 months Aged Out No longer eligible based on patient's age to complete this topic Varicella Vaccines Aged Out No longer eligible based on patient's age to complete this topic Procedures Procedure Name Priority Date/Time Associated Diagnosis Comments EXTERNAL CT REPORT 12/22/[address] REPORT 12/22/2024 HEPATITIS C SCREENING Routine 02/08/2024 HM DEPRESSION SCREENING Routine 02/08/2024 LIPID PANEL Routine 02/08/2024 HPV Routine 06/08/2016 HIV SCREENING Routine 2016 from Last 3 Months or Most Recently Relevant to Health Maintenance Results * External CT Report (12/22/2024) Only the most recent of2 resultswithin the time period is included. Anatomical Region Laterality Modality Computed Tomogra phy Provider [facility] CT PROCEDURES Final Result * Depression Screening (02/08/2024) Pathologist [facility] Depression Screening abstracted [facility] Provider HEALTH MAINTENANCE Final Result * Hepatitis C Screening (02/08/2024) Pathologist [facility] Hepatitis C Screening abstracted [facility] HEALTH MAINTENANCE Final Result * (ABNORMAL) Lipid panel (02/08/2024) [facility] LDL/HDL Ratio 3 0 - 4 Triglycerides 239(A) 0 - 150 mg/dL Cholesterol 183 0 - 200 mg/dL HDL 66 >=40 mg/dL LDL Cholesterol 70 0 - 100 mg/dL Blood Venous blood specimen / Unknown Result [facility] Provider LAB BLOOD ORDERABLES Padma l Result * Cervical Cancer Screening: HPV (06/08/2016) Pathologist [facility] Cervical Cancer Screening: HPV abstracted; negative [facility] HE[facility] MAINTENANCE Final Result * HIV Screening (2016) [facility] HIV Screening abstracted [facility] HEALTH MAINTENANCE Final Result from Last 3 Months or Most Recently Relevant to Health Maintenance Insurance [facility] [employer] Care Teams Bolt Cutter Relationship Specialty Start Date End Date Shayne Benavides MD [address] [place] [address] PCP - General 11/15/23
[2025-02-28] MEDS: Ketorolac Tromethamine 15 MG/ML VIAL IVPUSH (12:13)
[2025-02-28] MEDS: ondansetron HCL 4 MG/2 ML VIAL IVPUSH (12:14)
[2025-02-28] MEDS: 0.9 % Sodium Chloride 1,000 ML 999 ML IV (12:15)
--- NOTE | 2025-02-28 12:15 | PC.NURSE ---
20G IV access obtained in right hand. PT given warm blanket and self positioned to a comfortable position . lights dimmed, plan of care on going.
--- NOTE | 2025-02-28 12:16 | PC.NURSE ---
Pt medicated per mar, fluids paused for CT scan. Plan of care ongoing.
[2025-02-28] MEDS: iohexoL 350 MG/ML 100 ML INFUS..BTL IV (12:29)
--- NOTE | 2025-02-28 12:38 | PC.NURSE ---
PT back from CT scan, fluids reconnected and running, pain scale reassessed patient states she's a 7 out of 10 pain.
[2025-02-28 14:01] VITALS: BP 110/76; PULSE 92; RESP 16; TEMP 36.9; O2SAT 100
[2025-02-28 15:41] VITALS: BP 110/76; PULSE 92; RESP 16; TEMP 36.9; O2SAT 100
== END 2025-02-28 15:41 | disposition home or self-care (01) ==
PROVIDERS: Physician Assistant; Emergency Provider Emergency Medicine; PCP Internal Medicine
DX: R10.2 Pelvic and perineal pain (principal); M54.50 Low back pain, unspecified; F41.9 Anxiety disorder, unspecified; R11.2 Nausea with vomiting, unspecified; Z79.899 Other long term (current) drug therapy; Z20.2 Contact with and (suspected) exposure to infections with a predominantly sexual mode of transmission
CPT/HCPCS: 36415; 74177; 76830; 76856; 80048; 80076; 81001; 83690; 83735; 84702; 85025; 93975; 96361; 96374; 96375; 99284; 99285; J1885; J2405; Q9967

== ENCOUNTER → 2025-02-28 11:57 | Outpatient (BNV) | payer OTHER, SELFPAY | PROVIDERS: Emergency Provider Emergency Medicine; PCP Internal Medicine; Visit Provider Radiology Diagnostic Radiology | DX: R10.2 Pelvic and perineal pain (principal) | CPT/HCPCS: 74177; 76830; 76856; 93975 ==

== ENCOUNTER 2025-05-15 23:12 | Emergency (ER) | payer SELFPAY ==
[2025-05-15 23:18] VITALS: BP 133/85; PULSE 93; RESP 16; TEMP 36.8; O2SAT 99; BMI 23.9
--- NOTE | 2025-05-15 23:21 | ECG_ITS ---
Test Reason : SOB Blood Pressure : */* mmHG Vent. Rate : 85 BPM Atrial Rate : 85 BPM P-R Int : 172 ms QRS Dur : 90 ms QT Int : 362 ms P-R-T Axes : 83 78 59 degrees QTcB Int : 430 ms Normal sinus rhythm with sinus arrhythmia Normal ECG When compared with ECG of 22-Mar-2024 10:59, No significant change was found Referred By: Generic ED Physician Electronically Signed By: Lowell Angeles
[2025-05-15 23:45] LABS: MANUAL DIFF FLAG NO
[2025-05-15 23:46] LABS: Hematocrit 37.8 % (37.0-47.0); Hemoglobin 13.0 g/dl (12.0-16.0); Imm Gran Abs Auto 0.04 X10*3/uL (0.00-0.03); Imm Gran Pct Auto 0.4 % (0.0-0.4); Lymphocytes Absolute Auto 2.2 X10*3/uL (1.2-4.9); Mean Corpuscular HGB Conc 34.4 g/dl (31.0-35.0); Mean Corpuscular Hemoglobin 28.1 pg (27.0-33.0); Mean Corpuscular Volume 81.6 fL (80.0-98.0); NRBC Abs Auto 0.000 X10*3/uL (0.0-0.012); NRBC Pct Auto 0.0 /100WBC (0.0-0.2); Platelet Count 301 X10*3/uL (160-400); Red Blood Count 4.63 X10*6/uL (4.20-5.50); White Blood Count 10.9 X10*3/uL (4.8-10.8)
[2025-05-15 23:59] LABS: Alanine Aminotransferase 31 U/L (0-31); Albumin Level 4.4 g/dL (3.5-5.0); Alkaline Phosphatase 76 U/L (39-117); Anion Gap 15 (12-20); Aspartate Amino Transferase 29 U/L (5-31); Blood Urea Nitrogen 8 mg/dL (9-16); Calcium 8.9 mg/dL (8.4-10.2); Carbon Dioxide 28 mmol/L (22-29); Chloride 102 mmol/L (96-108); Creatinine Clr Calc Pharmacy 105.0; Estimated Glomerular Filt Rate > 60; Magnesium 1.9 mg/dL (1.6-2.6); Potassium 3.7 mmol/L (3.3-5.1); Sodium 141 mmol/L (135-145); Total Protein 7.2 g/dL (6.5-8.0)
--- NOTE | 2025-05-16 00:14 | PC.NURSE ---
this rn went to speak to pt at this time, pt noted to be in stretcher. AARON Szymanski made aware. per chargeback specialist, pt had went out to car approx. 30 mins ago and did not come back.
--- OUTSIDE RECORDS SUMMARY | 2025-05-16 00:20 | XMS_ITS | Clinical Summary ---
Author Organization [facility] [address] [facility] Address [address] [place] [address] Phone Care Team Providers Care Venereal Disease Investigator Name Role Phone Shayne Benavides MD Primary [...] 5 Years) and At-Risk Patients (6 to 49 Years) (1 of 2 - PCV) 2013 Cervical Cancer Screening: Pap Smear 06/08/2019 06/08/2016, 06/08/2016 Social Influencers of Health Screening 08/10/2022 Depression Screening 09/11/2024 02/08/2024 COVID-19 Vaccine ( season) 2025 10/16/2021 Influenza Vaccine (#1) 2025 09/07/2016, 2013 Cholesterol Screening (Lipid Panel) 02/07/2029 02/08/2024, 02/08/2024 [...] Name Priority Date/Time Associated Diagnosis Comments EXTERNAL ULTRASOUND REPORT 02/28/2025 EXTERNAL ULTRASOUND REPORT 02/28/2025 EXTERNAL ULTRASOUND REPORT 02/28/[address] REPORT 02/28/2025 HM DEPRESSION SCREENING Routine 02/08/2024 HEPATITIS C SCREENING Routine 02/08/2024 LIPID PANEL Routine 02/08/2024 HPV Routine 06/08/2016 HIV SCREENING Routine 2016 from Last 3 Months or Most Recently Relevant to Health Maintenance Results * External Ultrasound Report (02/28/2025) Only the most recent of3 resultswithin the time period is included. Anatomical Region Laterality Modality Ultrasound us Provider [facility] US PROCEDURES Final Result * External CT Report (02/28/2025) Anatomical Region Laterality Modality Computed Tomogra phy Provider [facility] CT PROCEDURES Final Result * Depression Screening (02/08/2024) Pathologist [facility] Depression Screening abstracted Result [facility] Provider HEALTH MAINTENANCE Final Result * Hepatitis C Screening (02/08/2024) Pathologist [facility] Hepatitis C Screening abstracted [facility] Provider HEALTH MAINTENANCE Final Result * (ABNORMAL) Lipid panel (02/08/2024) [facility] LDL/HDL Ratio 3 0 - 4 Triglycerides 239(A) 0 - 150 mg/dL Cholesterol 183 0 - 200 mg/dL HDL 66 >=40 mg/dL LDL Cholesterol 70 0 - 100 mg/dL Blood Venous blood specimen / Unknown Result [facility] Provider LAB BLOOD ORDERABLES Padma l Result * Cervical Cancer Screening: HPV (06/08/2016) Pathologist [facility] Cervical Cancer Screening: HPV abstracted; negative Result [facility] Provider HEALTH MAINTENANCE Final Result * HIV Screening (2016) [facility] HIV Screening abstracted [facility] Provider HEALTH MAINTENANCE Final Result from Last 3 Months or Most Recently Relevant to Health Maintenance Insurance [facility] [employer] Care Teams Venereal Disease Investigator Relationship Specialty Start Date End Date Shayne Benavides MD [address] [place] [address] PCP - General 11/15/23
--- OUTSIDE RECORDS SUMMARY | 2025-05-16 00:20 | XMS_ITS ---
Author Name [facility] Organization Unknown Care Team Organization Name Specialty Phone Email Start Date End Da te [facility] JHONY CRUZ Primary Care 07/19/2022 4
[2025-05-16 00:21] LABS: Troponin-I High Sensitivity < 2.7 ng/L (<3.5-17.0)
[2025-05-16 00:22] LABS: Resp Syncy Virus RNA Qual PCR NEGATIVE (Negative); SARS COV2 PCR INHOUSE NEGATIVE (Negative)
== END 2025-05-16 00:45 | disposition left against medical advice (07) ==
PROVIDERS: Emergency Provider Emergency Medicine; PCP Internal Medicine
DX: R06.02 Shortness of breath (principal); Z53.21 Procedure and treatment not carried out due to patient leaving prior to being seen by health care provider
CPT/HCPCS: 36415; 80053; 83735; 84484; 85025; 87637; 93005; 99281; 99283

== ENCOUNTER → 2025-05-15 23:21 | Outpatient (BNV) | payer SELFPAY | PROVIDERS: Emergency Provider Emergency Medicine; PCP Internal Medicine; Visit Provider Internal Medicine Cardiovascular Disease | DX: R06.02 Shortness of breath (principal) | CPT/HCPCS: 93010 ==

== ENCOUNTER 2025-06-01 14:09 | Emergency (ER) | payer MEDICAID, SELFPAY ==
--- NOTE | ~2025-06-01 | US_ITS ---
CLINICAL HISTORY: positive home test, lower abd pain, spotting US female pelvis LMP:Unknown. Beta HCG level: Unknown Technique: Ultrasound examination of the pelvis was performed with transabdominal and transvaginal technique for better visualization of the ovaries. Images include: Color Doppler. Comparison: 02/28/25 Findings: No identified intrauterine or extra uterine gestation. Anteverted uterus measuring 8.4 x 5.6 x 5.7cm without masses. Normal endometrial thickness of 1.1cm. The right ovary is normal in size, measuring 1.4 x 2.2 x 1.9cm. There is normal echogenicity and vascularity. No lesions. The left ovary is normal in size, measuring 3.2 x 1.8 x 1.5cm. There is normal echogenicity and vascularity. Corpus luteum measuring 1.6 x 1.9 x 1.7 cm. No free fluid. Impression: No identified intrauterine or extra uterine gestation. Correlate with beta HCG level. The differential diagnosis includes a normal early , miscarriage, nonvisualized ectopic or false positive home test. This document has been electronically signed by: Sara Carrillo MD on 06/01/2025 15:56:57
[2025-06-01 14:14] VITALS: BP 128/59; PULSE 88; RESP 18; TEMP 36.3; O2SAT 98; BMI 23.1
--- NOTE | 2025-06-01 14:15 | ED_ITS ---
HPI - General Adult General Chief complaint: OB Stated complaint: urine in blood, pain in lower abd, + Time Seen by Provider: 06/01/25 18:03 Related Data Home Medications ?Medication ?Instructions ?Recorded ?Confirmed desogestrel 0.15 mg-ethinyl 1 tab PO DAILY 01/07/22 estradiol 0.03 mg tablet (Apri) Previous Rx's ?Medication ?Instructions ?Recorded hydroxyzine HCl 10 mg tablet 10 mg PO TID PRN anxiety 14 days 01/10/22 #42 tabs clonidine HCl 0.1 mg tablet 0.1 mg PO TID 7 days #21 t abs 01/24/22 escitalopram oxalate 20 mg tablet 20 mg PO DAILY 14 da ys #14 tabs 01/24/22 (Lexapro) lorazepam 1 mg tablet (Ativan) 1 mg PO DAILY PRN anxie ty #1 tab 03/01/22 morphine 15 mg immediate release 15 mg PO Q4-6H PRN pa in #10 tabs 10/20/22 tablet hydroxyzine HCl 25 mg tablet 25 mg PO TID PRN anxiety #20 tabs 12/13/22 hydroxyzine HCl 25 mg tablet 25 mg PO BID PRN anxiety #20 tabs 01/24/23 hydroxyzine HCl 25 mg tablet 25 mg PO TID PRN anxiety #20 tabs 02/20/23 doxycycline monohydrate 100 mg 100 mg PO BID #14 caps 03/19/23 capsule ibuprofen 600 mg tablet 600 mg PO Q8H PRN pain #20 t abs 03/19/23 metronidazole 500 mg tablet 500 mg PO BID 7 days #14 t abs 03/19/23 tramadol 50 mg tablet 50 mg PO BID PRN severe pain 03/19/23 (scale score 7-10) #6 tabs clindamycin HCl 300 mg capsule 300 mg PO TID 5 days #1 5 caps 04/01/23 hydroxyzine HCl 25 mg tablet 25 mg PO TID PRN anxiety #20 tabs 06/02/23 lorazepam 0.5 mg tablet (Ativan) 0.5 mg PO BID PRN anx iety #10 tabs 07/19/23 albuterol sulfate 2.5 mg/3 mL 2.5 mg (3 mL) inhalation Q4-6H PRN 03/22/24 (0.083 %) solution for nebulization bronchospasm #75 m L ondansetron 4 mg disintegrating 4 mg PO Q12H PRN nause a and 02/28/25 tablet vomiting 5 days #10 tabs Allergies Allergy/AdvReac Type Severity Reaction Status Date / Time penicillin G (PENICILLIN G) Allergy Mild SWELLING Verified 06/01/25 14:16 SEAFOOD Allergy Unknown UNKNOWN Uncoded 05/15/25 23:20 [facility] Past Medical History Medical History Open wound Allergic rhinitis Eczema Exercise-induced asthma Rib fracture Asthma Surgical History History of ankle surgery History of appendectomy Social History Social History Household Members: Children Alcohol intake: current Alcohol intake frequency: holidays/special occasions only Alcohol type: hard liquor Patient Tobacco Use Status: Never used Tobacco Substance Use Type: Marijuana Advance Directives: No Advance Directives Information Provided: No Physical Exam ED Vital Signs: BMI result Body Mass Index 23.1 Course Course Course Narrative: This is a rapid medical exam performed by Lidia Hdez NP: Additional HPI, ROS, PE not included below will be deferred to primary provider. Patient is a 30-year-old female with history of one miscarriage presenting to the ED with complaint of lower abdominal cramping and spotting. States periods are usually irregular, last bleeding was for two days in March, none in April. Had a positive test at home. Plan: Labs, UA, U/S Patient left the emergency department before myself or any of the other clinicians could review or explain physical exam findings, test results, need or lack there of for additional testing, treatment options, or a treatment plan. Medical Decision Making Lab Data 06/01/25 15:25 06/01/25 15:25 Labs: Lab Results 06/01/25 Range/Units 15: WBC 9.5 (4.8-10.8) X10*3/uL RBC 4.64 (4.20-5.50) X10*6/uL Hgb 12.7 (12.0-16.0) g/dl Hct 37.5 (37.0-47.0) % MCV 80.8 (80.0-98.0) fL MCH 27.4 (27.0-33.0) pg MCHC 33.9 (31.0-35.0) g/dl RDW 13.7 (11.0-16.0) % Plt Count 326 (160-400) X10*3/uL MPV 10.1 (9.4-12.3) fL Immature Gran % (Auto) 1.0 H (0.0-0.4) % Neut % (Auto) 65.5 (45-73) % Lymph % (Auto) 19.4 L (20-40) % [place] % (Auto) 7.2 (2-11) % Eos % (Auto) 6.3 H (0-4) % Baso % (Auto) 0.6 (0-2) % Lymph # (Auto) 1.8 (1.2-4.9) X10*3/uL [place] # (Auto) 0.7 (0.1-1.2) X10*3/uL Eos # (Auto) 0.6 H (0.0-0.4) X10*3/uL Baso # (Auto) 0.1 (0.0-0.2) X10*3/uL Abs Immat Gran (auto) 0.09 H (0.00-0.03) X10*3/uL Absolute Neuts (auto) 6.2 (2.0-8.3) x10*3/uL Absolute Nucleated RBC 0.000 (0.0-0.012) X10*3/uL Nucleated RBC % (auto) 0.0 (0.0-0.2) /100WBC Sodium 139 (135-145) mmol/L Potassium 3.7 (3.3-5.1) mmol/L Chloride 105 (96-108) mmol/L Carbon Dioxide 27 (22-29) mmol/L Anion Gap 11 L (12-20) BUN 9 (9-16) mg/dL Creatinine 0.66 (0.5-1.4) mg/dL Estim Creat Clear Calc 111.1 Estimated GFR > 60 Random Glucose 81 (60-115) mg/dL Calcium 9.1 (8.4-10.2) mg/dL Total Bilirubin 0.3 (0.0-1.0) mg/dL AST 22 (5-31) U/L ALT 20 (0-31) U/L Alkaline Phosphatase 56 (39-117) U/L Total Protein 7.4 (6.5-8.0) g/dL Albumin 4.2 (3.5-5.0) g/dL Beta HCG, Quant 657 mIU/mL Urine Color Yellow Urine Appearance Clear Urine pH 6.5 (5.0-9.0) Ur Specific [place] >= 1.030 H (1.005-1.025) Urine Protein Negative (Neg-Trace) mg/dL Urine Glucose (UA) Negative (Negative) mg/dL Urine Ketones Trace (Negative) mg/dL Urine Blood Negative (Negative) Urine Nitrite Negative (Negative) Ur Leukocyte Esterase Negative (Negative) Ur N gonorrhoeae DNA (PCR) NOT DETECTED (Not Detect.) Ur Chlamydia DNA (PCR) NOT DETECTED (Not Detect.) T. vaginalis (PCR) NOT DETECTED (Not Detect) Bact vaginosis (PCR) POSITIVE A (Negative) C. krusei/glabrata (PCR) NOT DETECTED (Not Detect) Afshan group (PCR) NOT DETECTED (Not Detect) Blood Type O Positive Discharge Plan Discharge Clinical Impression: Vaginal bleeding Patient Disposition: Left W/O Completing Treatment Prescriptions: No Action desogestrel-ethinyl estradiol [Apri] 0.15-0.03 mg Tablet 1 tab PO DAILY hydroxyzine HCl 10 mg tablet 10 mg PO TID PRN (Reason: anxiety) 14 Days Qty: 42 0RF clonidine HCl 0.1 mg tablet 0.1 mg PO TID 7 Days Qty: 21 0RF escitalopram oxalate [Lexapro] 20 mg tablet 20 mg PO DAILY 14 Days Qty: 14 0RF lorazepam [Ativan] 1 mg tablet 1 mg PO DAILY PRN (Reason: anxiety) Qty: 1 0RF morphine 15 mg tablet 15 mg PO Q4-6H PRN (Reason: pain) Qty: 10 0RF Rx Instructions: The patient may ask for partial fill; Partial Fill upon patient request. hydroxyzine HCl 25 mg tablet 25 mg PO BID PRN (Reason: anxiety) Qty: 20 0RF hydroxyzine HCl 25 mg tablet 25 mg PO TID PRN (Reason: anxiety) Qty: 20 0RF metronidazole 500 mg tablet 500 mg PO BID 7 Days Qty: 14 0RF doxycycline monohydrate 100 mg capsule 100 mg PO BID Qty: 14 0RF ibuprofen 600 mg tablet 600 mg PO Q8H PRN (Reason: pain) Qty: 20 0RF tramadol 50 mg tablet 50 mg PO BID PRN (Reason: severe pain (scale score 7-10)) Qty: 6 0RF lorazepam [Ativan] 0.5 mg tablet 0.5 mg PO BID PRN (Reason: anxiety) Qty: 10 0RF albuterol sulfate 2.5 mg /3 mL (0.083 %) solution for nebulization 2.5 mg inhalation Q4-6H PRN (Reason: bronchospasm) Qty: 75 0RF hydroxyzine HCl 25 mg tablet 25 mg PO TID PRN (Reason: anxiety) Qty: 20 0RF clindamycin HCl 300 mg capsule 300 mg PO TID 5 Days Qty: 15 0RF hydroxyzine HCl 25 mg tablet 25 mg PO TID PRN (Reason: anxiety) Qty: 20 0RF ondansetron 4 mg tablet,disintegrating 4 mg PO Q12H PRN (Reason: nausea and vomiting) 5 Days Qty: 10 0RF Discharge Date/Time: 06/01/25 18:07
[2025-06-01 15:33] LABS: MANUAL DIFF FLAG NO
[2025-06-01 15:36] LABS: Appearance Urine Clear; Glucose Urine UA Negative (Negative); PH 6.5 (5.0-9.0); Specific Gravity - Urine >= 1.030 (1.005-1.025)
[2025-06-01 15:38] LABS: Hematocrit 37.5 % (37.0-47.0); Hemoglobin 12.7 g/dl (12.0-16.0); Imm Gran Abs Auto 0.09 X10*3/uL (0.00-0.03); Imm Gran Pct Auto 1.0 % (0.0-0.4); Lymphocytes Absolute Auto 1.8 X10*3/uL (1.2-4.9); Mean Corpuscular HGB Conc 33.9 g/dl (31.0-35.0); Mean Corpuscular Hemoglobin 27.4 pg (27.0-33.0); Mean Corpuscular Volume 80.8 fL (80.0-98.0); NRBC Abs Auto 0.000 X10*3/uL (0.0-0.012); NRBC Pct Auto 0.0 /100WBC (0.0-0.2); Platelet Count 326 X10*3/uL (160-400); Red Blood Count 4.64 X10*6/uL (4.20-5.50); White Blood Count 9.5 X10*3/uL (4.8-10.8)
[2025-06-01 16:00] LABS: Alanine Aminotransferase 20 U/L (0-31); Albumin Level 4.2 g/dL (3.5-5.0); Alkaline Phosphatase 56 U/L (39-117); Anion Gap 11 (12-20); Aspartate Amino Transferase 22 U/L (5-31); Blood Urea Nitrogen 9 mg/dL (9-16); Calcium 9.1 mg/dL (8.4-10.2); Carbon Dioxide 27 mmol/L (22-29); Chloride 105 mmol/L (96-108); Creatinine Clr Calc Pharmacy 111.1; Estimated Glomerular Filt Rate > 60; Potassium 3.7 mmol/L (3.3-5.1); Sodium 139 mmol/L (135-145); Total Protein 7.4 g/dL (6.5-8.0)
--- OUTSIDE RECORDS SUMMARY | 2025-06-01 18:07 | XMS_ITS | Clinical Summary ---
Author Organization [facility] [address] [facility] Address [address] [place] [address] Phone Care Team Providers Care Pop Singer Name Role Phone Shayne Benavides MD Primary [...] Procedure Name Priority Date/Time Associated Diagnosis Comments DEPRESSION SCREENING Routine 02/08/2024 HEPATITIS C SCREENING Routine 02/08/2024 LIPID PANEL Routine 02/08/2024 HPV Routine 06/08/2016 HIV SCREENING Routine 2016 from Last 3 Months or Most Recently Relevant to Health Maintenance Results * Depression Screening (02/08/2024) Pathologist [facility] Depression Screening abstracted [facility] Provider HEALTH MAINTENANCE Final Result * Hepatitis C Screening (02/08/2024) Pathologist [facility] Hepatitis C Screening abstracted [facility] Provider HEALTH MAINTENANCE Final Result * (ABNORMAL) Lipid panel (02/08/2024) [facility] LDL/HDL Ratio 3 0 - 4 Triglycerides 239(A) 0 - 150 mg/dL Cholesterol 183 0 - 200 mg/dL HDL 66 >=40 mg/dL LDL Cholesterol 70 0 - 100 mg/dL Blood Venous blood specimen / Unknown Result [facility] Provider LAB BLOOD ORDERABLES Padma l Result * Cervical Cancer Screening: HPV (06/08/2016) [facility] Cervical Cancer Screening: HPV abstracted; negative Result [facility] Provider HEALTH MAINTENANCE Final Result * HIV Screening (2016) [facility] HIV Screening abstracted [facility] Provider HEALTH MAINTENANCE Final Result from Last 3 Months or Most Recently Relevant to Health Maintenance Insurance [facility] [place] [address] Care Teams Pop Singer Relationship Specialty Start Date End Date Shayne Benavides MD [address] [place] [address] PCP - General 11/15/23
[2025-06-02 04:19] LABS: Bacterial Vaginosis PCR POSITIVE (Negative); Candida Group PCR NOT DETECTED (Not Detect); Candida glab krusei PCR NOT DETECTED (Not Detect); Trichomonas vaginalis PCR NOT DETECTED (Not Detect)
[2025-06-02 04:49] LABS: CT PCR Urine NOT DETECTED (Not Detect.); NG PCR Urine NOT DETECTED (Not Detect.)
== END 2025-06-01 18:07 | disposition left against medical advice (07) ==
LOC: HO.ED 18:05
PROVIDERS: Registered Nurse Emergency; Emergency Provider Emergency Medicine; PCP Internal Medicine
DX: O20.9 Hemorrhage in early pregnancy, unspecified (principal); Z3A.01 Less than 8 weeks gestation of pregnancy; N76.0 Acute vaginitis; R25.2 Cramp and spasm; R10.2 Pelvic and perineal pain; Z79.899 Other long term (current) drug therapy
CPT/HCPCS: 36415; 76801; 76817; 80053; 81003; 81515; 84702; 85025; 86900; 86901; 87491; 87591; 99282; 99284

== ENCOUNTER → 2025-06-01 14:17 | Outpatient (BNV) | payer SELFPAY | PROVIDERS: PCP Internal Medicine; Visit Provider Radiology Diagnostic Radiology | DX: N83.12 Corpus luteum cyst of left ovary (principal) | CPT/HCPCS: 76801; 76817 ==